=== PATIENT | male | born 1970 | race Caucasian/White ===

== ENCOUNTER 2016-12-19 01:30 | Observation (INO) | payer OTHER ==
[2016-12-19] MEDS ORDERED: ASPIRIN 81 MG CHEW PO STA (02:04)
[2016-12-19] MEDS ORDERED: SODIUM CHLORIDE 0.9% 1,000 ML IV STA (02:04)
[2016-12-19] MEDS ORDERED: NITROGLYCERIN SL TABS 0.4 MG TAB SUBLINGUAL STA ×3 (02:04)
--- NOTE | 2016-12-19 02:08 | ED ---
General Adult HPI - General Chief complaint: Chest Pain Stated complaint: Chest pain Time Seen by Provider: 12/19/16 01:55 Source: patient, RN notes reviewed Mode of arrival: wheelchair Limitations: no limitations - History of Present Illness Initial comments: Patient is a pleasant 56-year-old male presenting to the emergency department complaining of chest discomfort. Onset has been for couple of days. Discomfort is midsternal. Patient also has some mild upper abdominal discomfort. Patient feels somewhat short of breath. Patient felt sweaty earlier. No nausea or vomiting. No change with symptoms with food intake. No history of similar symptoms previously. - Related Data Home Medications Medication Instructions Recorded Confirmed ALPRAZolam [Xanax] 1 mg PO BID PRN 04/21/14 12/19/16 Albuterol Inhaler [Ventolin Hfa 2 puff INHALATION RT-Q6H PRN 04/21/14 12/19/16 Inhaler] Carisoprodol [Soma] 350 mg PO TID PRN 04/21/14 12/19/16 Lisinopril 40 mg PO HS 04/21/14 12/19/16 oxyCODONE HCL 30 mg PO QID 04/21/14 12/19/16 Cetirizine HCl 10 mg PO BID 10/11/15 12/19/16 Carboxymethylcellulose Sodium 1 drop BOTH EYES QID PRN 01/22/16 12/19/16 [Refresh Tears] Hydrochlorothiazide [Hydrodiuril] 25 mg PO DAILY 05/13/16 12/19/16 Pseudoephedrine 12Hr [Sudafed 12 120 mg PO Q12H PRN 05/13/16 12/19/16 Hour] Previous Rx's Medication Instructions Recorded Rivaroxaban [Xarelto] 15 mg PO BID-W/MEALS tab 07/01/16 Albuterol Inhaler [Ventolin Hfa 1 - 2 puff INHALATION Q6HR PRN #1 07/04/16 Inhaler] inhaler Azithromycin [Zithromax Z-pack] 0 mg PO DIRECTED #6 tab 07/04/16 Budesonide-Formot 160-4.5 Mcg 2 puff INHALATION RT-BID #4 bottle 07/04/16 [Symbicort 160-4.5 Mcg Inhaler] predniSONE [Deltasone] 20 mg PO DAILY #15 tablet 07/04/16 Allergies Allergy/AdvReac Type Severity Reaction Status Date / Time cyclobenzaprine HCl Allergy Itching Verified 12/19/16 01:40 [From Flexeril] ibuprofen [From Motrin] AdvReac Nausea Verified 12/19/16 01:40 Review of Systems ROS Statement: Those systems with pertinent positive or pertinent negative responses have been documented in the HPI. ROS Other: All systems not noted in ROS Statement are negative. Constitutional: Denies: fever Eyes: Denies: eye pain ENT: Denies: ear pain Respiratory: Reports: dyspnea. Denies: cough Cardiovascular: Reports: chest pain Endocrine: Denies: fatigue Gastrointestinal: Reports: abdominal pain. 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 EDENTULOUS. History of Any Multi-Drug Resistant Organisms: None Reported Past Surgical History: Orthopedic Surgery Additional Past Surgical History / Comment(s): Right knee replacement, tubes in bilateral ears now removed, removal of right eye-HAS ARTIFICIAL EYE. Past Anesthesia/Blood Transfusion Reactions: No Reported Reaction Past Psychological History: Anxiety, Schizophrenia Smoking Status: Current every day smoker Past Alcohol Use History: None Reported Additional Past Alcohol Use History / Comment(s): STARTED SMOKING 1989 SMOKES 1 PPD Past Drug Use History: None Reported - Past Family History Father History Unknown: Yes Family Medical History: Unable to Obtain Additional Family Medical History / Comment(s): Patient was adopted Mother Family Medical History: Unable to Obtain Additional Family Medical History / Comment(s): Patient was adopted General Exam Limitations: no limitations General appearance: alert, in no apparent distress, obese Head exam: Present: atraumatic Eye exam: Present: other (Right prosthetic eye) ENT exam: Present: normal oropharynx Neck exam: Present: normal inspection Respiratory exam: Present: normal lung sounds bilaterally Cardiovascular Exam: Present: regular rate, normal rhythm GI/Abdominal exam: Present: soft, tenderness (Mild tenderness right upper quadrant). Absent: distended Extremities exam: Present: normal inspection. Absent: calf tenderness Neurological exam: Present: alert. Absent: motor sensory deficit Psychiatric exam: Present: normal affect, normal mood Skin exam: Absent: rash Course Vital Signs 12/19/16 12/19/16 12/19/16 01:34 02:32 02:37 Temperature 99.2 F Pulse Rate 83 83 89 Respiratory 20 16 16 Rate Blood Pressure 180/90 143/70 127/62 O2 Sat by Pulse 97 96 95 Oximetry EKG Findings - EKG Comments: EKG Findings:: Normal sinus rhythm at 82. MD 144. QRS 96. QT 386. QTc 450. Left axis. Normal QRS. Nonspecific T-wave. Medical Decision Making - Medical Decision Making Patient reevaluated and resting comfortably in bed. Patient states discomfort is now more in the right upper abdomen. There is continued mild to moderate tenderness. Case was discussed with Dr. neri, who will admit for Dr. Bradford. Cardiac enzymes will be rechecked. Ultrasound will be ordered. - Lab Data Result diagrams: 12/19/16 02:15 12/19/16 02:15 Lab Results 12/19/16 12/19/16 12/19/16 Range/Units 02:15 02:15 02:15 WBC 11.0 H (3.8-10.6) k/uL RBC 5.22 (4.30-5.90) m/uL Hgb 15.7 (13.0-17.5) gm/dL Hct 47.2 (39.0-53.0) % MCV 90.4 (80.0-100.0) fL MCH 30.0 (25.0-35.0) pg MCHC 33.2 (31.0-37.0) g/dL RDW 13.5 (11.5-15.5) % Plt Count 190 (150-450) k/uL Neutrophils % 68 % Lymphocytes % 23 % Monocytes % 4 % Eosinophils % 3 % Basophils % 1 % Neutrophils # 7.4 (1.3-7.7) k/uL Lymphocytes # 2.5 (1.0-4.8) k/uL Monocytes # 0.5 (0-1.0) k/uL Eosinophils # 0.3 (0-0.7) k/uL Basophils # 0.1 (0-0.2) k/uL PT (9.0-12.0) sec INR (<1.1) APTT (22.0-30.0) sec Sodium 139 (137-145) mmol/L Potassium 4.0 (3.5-5.1) mmol/L Chloride 101 (98-107) mmol/L Carbon Dioxide 29 (22-30) mmol/L Anion Gap 9 mmol/L BUN 11 (9-20) mg/dL Creatinine 0.60 L (0.66-1.25) mg/dL Est GFR (MDRD) Af Amer >60 (>60 ml/min/1.73 sqM) Est GFR (MDRD) Non-Af >60 (>60 ml/min/1.73 sqM) Glucose 194 H (74-99) mg/dL Calcium 8.7 (8.4-10.2) mg/dL Magnesium 1.7 (1.6-2.3) mg/dL Total Bilirubin 0.6 (0.2-1.3) mg/dL AST 27 (17-59) U/L ALT 43 (21-72) U/L Alkaline Phosphatase 97 (38-126) U/L Total Creatine Kinase 50 L (55-170) U/L CK-MB (CK-2) 0.5 (0.0-2.4) ng/mL CK-MB (CK-2) Rel Index 1.0 Troponin I <0.012 (0.000-0.034) ng/mL Total Protein 6.6 (6.3-8.2) g/dL Albumin 3.6 (3.5-5.0) g/dL Amylase <30 L (30-110) U/L Lipase 187 (23-300) U/L 12/19/16 Range/Units 02:15 WBC (3.8-10.6) k/uL RBC (4.30-5.90) m/uL Hgb (13.0-17.5) gm/dL Hct (39.0-53.0) % MCV (80.0-100.0) fL MCH (25.0-35.0) pg MCHC (31.0-37.0) g/dL RDW (11.5-15.5) % Plt Count (150-450) k/uL Neutrophils % % Lymphocytes % % Monocytes % % Eosinophils % % Basophils % % Neutrophils # (1.3-7.7) k/uL Lymphocytes # (1.0-4.8) k/uL Monocytes # (0-1.0) k/uL Eosinophils # (0-0.7) k/uL Basophils # (0-0.2) k/uL PT 11.6 (9.0-12.0) sec INR 1.2 (<1.1) APTT 27.9 (22.0-30.0) sec Sodium (137-145) mmol/L Potassium (3.5-5.1) mmol/L Chloride (98-107) mmol/L Carbon Dioxide (22-30) mmol/L Anion Gap mmol/L BUN (9-20) mg/dL Creatinine (0.66-1.25) mg/dL Est GFR (MDRD) Af Amer (>60 ml/min/1.73 sqM) Est GFR (MDRD) Non-Af (>60 ml/min/1.73 sqM) Glucose (74-99) mg/dL Calcium (8.4-10.2) mg/dL Magnesium (1.6-2.3) mg/dL Total Bilirubin (0.2-1.3) mg/dL AST (17-59) U/L ALT (21-72) U/L Alkaline Phosphatase (38-126) U/L Total Creatine Kinase (55-170) U/L CK-MB (CK-2) (0.0-2.4) ng/mL CK-MB (CK-2) Rel Index Troponin I (0.000-0.034) ng/mL Total Protein (6.3-8.2) g/dL Albumin (3.5-5.0) g/dL Amylase (30-110) U/L Lipase (23-300) U/L - Radiology Data Radiology results: image reviewed (Chest x-ray shows no acute process) Disposition Clinical Impression: Chest pain, Abdominal pain Disposition: ADMITTED IP TO THIS HOSP
[2016-12-19 02:46] LABS: Basophils # (A) 0.1 k/uL (0-0.2); Basophils % (A) 1 %; CH 30.7; CHCM 34.1; Eosinophils # (A) 0.3 k/uL (0-0.7); Eosinophils % (A) 3 %; HCT 47.2 % (39.0-53.0); HDW 2.66; HGB 15.7 gm/dL (13.0-17.5); Luc # (Auto) 0.19; Luc % (Auto) 2; Lymphocytes # (A) 2.5 k/uL (1.0-4.8); Lymphocytes % (A) 23 %; MCHC 33.2 g/dL (31.0-37.0); MCV 90.4 fL (80.0-100.0); Mean Platelet Volume 7.5; Monocytes # (A) 0.5 k/uL (0-1.0); Monocytes % (A) 4 %; Neutrophils # (A) 7.4 k/uL (1.3-7.7); Neutrophils % (A) 68 %; RBC 5.22 m/uL (4.30-5.90); RDW 13.5 % (11.5-15.5); WBC (Perox) 11.12
[2016-12-19 02:55] LABS: INR 1.2 (<1.1); Partial Thromboplastin Time 27.9 sec (22.0-30.0); Prothrombin Time 11.6 sec (9.0-12.0)
[2016-12-19 02:57] LABS: ALT 43 U/L (21-72); AST 27 U/L (17-59); Alkaline Phosphatase 97 U/L (38-126); Amylase <30 U/L (30-110); Anion Gap 9 mmol/L; Blood Urea Nitrogen 11 mg/dL (9-20); Calcium 8.7 mg/dL (8.4-10.2); Carbon Dioxide 29 mmol/L (22-30); Chloride 101 mmol/L (98-107); Glucose 194 mg/dL (74-99); Magnesium 1.7 mg/dL (1.6-2.3); Non-African American GFR(MDRD) >60 (>60 ml/min/1.73 sqM); Sodium 139 mmol/L (137-145); Total Bilirubin 0.6 mg/dL (0.2-1.3); Total Protein 6.6 g/dL (6.3-8.2)
[2016-12-19 03:09] LABS: Creatine Kinase 50 U/L (55-170)
[2016-12-19 03:22] LABS: Creatine Kinase MB 0.5 ng/mL (0.0-2.4); Troponin I <0.012 ng/mL (0.000-0.034)
--- NOTE | 2016-12-19 03:42 | XR ---
EXAM: XR Chest, 1 View. CLINICAL HISTORY: Reason: Chest Pain TECHNIQUE: Frontal view of the chest. COMPARISON: Chest x-ray dated 06/25/2016 FINDINGS: Lungs: Unremarkable. No consolidation. Pleural space: Unremarkable. No pneumothorax. Heart: Unremarkable. No cardiomegaly. Mediastinum: Unremarkable. Bones/joints: Unremarkable. IMPRESSION: Normal chest x-ray.
[2016-12-19] MEDS ORDERED: FAMOTIDINE 20 MG/2 ML VIAL IV STA (04:03)
[2016-12-19] MEDS: MORPHINE SULFATE 4 MG/ML SYRINGE IV STA ×2 (04:07→06:31)
[2016-12-19] MEDS ORDERED: NITROGLYCERIN SL TABS 0.4 MG TAB SUBLINGUAL PRN (04:09)
--- NOTE | 2016-12-19 05:04 | XR ---
EXAM: XR Abdomen Complete, 2 or More Views. CLINICAL HISTORY: Pain TECHNIQUE: Frontal view of the abdomen/pelvis with upright view of the abdomen. COMPARISON: CT A/P dated 09/24/15 FINDINGS: Intraperitoneal space: Nonobstructive bowel gas pattern. No pneumatosis or free air. Gastrointestinal tract: Unremarkable. No dilation. Bones/joints: Unremarkable. IMPRESSION: No acute findings.
[2016-12-19] MEDS: NITROGLYCERIN OINT 1 INCH/GM PACKET TOPICAL SCH ×2 (08:31→12:00)
--- NOTE | 2016-12-19 08:43 | US ---
EXAMINATION TYPE: US gallbladder DATE OF EXAM: 12/19/2016 8:18 AM COMPARISON: See PACS CT abdomen pelvis September 24, 2015. CLINICAL HISTORY: Pain. EXAM MEASUREMENTS: Liver Length: 26.3 cm Gallbladder Wall: 0.3 cm CBD: 0.2 cm Right Kidney: 13.3 cm on long axis. TECHNOLOGIST IMPRESSION: Patient 6'2" 525lbs, exam technically difficult with severe limitations Pancreas: portions visualized wnl, tail obscured by overlying bowel gas Liver: Left lobe appears heterogeneous, unable to penetrate right, severe fatty infiltrate, hepatome ilene Gallbladder: not well visualized due to extreme morbid obesity, no stones or thickened wall could be seen Evidence for sonographic Meyer's sign: yes CBD: wnl Right Kidney: inferior pole obscured by overlying bowel gas Exam is suboptimal secondary to patient's underlying morbid obesity. Visualized pancreas shows no wor risome mass or ductal dilatation, entire pancreas is not evaluated on images saved. Visualized liver is heterogeneously hyperechoic in appearance without intrahepatic ductal dilatation. Finding is presu med on basis of diffuse fatty infiltration. Evaluation for focal masses is limited due to the heterog eneity. No shadowing mobile gallstones in visualized portion of gallbladder. No suspicious gallbladde r wall thickening or pericholecystic fluid is seen. IMPRESSION: Suboptimal study but no gallstones or ultrasound evidence for acute cholecystitis is note d.
[2016-12-19 09:05] LABS: Creatine Kinase 45 U/L (55-170)
[2016-12-19 09:18] LABS: Creatine Kinase MB 0.4 ng/mL (0.0-2.4); Troponin I <0.012 ng/mL (0.000-0.034)
[2016-12-19] MEDS ORDERED: LISINOPRIL 20 MG TAB PO SCH (10:00)
[2016-12-19] MEDS ORDERED: HYDROCHLOROTHIAZIDE 25 MG TAB PO SCH (10:00)
[2016-12-19] MEDS ORDERED: CARISOPRODOL 350 MG TAB PO PRN (10:25)
[2016-12-19] MEDS ORDERED: ALBUTEROL NEBULIZED 2.5 MG/3 ML INHALATION PRN (10:25)
[2016-12-19] MEDS ORDERED: ALPRAZolam 0.5 MG TAB PO PRN (10:25)
[2016-12-19] MEDS ORDERED: LORATADINE 10 MG TAB PO SCH (11:00)
[2016-12-19] MEDS ORDERED: RIVAROXABAN 10 MG TAB PO SCH (11:00)
--- NOTE | 2016-12-19 11:03 | CONS ---
DATE OF CONSULTATION: This patient's emergency medical record reviewed. Patient came to the emergency room with the complaint of epigastric and chest discomfort. The pain is in the left upper part of the chest. It is sharp, stabbing pain, which comes and goes. Patient also has been having some abdominal discomfort. Patient denies any nausea or vomiting. This patient is ( ) obese, has some exertional shortness of breath, history of hypertension. There is no definite previous history of myocardial infarction. Patient's home medications include Ventolin inhaler, lisinopril, cetirizine, HydroDIURIL. Past medical history includes a history of orthopedic surgery, history of COPD, history of DVT, pulmonary embolism and atypical chest pain. Patient also has a history of sleep apnea and patient is using a CPAP machine. Physical examination at present reveals a 46-year-old ( ) obese gentleman who does not appear to be in any acute distress. Blood pressure is 125/74 mmHg. In the emergency room, patient's blood pressure was 190/94 mmHg, oxygen saturation is 94%. Head/ENT examination is negative. Neck is supple. There is no increase in jugular venous pressure. Both the carotid pulses are felt. There is no bruit. Chest is symmetrical. HEART: The PMI is not felt. First and second heart sounds are normal. There is no evidence of any murmur. Lungs are clinically clear to auscultation and percussion. ABDOMEN: Soft. EXTREMITIES: Peripheral pulsations are 1+. EKG shows normal sinus rhythm without any acute ischemic changes. Patient's electrolytes are normal. Two sets of troponins are normal. Amylase and lipase is normal. Ultrasound of the gallbladder was normal. FINAL IMPRESSION: This patient is admitted with atypical abdominal and chest pain. Chest pains are atypical. EKGs and cardiac enzymes are normal. We will obtain echo and Doppler study. If the echo and Doppler study is normal, we will recommend symptomatic medical therapy. Patient is not a candidate for any further cardiac intervention.
[2016-12-19 15:42] LABS: Creatine Kinase 53 U/L (55-170)
[2016-12-19 15:56] LABS: Creatine Kinase MB 0.5 ng/mL (0.0-2.4); Troponin I <0.012 ng/mL (0.000-0.034)
[2016-12-19 16:04] VITALS: BP 136/64; PULSE 80; RESP 18; TEMP 98.5
[2016-12-19] MEDS ORDERED: IPRATROPIUM-ALBUTEROL 3 ML NEB INHALATION SCH (16:15)
[2016-12-19] MEDS ORDERED: NYSTATIN 100,000 UNIT/GM POWD 15 GM TOPICAL SCH (16:30)
[2016-12-19] MEDS ORDERED: CEPHALEXIN 500 MG CAP PO SCH (18:00)
--- NOTE | 2016-12-19 20:05 | HP ---
DATE OF ADMISSION: 12/19/2016 PRESENTING COMPLAINT: Chest pain. HISTORY OF PRESENTING COMPLAINT: This is a 46-year-old patient of Dr. Marian Bradford whose chronic stable medical conditions include obesity, hypertension, GERD, artificial right eye. Patient has ejection fraction of 40% to 45%, history of pulmonary embolism for which patient takes Xarelto. Patient's pulmonary embolism was on 06/28/2016. Patient presents with left-sided chest pain, stabbing, sharp, pain down the left arm for about 10 to 15 seconds. Patient does smoke or does ( ) sometimes. There is no perspiration and his pain was rather short-lived. REVIEW OF SYSTEMS: CONSTITUTIONAL: None. HEENT: Artificial right eye. RESPIRATORY: Occasional wheezing and short of breath. CARDIOVASCULAR: As above. GASTROINTESTINAL: Heartburn. GENITOURINARY: Patient has a small tender swelling in the right groin and had some discharge, he says. LYMPHATIC: No lymph nodes palpable in neck or axillae. PSYCHIATRY: Alert and oriented x3. Mood and affect normal. NEUROLOGICAL: Pupils equal. Cranial nerves grossly intact. Power and sensation grossly intact. INVESTIGATIONS: White count 11, hemoglobin 15.7, platelets 190. Potassium 4.0, BUN 11, creatinine 0.60. Amylase less than 30, lipase 187. On examination, temperature 99.2, pulse 83, respirations 20, blood pressure 143/70, pulse ox 96% on room air. GENERAL APPEARANCE: Morbidly obese, BMI of 67.5; lying in bed, comfortable. EYES: Artificial right eye. HENT: External appearance of oral cavity normal. NECK: JVD not raised. Mass not palpable. RESPIRATORY: Effort increased. LUNGS: Distant breath sounds. Mild wheezing. CARDIOVASCULAR: First and second sounds normal. No edema. ABDOMEN: Distended, soft. Liver and spleen not palpable. Groin is moist. He does have redness and there may be folliculitis on the right side next to the scrotal base. LYMPHATIC: No lymph nodes palpable or axillae. PSYCHIATRY: Alert and oriented x3. Mood and affect normal. NEUROLOGICAL: Pupils nerves equal. Cranial nerves grossly intact. Power and sensation grossly intact. ASSESSMENT: 1. Chronic obstructive pulmonary disease in a current smoker. 2. Chronic nicotine dependence. Patient is a smoker. 3. Morbid obesity, body mass index of 67.5. 4. Essential hypertension. 5. Artificial right eye. 6. Cardiomyopathy; ejection fraction 40% to 45%, cause unknown. 7. Secondary pulmonary hypertension. 8. Chronic pulmonary embolism on 06/28/2016. Patient on Xarelto. 9. Possible anterior chest wall musculoskeletal pain lasting only 15 seconds. PLAN: Patient will be put on nebulized bronchodilators, advised against smoking, given a nicotine patch. Home medications are resumed. Cardiology was consulted. Care was discussed with the patient.
[2016-12-20] MEDS ORDERED: ASPIRIN 325 MG TAB PO SCH (09:00)
--- NOTE | 2016-12-21 13:50 | DS ---
DATE OF ADMISSION: 12/19/2016 DATE OF DISCHARGE: 12/19/2016 FINAL DIAGNOSES: 1. Anterior chest wall pain, likely musculoskeletal in nature. 2. Chronic obstructive pulmonary disease in a current smoker. 3. Chronic nicotine dependence. Patient is a smoker. 4. Morbid obesity. Body mass index 67.5. 5. Essential hypertension. 6. Artificial right eye. 7. Cardiomyopathy; ejection fraction 40% to 45% cause unknown, idiopathic. 8. Secondary pulmonary hypertension due to underlying chronic obstructive pulmonary disease. 9. Chronic pulmonary embolism on 06/28/2016. Patient currently on Xarelto. 10. Right groin candidiasis. 11. Acute right groin folliculitis. HOSPITAL COURSE: This patient presented with right anterior chest wall pain, seen by Dr. Zhao Marie. Two-D echo was unremarkable. Formal results are still pending. Patient was told to keep his groin dry, use nystatin powder. There was an element of folliculitis for which a course of antibiotics ( ) care was discussed in detail with the patient. On examination, LUNGS: Distant breath sounds. Artificial right eye. Redness in the right groin area, more a fungal type and localized folliculitis. DISCHARGE MEDICATIONS: 1. Xanax 100 mg p.o. b.i.d. p.r.n. 2. Ventolin HFA 2 puffs every 6 hours p.r.n. 3. Soma 350 mg p.o. t.i.d. p.r.n. 4. Lisinopril 40 mg p.o. b.i.d. 5. Oxycodone 30 mg p.o. q.i.d. 6. Cetirizine 10 mg p.o. b.i.d. 7. Hydrochlorothiazide 25 mg p.o. b.i.d. 8. Keflex 500 mg p.o. q.i.d, 28 capsules. 9. Atrovent HFA 2 puffs q.i.d. 10. Mycostatin powder topical t.i.d. 11. Xarelto 10 mg p.o. b.i.d. Follow up with Dr. Marian Bradford on 12/20/2016.
== END 2016-12-19 17:20 | disposition home or self-care (01) ==
LOC: EC 01:30 → 3OBS 04:09
PROVIDERS: ADMIT Hospitalist; ATTEND Hospitalist
DX: R07.89 Other chest pain (principal); R10.13 Epigastric pain; J44.9 Chronic obstructive pulmonary disease, unspecified; F17.200 Nicotine dependence, unspecified, uncomplicated; E66.01 Morbid (severe) obesity due to excess calories; Z68.44 Body mass index [BMI] 60.0-69.9, adult; I10 Essential (primary) hypertension; Z97.0 Presence of artificial eye; I42.9 Cardiomyopathy, unspecified; I27.2 Other secondary pulmonary hypertension; I27.82 Chronic pulmonary embolism; B37.9 Candidiasis, unspecified; F41.9 Anxiety disorder, unspecified; L73.9 Follicular disorder, unspecified; H40.9 Unspecified glaucoma; Z79.82 Long term (current) use of aspirin; Z79.891 Long term (current) use of opiate analgesic; Z79.01 Long term (current) use of anticoagulants; Z88.6 Allergy status to analgesic agent; Z88.8 Allergy status to other drugs, medicaments and biological substances; Z79.899 Other long term (current) drug therapy; G47.30 Sleep apnea, unspecified; Z99.89 Dependence on other enabling machines and devices; Z86.718 Personal history of other venous thrombosis and embolism; Z90.01 Acquired absence of eye
CPT/HCPCS: 36415; 93005; 80053; 82150; 82550; 82553; 83690; 83735; 84484; 85025; 85610; 85730; 71010; 74000; 76705; 99285; 96374; 96375; 96376; 96361 ×7; G0378; J2270

== ENCOUNTER 2017-01-22 17:26 | Emergency (ER) | payer OTHER ==
[2017-01-22 18:42] VITALS: RESP 18
[2017-01-22] MEDS ORDERED: IPRATROPIUM-ALBUTEROL 3 ML NEB INHALATION STA (19:30)
[2017-01-22 20:09] LABS: Basophils # (A) 0.1 k/uL (0-0.2); Basophils % (A) 1 %; CH 31.1; Eosinophils # (A) 0.3 k/uL (0-0.7); Eosinophils % (A) 3 %; HCT 47.5 % (39.0-53.0); HDW 2.63; HGB 15.9 gm/dL (13.0-17.5); Luc # (Auto) 0.13; Luc % (Auto) 1; Lymphocytes # (A) 2.3 k/uL (1.0-4.8); Lymphocytes % (A) 23 %; MCH 30.6 pg (25.0-35.0); MCHC 33.3 g/dL (31.0-37.0); MCV 91.6 fL (80.0-100.0); Mean Platelet Volume 7.5; Monocytes # (A) 0.5 k/uL (0-1.0); Monocytes % (A) 5 %; Neutrophils # (A) 6.7 k/uL (1.3-7.7); Neutrophils % (A) 67 %; RBC 5.19 m/uL (4.30-5.90); RDW 13.9 % (11.5-15.5); WBC 10.1 k/uL (3.8-10.6); WBC (Perox) 9.88
[2017-01-22 20:18] LABS: ALT 37 U/L (21-72); AST 27 U/L (17-59); Alkaline Phosphatase 92 U/L (38-126); Anion Gap 8 mmol/L; Blood Urea Nitrogen 8 mg/dL (9-20); Calcium 8.9 mg/dL (8.4-10.2); Carbon Dioxide 28 mmol/L (22-30); Chloride 103 mmol/L (98-107); Glucose 156 mg/dL (74-99); Magnesium 1.8 mg/dL (1.6-2.3); Non-African American GFR(MDRD) >60 (>60 ml/min/1.73 sqM); Potassium 4.1 mmol/L (3.5-5.1); Sodium 139 mmol/L (137-145); Total Bilirubin 0.9 mg/dL (0.2-1.3); Total Protein 7.1 g/dL (6.3-8.2)
[2017-01-22 20:21] LABS: Prothrombin Time 10.4 sec (9.0-12.0)
--- NOTE | 2017-01-22 20:21 | ED ---
General Adult HPI - General Chief complaint: Upper Respiratory Infection Stated complaint: POSS BRONCHITIS, LUNG PAIN, LEFT ARM NUMBNESS Time Seen by Provider: 01/22/17 19:21 Source: patient, RN notes reviewed, old records reviewed Mode of arrival: wheelchair Limitations: no limitations - History of Present Illness Initial comments: Patient is a 46-year-old male with chief complaint of cough and shortness of breath for the past 3 days. Patient states that this usually happens to him twice a year. Patient reports he has a history of a blood pressure and diabetes. Patient is obese. Patient states that he does have some chest pain and it goes down towards the left side of his arm, patient reports that this occurs whenever he is coughing severely. Patient has a past medical history of PE , heart disease, diabetes. Patient denies any fever or chills. He states that his cough is nonproductive. Patient denies any abdominal pain, nausea or vomiting. Patient is a smoker. - Related Data Home Medications Medication Instructions Recorded Confirmed ALPRAZolam [Xanax] 1 mg PO BID PRN 04/21/14 01/22/17 Albuterol Inhaler [Ventolin Hfa 2 puff INHALATION RT-Q6H PRN 04/21/14 01/22/17 Inhaler] Lisinopril 40 mg PO BID 04/21/14 01/22/17 oxyCODONE HCL 30 mg PO QID 04/21/14 01/22/17 Cetirizine HCl 10 mg PO DAILY 10/11/15 01/22/17 Hydrochlorothiazide [Hydrodiuril] 25 mg PO BID 05/13/16 01/22/17 Rivaroxaban [Xarelto] 10 mg PO BID 12/19/16 01/22/17 Ipratropium [place] [Atrovent Hfa] 2 puff INHALATION RT-QID 01/22/17 01/22/17 Previous Rx's Medication Instructions Recorded Levofloxacin [Levaquin] 750 mg PO DAILY #7 tab 01/22/17 Promethazine/Dextromethorphan 5 ml PO TID #120 ml 01/22/17 [Phenergan DM Syrup] predniSONE 50 mg PO DAILY #7 tab 01/22/17 Allergies Allergy/AdvReac Type Severity Reaction Status Date / Time cyclobenzaprine HCl AdvReac Itching/norma Verified 01/22/17 19:24 [From Flexeril] sea ibuprofen [From Motrin] AdvReac Nausea/itch Verified 01/22/17 19:24 ing Review of Systems ROS Statement: Those systems with pertinent positive or pertinent negative responses have been documented in the HPI. ROS Other: All systems not noted in ROS Statement are negative. 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 EDENTULOUS, past cellulitis R leg, DVT R leg, pulmonary embolus R lung, DIANE without device. History of Any Multi-Drug Resistant Organisms: None Reported Past Surgical History: Joint Replacement, Orthopedic Surgery Additional Past Surgical History / Comment(s): Right knee replacement, tubes in bilateral ears now removed, right eye enucliation-HAS ARTIFICIAL EYE, EGD. Past Anesthesia/Blood Transfusion Reactions: No Reported Reaction Past Psychological History: Anxiety, Schizoaffective Disorder, Schizophrenia Additional Psychological History / Comment(s): Pt states he has xanax for anxiety but is not on medication for schizophrenia. Pt resides with significant other. He is independent. Smoking Status: Current every day smoker Past Alcohol Use History: None Reported Additional Past Alcohol Use History / Comment(s): STARTED SMOKING [id number]- SMOKES 1 PPD Past Drug Use History: None Reported - Past Family History Father History Unknown: Yes Family Medical History: Unable to Obtain Additional Family Medical History / Comment(s): Patient was adopted Mother Family Medical History: Unable to Obtain Additional Family Medical History / Comment(s): Patient was adopted General Exam - General Exam Comments Initial Comments: Pleasant 46-year-old male. No distress. Patient is a morbidly obese 46-year- old male. Limitations: no limitations General appearance: alert, in no apparent distress Head exam: Present: atraumatic, normocephalic, normal inspection Eye exam: Present: normal appearance, PERRL, EOMI. Absent: scleral icterus, conjunctival injection, periorbital swelling ENT exam: Present: normal exam, mucous membranes moist Neck exam: Present: normal inspection. Absent: tenderness, meningismus, lymphadenopathy Respiratory exam: Present: normal lung sounds bilaterally, wheezes (Bilateral upper lobe wheezing. Unable to auscultate lower lobe lung lobes due to body habitus.). Absent: respiratory distress, rales, rhonchi, stridor Cardiovascular Exam: Present: regular rate, normal rhythm, normal heart sounds. Absent: systolic murmur, diastolic murmur, rubs, gallop, clicks GI/Abdominal exam: Present: soft, normal bowel sounds. Absent: distended, tenderness, guarding, rebound, rigid Extremities exam: Present: normal inspection, full ROM, normal capillary refill , pedal edema (Significant bilateral pedal edema.), other. Absent: tenderness, joint swelling, calf tenderness Back exam: Present: normal inspection Neurological exam: Present: alert, oriented X3, CN II-XII intact Psychiatric exam: Present: normal affect, normal mood Skin exam: Present: warm, dry, intact, normal color. Absent: rash Course Vital Signs 01/22/17 01/22/17 01/22/17 18:39 19:56 20:03 Temperature 98.8 F Pulse Rate 96 81 81 Respiratory 18 Rate Blood Pressure 136/91 O2 Sat by Pulse 95 Oximetry 01/22/17 23:10 Temperature 98 F Pulse Rate 85 Respiratory 18 Rate Blood Pressure 141/80 O2 Sat by Pulse 96 Oximetry Medical Decision Making - Medical Decision Making Patient is a 46-year-old male chief complaint of cough and shortness breath for 3 days. Patient also complains of pleuritic chest pain or his coughing. Patient was given IV fluids and labs are obtained. Cardiac enzymes are all normal. EKG was reviewed to be normal. Given the fact the patient had these symptoms for the past 3 days and unlikely to have ANY CARDIAC-RELATED CHEST PAIN. Patient did have a slightly elevated d-dimer. Given his history of PEs from the surgery can please see T anterior chest. Patient is currently en route [place] for his PEs. Patient CT chest was reviewed. Patient's PEs have resolved there are just a few small emboli in the periphery. No concern for significant PE. Patient's chest x-ray was reviewed as negative for any significant acute process. Patient discontinued have wheezing and coughing. Patient states that he gets home. Patient be discharged with Levaquin and steroids for COPD exacerbation. Discussed following up with primary care provider in the next 1-2 days. Patient is to treat plan will comply. Return parameters were discussed. - Lab Data Result diagrams: 01/22/17 19:50 01/22/17 19:50 Lab Results 01/22/17 01/22/17 01/22/17 Range/Units 19:50 19:50 19:50 WBC 10.1 (3.8-10.6) k/uL RBC 5.19 (4.30-5.90) m/uL Hgb 15.9 (13.0-17.5) gm/dL Hct 47.5 (39.0-53.0) % MCV 91.6 (80.0-100.0) fL MCH 30.6 (25.0-35.0) pg MCHC 33.3 (31.0-37.0) g/dL RDW 13.9 (11.5-15.5) % Plt Count 167 (150-450) k/uL Neutrophils % 67 % Lymphocytes % 23 % Monocytes % 5 % Eosinophils % 3 % Basophils % 1 % Neutrophils # 6.7 (1.3-7.7) k/uL Lymphocytes # 2.3 (1.0-4.8) k/uL Monocytes # 0.5 (0-1.0) k/uL Eosinophils # 0.3 (0-0.7) k/uL Basophils # 0.1 (0-0.2) k/uL PT (9.0-12.0) sec INR (<1.1) APTT (22.0-30.0) sec D-Dimer (<0.60) mg/L FEU Sodium 139 (137-145) mmol/L Potassium 4.1 (3.5-5.1) mmol/L Chloride 103 (98-107) mmol/L Carbon Dioxide 28 (22-30) mmol/L Anion Gap 8 mmol/L BUN 8 L (9-20) mg/dL Creatinine 0.59 L (0.66-1.25) mg/dL Est GFR (MDRD) Af Amer >60 (>60 ml/min/1.73 sqM) Est GFR (MDRD) Non-Af >60 (>60 ml/min/1.73 sqM) Glucose 156 H (74-99) mg/dL Calcium 8.9 (8.4-10.2) mg/dL Magnesium 1.8 (1.6-2.3) mg/dL Total Bilirubin 0.9 (0.2-1.3) mg/dL AST 27 (17-59) U/L ALT 37 (21-72) U/L Alkaline Phosphatase 92 (38-126) U/L Total Creatine Kinase 89 (55-170) U/L CK-MB (CK-2) 1.3 (0.0-2.4) ng/mL CK-MB (CK-2) Rel Index 1.5 Troponin I <0.012 (0.000-0.034) ng/mL Total Protein 7.1 (6.3-8.2) g/dL Albumin 3.7 (3.5-5.0) g/dL 01/22/17 Range/Units 19:50 WBC (3.8-10.6) k/uL RBC (4.30-5.90) m/uL Hgb (13.0-17.5) gm/dL Hct (39.0-53.0) % MCV (80.0-100.0) fL MCH (25.0-35.0) pg MCHC (31.0-37.0) g/dL RDW (11.5-15.5) % Plt Count (150-450) k/uL Neutrophils % % Lymphocytes % % Monocytes % % Eosinophils % % Basophils % % Neutrophils # (1.3-7.7) k/uL Lymphocytes # (1.0-4.8) k/uL Monocytes # (0-1.0) k/uL Eosinophils # (0-0.7) k/uL Basophils # (0-0.2) k/uL PT 10.4 (9.0-12.0) sec INR 1.0 (<1.1) APTT 25.0 (22.0-30.0) sec D-Dimer 0.70 H (<0.60) mg/L FEU Sodium (137-145) mmol/L Potassium (3.5-5.1) mmol/L Chloride (98-107) mmol/L Carbon Dioxide (22-30) mmol/L Anion Gap mmol/L BUN (9-20) mg/dL Creatinine (0.66-1.25) mg/dL Est GFR (MDRD) Af Amer (>60 ml/min/1.73 sqM) Est GFR (MDRD) Non-Af (>60 ml/min/1.73 sqM) Glucose (74-99) mg/dL Calcium (8.4-10.2) mg/dL Magnesium (1.6-2.3) mg/dL Total Bilirubin (0.2-1.3) mg/dL AST (17-59) U/L ALT (21-72) U/L Alkaline Phosphatase (38-126) U/L Total Creatine Kinase (55-170) U/L CK-MB (CK-2) (0.0-2.4) ng/mL CK-MB (CK-2) Rel Index Troponin I (0.000-0.034) ng/mL Total Protein (6.3-8.2) g/dL Albumin (3.5-5.0) g/dL 01/22/17 20:28 EKG shows normal sinus rhythm. Left axis deviation. Ventricular rate 82 bpm. [place] interval 152 ms. QRS duration 108 ms. QT/QTc is 380/443 ms. No evidence of ST elevation or T-wave inversion. - Radiology Data Radiology results: report reviewed Chest x-ray shows normal chest. No change. Disposition Clinical Impression: Bronchitis Disposition: HOME SELF-CARE Condition: Good Instructions: Acute Bronchitis (ED) Additional Instructions: Patient advised to complete antibiotic and steroid prescription. Follow-up with primary care provider. Return to the emergency department if any alarming signs or symptoms occur. Prescriptions: Levofloxacin [Levaquin] 750 mg PO DAILY #7 tab Promethazine/Dextromethorphan [Phenergan DM Syrup] 5 ml PO TID #120 ml predniSONE 50 mg PO DAILY #7 tab Referrals: Marian Bradford MD [Primary Care Provider] - 1-2 days Time of Disposition: 22:51
[2017-01-22 20:27] LABS: Creatine Kinase 89 U/L (55-170)
--- NOTE | 2017-01-22 20:36 | XR ---
EXAMINATION TYPE: XR chest 2V DATE OF EXAM: 01/22/2017 8:31 PM COMPARISON: 12/19/2016 HISTORY: Cough TECHNIQUE: Frontal and lateral views of the chest are obtained. FINDINGS: Heart and mediastinum are normal. Lungs are clear. Diaphragm is normal. Bony thorax is int act. IMPRESSION: Normal chest. No change.
[2017-01-22 20:40] LABS: Troponin I <0.012 ng/mL (0.000-0.034)
[2017-01-22 20:44] LABS: Creatine Kinase MB 1.3 ng/mL (0.0-2.4)
[2017-01-22] MEDS ORDERED: RX INFO: IV CONTRAST WAS GIVEN 1 EACH MISC MISCELLANE PRN (21:03)
--- NOTE | 2017-01-22 22:24 | CT ---
EXAMINATION TYPE: CT chest angio for PE DATE OF EXAM: 01/22/2017 10:09 PM COMPARISON: 06/28/2016 HISTORY: Chest congestion and history of PE. CT DLP: 979.10 mGycm Automated exposure control for dose reduction was used. CONTRAST: CT Chest for pulmonary embolism performed with with IV Contrast, patient injected with 100 mL of Omni paque 350. There are 3-D post processed images. FINDINGS: The heart is enlarged. There is no pericardial effusion. There is no pleural effusion. Lungs are breanna r of consolidation. There is no sign of a pulmonary mass. There is no mediastinal adenopathy. There is suboptimal contrast density in the pulmonary arteries. T here is suggestion of small filling defects in the left lower lobe pulmonary artery. There is some op timal contrast.. There are no hilar masses. There is no mediastinal adenopathy. Thoracic aorta is int act. IMPRESSION: There is evidence for small emboli in the left lower lobe pulmonary artery similar to the old CT scan of 06/28/2016. No evidence of any new embolism. Cardiomegaly.
[2017-01-22] MEDS ORDERED: methylPREDNISolone SOD SUCCI 125 MG/2 ML VIAL IV STA (22:47)
[2017-01-22] MEDS ORDERED: LORazepam 1 MG TAB PO STA (22:50)
[2017-01-22] MEDS ORDERED: LEVOFLOXACIN 750 MG TAB PO STA (22:50)
[2017-01-22 23:22] VITALS: BP 141/80; PULSE 85; TEMP 98
== END 2017-01-22 23:10 | disposition home or self-care (01) ==
LOC: EC 17:26
DX: J44.1 Chronic obstructive pulmonary disease with (acute) exacerbation (principal); J40 Bronchitis, not specified as acute or chronic; R79.1 Abnormal coagulation profile; I10 Essential (primary) hypertension; G89.29 Other chronic pain; E66.01 Morbid (severe) obesity due to excess calories; F17.200 Nicotine dependence, unspecified, uncomplicated; Z79.01 Long term (current) use of anticoagulants; Z79.891 Long term (current) use of opiate analgesic; Z88.6 Allergy status to analgesic agent; Z88.8 Allergy status to other drugs, medicaments and biological substances; Z86.711 Personal history of pulmonary embolism; Z86.718 Personal history of other venous thrombosis and embolism; Z86.79 Personal history of other diseases of the circulatory system; Z87.39 Personal history of other diseases of the musculoskeletal system and connective tissue; Z96.651 Presence of right artificial knee joint; Z68.44 Body mass index [BMI] 60.0-69.9, adult
CPT/HCPCS: 36415; 94640; 93005; 85379; 80053; 82550; 82553; 83735; 84484; 85025; 85610; 85730; 71020; 71275; 99284; 96374; J2930; Q9967

== ENCOUNTER 2017-06-21 19:48 | Observation (INO) | payer OTHER ==
[2017-06-21] MEDS ORDERED: methylPREDNISolone SOD SUCCI 125 MG/2 ML VIAL IV STA (19:53)
[2017-06-21] MEDS ORDERED: ALBUTEROL NEBULIZED 2.5 MG/3 ML INHALATION STA (19:53)
[2017-06-21] MEDS ORDERED: IPRATROPIUM 0.5 MG/2.5 ML NEBU INHALATION STA (19:53)
[2017-06-21] MEDS ORDERED: SODIUM CHLORIDE 0.9% 1,000 ML IV STA (19:53)
[2017-06-21 20:17] LABS: Basophils # (A) 0.1 k/uL (0-0.2); Basophils % (A) 1 %; CH 31.4; CHCM 34.7; Eosinophils # (A) 0.3 k/uL (0-0.7); Eosinophils % (A) 3 %; HCT 45.8 % (39.0-53.0); HDW 2.67; HGB 15.5 gm/dL (13.0-17.5); Luc % (Auto) 2; Lymphocytes % (A) 30 %; MCH 30.7 pg (25.0-35.0); MCHC 33.8 g/dL (31.0-37.0); MCV 90.8 fL (80.0-100.0); Monocytes # (A) 0.4 k/uL (0-1.0); Monocytes % (A) 4 %; Neutrophils # (A) 6.3 k/uL (1.3-7.7); Neutrophils % (A) 61 %; RBC 5.04 m/uL (4.30-5.90); RDW 14.5 % (11.5-15.5); WBC 10.3 k/uL (3.8-10.6); WBC (Perox) 10.36
[2017-06-21 20:26] LABS: ALT 41 U/L (21-72); AST 34 U/L (17-59); Alkaline Phosphatase 117 U/L (38-126); Anion Gap 8 mmol/L; Blood Urea Nitrogen 8 mg/dL (9-20); Calcium 8.7 mg/dL (8.4-10.2); Carbon Dioxide 26 mmol/L (22-30); Chloride 105 mmol/L (98-107); Glucose 259 mg/dL (74-99); Magnesium 1.6 mg/dL (1.6-2.3); Non-African American GFR(MDRD) >60 (>60 ml/min/1.73 sqM); Potassium 4.1 mmol/L (3.5-5.1); Sodium 139 mmol/L (137-145); Total Bilirubin 0.6 mg/dL (0.2-1.3); Total Protein 6.8 g/dL (6.3-8.2)
--- NOTE | 2017-06-21 20:26 | ED ---
General Adult HPI - General Chief complaint: Shortness of Breath Stated complaint: difficulty breathing; chest pain; left arm weaknes Time Seen by Provider: 06/21/17 19:52 Source: patient, RN notes reviewed, old records reviewed Mode of arrival: wheelchair Limitations: no limitations - History of Present Illness Initial comments: This is a 47-year-old male here for evaluation of a. Patient comes here for evaluation of shortness of breath. Patient is multifactorial breathing issues. Severe elevated blood pressure severely murmur to be seen COPD likely underlying heart failure, history of blood clot in PE. Patient is on throughout the he states he's been taking as directed. Denies fever. No travel history. - Related Data Home Medications Medication Instructions Recorded Confirmed ALPRAZolam [Xanax] 1 mg PO BID PRN 04/21/14 06/21/17 Albuterol Inhaler [Ventolin Hfa 2 puff INHALATION RT-Q6H PRN 04/21/14 06/21/17 Inhaler] Lisinopril 40 mg PO BID 04/21/14 06/21/17 oxyCODONE HCL 30 mg PO QID 04/21/14 06/21/17 Cetirizine HCl 10 mg PO DAILY PRN 10/11/15 06/21/17 Hydrochlorothiazide [Hydrodiuril] 25 mg PO DAILY 05/13/16 06/21/17 Ipratropium [place] [Atrovent Hfa] 2 puff INHALATION RT-QID PRN 01/22/17 Albuterol Nebulized [Ventolin 2.5 mg INHALATION RT-QID PRN 06/21/17 06/21/17 Nebulized] Budesonide-Formot 160-4.5 Mcg 2 puff INHALATION RT-BID PRN 06/21/17 06/21/17 [Symbicort 160-4.5 Mcg Inhaler] Fluticasone Nasal [place] [Flonase 2 spr EA NOSTRIL DAILY PRN 06/21/17 06/21/17 Nasal [place]] Methocarbamol [Robaxin-750] 750 mg PO Q6H PRN 06/21/17 06/21/17 Pseudoephedrine 12Hr [Sudafed 12Hr] 120 mg PO Q12H PRN 06/21/17 06/21/17 Rivaroxaban [Xarelto] 15 mg PO BID 06/21/17 06/21/17 Allergies Allergy/AdvReac Type Severity Reaction Status Date / Time cyclobenzaprine HCl Allergy Itching Verified 06/21/17 20:07 [From Flexeril] ibuprofen [From Motrin] AdvReac Nausea Verified 06/21/17 20:07 Review of Systems ROS Statement: Those systems with pertinent positive or pertinent negative responses have been documented in the HPI. ROS Other: All systems not noted in ROS Statement are negative. 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 EDENTULOUS, past cellulitis R leg, DVT R leg, pulmonary embolus R lung, DIANE without device. History of Any Multi-Drug Resistant Organisms: None Reported Past Surgical History: Joint Replacement, Orthopedic Surgery Additional Past Surgical History / Comment(s): Right knee replacement, tubes in bilateral ears now removed, right eye enucliation-HAS ARTIFICIAL EYE, EGD. Past Anesthesia/Blood Transfusion Reactions: No Reported Reaction Past Psychological History: Anxiety, Schizoaffective Disorder, Schizophrenia Smoking Status: Current every day smoker Past Alcohol Use History: None Reported Past Drug Use History: None Reported - Past Family History Father History Unknown: Yes Family Medical History: Unable to Obtain Additional Family Medical History / Comment(s): Patient was adopted Mother Family Medical History: Unable to Obtain Additional Family Medical History / Comment(s): Patient was adopted General Exam Limitations: no limitations General appearance: alert, in no apparent distress, in distress, obese Head exam: Present: atraumatic, normocephalic, normal inspection Eye exam: Present: normal appearance, PERRL, EOMI. Absent: scleral icterus, conjunctival injection, periorbital swelling ENT exam: Present: normal exam, mucous membranes moist Neck exam: Present: normal inspection. Absent: tenderness, meningismus, lymphadenopathy Respiratory exam: Present: normal lung sounds bilaterally. Absent: respiratory distress, wheezes, rales, rhonchi, stridor Cardiovascular Exam: Present: regular rate, normal rhythm, normal heart sounds. Absent: systolic murmur, diastolic murmur, rubs, gallop, clicks GI/Abdominal exam: Present: soft, normal bowel sounds. Absent: distended, tenderness, guarding, rebound, rigid Extremities exam: Present: normal inspection, full ROM, normal capillary refill. Absent: tenderness, pedal edema, joint swelling, calf tenderness Back exam: Present: normal inspection Neurological exam: Present: alert, oriented X3, CN II-XII intact Psychiatric exam: Present: normal affect, normal mood Skin exam: Present: warm, dry, intact, normal color. Absent: rash Course Vital Signs 06/21/17 06/21/17 06/21/17 19:57 20:09 20:17 Temperature 99.1 F Pulse Rate 87 87 89 Respiratory 20 18 Rate Blood Pressure 215/108 180/85 O2 Sat by Pulse 96 98 Oximetry 06/21/17 06/21/17 20:23 21:09 Temperature Pulse Rate 92 78 Respiratory 18 Rate Blood Pressure 176/80 O2 Sat by Pulse 100 Oximetry - Reevaluation(s) Reevaluation #1: 06/21/17 20:25 Patient is showing significant improvement after breathing treatment, also has blood pressure improvement EKG Findings - EKG Comments: EKG Findings:: EKG shows normal sinus rhythm rate of 87, CA 132, QRS 152, QTc 522 Medical Decision Making - Medical Decision Making 47 mallei for evaluation of chest pain, shortness of breath cough congestion COPD with chest pain observation. Patient will be admitted with continued chest pain at this time, continue pressure. Patient denies recent fevers - Lab Data Result diagrams: 06/21/17 20:00 06/21/17 20:00 Lab Results 06/21/17 06/21/17 06/21/17 Range/Units 20:00 20:00 20:00 WBC 10.3 (3.8-10.6) k/uL RBC 5.04 (4.30-5.90) m/uL Hgb 15.5 (13.0-17.5) gm/dL Hct 45.8 (39.0-53.0) % MCV 90.8 (80.0-100.0) fL MCH 30.7 (25.0-35.0) pg MCHC 33.8 (31.0-37.0) g/dL RDW 14.5 (11.5-15.5) % Plt Count 201 (150-450) k/uL Neutrophils % 61 % Lymphocytes % 30 % Monocytes % 4 % Eosinophils % 3 % Basophils % 1 % Neutrophils # 6.3 (1.3-7.7) k/uL Lymphocytes # 3.0 (1.0-4.8) k/uL Monocytes # 0.4 (0-1.0) k/uL Eosinophils # 0.3 (0-0.7) k/uL Basophils # 0.1 (0-0.2) k/uL PT (9.0-12.0) sec INR (<1.2) APTT (22.0-30.0) sec Sodium 139 (137-145) mmol/L Potassium 4.1 (3.5-5.1) mmol/L Chloride 105 (98-107) mmol/L Carbon Dioxide 26 (22-30) mmol/L Anion Gap 8 mmol/L BUN 8 L (9-20) mg/dL Creatinine 0.60 L (0.66-1.25) mg/dL Est GFR (MDRD) Af Amer >60 (>60 ml/min/1.73 sqM) Est GFR (MDRD) Non-Af >60 (>60 ml/min/1.73 sqM) Glucose 259 H (74-99) mg/dL Calcium 8.7 (8.4-10.2) mg/dL Magnesium 1.6 (1.6-2.3) mg/dL Total Bilirubin 0.6 (0.2-1.3) mg/dL AST 34 (17-59) U/L ALT 41 (21-72) U/L Alkaline Phosphatase 117 (38-126) U/L Total Creatine Kinase 85 (55-170) U/L CK-MB (CK-2) 0.7 (0.0-2.4) ng/mL CK-MB (CK-2) Rel Index 0.8 Troponin I <0.012 (0.000-0.034) ng/mL NT-Pro-B Natriuret Pep pg/mL Total Protein 6.8 (6.3-8.2) g/dL Albumin 3.5 (3.5-5.0) g/dL 06/21/17 06/21/17 Range/Units 20:00 20:00 WBC (3.8-10.6) k/uL RBC (4.30-5.90) m/uL Hgb (13.0-17.5) gm/dL Hct (39.0-53.0) % MCV (80.0-100.0) fL MCH (25.0-35.0) pg MCHC (31.0-37.0) g/dL RDW (11.5-15.5) % Plt Count (150-450) k/uL Neutrophils % % Lymphocytes % % Monocytes % % Eosinophils % % Basophils % % Neutrophils # (1.3-7.7) k/uL Lymphocytes # (1.0-4.8) k/uL Monocytes # (0-1.0) k/uL Eosinophils # (0-0.7) k/uL Basophils # (0-0.2) k/uL PT 10.4 (9.0-12.0) sec INR 1.0 (<1.2) APTT 21.7 L (22.0-30.0) sec Sodium (137-145) mmol/L Potassium (3.5-5.1) mmol/L Chloride (98-107) mmol/L Carbon Dioxide (22-30) mmol/L Anion Gap mmol/L BUN (9-20) mg/dL Creatinine (0.66-1.25) mg/dL Est GFR (MDRD) Af Amer (>60 ml/min/1.73 sqM) Est GFR (MDRD) Non-Af (>60 ml/min/1.73 sqM) Glucose (74-99) mg/dL Calcium (8.4-10.2) mg/dL Magnesium (1.6-2.3) mg/dL Total Bilirubin (0.2-1.3) mg/dL AST (17-59) U/L ALT (21-72) U/L Alkaline Phosphatase (38-126) U/L Total Creatine Kinase (55-170) U/L CK-MB (CK-2) (0.0-2.4) ng/mL CK-MB (CK-2) Rel Index Troponin I (0.000-0.034) ng/mL NT-Pro-B Natriuret Pep 186 pg/mL Total Protein (6.3-8.2) g/dL Albumin (3.5-5.0) g/dL - Radiology Data Radiology results: report reviewed (Chest x-ray is negative for acute disease), image reviewed Disposition Clinical Impression: Acute bronchitis, Chest pain, HTN (hypertension), Morbid obesity Disposition: ADMITTED IP TO THIS [facility] Condition: Fair Referrals: Marian Bradford MD [Primary Care Provider] - 1-2 days
[2017-06-21 20:32] LABS: Prothrombin Time 10.4 sec (9.0-12.0)
[2017-06-21 20:38] LABS: Creatine Kinase 85 U/L (55-170)
[2017-06-21 20:41] LABS: Partial Thromboplastin Time 21.7 sec (22.0-30.0)
[2017-06-21 20:51] LABS: Creatine Kinase MB 0.7 ng/mL (0.0-2.4); Troponin I <0.012 ng/mL (0.000-0.034)
--- NOTE | 2017-06-21 20:51 | XR ---
EXAMINATION TYPE: XR chest 2V DATE OF EXAM: 06/21/2017 COMPARISON: 01/22/2017 HISTORY: Difficulty breathing TECHNIQUE: Frontal and lateral views of the chest are obtained. FINDINGS: Lateral images suboptimal although there appears to be central peribronchial thickening, m ild in degree. This is new from the prior examination. Costophrenic angles are obscured by copious ov erlying soft tissues and technique. Cardiac silhouette is prominent. No pneumothorax or discrete pleu ral effusion is identified. Mild degenerative changes of the thoracic spine are seen. IMPRESSION: Mild peribronchial thickening most pronounced on the lateral image which could relate to reactive airway disease or bronchitis.
[2017-06-21] MEDS ORDERED: MORPHINE SULFATE 4 MG/ML SYRINGE IVP STA (21:25)
[2017-06-21] MEDS ORDERED: NITROGLYCERIN SL TABS 0.4 MG TAB SUBLINGUAL PRN (21:25)
[2017-06-21] MEDS ORDERED: ASPIRIN 81 MG PO STA (21:25)
[2017-06-21] MEDS ORDERED: IPRATROPIUM-ALBUTEROL 3 ML NEB INHALATION STA (21:25)
[2017-06-21 22:05] VITALS: RESP 18
[2017-06-21 22:14] VITALS: BMI 67.3
[2017-06-21] MEDS ORDERED: IPRATROPIUM-ALBUTEROL 3 ML NEB INHALATION PRN (22:26)
[2017-06-21] MEDS ORDERED: SYMBICORT 160-4.5 MCG INHALER INHALATION PRN (22:51)
[2017-06-21] MEDS ORDERED: ALPRAZolam 0.5 MG TAB PO PRN (22:51)
[2017-06-21] MEDS ORDERED: NON-FORMULARY DRUG (Ipratropium Bromide [Atrovent Hfa] 2 PUFF) INHALATION PRN (22:51)
[2017-06-21] MEDS ORDERED: PSEUDOEPHEDRINE 12HR 120 MG TABLET.ER PO PRN (22:51)
[2017-06-21] MEDS ORDERED: LORATADINE 10 MG TAB PO PRN (22:51)
[2017-06-21] MEDS ORDERED: FLUTICASONE 50MCG/SPRAY NASAL 16GM EA NOSTRIL PRN (22:51)
[2017-06-21] MEDS: METHOCARBAMOL 750 MG TAB PO PRN (23:33)
[2017-06-21] MEDS: LISINOPRIL 20 MG TAB PO SCH (23:33)
[2017-06-21] MEDS: RIVAROXABAN 15 MG TAB PO SCH (23:33)
[2017-06-21] MEDS: guaiFENesin SYRUP 100MG/5ML 200 MG/10 ML CUP PO PRN (23:33)
[2017-06-22] MEDS ORDERED: IPRATROPIUM-ALBUTEROL 3 ML NEB INHALATION SCH
[2017-06-22] MEDS: MORPHINE SULFATE 4 MG/ML SYRINGE IVP PRN ×3 (01:44→10:42)
[2017-06-22 02:24] LABS: Creatine Kinase 86 U/L (55-170)
[2017-06-22 02:37] LABS: Creatine Kinase MB 0.7 ng/mL (0.0-2.4); Troponin I <0.012 ng/mL (0.000-0.034)
[2017-06-22] MEDS: guaiFENesin SYRUP 100MG/5ML 200 MG/10 ML CUP PO PRN (04:59)
[2017-06-22] MEDS: METHOCARBAMOL 750 MG TAB PO PRN (04:59)
[2017-06-22] MEDS ORDERED: methylPREDNISolone SOD SUCCI 125 MG/2 ML VIAL IV SCH (06:00)
[2017-06-22 07:20] LABS: Glucose,Whole Blood 331 mg/dL (75-99)
[2017-06-22] MEDS ORDERED: INSULIN LISPRO (humaLOG) 300 UNIT/3 ML VIAL SQ SCH (07:30)
[2017-06-22] MEDS: IPRATROPIUM-ALBUTEROL 3 ML NEB INHALATION SCH ×2 (07:49→11:24)
[2017-06-22 08:11] VITALS: TEMP 97.7
[2017-06-22] MEDS: RIVAROXABAN 15 MG TAB PO SCH (08:12)
[2017-06-22 08:16] LABS: Cholesterol 177 mg/dL (<200); HDL Cholesterol 49 mg/dL (40-60)
[2017-06-22 08:20] LABS: Creatine Kinase 78 U/L (55-170)
[2017-06-22 08:32] LABS: Creatine Kinase MB 0.9 ng/mL (0.0-2.4); Troponin I <0.012 ng/mL (0.000-0.034)
[2017-06-22] MEDS ORDERED: HYDROCHLOROTHIAZIDE 25 MG TAB PO SCH (09:00)
[2017-06-22] MEDS ORDERED: ASPIRIN 325 MG TAB PO SCH (09:00)
--- NOTE | 2017-06-22 09:23 | P.CRDCN ---
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 The patient was in his usual state of health until yesterday when he experienced severe cough and subsequently deployed chest discomfort as a sharp kind of discomfort in the mid of the chest without any radiation to the arm or neck or shoulders. No associated symptoms of sweating or dizziness or lightheadedness. The EKG showed sinus rhythm with bifascicular block consistent of RBBB and left anterior fascicular block. The cardiac enzymes were checked and came in to be unremarkable. The BNP was checked and came in to be also within normal limits. The chest x-ray did not show any acute abnormalities. The patient did not have any d-dimer checked when he came into the hospital. We get involved in the care of the patient because of the chest discomfort and shortness of breath which seems to be improved. 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 EDENTULOUS, past cellulitis R leg, DVT R leg, pulmonary embolus R lung, DIANE without device. History of Any Multi-Drug Resistant Organisms: None Reported Past Surgical History: Joint Replacement, Orthopedic Surgery Additional Past Surgical History / Comment(s): Right knee replacement, tubes in bilateral ears now removed, right eye enucliation-HAS ARTIFICIAL EYE, EGD. Past Anesthesia/Blood Transfusion Reactions: No Reported Reaction Past Psychological History: Anxiety, Schizoaffective Disorder, Schizophrenia Additional Psychological History / Comment(s): Pt states he has xanax for anxiety but is not on medication for schizophrenia. Pt resides with significant other. He is independent. Smoking Status: Current every day smoker Past Alcohol Use History: None Reported Additional Past Alcohol Use History / Comment(s): STARTED SMOKING [id number]- SMOKES 1 PPD Past Drug Use History: None Reported - Past Family History Father History Unknown: Yes Family Medical History: Unable to Obtain Additional Family Medical History / Comment(s): Patient was adopted Mother Family Medical History: Unable to Obtain Additional Family Medical History / Comment(s): Patient was adopted Medications and Allergies Home Medications Medication Instructions Recorded Confirmed Type ALPRAZolam [Xanax] 1 mg PO BID PRN 04/21/14 06/21/17 History Albuterol Inhaler [Ventolin Hfa 2 puff INHALATION RT-Q6H PRN 04/21/14 06/21/17 History Inhaler] Lisinopril 40 mg PO BID 04/21/14 06/21/17 History oxyCODONE HCL 30 mg PO QID 04/21/14 06/21/17 History Cetirizine HCl 10 mg PO DAILY PRN 10/11/15 06/21/17 History Hydrochlorothiazide [Hydrodiuril] 25 mg PO DAILY 05/13/16 06/21/17 History Ipratropium [place] [Atrovent Hfa] 2 puff INHALATION RT-QID PRN 01/22/17 History Albuterol Nebulized [Ventolin 2.5 mg INHALATION RT-QID PRN 06/21/17 06/21/17 History Nebulized] Budesonide-Formot 160-4.5 Mcg 2 puff INHALATION RT-BID PRN 06/21/17 06/21/17 History [Symbicort 160-4.5 Mcg Inhaler] Fluticasone Nasal [place] [Flonase 2 spr EA NOSTRIL DAILY PRN 06/21/17 06/21/17 History Nasal [place]] Methocarbamol [Robaxin-750] 750 mg PO Q6H PRN 06/21/17 06/21/17 History Pseudoephedrine 12Hr [Sudafed 12Hr] 120 mg PO Q12H PRN 06/21/17 06/21/17 History Rivaroxaban [Xarelto] 15 mg PO BID 06/21/17 06/21/17 History Allergies Allergy/AdvReac Type Severity Reaction Status Date / Time cyclobenzaprine HCl Allergy Itching Verified 06/21/17 22:00 [From Flexeril] ibuprofen [From Motrin] AdvReac Nausea Verified 06/21/17 22:00 Physical Exam Vitals: Vital Signs Temp Pulse Pulse Resp BP BP Pulse Ox 06/22/17 08:06 88 06/22/17 08:00 97.7 F 72 18 149/73 94 L 06/22/17 07:52 80 06/22/17 04:00 18 06/22/17 02:57 98.2 F 82 18 191/74 92 L 06/21/17 23:44 87 18 202/95 93 L 06/21/17 23:37 18 06/21/17 22:31 18 06/21/17 22:08 98 F 86 18 196/90 92 L 06/21/17 22:04 98.7 F 84 18 182/79 99 06/21/17 21:43 98.5 F 80 16 186/80 100 06/21/17 21:09 78 18 176/80 100 06/21/17 20:23 92 06/21/17 20:17 89 18 180/85 98 06/21/17 20:09 87 06/21/17 19:57 99.1 F 87 20 215/108 96 Intake and Output 06/21/17 06/22/17 06/22/17 22:59 06:59 14:59 Intake Total 200 Balance 200 Intake: Oral 200 Other: Voiding Method Toilet Toilet # Voids 1 2 Weight 238.16 kg - Constitutional General appearance: no acute distress - Respiratory Respiratory: bilateral: CTA - Cardiovascular Rhythm: regular Heart sounds: normal: S1, S2 Results 06/21/17 20:00 06/21/17 20:00 Cardiac Enzymes 06/21/17 06/21/17 06/22/17 Range/Units 20:00 20:00 01:40 AST 34 (17-59) U/L CK-MB (CK-2) 0.7 0.7 (0.0-2.4) ng/mL Troponin I <0.012 <0.012 (0.000-0.034) ng/mL 06/22/17 Range/Units 07:38 AST (17-59) U/L CK-MB (CK-2) 0.9 (0.0-2.4) ng/mL Troponin I <0.012 (0.000-0.034) ng/mL Coagulation 06/21/17 Range/Units 20:00 PT 10.4 (9.0-12.0) sec APTT 21.7 L (22.0-30.0) sec Lipids 06/22/17 Range/Units 07:38 Triglycerides 86 (<150) mg/dL Cholesterol 177 (<200) mg/dL HDL Cholesterol 49 (40-60) mg/dL CBC 06/21/17 Range/Units 20:00 WBC 10.3 (3.8-10.6) k/uL RBC 5.04 (4.30-5.90) m/uL Hgb 15.5 (13.0-17.5) gm/dL Hct 45.8 (39.0-53.0) % Plt Count 201 (150-450) k/uL Comprehensive Metabolic Panel 06/21/17 Range/Units 20:00 Sodium 139 (137-145) mmol/L Potassium 4.1 (3.5-5.1) mmol/L Chloride 105 (98-107) mmol/L Carbon Dioxide 26 (22-30) mmol/L BUN 8 L (9-20) mg/dL Creatinine 0.60 L (0.66-1.25) mg/dL Glucose 259 H (74-99) mg/dL Calcium 8.7 (8.4-10.2) mg/dL AST 34 (17-59) U/L ALT 41 (21-72) U/L Alkaline Phosphatase 117 (38-126) U/L Total Protein 6.8 (6.3-8.2) g/dL Albumin 3.5 (3.5-5.0) g/dL Current Medications Generic Name Dose Route Start Last Admin Trade Name Freq PRN Reason Stop Dose Admin Albuterol/Ipratropium 3 ml 06/22/17 08:00 06/22/17 07:49 Duoneb 0.5 Mg-3 Mg/3 Ml Soln INHALATION 3 ml RT-QID AMY Administration Albuterol/Ipratropium 3 ml 06/21/17 22:26 Duoneb 0.5 Mg-3 Mg/3 Ml Soln INHALATION RT-Q2H PRN Shortness Of Breath Or Wheezing Alprazolam 1 mg 06/21/17 22:51 06/21/17 23:48 Xanax PO 1 mg BID PRN Administration Anxiety Aspirin 325 mg 06/22/17 09:00 Aspirin PO DAILY AMY Budesonide/Formoterol Fumarate 2 puff 06/21/17 22:51 06/22/17 07:49 Symbicort 160-4.5 Mcg Inhaler INHALATION 2 puff RT-BID PRN Administration Shortness Of Breath Fluticasone Propionate 2 spray 06/21/17 22:51 Flonase Nasal [place] EA NOSTRIL DAILY PRN Congestion Guaifenesin 200 mg 06/21/17 23:01 06/22/17 04:59 Robitussin PO 200 mg Q6H PRN Administration Cough Hydrochlorothiazide 25 mg 06/22/17 09:00 Hydrodiuril PO DAILY [facility] Insulin Human Lispro 0 unit 06/22/17 07:30 06/22/17 08:09 Humalog SQ 8 unit ACHS [facility] Administration Protocol Lisinopril 40 mg 06/21/17 23:00 06/21/17 23:33 Zestril PO 40 mg BID [facility] Administration Loratadine 10 mg 06/21/17 22:51 06/21/17 23:48 Claritin PO 10 mg DAILY PRN Administration Allergy Symptoms Methocarbamol 750 mg 06/21/17 22:51 06/22/17 04:59 Robaxin PO 750 mg Q6H PRN Administration Muscle Spasm/Pain Methylprednisolone Sodium Succinate 60 mg 06/22/17 06:00 06/22/17 04:59 Solu-Medrol IV 60 mg Q6HR AMY Administration Morphine Sulfate 4 mg 06/21/17 21:25 06/22/17 05:01 Morphine Sulfate (Inj) IVP 4 mg Q4HR PRN Administration Pain Nitroglycerin 0.4 mg 06/21/17 21:25 Nitrostat SUBLINGUAL Q5M PRN Chest Pain Oxycodone HCl 30 mg 06/21/17 22:51 06/22/17 08:19 Oxyir PO 30 mg QID PRN Administration Pain Pseudoephedrine HCl 120 mg 06/21/17 22:51 Sudafed 12hr PO Q12HR PRN Congestion Rivaroxaban 15 mg 06/21/17 23:00 06/22/17 08:12 Xarelto PO 15 mg BID [facility] Administration Intake and Output 06/21/17 06/22/17 06/22/17 22:59 06:59 14:59 Intake Total 200 Balance 200 Intake: Oral 200 Other: Voiding Method Toilet Toilet # Voids 1 2 Weight 238.16 kg 06/21/17 20:00 06/21/17 20:00 Assessment and Plan Plan: This is a pleasant 47-year-old gentleman with obesity, DVT/PE, and COPD, was admitted to the hospital with shortness of breath and a chest discomfort. He was ruled out for acute coronary event. He was not ruled out for any DVT/ PE. The d-dimer was not checked. I recommended obtaining a d-dimer. If the d-dimer came in to be unremarkable and the patient continues to be pain-free he can be discharged home and have a stress test done as an outpatient.
[2017-06-22] MEDS: LISINOPRIL 20 MG TAB PO SCH (10:35)
[2017-06-22 10:47] LABS: Hemoglobin A1C 8.1 % (4.2-6.1)
[2017-06-22 11:51] LABS: Glucose,Whole Blood 387 mg/dL (75-99)
[2017-06-22 12:06] VITALS: BP 181/95; PULSE 85
--- NOTE | 2017-06-22 15:04 | P.HPIM ---
History of Present Illness 47-year-old morbidly obese gentleman with known history of COPD came in with compensative shortness of breath and chest pressure like sensation which is sharp in nature nonradiating, not associated with food and appears to be related to cough, although nonpleuritic in nature. Patient apparently was wheezing on admission significant improvement in symptoms with Solu-Medrol patient was comparing of cough with sputum production which is greenish in color. Patient was evaluated by cardiology that cleared for discharge and chest x-ray did not show any pneumonic process patient is much feeling better feeling much better with the systemic steroids patient will be given doxycycline and prednisone will be discharged counseling regarding sleep study was provided Review of Systems REVIEW OF SYSTEMS: CONSTITUTIONAL: No fever, no malaise, no fatigue. HEENT: No recent visual problems or hearing problems. Denied any sore throat. CARDIOVASCULAR: As mentioned in HPI PULMONARY: As mentioned in HPI GASTROINTESTINAL: No diarrhea, no nausea, no vomiting, no abdominal pain. Normoactive bowel sounds. NEUROLOGICAL: No headaches, no weakness, no numbness. HEMATOLOGICAL: Denies any bleeding or petechiae. GENITOURINARY: Denies any burning micturition, frequency, or urgency. MUSCULOSKELETAL/RHEUMATOLOGICAL: Denies any joint pain, swelling, or any muscle pain. ENDOCRINE: Denies any polyuria or polydipsia. The rest of the 14-point review of systems is negative. 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 EDENTULOUS, past cellulitis R leg, DVT R leg, pulmonary embolus R lung, DIANE without device. History of Any Multi-Drug Resistant Organisms: None Reported Past Surgical History: Joint Replacement, Orthopedic Surgery Additional Past Surgical History / Comment(s): Right knee replacement, tubes in bilateral ears now removed, right eye enucliation-HAS ARTIFICIAL EYE, EGD. Past Anesthesia/Blood Transfusion Reactions: No Reported Reaction Past Psychological History: Anxiety, Schizoaffective Disorder, Schizophrenia Additional Psychological History / Comment(s): Pt states he has xanax for anxiety but is not on medication for schizophrenia. Pt resides with significant other. He is independent. Smoking Status: Current every day smoker Past Alcohol Use History: None Reported Additional Past Alcohol Use History / Comment(s): STARTED SMOKING [id number]- SMOKES 1 PPD Past Drug Use History: None Reported - Past Family History Father History Unknown: Yes Family Medical History: Unable to Obtain Additional Family Medical History / Comment(s): Patient was adopted Mother Family Medical History: Unable to Obtain Additional Family Medical History / Comment(s): Patient was adopted Medications and Allergies Home Medications Medication Instructions Recorded Confirmed Type ALPRAZolam [Xanax] 1 mg PO BID PRN 04/21/14 06/21/17 History Albuterol Inhaler [Ventolin Hfa 2 puff INHALATION RT-Q6H PRN 04/21/14 06/21/17 History Inhaler] Lisinopril 40 mg PO BID 04/21/14 06/21/17 History oxyCODONE HCL 30 mg PO QID 04/21/14 06/21/17 History Cetirizine HCl 10 mg PO DAILY PRN 10/11/15 06/21/17 History Hydrochlorothiazide [Hydrodiuril] 25 mg PO DAILY 05/13/16 06/21/17 History Ipratropium [place] [Atrovent Hfa] 2 puff INHALATION RT-QID PRN 01/22/17 History Albuterol Nebulized [Ventolin 2.5 mg INHALATION RT-QID PRN 06/21/17 06/21/17 History Nebulized] Budesonide-Formot 160-4.5 Mcg 2 puff INHALATION RT-BID PRN 06/21/17 06/21/17 History [Symbicort 160-4.5 Mcg Inhaler] Fluticasone Nasal [place] [Flonase 2 spr EA NOSTRIL DAILY PRN 06/21/17 06/21/17 History Nasal [place]] Methocarbamol [Robaxin-750] 750 mg PO Q6H PRN 06/21/17 06/21/17 History Pseudoephedrine 12Hr [Sudafed 12Hr] 120 mg PO Q12H PRN 06/21/17 06/21/17 History Rivaroxaban [Xarelto] 15 mg PO BID 06/21/17 06/21/17 History Doxycycline Monohydrate [Monodox] 100 mg PO Q12HR #10 cap 06/22/17 Rx predniSONE 10 mg PO DAILY #30 tab 06/22/17 Rx Allergies Allergy/AdvReac Type Severity Reaction Status Date / Time cyclobenzaprine HCl Allergy Itching Verified 06/21/17 22:00 [From Flexeril] ibuprofen [From Motrin] AdvReac Nausea Verified 06/21/17 22:00 Physical Exam Vitals: Vital Signs Temp Pulse Pulse Resp BP BP Pulse Ox 06/22/17 12:00 97.7 F 85 18 181/95 91 L 06/22/17 11:36 84 06/22/17 11:26 76 06/22/17 08:06 88 06/22/17 08:00 97.7 F 72 18 149/73 94 L 06/22/17 07:52 80 06/22/17 04:00 18 06/22/17 02:57 98.2 F 82 18 191/74 92 L 06/21/17 23:44 87 18 202/95 93 L 06/21/17 23:37 18 06/21/17 22:31 18 06/21/17 22:08 98 F 86 18 196/90 92 L 06/21/17 22:04 98.7 F 84 18 182/79 99 06/21/17 21:43 98.5 F 80 16 186/80 100 06/21/17 21:09 78 18 176/80 100 06/21/17 20:23 92 06/21/17 20:17 89 18 180/85 98 06/21/17 20:09 87 06/21/17 19:57 99.1 F 87 20 215/108 96 Intake and Output 06/22/17 06/22/17 06/22/17 06:59 14:59 22:59 Intake Total 200 Balance 200 Intake: Oral 200 Other: Voiding Method Toilet Toilet # Voids 2 PHYSICAL EXAMINATION: GENERAL: The patient is alert and oriented x3, not in any acute distress. Morbidly obese HEENT: Pupils are round and equally reacting to light. EOMI. No scleral icterus. No conjunctival pallor. Normocephalic, atraumatic. No pharyngeal erythema. No thyromegaly. CARDIOVASCULAR: S1 and S2 present. No murmurs, rubs, or gallops. PULMONARY: Chest is clear to auscultation, no wheezing or crackles. ABDOMEN: Soft, nontender, nondistended, normoactive bowel sounds. No palpable organomegaly. MUSCULOSKELETAL: No joint swelling or deformity. EXTREMITIES: No cyanosis, clubbing, or pedal edema. NEUROLOGICAL: Gross neurological examination did not reveal any focal deficits. SKIN: No rashes. Results CBC & Chem 7: 06/21/17 20:00 06/21/17 20:00 Labs: Abnormal Lab Results - Last 24 Hours (Table) 06/21/17 06/21/17 06/21/17 Range/Units 20:00 20:00 20:00 APTT 21.7 L (22.0-30.0) sec BUN 8 L (9-20) mg/dL Creatinine 0.60 L (0.66-1.25) mg/dL Glucose 259 H (74-99) mg/dL POC Glucose (mg/dL) (75-99) mg/dL Hemoglobin A1c 8.1 H (4.2-6.1) % LDL Cholesterol, Calc (0-99) mg/dL 06/22/17 06/22/17 06/22/17 Range/Units 06:55 07:38 11:49 APTT (22.0-30.0) sec BUN (9-20) mg/dL Creatinine (0.66-1.25) mg/dL Glucose (74-99) mg/dL POC Glucose (mg/dL) 331 H 387 H (75-99) mg/dL Hemoglobin A1c (4.2-6.1) % LDL Cholesterol, Calc 111 H (0-99) mg/dL Thrombosis Risk Factor Assmnt - Choose All That Apply Each Factor Represents 1 point: Age 41-60 years, Obesity (BMI >25), Swollen legs (current) Each Risk Factor Represents 3 Points: History of DVT/PE Thrombosis Risk Factor Assessment Total Risk Factor Score: 6 Thrombosis Risk Factor Assessment Level: High Risk Assessment and Plan Plan: #1 chest pain: Rule out acute coronary syndromes [place] skeletal secondary to coughing. #2 shortness of breath: Secondary to COPD exacerbation patient the is morbidly obese and does have sleep apnea which may have contributed to her shortness of breath as well patient will be discharged on systemic steroids inhalational treatments his blood sugars are already elevated counseling regarding that was provided and patient will change his regimen until he is done with the steroids #3 morbid obesity with sleep apnea patient was counseled to get sleep study as an outpatient. #4 DVT in the past #5 that was read as type II #6 acute breath bacterial bronchitis #7 degenerative arthritis #8 hypertension For above-mentioned chronic medical problems patient will continue his home medications
--- NOTE | 2017-06-22 15:05 | P.DS ---
Providers Date of admission: 06/21/17 21:25 Attending physician: Tamiko Stack Consults: 06/22/17 06:03 Consult Physician Routine Consulting Provider: Jeronimo Ruiz Consult Reason/Comments: chest pain Do you want consulting provider notified?: Yes, Notify in am Primary care physician: Marian Bradford [facility] Course: Please refer to my HPI for further details Patient Condition at Discharge: Fair Plan - Discharge Summary New Discharge Prescriptions: New predniSONE 10 mg PO DAILY #30 tab Doxycycline Monohydrate [Monodox] 100 mg PO Q12HR #10 cap No Action Albuterol Inhaler [Ventolin Hfa Inhaler] 2 puff INHALATION RT-Q6H PRN PRN Reason: Shortness Of Breath ALPRAZolam [Xanax] 1 mg PO BID PRN PRN Reason: Anxiety oxyCODONE HCL 30 mg PO QID Lisinopril 40 mg PO BID Cetirizine HCl 10 mg PO DAILY PRN PRN Reason: Allergy Symptoms Hydrochlorothiazide [Hydrodiuril] 25 mg PO DAILY Ipratropium [place] [Atrovent Hfa] 2 puff INHALATION RT-QID PRN PRN Reason: Shortness Of Breath Pseudoephedrine 12Hr [Sudafed 12Hr] 120 mg PO Q12H PRN PRN Reason: Congestion Fluticasone Nasal [place] [Flonase Nasal [place]] 2 spr EA NOSTRIL DAILY PRN PRN Reason: Congestion Budesonide-Formot 160-4.5 Mcg [Symbicort 160-4.5 Mcg Inhaler] 2 puff INHALATION RT-BID PRN PRN Reason: Shortness Of Breath Methocarbamol [Robaxin-750] 750 mg PO Q6H PRN PRN Reason: Muscle Spasm/Pain Albuterol Nebulized [Ventolin Nebulized] 2.5 mg INHALATION RT-QID PRN PRN Reason: Shortness Of Breath Rivaroxaban [Xarelto] 15 mg PO BID Discharge Medication List ALPRAZolam [Xanax] 1 mg PO BID PRN 04/21/14 [History] Albuterol Inhaler [Ventolin Hfa Inhaler] 2 puff INHALATION RT-Q6H PRN 04/21/14 [ History] Lisinopril 40 mg PO BID 04/21/14 [History] oxyCODONE HCL 30 mg PO QID 04/21/14 [History] Cetirizine HCl 10 mg PO DAILY PRN 10/11/15 [History] Hydrochlorothiazide [Hydrodiuril] 25 mg PO DAILY 05/13/16 [History] Ipratropium [place] [Atrovent Hfa] 2 puff INHALATION RT-QID PRN 01/22/17 [ History] Albuterol Nebulized [Ventolin Nebulized] 2.5 mg INHALATION RT-QID PRN 06/21/17 [ History] Budesonide-Formot 160-4.5 Mcg [Symbicort 160-4.5 Mcg Inhaler] 2 puff INHALATION RT-BID PRN 06/21/17 [History] Fluticasone Nasal [place] [Flonase Nasal [place]] 2 spr EA NOSTRIL DAILY PRN [History] Methocarbamol [Robaxin-750] 750 mg PO Q6H PRN 06/21/17 [History] Pseudoephedrine 12Hr [Sudafed 12Hr] 120 mg PO Q12H PRN 06/21/17 [History] Rivaroxaban [Xarelto] 15 mg PO BID 06/21/17 [History] Doxycycline Monohydrate [Monodox] 100 mg PO Q12HR #10 cap 06/22/17 [Rx] predniSONE 10 mg PO DAILY #30 tab 06/22/17 [Rx] Follow up Appointment(s)/Referral(s): Marian Bradford MD [Primary Care Provider] - 3 Days (Office closed at this time. Call Friday to make appointment.) Patient Instructions/Handouts: Chest Pain (GEN), Chronic Hypertension (GEN) Discharge Disposition: HOME SELF-CARE
== END 2017-06-22 13:55 | disposition home or self-care (01) ==
LOC: EC 19:48 → 3OBS 21:25 → 3SUR 23:21
PROVIDERS: ADMIT Hospitalist; ATTEND Hospitalist
DX: R07.89 Other chest pain (principal); R05 Cough; J44.1 Chronic obstructive pulmonary disease with (acute) exacerbation; E66.01 Morbid (severe) obesity due to excess calories; Z68.44 Body mass index [BMI] 60.0-69.9, adult; Z86.718 Personal history of other venous thrombosis and embolism; I10 Essential (primary) hypertension; M54.9 Dorsalgia, unspecified; G89.29 Other chronic pain; R73.9 Hyperglycemia, unspecified; K21.9 Gastro-esophageal reflux disease without esophagitis; J20.9 Acute bronchitis, unspecified; G47.33 Obstructive sleep apnea (adult) (pediatric); J44.0 Chronic obstructive pulmonary disease with (acute) lower respiratory infection; F17.200 Nicotine dependence, unspecified, uncomplicated; F41.9 Anxiety disorder, unspecified; Z99.89 Dependence on other enabling machines and devices; Z86.711 Personal history of pulmonary embolism; Z90.01 Acquired absence of eye; Z88.8 Allergy status to other drugs, medicaments and biological substances; Z79.899 Other long term (current) drug therapy; Z79.51 Long term (current) use of inhaled steroids; Z79.01 Long term (current) use of anticoagulants; Z79.891 Long term (current) use of opiate analgesic; R53.1 Weakness; M17.12 Unilateral primary osteoarthritis, left knee
CPT/HCPCS: 99285; 96374; 96361 ×3; 96375 ×2; 96376; 36415; 94640 ×3; 93005; 85379; 83880; 80061; 80053; 83036; 82550 ×2; 82553 ×2; 83735; 84484 ×2; 85025; 85610; 85730; 71020; G0378 ×2; J2270 ×2; J2930 ×2

== ENCOUNTER 2017-08-06 18:07 | Observation (INO) | payer OTHER ==
[2017-08-06] MEDS ORDERED: methylPREDNISolone SOD SUCCI 125 MG/2 ML VIAL IV STA (18:38)
[2017-08-06] MEDS ORDERED: ALBUTEROL NEBULIZED 2.5 MG/3 ML INHALATION STA (18:38)
[2017-08-06] MEDS ORDERED: IPRATROPIUM 0.5 MG/2.5 ML NEBU INHALATION STA (18:38)
--- NOTE | 2017-08-06 18:43 | ED ---
General Adult HPI - General Chief complaint: Chest Pain Stated complaint: CHEST PAIN, MARIAMA, LEFT ARM NUMBNESS Time Seen by Provider: 08/06/17 18:24 Source: patient, RN notes reviewed, old records reviewed Mode of arrival: wheelchair Limitations: no limitations - History of Present Illness Initial comments: 47-year-old male presents with 5 day history of cough and difficulty breathing. Patient is morbidly obese. Has a history of COPD and is currently smoking. Patient also complains of anterior chest pain which is sharp in nature, worse with cough. Patient has been taking his albuterol at home with minimal relief. Denies fever or chills. Denies substernal chest tightness or pressure. Denies nausea vomiting or diarrhea. - Related Data Home Medications Medication Instructions Recorded Confirmed ALPRAZolam [Xanax] 1 mg PO BID PRN 04/21/14 06/21/17 Albuterol Inhaler [Ventolin Hfa 2 puff INHALATION RT-Q6H PRN 04/21/14 06/21/17 Inhaler] Lisinopril 40 mg PO BID 04/21/14 06/21/17 oxyCODONE HCL 30 mg PO QID 04/21/14 06/21/17 Cetirizine HCl 10 mg PO DAILY PRN 10/11/15 06/21/17 Hydrochlorothiazide [Hydrodiuril] 25 mg PO DAILY 05/13/16 06/21/17 Ipratropium [place] [Atrovent Hfa] 2 puff INHALATION RT-QID PRN 01/22/17 Albuterol Nebulized [Ventolin 2.5 mg INHALATION RT-QID PRN 06/21/17 06/21/17 Nebulized] Budesonide-Formot 160-4.5 Mcg 2 puff INHALATION RT-BID PRN 06/21/17 06/21/17 [Symbicort 160-4.5 Mcg Inhaler] Fluticasone Nasal [place] [Flonase 2 spr EA NOSTRIL DAILY PRN 06/21/17 06/21/17 Nasal [place]] Methocarbamol [Robaxin-750] 750 mg PO Q6H PRN 06/21/17 06/21/17 Pseudoephedrine 12Hr [Sudafed 12Hr] 120 mg PO Q12H PRN 06/21/17 06/21/17 Rivaroxaban [Xarelto] 15 mg PO BID 06/21/17 06/21/17 Previous Rx's Medication Instructions Recorded Doxycycline Monohydrate [Monodox] 100 mg PO Q12HR #10 cap 06/22/17 predniSONE 10 mg PO DAILY #30 tab 06/22/17 Allergies Allergy/AdvReac Type Severity Reaction Status Date / Time cyclobenzaprine HCl Allergy Itching Verified 08/06/17 18:57 [From Flexeril] ibuprofen [From Motrin] AdvReac Nausea Verified 08/06/17 18:57 Review of Systems ROS Statement: Those systems with pertinent positive or pertinent negative responses have been documented in the HPI. ROS Other: All systems not noted in ROS Statement are negative. 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 EDENTULOUS, past cellulitis R leg, DVT R leg, pulmonary embolus R lung, DIANE without device. History of Any Multi-Drug Resistant Organisms: None Reported Past Surgical History: Joint Replacement, Orthopedic Surgery Additional Past Surgical History / Comment(s): Right knee replacement, tubes in bilateral ears now removed, right eye enucliation-HAS ARTIFICIAL EYE, EGD. Past Anesthesia/Blood Transfusion Reactions: No Reported Reaction Past Psychological History: Anxiety, Schizoaffective Disorder, Schizophrenia Smoking Status: Current every day smoker Past Alcohol Use History: None Reported Past Drug Use History: None Reported - Past Family History Father History Unknown: Yes Family Medical History: Unable to Obtain Additional Family Medical History / Comment(s): Patient was adopted Mother Family Medical History: Unable to Obtain Additional Family Medical History / Comment(s): Patient was adopted General Exam Limitations: no limitations General appearance: in no apparent distress, lethargic, obese Head exam: Present: atraumatic, normocephalic Eye exam: Present: normal appearance, other (glass right eye) Neck exam: Present: normal inspection. Absent: tenderness, meningismus Respiratory exam: Present: wheezes, decreased breath sounds. Absent: respiratory distress Cardiovascular Exam: Present: regular rate, normal rhythm GI/Abdominal exam: Present: soft, distended. Absent: tenderness, guarding, rebound Extremities exam: Present: pedal edema Neurological exam: Present: alert, oriented X3. Absent: motor sensory deficit Psychiatric exam: Present: normal affect, normal mood Skin exam: Present: warm, dry, intact. Absent: cyanosis, diaphoretic Course Vital Signs 08/06/17 08/06/17 08/06/17 18:09 19:37 20:45 Temperature 97.8 F Pulse Rate 93 96 80 Respiratory 24 20 Rate Blood Pressure 172/85 174/83 O2 Sat by Pulse 93 L 95 Oximetry - Reevaluation(s) Reevaluation #1: 08/06/17 21:04 Patient remains dyspneic after initial treatment, he is placed on BiPAP for work of breathing. EKG Findings - EKG Comments: EKG Findings:: EKG shows normal sinus rhythm, rate of 83, SC interval 154, QRS duration 162, QTC 512, there is a bifascicular block, no ST segment elevation. EKG compared to one from June 22 no interval change Medical Decision Making - Medical Decision Making 47-year-old male history of COPD presents with cough and dyspnea. Patient does have sharp in nature chest pain worse with cough. studies reveal normal white blood cell count 17.0, hemoglobin stable 15.0, venous blood gas reveals mild hypercarbia at 54, lactic acid mildly elevated 0.1. Glucose elevated with no signs of DKA. Troponin negative. Chest x-ray is negative for focal pneumonia or pneumothorax. Diagnosis: COPD exacerbation with respiratory failure on BiPAP, obesity associated hypoventilation - Lab Data Result diagrams: 08/06/17 18:50 08/06/17 18:50 Lab Results 08/06/17 08/06/17 08/06/17 Range/Units 18:50 18:50 18:50 WBC 7.5 (3.8-10.6) k/uL RBC 4.92 (4.30-5.90) m/uL Hgb 15.0 (13.0-17.5) gm/dL Hct 45.9 (39.0-53.0) % MCV 93.4 (80.0-100.0) fL MCH 30.5 (25.0-35.0) pg MCHC 32.6 (31.0-37.0) g/dL RDW 14.6 (11.5-15.5) % Plt Count 172 (150-450) k/uL Neutrophils % 60 % Lymphocytes % 28 % Monocytes % 6 % Eosinophils % 3 % Basophils % 1 % Neutrophils # 4.5 (1.3-7.7) k/uL Lymphocytes # 2.1 (1.0-4.8) k/uL Monocytes # 0.4 (0-1.0) k/uL Eosinophils # 0.2 (0-0.7) k/uL Basophils # 0.1 (0-0.2) k/uL PT (9.0-12.0) sec INR (<1.2) APTT (22.0-30.0) sec VBG pH 7.35 (7.31-7.41) VBG pCO2 54 H (37-51) mmHg VBG HCO3 29 H (24-28) mmol/L Sodium (137-145) mmol/L Potassium (3.5-5.1) mmol/L Chloride (98-107) mmol/L Carbon Dioxide (22-30) mmol/L Anion Gap mmol/L BUN (9-20) mg/dL Creatinine (0.66-1.25) mg/dL Est GFR (MDRD) Af Amer (>60 ml/min/1.73 sqM) Est GFR (MDRD) Non-Af (>60 ml/min/1.73 sqM) Glucose (74-99) mg/dL Plasma Lactic Acid Nae[place] (0.7-2.0) mmol/L Calcium (8.4-10.2) mg/dL Magnesium (1.6-2.3) mg/dL Total Bilirubin (0.2-1.3) mg/dL AST (17-59) U/L ALT (21-72) U/L Alkaline Phosphatase (38-126) U/L Total Creatine Kinase 84 (55-170) U/L CK-MB (CK-2) 1.0 (0.0-2.4) ng/mL CK-MB (CK-2) Rel Index 1.2 Troponin I 0.012 (0.000-0.034) ng/mL NT-Pro-B Natriuret Pep pg/mL Total Protein (6.3-8.2) g/dL Albumin (3.5-5.0) g/dL 08/06/17 08/06/17 08/06/17 Range/Units 18:50 18:50 18:50 WBC (3.8-10.6) k/uL RBC (4.30-5.90) m/uL Hgb (13.0-17.5) gm/dL Hct (39.0-53.0) % MCV (80.0-100.0) fL MCH (25.0-35.0) pg MCHC (31.0-37.0) g/dL RDW (11.5-15.5) % Plt Count (150-450) k/uL Neutrophils % % Lymphocytes % % Monocytes % % Eosinophils % % Basophils % % Neutrophils # (1.3-7.7) k/uL Lymphocytes # (1.0-4.8) k/uL Monocytes # (0-1.0) k/uL Eosinophils # (0-0.7) k/uL Basophils # (0-0.2) k/uL PT 10.7 (9.0-12.0) sec INR 1.1 (<1.2) APTT 24.0 (22.0-30.0) sec VBG pH (7.31-7.41) VBG pCO2 (37-51) mmHg VBG HCO3 (24-28) mmol/L Sodium 139 (137-145) mmol/L Potassium 4.1 (3.5-5.1) mmol/L Chloride 104 (98-107) mmol/L Carbon Dioxide 27 (22-30) mmol/L Anion Gap 8 mmol/L BUN 7 L (9-20) mg/dL Creatinine 0.50 L (0.66-1.25) mg/dL Est GFR (MDRD) Af Amer >60 (>60 ml/min/1.73 sqM) Est GFR (MDRD) Non-Af >60 (>60 ml/min/1.73 sqM) Glucose 328 H (74-99) mg/dL Plasma Lactic Acid Naeem 2.1 H* (0.7-2.0) mmol/L Calcium 8.7 (8.4-10.2) mg/dL Magnesium 1.7 (1.6-2.3) mg/dL Total Bilirubin 0.7 (0.2-1.3) mg/dL AST 41 (17-59) U/L ALT 63 (21-72) U/L Alkaline Phosphatase 114 (38-126) U/L Total Creatine Kinase (55-170) U/L CK-MB (CK-2) (0.0-2.4) ng/mL CK-MB (CK-2) Rel Index Troponin I (0.000-0.034) ng/mL NT-Pro-B Natriuret Pep pg/mL Total Protein 6.4 (6.3-8.2) g/dL Albumin 3.4 L (3.5-5.0) g/dL 08/06/17 Range/Units 18:50 WBC (3.8-10.6) k/uL RBC (4.30-5.90) m/uL Hgb (13.0-17.5) gm/dL Hct (39.0-53.0) % MCV (80.0-100.0) fL MCH (25.0-35.0) pg MCHC (31.0-37.0) g/dL RDW (11.5-15.5) % Plt Count (150-450) k/uL Neutrophils % % Lymphocytes % % Monocytes % % Eosinophils % % Basophils % % Neutrophils # (1.3-7.7) k/uL Lymphocytes # (1.0-4.8) k/uL Monocytes # (0-1.0) k/uL Eosinophils # (0-0.7) k/uL Basophils # (0-0.2) k/uL PT (9.0-12.0) sec INR (<1.2) APTT (22.0-30.0) sec VBG pH (7.31-7.41) VBG pCO2 (37-51) mmHg VBG HCO3 (24-28) mmol/L Sodium (137-145) mmol/L Potassium (3.5-5.1) mmol/L Chloride (98-107) mmol/L Carbon Dioxide (22-30) mmol/L Anion Gap mmol/L BUN (9-20) mg/dL Creatinine (0.66-1.25) mg/dL Est GFR (MDRD) Af Amer (>60 ml/min/1.73 sqM) Est GFR (MDRD) Non-Af (>60 ml/min/1.73 sqM) Glucose (74-99) mg/dL Plasma Lactic Acid Nae[place] (0.7-2.0) mmol/L Calcium (8.4-10.2) mg/dL Magnesium (1.6-2.3) mg/dL Total Bilirubin (0.2-1.3) mg/dL AST (17-59) U/L ALT (21-72) U/L Alkaline Phosphatase (38-126) U/L Total Creatine Kinase (55-170) U/L CK-MB (CK-2) (0.0-2.4) ng/mL CK-MB (CK-2) Rel Index Troponin I (0.000-0.034) ng/mL NT-Pro-B Natriuret Pep 80 pg/mL Total Protein (6.3-8.2) g/dL Albumin (3.5-5.0) g/dL Critical Care Time Critical Care Time: Yes Total Critical Care Time: 35 Disposition Clinical Impression: Acute exacerbation of chronic obstructive airways disease, Hypoventilation associated with obesity syndrome Disposition: ADMITTED IP TO THIS [facility] Condition: Stable Referrals: Marian Bradford MD [Primary Care Provider] - 1-2 days Decision to Admit Reason: Admit from EC Decision Date: 08/06/17 Decision Time: 21:07
[2017-08-06] MEDS ORDERED: ACETAMINOPHEN TAB 500 MG TAB PO STA (19:09)
[2017-08-06 19:12] LABS: Basophils # (A) 0.1 k/uL (0-0.2); Basophils % (A) 1 %; CH 30.6; CHCM 32.9; Eosinophils # (A) 0.2 k/uL (0-0.7); Eosinophils % (A) 3 %; HCT 45.9 % (39.0-53.0); HDW 2.59; Luc # (Auto) 0.16; Luc % (Auto) 2; Lymphocytes # (A) 2.1 k/uL (1.0-4.8); Lymphocytes % (A) 28 %; MCH 30.5 pg (25.0-35.0); MCHC 32.6 g/dL (31.0-37.0); MCV 93.4 fL (80.0-100.0); Mean Platelet Volume 8.3; Monocytes # (A) 0.4 k/uL (0-1.0); Monocytes % (A) 6 %; Neutrophils # (A) 4.5 k/uL (1.3-7.7); Neutrophils % (A) 60 %; RBC 4.92 m/uL (4.30-5.90); RDW 14.6 % (11.5-15.5); VBG PH 7.35 (7.31-7.41); WBC 7.5 k/uL (3.8-10.6)
[2017-08-06 19:25] LABS: ALT 63 U/L (21-72); AST 41 U/L (17-59); Alkaline Phosphatase 114 U/L (38-126); Anion Gap 8 mmol/L; Blood Urea Nitrogen 7 mg/dL (9-20); Calcium 8.7 mg/dL (8.4-10.2); Carbon Dioxide 27 mmol/L (22-30); Chloride 104 mmol/L (98-107); Glucose 328 mg/dL (74-99); Magnesium 1.7 mg/dL (1.6-2.3); Non-African American GFR(MDRD) >60 (>60 ml/min/1.73 sqM); Sodium 139 mmol/L (137-145); Total Bilirubin 0.7 mg/dL (0.2-1.3); Total Protein 6.4 g/dL (6.3-8.2)
[2017-08-06 19:27] LABS: Potassium 4.1 mmol/L (3.5-5.1)
[2017-08-06 19:43] LABS: Troponin I 0.012 ng/mL (0.000-0.034)
[2017-08-06 19:47] LABS: INR 1.1 (<1.2); Prothrombin Time 10.7 sec (9.0-12.0)
--- NOTE | 2017-08-06 20:19 | XR ---
EXAMINATION TYPE: XR chest 2V DATE OF EXAM: 08/06/2017 COMPARISON: Chest x-ray June 21, 2017. CTA chest January 22, 2017. HISTORY: Chest pain and shortness of breath since this morning. TECHNIQUE: Frontal and lateral views of the chest are obtained. FINDINGS: Exam is slightly suboptimal secondary to patient's large body habitus especially lateral vi ew. There is no focal air space opacity, pleural effusion, or pneumothorax seen. The cardiac silhou ette size is within normal limits. Some multilevel spurring in thoracic spine is present. IMPRESSION: Suboptimal study without acute cardiopulmonary process.
[2017-08-06] MEDS ORDERED: IPRATROPIUM-ALBUTEROL 3 ML NEB INHALATION PRN (21:01)
[2017-08-06] MEDS ORDERED: LEVOFLOXACIN 500 MG TAB PO SCH (21:45)
[2017-08-06] MEDS ORDERED: METHOCARBAMOL 750 MG TAB PO PRN (22:44)
[2017-08-06] MEDS ORDERED: PSEUDOEPHEDRINE 12HR 120 MG TABLET.ER PO PRN (22:44)
[2017-08-06] MEDS ORDERED: LORATADINE 10 MG TAB PO PRN (22:44)
[2017-08-06] MEDS ORDERED: ALPRAZolam 0.5 MG TAB PO PRN (22:44)
[2017-08-06] MEDS ORDERED: FLUTICASONE 50MCG/SPRAY NASAL 16GM EA NOSTRIL PRN (22:44)
[2017-08-07] MEDS: LISINOPRIL 20 MG TAB PO SCH ×2 (00:35→09:34)
[2017-08-07] MEDS: RIVAROXABAN 15 MG TAB PO SCH ×2 (00:35→09:34)
[2017-08-07 00:48] VITALS: BMI 64.8
[2017-08-07] MEDS ORDERED: IPRATROPIUM 0.5 MG/2.5 ML NEBU INHALATION SCH (08:00)
[2017-08-07] MEDS: IPRATROPIUM-ALBUTEROL 3 ML NEB INHALATION SCH ×2 (08:02→11:22)
[2017-08-07] MEDS ORDERED: predniSONE 20 MG TAB PO SCH (09:00)
[2017-08-07 10:28] VITALS: BP 164/90; TEMP 97
[2017-08-07 11:40] VITALS: PULSE 80; RESP 18
--- NOTE | 2017-08-07 19:29 | HP ---
HISTORY AND PHYSICAL HISTORY AND PHYSICAL AND DISCHARGE SUMMARY: CHIEF COMPLAINT: Chest pain and shortness of breath. HISTORY OF PRESENT ILLNESS: This 47-year-old gentleman with a past medical history of multiple medical problems, including COPD, history of DVT, history of GERD, hypertension, history of DJD, history of pulmonary embolism being followed by Dr. Marian Bradford in the outpatient setting, is complaining of shortness of breath. The patient also having chest pain. Chest pain is felt in the anterior part of chest. Patient was taking albuterol at home. Because of lack of improvement the patient came to [facility] and was admitted for further evaluation and treatment. After bronchodilators, patient is feeling much better. There is no history of any fever, rigors. No history of headache, loss of consciousness or seizures. PAST MEDICAL: COPD, DVT GERD, hypertension, history of DJD, history of sleep apnea. MEDICATIONS PRIOR TO ADMISSION: Include: 1. Oxycodone 30 mg b.i.d. 2. Zoloft 50 mg. 4. HydroDIURIL 25 mg daily. 5. Cetirizine 10 mg daily. 6. Albuterol/Atrovent updrafts and. 7. Symbicort. ALLERGIES: FLEXERIL AND MOTRIN. FAMILY HISTORY: The patient is adopted. Unable to obtain. SOCIAL HISTORY: History of smoking on a current basis. No history of alcohol intake. REVIEW OF SYSTEMS: ENT: No diminished hearing. No diminished vision. CARDIOVASCULAR: As mentioned earlier. RESPIRATORY: As mentioned earlier. GI: No nausea, vomiting. : No dysuria. NERVOUS: No numbness or weakness. ALLERGY/IMMUNOLOGY: No asthma or hay fever. MUSCULOSKELETAL: As mentioned earlier. HEMATOLOGY/ONCOLOGY: No history of anemia. ENDOCRINE: No history of diabetes, hypothyroidism. CONSTITUTIONAL: As mentioned earlier. DERMATOLOGY: Negative. RHEUMATOLOGY: Negative. PSYCHIATRY: As mentioned earlier. PHYSICAL EXAMINATION: Alert and oriented x3. Pulse 80, blood pressure 160/90, respirations 16, temperature 97 degrees, pulse ox 93% on room air. HEENT: Conjunctivae normal. NECK: No jugular venous distention. CARDIOVASCULAR: S1, S2 muffled. RESPIRATORY: Breath sounds diminished in the bases. A few scattered rhonchi and crackles. Expiratory wheezing also present. ABDOMEN: Soft, nontender. LEGS: No edema. NERVOUS SYSTEM: Nonfocal. LABS: CBC within normal limits. Glucose 328. ASSESSMENT: 1. Chest pain, possible unstable angina, possibly musculoskeletal. 2. Chronic obstructive pulmonary disease acute exacerbation with acute purulent tracheobronchitis. 3. History of deep vein thrombosis. 4. Gastroesophageal reflux disease. 5. Hypertension. 6. History of degenerative joint disease. 7. History of pulmonary embolus. 8. Anxiety, schizoaffective disorder. 9. Chronic obstructive pulmonary disease. 10.History of schizophrenia. RECOMMENDATIONS AND DISCUSSION: In this 47-year-old gentleman who presented with multiple complex medical issues , will monitor the patient closely. Continue the current management. Continue symptomatic treatment. Will initiate bronchodilators. Continue with antibiotics, steroids , and the patient is keen on going home. The patient is feeling much better. Recommend the patient be discharged and continue with followup with Dr. Bradford in the outpatient setting. We will continue the home medications. Will add bronchodilators as well as a tapering dose of prednisone as well as Levaquin for 5 days. See orders for further details. MMODL / IJN: [id number] / LUC
== END 2017-08-07 12:22 | disposition home or self-care (01) ==
LOC: EC 18:07 → 6SEL 21:01 → INTOOBSV 21:01 → 5MS5E 08-07 10:45
PROVIDERS: ADMIT Internal Medicine; ATTEND Internal Medicine
DX: R07.89 Other chest pain (principal); J44.0 Chronic obstructive pulmonary disease with (acute) lower respiratory infection; E66.2 Morbid (severe) obesity with alveolar hypoventilation; I10 Essential (primary) hypertension; F25.9 Schizoaffective disorder, unspecified; J44.1 Chronic obstructive pulmonary disease with (acute) exacerbation; J20.9 Acute bronchitis, unspecified; F17.200 Nicotine dependence, unspecified, uncomplicated; K21.9 Gastro-esophageal reflux disease without esophagitis; M17.12 Unilateral primary osteoarthritis, left knee; F41.9 Anxiety disorder, unspecified; G89.29 Other chronic pain; M54.9 Dorsalgia, unspecified; Z79.51 Long term (current) use of inhaled steroids; Z79.01 Long term (current) use of anticoagulants; Z79.891 Long term (current) use of opiate analgesic; Z79.899 Other long term (current) drug therapy; Z86.711 Personal history of pulmonary embolism; Z86.718 Personal history of other venous thrombosis and embolism; Z96.651 Presence of right artificial knee joint; Z90.01 Acquired absence of eye; Z97.0 Presence of artificial eye; Z88.8 Allergy status to other drugs, medicaments and biological substances; M19.90 Unspecified osteoarthritis, unspecified site; Z68.44 Body mass index [BMI] 60.0-69.9, adult; G47.33 Obstructive sleep apnea (adult) (pediatric); J96.92 Respiratory failure, unspecified with hypercapnia
CPT/HCPCS: 96374; 99291; 36415; 94660 ×2; 94640 ×3; 93005; 83880; 80053; 82550; 82553; 82803; 83605; 83735; 84484; 85025; 85610; 85730; 71020; G0378 ×2; J2930; J7512

== ENCOUNTER 2018-01-20 17:05 | Inpatient (IN) | payer OTHER ==
[2018-01-20] MEDS ORDERED: AZITHROMYCIN 500 MG in SODIUM CHLORIDE 0.9% 250 ML IVPB STA (18:10)
[2018-01-20] MEDS ORDERED: SODIUM CHLORIDE 0.9% 1,000 ML IV STA (18:10)
[2018-01-20] MEDS ORDERED: IPRATROPIUM 0.5 MG/2.5 ML NEBU INHALATION STA (18:10)
[2018-01-20] MEDS ORDERED: cefTRIAXone IN SWFI 1,000 MG/10 ML SYRINGE IVP STA (18:10)
[2018-01-20] MEDS ORDERED: ALBUTEROL NEBULIZED 2.5 MG/3 ML INHALATION STA (18:10)
[2018-01-20] MEDS ORDERED: KETOROLAC 30 MG/ML 1 ML VIAL IVP STA (18:12)
[2018-01-20] MEDS ORDERED: ACETAMINOPHEN IV (For NPO) 1,000 MG in EMPTY BAG 1 BAG IVPB STA (18:12)
[2018-01-20 19:23] LABS: ALT 31 U/L (21-72); AST 28 U/L (17-59); Albumin 3.4 g/dL (3.5-5.0); Alkaline Phosphatase 76 U/L (38-126); Anion Gap 10 mmol/L; Blood Urea Nitrogen 10 mg/dL (9-20); Calcium 8.7 mg/dL (8.4-10.2); Carbon Dioxide 27 mmol/L (22-30); Chloride 101 mmol/L (98-107); Glucose 155 mg/dL (74-99); Magnesium 1.7 mg/dL (1.6-2.3); Potassium 3.7 mmol/L (3.5-5.1); Sodium 138 mmol/L (137-145); Total Bilirubin 0.8 mg/dL (0.2-1.3); Total Protein 6.4 g/dL (6.3-8.2)
[2018-01-20 19:28] LABS: Basophils % (A) 1 %; Eosinophils # (A) 0.2 k/uL (0-0.7); Eosinophils % (A) 2 %; HCT 43.1 % (39.0-53.0); HGB 15.5 gm/dL (13.0-17.5); Lymphocytes # (A) 1.6 k/uL (1.0-4.8); Lymphocytes % (A) 23 %; MCH 30.7 pg (25.0-35.0); MCV 85.3 fL (80.0-100.0); Mean Platelet Volume 7.5; Monocytes # (A) 0.3 k/uL (0-1.0); Monocytes % (A) 5 %; Neutrophils # (A) 4.6 k/uL (1.3-7.7); Neutrophils % (A) 68 %; Platelet Count 162 k/uL (150-450); RBC 5.05 m/uL (4.30-5.90); RDW 13.6 % (11.5-15.5); WBC 6.8 k/uL (3.8-10.6)
--- NOTE | 2018-01-20 19:44 | ED ---
General Adult HPI - General Chief complaint: Shortness of Breath Stated complaint: MARIAMA Time Seen by Provider: 01/20/18 18:09 Source: patient, RN notes reviewed, old records reviewed Mode of arrival: wheelchair Limitations: physical limitation - History of Present Illness Initial comments: This is a 47-year-old male to the ER for evaluation. Patient is ER for evaluation of fever shortness of breath exertional dyspnea. History of morbid obesity recent history of for ear surgery of some kind. Patient has no ear pain no headache. Patient states shortness of breath is increased dramatically for the last 2-3 days. Noted fever. Mild nausea no vomiting. No bowel pain no chest pain no diarrhea. No recent travel history no known sick contacts. - Related Data Home Medications Medication Instructions Recorded Confirmed Albuterol Inhaler [Ventolin Hfa 2 puff INHALATION RT-Q6H PRN 04/21/14 01/20/18 Inhaler] Lisinopril 40 mg PO BID 04/21/14 01/20/18 oxyCODONE HCL 30 mg PO QID 04/21/14 01/20/18 Cetirizine HCl 10 mg PO DAILY PRN 10/11/15 01/20/18 Budesonide-Formot 160-4.5 Mcg 2 puff INHALATION RT-BID PRN 06/21/17 01/20/18 [Symbicort 160-4.5 Mcg Inhaler] Fluticasone Nasal [place] [Flonase 2 spr EA NOSTRIL DAILY PRN 06/21/17 01/20/18 Nasal [place]] Rivaroxaban [Xarelto] 15 mg PO BID 06/21/17 01/20/18 Hydrochlorothiazide [Hydrodiuril] 25 mg PO DAILY 08/07/17 01/20/18 Previous Rx's Medication Instructions Recorded Albuterol Nebulized [Ventolin 2.5 mg INHALATION RT-QID #0 08/07/17 Nebulized] Allergies Allergy/AdvReac Type Severity Reaction Status Date / Time cyclobenzaprine HCl Allergy Itching Verified 01/20/18 18:34 [From Flexeril] ibuprofen [From Motrin] AdvReac Nausea Verified 01/20/18 18:34 Review of Systems ROS Statement: Those systems with pertinent positive or pertinent negative responses have been documented in the HPI. ROS Other: All systems not noted in ROS Statement are negative. 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 EDENTULOUS, past cellulitis R leg, DVT R leg, pulmonary embolus R lung, DIANE without device. History of Any Multi-Drug Resistant Organisms: None Reported Past Surgical History: Joint Replacement, Orthopedic Surgery Additional Past Surgical History / Comment(s): Right knee replacement, tubes in bilateral ears now removed, right eye enucliation-HAS ARTIFICIAL EYE, EGD. rt ear sx Past Anesthesia/Blood Transfusion Reactions: No Reported Reaction Past Psychological History: Anxiety, Schizoaffective Disorder, Schizophrenia Smoking Status: Current every day smoker Past Alcohol Use History: None Reported Past Drug Use History: None Reported - Past Family History Father History Unknown: Yes Family Medical History: Unable to Obtain Additional Family Medical History / Comment(s): Patient was adopted Mother Family Medical History: Unable to Obtain Additional Family Medical History / Comment(s): Patient was adopted General Exam Limitations: physical limitation General appearance: alert, in no apparent distress, obese Head exam: Present: atraumatic, normocephalic, normal inspection Eye exam: Present: normal appearance, PERRL, EOMI. Absent: scleral icterus, conjunctival injection, periorbital swelling ENT exam: Present: normal exam, mucous membranes moist Neck exam: Present: normal inspection. Absent: tenderness, meningismus, lymphadenopathy Respiratory exam: Present: decreased breath sounds, prolonged expiratory. Absent: respiratory distress, wheezes, rales, rhonchi, stridor Cardiovascular Exam: Present: regular rate, normal rhythm, normal heart sounds. Absent: systolic murmur, diastolic murmur, rubs, gallop, clicks GI/Abdominal exam: Present: soft, normal bowel sounds. Absent: distended, tenderness, guarding, rebound, rigid Extremities exam: Present: normal inspection, full ROM, normal capillary refill. Absent: tenderness, pedal edema, joint swelling, calf tenderness Back exam: Present: normal inspection Neurological exam: Present: alert, oriented X3, CN II-XII intact Psychiatric exam: Present: normal affect, normal mood Skin exam: Present: warm, dry, intact, normal color. Absent: rash Course Vital Signs 01/20/18 01/20/18 01/20/18 17:31 18:43 19:19 Temperature 100.8 F H Pulse Rate 99 94 97 Respiratory 20 20 Rate Blood Pressure 194/108 160/76 O2 Sat by Pulse 94 L 97 Oximetry 01/20/18 01/20/18 19:45 19:54 Temperature 99.2 F Pulse Rate 104 H 108 H Respiratory 20 Rate Blood Pressure 142/74 O2 Sat by Pulse 96 Oximetry - Reevaluation(s) Reevaluation #1: 01/20/18 20:36 Mild improvement after breathing treatment, fevers control to patient is sitting up at bedside EKG Findings - EKG Comments: EKG Findings:: EKG shows normal sinus rhythm rate of 96, FL 150, QRS 152, QTc 517 Medical Decision Making - Medical Decision Making 47 male the ER positive pneumonia will admit for IV antibiotics breathing treatments and continue monitoring of cardiopulmonary status - Lab Data Result diagrams: 01/20/18 18:50 01/20/18 18:50 Lab Results 01/20/18 01/20/18 01/20/18 Range/Units 18:50 18:50 18:50 WBC 6.8 (3.8-10.6) k/uL RBC 5.05 (4.30-5.90) m/uL Hgb 15.5 (13.0-17.5) gm/dL Hct 43.1 (39.0-53.0) % MCV 85.3 (80.0-100.0) fL MCH 30.7 (25.0-35.0) pg MCHC 36.0 (31.0-37.0) g/dL RDW 13.6 (11.5-15.5) % Plt Count 162 (150-450) k/uL Neutrophils % 68 % Lymphocytes % 23 % Monocytes % 5 % Eosinophils % 2 % Basophils % 1 % Neutrophils # 4.6 (1.3-7.7) k/uL Lymphocytes # 1.6 (1.0-4.8) k/uL Monocytes # 0.3 (0-1.0) k/uL Eosinophils # 0.2 (0-0.7) k/uL Basophils # 0.0 (0-0.2) k/uL PT (9.0-12.0) sec INR (<1.2) APTT (22.0-30.0) sec Sodium 138 (137-145) mmol/L Potassium 3.7 (3.5-5.1) mmol/L Chloride 101 (98-107) mmol/L Carbon Dioxide 27 (22-30) mmol/L Anion Gap 10 mmol/L BUN 10 (9-20) mg/dL Creatinine 0.62 L (0.66-1.25) mg/dL Est GFR (CKD-EPI)AfAm >90 (>60 ml/min/1.73 sqM) Est GFR (CKD-EPI)NonAf >90 (>60 ml/min/1.73 sqM) Glucose 155 H (74-99) mg/dL Calcium 8.7 (8.4-10.2) mg/dL Magnesium 1.7 (1.6-2.3) mg/dL Total Bilirubin 0.8 (0.2-1.3) mg/dL AST 28 (17-59) U/L ALT 31 (21-72) U/L Alkaline Phosphatase 76 (38-126) U/L Total Creatine Kinase 75 (55-170) U/L CK-MB (CK-2) 0.8 (0.0-2.4) ng/mL CK-MB (CK-2) Rel Index 1.1 Troponin I 0.031 (0.000-0.034) ng/mL NT-Pro-B Natriuret Pep pg/mL Total Protein 6.4 (6.3-8.2) g/dL Albumin 3.4 L (3.5-5.0) g/dL 01/20/18 01/20/18 Range/Units 18:50 18:50 WBC (3.8-10.6) k/uL RBC (4.30-5.90) m/uL Hgb (13.0-17.5) gm/dL Hct (39.0-53.0) % MCV (80.0-100.0) fL MCH (25.0-35.0) pg MCHC (31.0-37.0) g/dL RDW (11.5-15.5) % Plt Count (150-450) k/uL Neutrophils % % Lymphocytes % % Monocytes % % Eosinophils % % Basophils % % Neutrophils # (1.3-7.7) k/uL Lymphocytes # (1.0-4.8) k/uL Monocytes # (0-1.0) k/uL Eosinophils # (0-0.7) k/uL Basophils # (0-0.2) k/uL PT 10.9 (9.0-12.0) sec INR 1.1 (<1.2) APTT 32.3 H (22.0-30.0) sec Sodium (137-145) mmol/L Potassium (3.5-5.1) mmol/L Chloride (98-107) mmol/L Carbon Dioxide (22-30) mmol/L Anion Gap mmol/L BUN (9-20) mg/dL Creatinine (0.66-1.25) mg/dL Est GFR (CKD-EPI)AfAm (>60 ml/min/1.73 sqM) Est GFR (CKD-EPI)NonAf (>60 ml/min/1.73 sqM) Glucose (74-99) mg/dL Calcium (8.4-10.2) mg/dL Magnesium (1.6-2.3) mg/dL Total Bilirubin (0.2-1.3) mg/dL AST (17-59) U/L ALT (21-72) U/L Alkaline Phosphatase (38-126) U/L Total Creatine Kinase (55-170) U/L CK-MB (CK-2) (0.0-2.4) ng/mL CK-MB (CK-2) Rel Index Troponin I (0.000-0.034) ng/mL NT-Pro-B Natriuret Pep 331 pg/mL Total Protein (6.3-8.2) g/dL Albumin (3.5-5.0) g/dL - Radiology Data Radiology results: report reviewed (Chest x-ray is positive for pneumonia), image reviewed Disposition Clinical Impression: Pneumonia, Morbid obesity, Nosocomial pneumonia Disposition: ADMITTED IP TO THIS [facility] Condition: Fair Is patient prescribed a controlled substance at discharge?: No Referrals: Marian Bradford MD [Primary Care Provider] - 1-2 days
[2018-01-20 19:51] LABS: Creatine Kinase MB 0.8 ng/mL (0.0-2.4); Troponin I 0.031 ng/mL (0.000-0.034)
[2018-01-20 19:53] LABS: INR 1.1 (<1.2); Partial Thromboplastin Time 32.3 sec (22.0-30.0); Prothrombin Time 10.9 sec (9.0-12.0)
--- NOTE | 2018-01-20 20:34 | XR ---
EXAMINATION TYPE: XR chest 2V DATE OF EXAM: 01/20/2018 COMPARISON: 08/06/2017 HISTORY: Difficulty in breathing TECHNIQUE: Frontal and lateral views of the chest are obtained. FINDINGS: Patchy left perihilar infiltrate may reflect developing pneumonia. No evidence for pneumothorax. No pleural effusion. The cardiac silhouette size is within normal limits. The osseous structures are grossly intact. IMPRESSION: 1. Patchy left perihilar infiltrate may reflect developing pneumonia.
[2018-01-20] MEDS ORDERED: PNEUMONIA PROTOCOL UTILIZED 1 EACH MISC PO PRN (20:37)
[2018-01-20] MEDS ORDERED: ACETAMINOPHEN TAB 325 MG TAB PO PRN (22:40)
[2018-01-20] MEDS: LEVOFLOXACIN 750MG-D5W PMX 750 MG in DEXTROSE/WATER 1 150ML.BAG IVPB SCH (22:43)
[2018-01-20] MEDS: SODIUM CHLORIDE 0.9% 1,000 ML IV SCH (22:46)
[2018-01-20] MEDS: PIPERACILLIN-TAZOBACTAM 3.375 GM in DEXTROSE/WATER 1 50ML.BAG IVPB SCH (23:04)
[2018-01-21] MEDS: IPRATROPIUM-ALBUTEROL 3 ML NEB INHALATION SCH ×6 (04:40→19:53)
[2018-01-21] MEDS: SODIUM CHLORIDE 0.9% 1,000 ML IV SCH ×2 (09:53→17:58)
[2018-01-21] MEDS: PIPERACILLIN-TAZOBACTAM 3.375 GM in DEXTROSE/WATER 1 50ML.BAG IVPB SCH ×2 (09:54→17:57)
[2018-01-21] MEDS ORDERED: IPRATROPIUM-ALBUTEROL 3 ML NEB INHALATION PRN (11:35)
[2018-01-21] MEDS ORDERED: SYMBICORT 160-4.5 MCG INHALER INHALATION PRN (15:53)
[2018-01-21] MEDS ORDERED: RX INFO: IV CONTRAST WAS GIVEN 1 EACH MISC MISCELLANE PRN (16:04)
--- NOTE | 2018-01-21 16:04 | XR ---
EXAMINATION TYPE: XR chest 2V DATE OF EXAM: 01/21/2018 COMPARISON: 01/20/2018 INDICATION: Pneumonia short of breath TECHNIQUE: Frontal and lateral views of the chest are obtained. FINDINGS: The heart size is normal. The pulmonary vasculature is approaching upper limits of normal. The lungs are clear. IMPRESSION: 1. Increasing prominence of pulmonary vascular markings. 2. An acute pulmonary process not radiographically apparent.
--- NOTE | 2018-01-21 16:06 | P.CNPUL ---
<Smiley Samuel M - Last Filed: 01/21/18 16:06> History of Present Illness Consult date: 01/21/18 Requesting physician: Jonathan Barton Reason for consult: dyspnea, cough, chest pain, pneumonia, obstructive sleep apnea Chief complaint: Dyspnea, chest congestion, orthopnea, fever, chills, chest pain History of present illness: Juan is a 47-year-old white male patient of Dr. Marian Bradford, presented to the emergency department on 01/20/2018 at 1705 with complaints of 3-4 day history of increasing shortness of breath, chest congestion, orthopnea, fever, chills, and left-sided chest pain. Patient is a current smoker, currently smoking 1 pack a day, for over 30 years. As a history of morbid obesity, obstructive sleep apnea with AHI of 100, was prescribed a CPAP therapy however is not compliant with it, related to recent right ear surgery for removal of chronic scar tissue on 12/25/[address] Groves at the [facility]. Patient was told to avoid any pressure including that of CPAP. Patient has chronic hearing loss related to chronic ear infections, previous ear tubes placement, tympanic perforations bilaterally. In addition patient is complaining of frontal headache, which is exacerbated by episodes of coughing. Denies any nasal drainage, denies any ear drainage, denies any ear pain. Mild nausea, but no vomiting, no diarrhea. No recent antibiotic use in the last 30 days. Denies any sick contacts. Does not have any other chronic lung problems, is not on any home oxygen. Currently unemployed. 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 Chest x- ray from 01/20/2018 showed a patchy left perihilar infiltrate possibly developing pneumonia. EKG showed normal sinus rhythm with right bundle branch block at a rate of 96 BPM. Laboratory findings are negative for any gross cytosis, W BC of 6.8, hemoglobin of 15.5, INR is 1.1, electrolytes were within normal limits, BUN was 10, creatinine was 0.62. Liver enzymes, cardiac enzymes and troponins were negative 1, proBNP was within normal limits at 331, influenza screen was negative. Patient did have a low-grade fever on presentation with a temp of 100.8F. Currently on room air, and has not required any supplemental oxygen, hemodynamically stable. He seen sitting up in the chair, in no acute distress. He is awake, alert, responding appropriately, complaining of left-sided chest pain worse with inspiration. Lung sounds reveal diminished lung sounds bilaterally, no significant rhonchi or wheezes noted. Patient was initially started on azithromycin and Rocephin which was later changed to Levaquin and Zosyn, he was given nebulized treatments , and Symbicort. Blood and sputum cultures were ordered, but the patient has a dry cough, and is not able to bring up any sputum. Review of Systems All systems: negative Constitutional: Reports fatigue, Reports weakness, Denies chills, Denies fever Eyes: right loss of vision (Artificial eye on the right, related to history of right eye enucleation), denies blurred vision, denies pain Ears: bilateral: decreased hearing, deny: ear discharge, earache, tinnitus Ears, nose, mouth and throat: Reports headache, Reports sinus pressure, Denies sore throat Cardiovascular: Reports dyspnea on exertion, Denies chest pain, Denies shortness of breath Respiratory: Reports congestion, Reports dyspnea, Reports pain on inspiration, Reports sleep apnea, Denies cough Gastrointestinal: Denies abdominal pain, Denies diarrhea, Denies nausea, Denies vomiting Musculoskeletal: Denies myalgias Integumentary: Denies pruritus, Denies rash Neurological: Denies numbness, Denies weakness Psychiatric: Denies anxiety, Denies depression Endocrine: Denies fatigue, Denies weight change Past Medical History Past Medical History: Chest Pain / Angina, COPD, Deep Vein Thrombosis (DVT), Eye Disorder, GERD/Reflux, Hypertension, Osteoarthritis (OA), Pulmonary Embolus (PE), Sleep Apnea/CPAP/BIPAP Additional Past Medical History / Comment(s): degenerative disc disease, chronic back pain, arthritis in left knee, torn maniscus in left knee,RT ARTIFICIAL EYE"ORIGINALLY HAD TRAUMATIC INJURY TO EYE THEN DEVELOPED UNCONTROLLABLE GLAUCOMA LOSS OF VISON ENDED UP HAVING EYE REMOVED". EDENTULOUS, past cellulitis R leg, DVT R leg, pulmonary embolus R lung, DIANE without device. History of Any Multi-Drug Resistant Organisms: None Reported Past Surgical History: Joint Replacement, Orthopedic Surgery Additional Past Surgical History / Comment(s): Right knee replacement, tubes in bilateral ears now removed, right eye enucliation-HAS ARTIFICIAL EYE, EGD. rt ear sx, RIGHT EAR SURGERY Past Anesthesia/Blood Transfusion Reactions: No Reported Reaction Past Psychological History: Anxiety, Schizoaffective Disorder, Schizophrenia Additional Psychological History / Comment(s): Pt states he has xanax for anxiety but denies history that is previously on medical record for schizophrenia. Pt resides with significant other. He is independent. Smoking Status: Current every day smoker Past Alcohol Use History: None Reported Additional Past Alcohol Use History / Comment(s): smokes 1ppd Past Drug Use History: None Reported - Past Family History Father History Unknown: Yes Family Medical History: Unable to Obtain Additional Family Medical History / Comment(s): Patient was adopted Mother Family Medical History: Unable to Obtain Additional Family Medical History / Comment(s): Patient was adopted Medications and Allergies Home Medications Medication Instructions Recorded Confirmed Type Albuterol Inhaler [Ventolin Hfa 2 puff INHALATION RT-Q6H PRN 04/21/14 01/20/18 History Inhaler] Lisinopril 40 mg PO BID 04/21/14 01/20/18 History oxyCODONE HCL 30 mg PO QID 04/21/14 01/20/18 History Cetirizine HCl 10 mg PO DAILY PRN 10/11/15 01/20/18 History Budesonide-Formot 160-4.5 Mcg 2 puff INHALATION RT-BID PRN 06/21/17 01/20/18 History [Symbicort 160-4.5 Mcg Inhaler] Fluticasone Nasal [place] [Flonase 2 spr EA NOSTRIL DAILY PRN 06/21/17 01/20/18 History Nasal [place]] Rivaroxaban [Xarelto] 15 mg PO BID 06/21/17 01/20/18 History Albuterol Nebulized [Ventolin 2.5 mg INHALATION RT-QID #0 08/07/17 01/20/18 Rx Nebulized] Hydrochlorothiazide [Hydrodiuril] 25 mg PO DAILY 08/07/17 01/20/18 History Allergies Allergy/AdvReac Type Severity Reaction Status Date / Time cyclobenzaprine HCl Allergy Itching Verified 01/20/18 18:34 [From Flexeril] ibuprofen [From Motrin] AdvReac Nausea Verified 01/20/18 18:34 Physical Exam Vitals: Vital Signs Temp Pulse Pulse Resp BP BP Pulse Ox 01/21/18 12:06 98 01/21/18 11:53 96 01/21/18 08:47 99.4 F 95 16 177/91 96 01/21/18 07:47 92 01/21/18 07:36 94 01/21/18 04:50 100 01/21/18 04:40 104 H 01/20/18 22:40 97.8 F 91 24 161/76 95 01/20/18 21:39 98.3 F 90 20 131/78 94 L 01/20/18 20:37 97 01/20/18 19:54 99.2 F 108 H 20 142/74 96 01/20/18 19:45 104 H 01/20/18 19:19 97 20 160/76 97 01/20/18 18:43 94 01/20/18 17:31 100.8 F H 99 20 194/108 94 L Intake and Output 01/21/18 01/21/18 01/21/18 06:59 14:59 22:59 Intake Total 1400 Balance 1400 Intake: Intake, IV Titration 800 Amount Sodium Chloride 0.9% 1, 800 000 ml @ 100 mls/hr IV . Q10H AMY Rx#:[id number] Oral 600 Other: # Voids 2 - Constitutional General appearance: morbidly obese, no acute distress - EENT Right-sided artificial eye Eyes: abnormal pupil, poor dentition ENT: hard of hearing, NA/AT - Neck Neck: no lymphadenopathy Carotids: bilateral: upstroke normal Thyroid: bilateral: normal size - Respiratory Respiratory: bilateral: diminished - Cardiovascular Rhythm: regular Heart sounds: normal: S1, S2 ankle Peripheral Edema: bilateral: Trace dorsalis pedis Peripheral Pulses: bilateral: Normal radial pulse Peripheral Pulses: bilateral: Normal - Gastrointestinal General gastrointestinal: no organomegaly, soft, no tenderness - Integumentary Integumentary: normal turgor - Neurologic Neurologic: CNII-XII intact - Musculoskeletal Musculoskeletal: strength equal bilaterally - Psychiatric Psychiatric: A&O x's 3, appropriate affect, intact judgment & insight Results - Laboratory Findings CBC and BMP: 01/20/18 18:50 01/20/18 18:50 PT/INR, D-dimer PT 10.9 sec (9.0-12.0) 01/20/18 18:50 INR 1.1 (<1.2) 01/20/18 18:50 Abnormal lab findings: Abnormal Labs 01/20/18 01/20/18 18:50 18:50 APTT 32.3 H Creatinine 0.62 L Glucose 155 H Albumin 3.4 L - Diagnostic Findings Chest x-ray: report reviewed, image reviewed Additional studies: Twelve-lead EKG reviewed Assessment and Plan Plan: Assessment: #1. Acute patchy left perihilar infiltrate, likely acute pneumonia, possibly healthcare acquired #2. Recent right ear surgery on 12/25/[address] Groves at the [facility]. Patient has chronic hearing loss, recurrent ear infections, tube placements, tympanic perforations, and scarring #3. History of severe symptomatic obstructive sleep apnea, and patient underwent a sleep study on 12/02/2017 which revealed AHI of 100. Patient is currently noncompliant with the CPAP, related to recent ear surgery and the need to avoid any positive pressure #4. Morbid obesity, with a BMI of 67.8 kg/m #5. COPD #6. Ongoing nicotine addiction, patient carries 46-mlzi-delp smoking history, smoking 1 pack a day #7. History of pulmonary embolism and DVTs in January 2016 related to patient's sedentary lifestyle, the patient is on chronic anticoagulation on Xarelto #8. GERD #9. Hypertension #10. History of degenerative joint disease #11. Anxiety, schizoaffective disorder #12. History of severe pulmonary hypertension, secondary to obstructive sleep apnea syndrome and pulmonary embolisms, with right ventricular systolic pressure of 77 mmHg on the echocardiogram from 06/29/2016 Plan: Continue current antibiotic coverage, will add Solu-Medrol 60 mg every 6 hours, and continue bronchodilators. Obtain sputum culture, continue Xarelto. We will obtain chest CT with contrast. Continue monitoring fever pattern, vital signs, oxygenation. I performed a history & physical examination of the patient and discussed their management with my nurse practitioner, Smiley Samuel. I reviewed the nurse practitioner's note and agree with the documented findings and plan of care. Lung sounds are positive for diminished lung sounds. The findings and the impression was discussed with the patient. I attest to the documentation by the nurse practitioner. 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 As such the patient underwent a right ear tympanomastoidectomy followed by a tympanoplasty and this was done at [facility] in [place]. Based on that, the patient was told not to use his CPAP. He continued to smoke cigarettes. He is known to have obstructive sleep apnea which is severe with an AHI of 100. No headache. No active drainage from the right ear. The patient a low-grade fever at the time of admission with an temperature 100.8. Chest x-ray shows left perihilar fullness and infiltration the left perihilar/suprahilar area. White cell count is not elevated. He is morbidly obese. 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, previous history of DVT and pulmonary embolism with a DVT of the right lower extremity, previous history of cellulitis, Physical Exam Vitals: Vital Signs Temp Pulse Pulse Resp BP BP Pulse Ox 01/21/18 16:19 98 01/21/18 15:57 94 01/21/18 15:09 100.3 F H 104 H 20 183/94 90 L 01/21/18 12:06 98 01/21/18 11:53 96 01/21/18 08:47 99.4 F 95 16 177/91 96 01/21/18 07:47 92 01/21/18 07:36 94 01/21/18 04:50 100 01/21/18 04:40 104 H 01/20/18 22:40 97.8 F 91 24 161/76 95 01/20/18 21:39 98.3 F 90 20 131/78 94 L 01/20/18 20:37 97 01/20/18 19:54 99.2 F 108 H 20 142/74 96 01/20/18 19:45 104 H 01/20/18 19:19 97 20 160/76 97 01/20/18 18:43 94 01/20/18 17:31 100.8 F H 99 20 194/108 94 L Intake and Output 01/21/18 01/21/18 01/21/18 06:59 14:59 22:59 Intake Total 1400 Balance 1400 Intake: Intake, IV Titration 800 Amount Sodium Chloride 0.9% 1, 800 000 ml @ 100 mls/hr IV . Q10H AMY Rx#:[id number] Oral 600 Other: # Voids 2 Results - Laboratory Findings CBC and BMP: 01/20/18 18:50 01/20/18 18:50 PT/INR, D-dimer PT 10.9 sec (9.0-12.0) 01/20/18 18:50 INR 1.1 (<1.2) 01/20/18 18:50 Abnormal lab findings: Abnormal Labs 01/20/18 01/20/18 18:50 18:50 APTT 32.3 H Creatinine 0.62 L Glucose 155 H Albumin 3.4 L Assessment and Plan Plan: This is a joint evaluation that was done along with the nurse practitioner. I reviewed the chest x-ray. I think it's important for this patient to undergo a CAT scan of the chest to rule out any mass within the left hilar and suprahilar area. The patient likely has an underlying pneumonia. Continue current antibiotic coverage. He also has a component of COPD exacerbation for which she 'll be started on IV Solu-Medrol in addition to his bronchodilators. He underwent a recent cholesteatoma surgery of the right ear and he underwent a resection of cholesteatoma followed by tympanomastoidectomy and tympanoplasty. The patient has not used his CPAP since and it's important to go back in a CPAP therapy once clearance has been obtained by the ENT physician. He is on long- term articulation with Xarelto and this will be continued. Smoking cessation counseling will be done. He has chronic pulmonary hypertension based on previous echocardiogram which is obviously multifactorial including his severe obstructive sleep apnea and previous history of pulmonary embolism contributing to his severe pulmonary hypertension. We'll continue to follow.
[2018-01-21] MEDS ORDERED: ENOXAPARIN 40 MG/0.4 ML SYRINGE SQ SCH (16:30)
--- NOTE | 2018-01-21 17:13 | CT ---
EXAMINATION TYPE: CT chest w con DATE OF EXAM: 01/21/2018 COMPARISON: 01/22/2017 HISTORY: 47 year-old male left perihilar fullness, infiltrate, SOB TECHNIQUE: Contiguous axial scanning of the chest after the administration of 100 mL of Isovue 300. Coronal/sagittal reconstructions performed. CT DLP: 1425.4mGycm. Automatic exposure control utilized for a dose reduction. FINDINGS: Heart upper limits of normal in size without pericardial effusion. Aorta normal caliber with conventional arch vessel branching anatomy. Mildly enlarged 1.2 cm prevascular space lymph node larger from 01/22/2017. 1.4 cm right tracheobronch ial angle lymph node also larger as compared to 1 cm on prior. Evaluation of the lungs shows patchy peribronchovascular groundglass nodularity throughout the left l mima without pleural effusion or any confluent consolidation. Similar nodularity is present within the right lower lobe. No pleural effusion. Visualized upper abdomen shows no gross abnormality. There are prominent artifacts due to patient's v yuly large body habitus contacting the sides of the gantry. Endplate spondylosis mid to lower thoracic spine. No osseous destructive process seen. IMPRESSION: 1. Extensive peribronchovascular groundglass nodularity throughout the left lung and to a lesser exte nt within a portion of the right lower lobe. Some differential considerations include infectious or a spiration pneumonitis. Atypical infections and inflammatory processes such as hypersensitivity pneumo nitis and KEYING MACHINE OPERATOR are also possible. Apical correlation will be needed. 2. A couple mildly enlarged mediastinal lymph nodes measuring up to 1.4 cm likely reactive/post infla mmatory.
[2018-01-21] MEDS: methylPREDNISolone SOD SUCCI 125 MG/2 ML VIAL IV SCH (17:57)
[2018-01-21] MEDS: RIVAROXABAN 15 MG TAB PO SCH (17:57)
[2018-01-21] MEDS ORDERED: NICOTINE 21MG/24HR PATCH TRANSDERM SCH (18:00)
--- NOTE | 2018-01-21 19:18 | HP ---
HISTORY AND PHYSICAL DATE OF ADMISSION: January 20, 2018. DATE OF SERVICE: January 21, 2018. PRESENTING COMPLAINT: Short of breath and cough. HISTORY OF PRESENTING COMPLAINT: This is a 46 -year-old patient who follows with Dr. Marian Bradford. Chronic stable medical conditions include obesity, hypertension, GERD, artificial right eye, chronic pulmonary embolism, for which the patient is on Xarelto, episode occurring in 2016 and the EF of 40-45%. The patient presented with 3-4 days of progressively increasing short of breath, wheezing, feeling hot cold, cough, not able to bring up any sputum, fever, chills, tired, run down. The patient has continued to smoke. The patient started on bronchodilators in the ER, not felt any better. Still quite a bit short of breath and respiratory distress at rest, coughing. REVIEW OF SYSTEMS: Constitutional: Fever, chills, weak, tired. HEENT: Artificial right eye. RESPIRATORY: As above. Cardiovascular none. Gastrointestinal heartburn. Genitourinary none. Musculoskeletal none. Dermatologic: None. Hematologic, lymphatics, none. Psychiatry: Anxious. Neurological none. PAST MEDICAL HISTORY: COPD, nicotine dependence, morbid obesity, hypertension, artificial right eye, cardiomyopathy, EF 40 to 45%, secondary pulmonary hypertension, chronic pulmonary embolism on Xarelto, obstructive sleep apnea, cholesteatoma of the right ear, chronic back pain, knee pain. PAST SURGICAL HISTORY: Joint replacement, right knee replacement, tubes in both the ears, right eye enucleation artificial eye. PSYCH HISTORY: Of schizoaffective disorder, anxiety. SOCIAL HISTORY: Patient lives with significant other, . Continues to smoke a pack a day for many years. FAMILY HISTORY: Patient is adopted. HOME MEDICATIONS: 1. Oxycodone 30 mg q.i.d. 2. Xarelto 50 mg b.i.d. 3. Lisinopril 40 mg b.i.d. 4. Hydrochlorothiazide 25 mg p.o. daily. 5. Flonase 2 sprays each nostril daily p.r.n. 6. Cetirizine 10 mg daily p.r.n. 7. Symbicort 160/4.5, 2 puffs b.i.d. p.r.n. 8. Ventolin 2.5 q.i.d. 9. Ventolin HFA 2 puffs q.6h p.r.n. ALLERGIES: TO FLEXERIL, MOTRIN. PHYSICAL EXAMINATION: Vital signs on admission, temperature 100.8, pulse 99, respiration 20, blood pressure 160/76, pulse ox 94% on room air. General appearance: Morbidly obese BMI 67.8. Lying in bed, very anxious appearing. Eyes: Right eye is artificial. The left conjunctivae normal. HEENT external appearance of nose and ears normal. Oral cavity dry. Neck short thick, JVD unable to assess. Mass not palpable. Respiratory effort increased. Accessory muscles are working. Not able to speak in full sentences. Lungs poor air entry. Prolonged expiration. Cardiovascular: HEART: Sounds distal. Minimal edema. Abdomen distended, soft. Liver and spleen not palpable. Lymphatics: No lymph nodes palpable in neck or axillae. PSYCHIATRY: Alert and oriented x3. Mood and affect anxious-appearing. Neurological: Pupils equal. Cranial nerves grossly intact. Power and sensation grossly intact. INVESTIGATIONS: White count 6.8, hemoglobin 15.5. Potassium 3.7, BUN 10, creatinine 0.62. Influenza A and B negative. Chest x-ray, possibly patchy left infiltrate. CT scan of the chest, extensive peribronchial toward the left flank, left lung. ASSESSMENT: 1. Possible pneumonia suspect gram-negative organism, present on admission. 2. Acute chronic obstructive pulmonary disease exacerbation in a current smoker. 3. Morbid obesity BMI 67.8. 4. Gastroesophageal reflux disease. 5. Essential hypertension. 6. Primary osteoarthritis . 7. Chronic pulmonary embolism, patient chronically on Xarelto. 8. Obstructive sleep apnea. Patient does use CPAP machine. 9. Cardiomyopathy EF 32% cause unknown. 10.Chronic low back pain from osteoarthritis. 11.Chronic nicotine dependence in a cigarette smoker. PLAN: Patient is started on nebulized bronchodilators, steroids, home medications are resumed. The patient is also put on Levaquin and Zosyn. Care was discussed with the patient. Pulmonary was consulted. Nicotine patch will be added. Copy to Marian Bradford. MMODL / IJN: [id number] /
[2018-01-21] MEDS ORDERED: SYMBICORT 160-4.5 MCG INHALER INHALATION SCH (20:00)
[2018-01-21 20:08] LABS: Glucose,Whole Blood 216 mg/dL (75-99)
[2018-01-21] MEDS: LEVOFLOXACIN 750MG-D5W PMX 750 MG in DEXTROSE/WATER 1 150ML.BAG IVPB SCH (21:39)
[2018-01-21] MEDS: INSULIN ASPART 100 UNIT/ML 1 ML 10 ML VIAL SQ SCH (21:40)
[2018-01-21] MEDS: LISINOPRIL 20 MG TAB PO SCH (22:06)
[2018-01-22] MEDS: PIPERACILLIN-TAZOBACTAM 3.375 GM in DEXTROSE/WATER 1 50ML.BAG IVPB SCH ×2 (00:14→07:50)
[2018-01-22] MEDS: methylPREDNISolone SOD SUCCI 125 MG/2 ML VIAL IV SCH ×3 (00:17→14:26)
[2018-01-22] MEDS: IPRATROPIUM-ALBUTEROL 3 ML NEB INHALATION SCH ×4 (00:34→11:48)
[2018-01-22] MEDS: SODIUM CHLORIDE 0.9% 1,000 ML IV SCH ×2 (04:35→06:21)
[2018-01-22 07:06] LABS: Glucose,Whole Blood 284 mg/dL (75-99)
[2018-01-22] MEDS: INSULIN ASPART 100 UNIT/ML 1 ML 10 ML VIAL SQ SCH ×2 (07:27→12:43)
[2018-01-22] MEDS: RIVAROXABAN 15 MG TAB PO SCH (07:27)
[2018-01-22 07:41] VITALS: BP 144/68; RESP 19; TEMP 98.2
[2018-01-22] MEDS: LISINOPRIL 20 MG TAB PO SCH (08:56)
[2018-01-22] MEDS ORDERED: HYDROCHLOROTHIAZIDE 25 MG TAB PO SCH (09:00)
--- NOTE | 2018-01-22 11:12 | CDI ---
Last Revision, September 2017 Documentation Clarification Form Date: 01/22/18 11:09 am From: Marilu Cm RN Admit Date: 01/20/2018 8:37:00 PM Patient Name: Juan Candelaria Visit Number: [id number] ATTENTION: The Clinical Documentation Specialists (CDI) and [facility] Coding Staff appreciate your assistance in clarifying documentation. Please respond to the clarification below the line at the bottom and electronically sign. The CDI & [facility] Coding staff will review the response and follow-up if needed. Please note: Queries are made part of the Legal Health Record. If you have any questions, please contact the author of this message via ITS. Dr. Jonathan Barton, History/Risk Factors: morbid obesity, HTN, gerd, chronic pe, smoker, copd, cardiomyopathy, pulmonary htn, sleep apnea admitted with pneumonia, fever and chills Clinical Indicators: WBC: on admission 6.8 Blood cultures: no growth in 24 hours Vitals signs on admission: T 100.8, P 99, R 20, 194/108, 94% RA CXR: patchy infiltrate reflect developing pneumonia Treatment: Antibiotics: IV Azithromycin, IV Ceftriaxone, IV Levofloxacin, IV Piperacillin Monitor labs In your professional opinion, please clarify if these findings signify one of the following conditions, whether the condition is POA, and cause, if known: Sepsis ruled in Sepsis ruled out Other, please specify Unable to determine Present on Admission: Yes No Please continue to document in your progress notes, under the line below and/or in the discharge summary in order to capture severity of illness and risk of mortality. Include clinical findings that support your diagnosis. sepsis ruled out MTDD
[2018-01-22 11:14] LABS: Glucose,Whole Blood 309 mg/dL (75-99)
[2018-01-22 12:00] VITALS: PULSE 88
--- NOTE | 2018-01-22 13:44 | P.PN ---
Subjective Progress Note Date: 01/22/18 Juan is a 47-year-old white male patient of Dr. Marian Bradford, presented to the emergency department on 01/20/2018 at 1705 with complaints of 3-4 day history of increasing shortness of breath, chest congestion, orthopnea, fever, chills, and left-sided chest pain. Patient is a current smoker, currently smoking 1 pack a day, for over 30 years. As a history of morbid obesity, obstructive sleep apnea with AHI of 100, was prescribed a CPAP therapy however is not compliant with it, related to recent right ear surgery for removal of chronic scar tissue on 12/25/[address] Groves at the [facility]. Patient was told to avoid any pressure including that of CPAP. Patient has chronic hearing loss related to chronic ear infections, previous ear tubes placement, tympanic perforations bilaterally. In addition patient is complaining of frontal headache, which is exacerbated by episodes of coughing. Denies any nasal drainage, denies any ear drainage, denies any ear pain. Mild nausea, but no vomiting, no diarrhea. No recent antibiotic use in the last 30 days. Denies any sick contacts. Does not have any other chronic lung problems, is not on any home oxygen. Currently unemployed. 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 Chest x- ray from 01/20/2018 showed a patchy left perihilar infiltrate possibly developing pneumonia. EKG showed normal sinus rhythm with right bundle branch block at a rate of 96 BPM. Laboratory findings are negative for any gross cytosis, W BC of 6.8, hemoglobin of 15.5, INR is 1.1, electrolytes were within normal limits, BUN was 10, creatinine was 0.62. Liver enzymes, cardiac enzymes and troponins were negative 1, proBNP was within normal limits at 331, influenza screen was negative. Patient did have a low-grade fever on presentation with a temp of 100.8F. Currently on room air, and has not required any supplemental oxygen, hemodynamically stable. He seen sitting up in the chair, in no acute distress. He is awake, alert, responding appropriately, complaining of left-sided chest pain worse with inspiration. Lung sounds reveal diminished lung sounds bilaterally, no significant rhonchi or wheezes noted. Patient was initially started on azithromycin and Rocephin which was later changed to Levaquin and Zosyn, he was given nebulized treatments , and Symbicort. Blood and sputum cultures were ordered, but the patient has a dry cough, and is not able to bring up any sputum. On 01/22/2018 the patient is being seen for a follow-up. He is looking much better compared to yesterday. CAT scan of the chest was done yesterday that showed some nodular infiltrates in the left upper lobe and the left lower lobe which is most likely inflammatory/infectious in nature. Malignancy is doubtful at this stage. The patient has done very well on antibiotics and steroids. He is requesting to be discharged home. I think he should be able to get discharged home as long as he is not having any hemodynamic issues or any significant respiratory issues and the patient is able to tolerate oral antibiotics on outpatient basis. I discussed this with the hospitalist and the patient will likely go home on a combination of Levaquin and a prednisone burst taper. He has an ENT appointment tomorrow in regards to his recent tympanomastoidectomy and the patient would subsequently uses CPAP once he is cleared by his ENT doctor. No fever. No chills. No nausea. No vomiting. His influenza screen was negative. No other significant events over the past 24 hours. Smoking cessation counseling was again performed. Objective - Vital Signs Vital signs: Vital Signs Temp 98.2 F 01/22/18 07:00 Pulse 88 01/22/18 11:59 Resp 19 01/22/18 09:08 BP 144/68 01/22/18 07:00 Pulse Ox 91 L 01/22/18 07:00 Intake & Output 01/21/18 01/22/18 01/22/18 18:59 06:59 18:59 Intake Total 360 Balance 360 Intake: Oral 360 Other: Voiding Method Toilet Toilet Toilet Urinal Urinal Urinal # Voids 4 2 1 - Exam - Constitutional General appearance: morbidly obese, no acute distress - EENT Right-sided artificial eye, Mallampati class IV with significant crowding of the posterior oropharynx Eyes: abnormal pupil, poor dentition ENT: hard of hearing, NA/AT - Neck Neck: no lymphadenopathy Carotids: bilateral: upstroke normal Thyroid: bilateral: normal size - Respiratory Respiratory: bilateral: diminished, no wheezes or rhonchi at this point in time. - Cardiovascular Rhythm: regular Heart sounds: normal: S1, S2 ankle Peripheral Edema: bilateral: Trace dorsalis pedis Peripheral Pulses: bilateral: Normal radial pulse Peripheral Pulses: bilateral: Normal - Gastrointestinal General gastrointestinal: no organomegaly, soft, no tenderness - Integumentary Integumentary: normal turgor - Neurologic Neurologic: CNII-XII intact - Musculoskeletal Musculoskeletal: strength equal bilaterally - Psychiatric Psychiatric: A&O x's 3, appropriate affect, intact judgment & insight - Labs CBC & Chem 7: 01/20/18 18:50 01/20/18 18:50 Labs: Abnormal Lab Results - Last 24 Hours (Table) 01/21/18 01/22/18 01/22/18 Range/Units 19:57 07:04 11:13 POC Glucose (mg/dL) 216 H 284 H 309 H (75-99) mg/dL Microbiology - Last 24 Hours (Table) 01/20/18 18:50 Blood Culture - Preliminary Blood No Growth after 24 hours Assessment and Plan Plan: Assessment: #1. Acute patchy left perihilar infiltrate, and the CAT scan of the chest was reviewed and it showed some groundglass and hazy another changes throughout the lung delgado in the left upper and left lower lobe. Clinically however the patient is doing better and his oxygenation has improved and the patient can be discharged home on a course of antibiotics and steroids to be followed up on outpatient basis regarding the left lung pneumonia. #2. 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 Groves at the [facility]. Patient has chronic hearing loss, recurrent ear infections, tube placements, tympanic perforations, and scarring #3. History of severe symptomatic obstructive sleep apnea, and patient underwent a sleep study on 12/02/2017 which revealed AHI of 100. Patient is currently noncompliant with the CPAP, related to recent ear surgery and the need to avoid any positive pressure #4. Morbid obesity, with a BMI of 67.8 kg/m #5. COPD #6. Ongoing nicotine addiction, patient carries [id number] smoking history, smoking 1 pack a day #7. History of pulmonary embolism and DVTs in January 2016 related to patient's sedentary lifestyle, the patient is on chronic anticoagulation on Xarelto #8. GERD #9. Hypertension #10. History of degenerative joint disease #11. Anxiety, schizoaffective disorder #12. History of severe pulmonary hypertension, secondary to obstructive sleep apnea syndrome and pulmonary embolisms, with right ventricular systolic pressure of 77 mmHg on the echocardiogram from 06/29/2016 Plan The Patient can be discharged home on a prednisone burst taper in the course of Levaquin for the next 7 days. Continue anti-coagulation with Xarelto. Follow- up with ENT. Can go back on his CPAP once cleared by ENT as the patient is recovering from his right ear surgery. CAT scan of the chest was reviewed. No evidence of any malignancy at this point time yet the follow-up chest x-ray will be needed to make sure and documented resolution of the left lung pneumonia. The patient can take antibiotics on outpatient basis and this will be done. Smoking cessation counseling was again done. Clear for discharge from a pulmonary standpoint.
[2018-01-22 16:32] LABS: Hemoglobin A1C 7.6 % (4.0-6.0)
[2018-01-22] MEDS ORDERED: LEVOFLOXACIN 750 MG TAB PO SCH (21:00)
--- NOTE | 2018-01-23 21:20 | DS ---
DISCHARGE SUMMARY DATE OF ADMISSION: January 20, 2018. DATE OF DISCHARGE: January 22, 2018. FINAL DIAGNOSES: 1. Pneumonia suspect gram-negative organism present on admission. 2. Acute chronic obstructive pulmonary disease exacerbation in a current smoker. 3. Morbid obesity BMI . 4. Gastroesophageal reflux disease. 5. Essential hypertension. 6. Primary osteoarthritis. 7. Chronic pulmonary embolism patient chronically on Xarelto. 8. Obstructive sleep apnea does not use CPAP machine. 9. Cardiomyopathy ejection fraction 32%, cause unknown. 10.Chronic low back pain from osteoarthritis. 11.Chronic nicotine dependence in a cigarette smoker. 12.Recent surgery for right ear for cholesteatoma. HOSPITAL COURSE: This is a patient presented with pneumonia and some COPD exacerbation. Responded well to antibiotics and bronchodilators. Seen by Dr. Artinian. Villela to discharge. EXAM: Lungs decreased breath sounds. Cardiovascular 1st and 2nd sounds normal. Chest CT negative for PE. DISCHARGE MEDICATIONS: 1. Ventolin HFA 2 puffs q.6h p.r.n. 2. Lisinopril 40 mg b.i.d. 3. Oxycodone 30 mg p.o. q.i.d. 4. Cetirizine 10 mg daily p.r.n. 5. Symbicort 160/4.5, 2 puffs b.i.d. p.r.n. 6. Flonase 2 sprays each nostril daily p.r.n. 7. 50 mg p.o. b.i.d. 8. Hydrochlorothiazide 25 p.o. daily. 9. DuoNeb t.i.d. 10.Levaquin 75 mg for 5 days. 11.Nicotine 21 mg patch. 12.Prednisone taper. FOLLOWUP: Follow up with Dr. Marian Bradford on February 04, 2018. Follow up with Dr. Camargo and patient is to follow up with the ENT doctor. Copy to Marian Bradford. MMODL / IJN: [id number] /
== END 2018-01-22 15:14 | disposition home or self-care (01) | DRG 178 ==
LOC: EC 17:05 → 5MS5E 20:37
PROVIDERS: ADMIT Hospitalist; ATTEND Hospitalist
DX: J15.6 Pneumonia due to other Gram-negative bacteria (principal); Z68.44 Body mass index [BMI] 60.0-69.9, adult; I27.20 Pulmonary hypertension, unspecified; I27.82 Chronic pulmonary embolism; E66.01 Morbid (severe) obesity due to excess calories; F25.9 Schizoaffective disorder, unspecified; J44.0 Chronic obstructive pulmonary disease with (acute) lower respiratory infection; J44.1 Chronic obstructive pulmonary disease with (acute) exacerbation; I11.9 Hypertensive heart disease without heart failure; F17.210 Nicotine dependence, cigarettes, uncomplicated; G89.29 Other chronic pain; F41.9 Anxiety disorder, unspecified; G47.33 Obstructive sleep apnea (adult) (pediatric); H40.9 Unspecified glaucoma; K21.9 Gastro-esophageal reflux disease without esophagitis; H91.90 Unspecified hearing loss, unspecified ear; M17.12 Unilateral primary osteoarthritis, left knee; I45.10 Unspecified right bundle-branch block; M23.207 Derangement of unspecified meniscus due to old tear or injury, left knee; M47.9 Spondylosis, unspecified; M54.5 Low back pain; Z96.651 Presence of right artificial knee joint; Z86.718 Personal history of other venous thrombosis and embolism; Z79.01 Long term (current) use of anticoagulants; Z79.51 Long term (current) use of inhaled steroids; Z79.899 Other long term (current) drug therapy; Z90.01 Acquired absence of eye; Z97.0 Presence of artificial eye; Z91.19 Patient's noncompliance with other medical treatment and regimen
CPT/HCPCS: 36415; 71046; 71260; 80053; 82550; 82553; 83036; 83735; 83880; 84484; 85025; 85610; 85730; 87040; 87070; 87205; 87502; 93005; 94640; 94644; 96365; 96368; 96375; 99285

== ENCOUNTER 2018-01-26 20:06 | Observation (INO) | payer OTHER ==
[2018-01-26] MEDS ORDERED: SODIUM CHLORIDE 0.9% 1,000 ML IV STA ×2 (20:39)
[2018-01-26] MEDS ORDERED: IPRATROPIUM-ALBUTEROL 3 ML NEB INHALATION STA (20:39)
--- NOTE | 2018-01-26 21:06 | ED ---
SOB HPI <Jomar Edwards - Last Filed: 01/26/18 21:56> - General Source: patient, RN notes reviewed, old records reviewed Mode of arrival: ambulatory Limitations: no limitations <Debbi wOens - Last Filed: 01/26/18 22:05> - General Chief Complaint: Shortness of Breath Stated Complaint: MARIAMA Time Seen by Provider: 01/26/18 20:22 - History of Present Illness Initial Comments: This patient's a 47-year-old male with history of morbid obesity presents emergency Department incision point worsening shortness of breath. Patient reports that he was recently admitted and diagnosed with pneumonia. He was discharged steroids and Levaquin. He reports his been taking his medications without eating much relief. He reports that he's had severe dyspnea on exertion. He states that he has no significant chest pain with this [employer] when he is exerting himself he does have some discomfort and distress. Patient reports his cough has been productive. He feels very dry in the mouth and has a sore throat. (Debbi Owens) - Related Data Home Medications Medication Instructions Recorded Confirmed Albuterol Inhaler [Ventolin Hfa 2 puff INHALATION RT-Q6H PRN 04/21/14 01/26/18 Inhaler] Lisinopril 40 mg PO BID 04/21/14 01/26/18 oxyCODONE HCL 30 mg PO QID 04/21/14 01/26/18 Cetirizine HCl 10 mg PO DAILY PRN 10/11/15 01/26/18 Budesonide-Formot 160-4.5 Mcg 2 puff INHALATION RT-BID PRN 06/21/17 01/26/18 [Symbicort 160-4.5 Mcg Inhaler] Fluticasone Nasal [place] [Flonase 2 spr EA NOSTRIL DAILY PRN 06/21/17 01/26/18 Nasal [place]] Rivaroxaban [Xarelto] 15 mg PO BID 06/21/17 01/26/18 Hydrochlorothiazide [Hydrodiuril] 25 mg PO DAILY 08/07/17 01/26/18 Ipratropium-Albuterol Nebulize 3 ml INHALATION RT-TID 01/26/18 01/26/18 [Duoneb 0.5 mg-3 mg/3 ml Soln] predniSONE See Taper PO DAILY 01/26/18 01/26/18 Previous Rx's Medication Instructions Recorded Levofloxacin [Levaquin] 750 mg PO Q24H #5 tab 01/22/18 Allergies Allergy/AdvReac Type Severity Reaction Status Date / Time cyclobenzaprine HCl Allergy Itching Verified 01/26/18 20:26 [From Flexeril] ibuprofen [From Motrin] AdvReac Nausea Verified 01/26/18 20:26 Review of Systems ROS Other: All systems not noted in ROS Statement are negative. <Jomar Edwards - Last Filed: 01/26/18 21:56> ROS Other: All systems not noted in ROS Statement are negative. <Debbi Owens - Last Filed: 01/26/18 22:05> ROS Statement: Those systems with pertinent positive or pertinent negative responses have been documented in the HPI. Past Medical History Past Medical History: Chest Pain / Angina, COPD, Deep Vein Thrombosis (DVT), Eye Disorder, GERD/Reflux, Hypertension, Osteoarthritis (OA), Pulmonary Embolus (PE), Sleep Apnea/CPAP/BIPAP Additional Past Medical History / Comment(s): Patient has a 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 and the patient underwent a tympanomastoidectomy with tympanoplasty, morbid obesity, obstructive sleep apnea with an AHI of 100 she had a CPAP pressure of 14 cm of water, COPD, impaired left a ejection fraction of 32% based on the previous cardiac stress tests, chronic back pain, degenerative arthritis with chronic left knee pain in addition to a torn meniscus in the left knee, 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 rt ear sx, RIGHT EAR SURGERY Past Anesthesia/Blood Transfusion Reactions: No Reported Reaction Past Psychological History: Anxiety, Schizoaffective Disorder, Schizophrenia Smoking Status: Current every day smoker Past Alcohol Use History: None Reported Past Drug Use History: None Reported - Past Family History Father History Unknown: Yes Family Medical History: Unable to Obtain Additional Family Medical History / Comment(s): Patient was adopted Mother Family Medical History: Unable to Obtain Additional Family Medical History / Comment(s): Patient was adopted <GracielaDebbi - Last Filed: 01/26/18 22:05> General Exam <Jomar Edwards - Last Filed: 01/26/18 21:56> Limitations: no limitations <Debbi Owens - Last Filed: 01/26/18 22:05> - General Exam Comments Initial Comments: Morbidly obese 47-year-old male. General: Well appearing, well nourished, in no distress. Oriented x 3, normal mood and affect . Ambulating without difficulty. Skin: Good turgor, no rash, unusual bruising or prominent lesions Hair: Normal texture and distribution. HEENT: Head: Normocephalic, atraumatic, no visible or palpable masses, depressions, or scaring. Eyes: Visual acuity intact, conjunctiva clear, sclera non-icteric, EOM intact, PERRL. Nose: No external lesions, mucosa non-inflamed, septum and turbinates normal Mouth: Dry oropharynx. Pharynx: Mucosa non-inflamed, no tonsillar hypertrophy or exudate Neck: Supple, without lesions, bruits, or adenopathy, thyroid non-enlarged and non-tender Heart: No cardiomegaly or thrills; regular rate and rhythm, no murmur or gallop Lungs: Patient's lungs sounds are 6 extremely diminished. Multiple wheezes scattered throughout lung delgado. Abdomen: Bowel sounds normal, no tenderness, organomegaly, masses, or hernia Back: Spine normal without deformity or tenderness, no CVA tenderness Extremities: No amputations or deformities, cyanosis, edema or varicosities, peripheral pulses intact Musculoskeletal: Normal gait and station. No misalignment, asymmetry, crepitation, defects, tenderness, masses, effusions, decreased range of motion, instability, atrophy or abnormal strength or tone in the head, neck, spine, ribs , pelvis or extremities. Neurologic: CN 2-12 normal. Sensation to pain, touch, and proprioception normal. DTRs normal in upper and lower extremities. No pathologic reflexes. Psychiatric: Oriented X3, intact recent and remote memory, judgment and insight , normal mood and affect. (Debbi Owens) Vital Signs 01/26/18 01/26/18 01/26/18 20:10 20:49 20:56 Temperature 97.9 F Pulse Rate 81 82 84 Respiratory 18 Rate Blood Pressure 168/97 O2 Sat by Pulse 93 L Oximetry 01/26/18 21:06 Temperature Pulse Rate Respiratory 20 Rate Blood Pressure O2 Sat by Pulse Oximetry Medical Decision Making - Lab Data Result diagrams: 01/26/18 21:02 01/26/18 21:02 <Jomar Edwards - Last Filed: 01/26/18 21:56> - Lab Data Result diagrams: 01/26/18 21:02 01/26/18 21:02 - Radiology Data Radiology results: report reviewed <Debbi Owens - Last Filed: 01/26/18 22:05> - Medical Decision Making 47-year-old male history of morbid obesity and COPD presenting with exertional dyspnea and worsening cough. Patient given initial treatment emergency department, fails to improve. He was evaluated by his primary care physician and told to present to the emergency department. He will be placed in observation for continued treatment of reactive airway disease and COPD. ( Jomar Edwards) 47-year-old male with morbid obesity presents with worsening shortness breath and dyspnea on exertion. Patient was given IV fluids and lab work obtained. Blood cultures obtained. He is currently on Levaquin and steroids at home. He arrives very short of breath, oxygen saturation 92%. Placed on 2 L oxygen. He was given a DuoNeb treatment. Patient has significant decrease in lung signs and significant wheezing noted. Patient will be admitted at this time for IV steroids and COPD exacerbations. Patient will continue by mouth antibiotics he was recently prescribed. His chest x-ray did show previous pneumonia was clearing. Patient will be admitted at this time. We will also repeat troponins due to the dyspnea on exertion. (Debbi Owens) - Lab Data Lab Results 01/26/18 01/26/18 01/26/18 Range/Units 21:02 21:02 21:02 WBC 11.2 H (3.8-10.6) k/uL RBC 5.33 (4.30-5.90) m/uL Hgb 16.1 (13.0-17.5) gm/dL Hct 46.0 (39.0-53.0) % MCV 86.4 (80.0-100.0) fL MCH 30.3 (25.0-35.0) pg MCHC 35.0 (31.0-37.0) g/dL RDW 13.6 (11.5-15.5) % Plt Count 200 (150-450) k/uL Neutrophils % 76 % Lymphocytes % 18 % Monocytes % 2 % Eosinophils % 1 % Basophils % 0 % Neutrophils # 8.5 H (1.3-7.7) k/uL Lymphocytes # 2.1 (1.0-4.8) k/uL Monocytes # 0.3 (0-1.0) k/uL Eosinophils # 0.2 (0-0.7) k/uL Basophils # 0.0 (0-0.2) k/uL PT (9.0-12.0) sec INR (<1.2) APTT (22.0-30.0) sec Sodium 139 (137-145) mmol/L Potassium 4.5 (3.5-5.1) mmol/L Chloride 100 (98-107) mmol/L Carbon Dioxide 28 (22-30) mmol/L Anion Gap 11 mmol/L BUN 18 (9-20) mg/dL Creatinine 0.65 L (0.66-1.25) mg/dL Est GFR (CKD-EPI)AfAm >90 (>60 ml/min/1.73 sqM) Est GFR (CKD-EPI)NonAf >90 (>60 ml/min/1.73 sqM) Glucose 227 H (74-99) mg/dL Calcium 8.6 (8.4-10.2) mg/dL Magnesium 1.7 (1.6-2.3) mg/dL Total Bilirubin 0.6 (0.2-1.3) mg/dL AST 34 (17-59) U/L ALT 37 (21-72) U/L Alkaline Phosphatase 93 (38-126) U/L Total Creatine Kinase 41 L (55-170) U/L CK-MB (CK-2) 0.8 (0.0-2.4) ng/mL CK-MB (CK-2) Rel Index 2.0 Troponin I <0.012 (0.000-0.034) ng/mL NT-Pro-B Natriuret Pep pg/mL Total Protein 6.5 (6.3-8.2) g/dL Albumin 3.5 (3.5-5.0) g/dL 01/26/18 01/26/18 Range/Units 21:02 21:02 WBC (3.8-10.6) k/uL RBC (4.30-5.90) m/uL Hgb (13.0-17.5) gm/dL Hct (39.0-53.0) % MCV (80.0-100.0) fL MCH (25.0-35.0) pg MCHC (31.0-37.0) g/dL RDW (11.5-15.5) % Plt Count (150-450) k/uL Neutrophils % % Lymphocytes % % Monocytes % % Eosinophils % % Basophils % % Neutrophils # (1.3-7.7) k/uL Lymphocytes # (1.0-4.8) k/uL Monocytes # (0-1.0) k/uL Eosinophils # (0-0.7) k/uL Basophils # (0-0.2) k/uL PT 11.3 (9.0-12.0) sec INR 1.2 H (<1.2) APTT 32.1 H (22.0-30.0) sec Sodium (137-145) mmol/L Potassium (3.5-5.1) mmol/L Chloride (98-107) mmol/L Carbon Dioxide (22-30) mmol/L Anion Gap mmol/L BUN (9-20) mg/dL Creatinine (0.66-1.25) mg/dL Est GFR (CKD-EPI)AfAm (>60 ml/min/1.73 sqM) Est GFR (CKD-EPI)NonAf (>60 ml/min/1.73 sqM) Glucose (74-99) mg/dL Calcium (8.4-10.2) mg/dL Magnesium (1.6-2.3) mg/dL Total Bilirubin (0.2-1.3) mg/dL AST (17-59) U/L ALT (21-72) U/L Alkaline Phosphatase (38-126) U/L Total Creatine Kinase (55-170) U/L CK-MB (CK-2) (0.0-2.4) ng/mL CK-MB (CK-2) Rel Index Troponin I (0.000-0.034) ng/mL NT-Pro-B Natriuret Pep 691 pg/mL Total Protein (6.3-8.2) g/dL Albumin (3.5-5.0) g/dL EKG performed at 2031 shows normal sinus murmur or murmurs block. Left anterior fascicular block. Abnormal EKG noted. Ventricular rate of 71 bpm. LA interval is 152 ms. QRS duration 148 ms. QT QTc is 446/484 ms. (Debbi Owens) - Radiology Data Medications no active cardiopulmonary disease. Clearing of the left-sided perihilar pneumonia. Last exam. (Debbi Owens) Disposition <Jomar Edwards - Last Filed: 01/26/18 21:56> Is patient prescribed a controlled substance at d/c from ED?: No If prescribed controlled substance>3 days was MAPS reviewed?: No When asked, does pt state using other controlled substances?: No Time of Disposition: 22:05 <Debbi Owens - Last Filed: 01/26/18 22:05> Clinical Impression: COPD (chronic obstructive pulmonary disease), Dyspnea, HTN (hypertension), Morbid obesity Disposition: ADMITTED IP TO THIS HOSP Condition: Stable Referrals: Marian Bradford MD [Primary Care Provider] - 1-2 days
[2018-01-26 21:12] LABS: Basophils % (A) 0 %; Eosinophils # (A) 0.2 k/uL (0-0.7); Eosinophils % (A) 1 %; HGB 16.1 gm/dL (13.0-17.5); Lymphocytes # (A) 2.1 k/uL (1.0-4.8); Lymphocytes % (A) 18 %; MCH 30.3 pg (25.0-35.0); MCV 86.4 fL (80.0-100.0); Monocytes # (A) 0.3 k/uL (0-1.0); Monocytes % (A) 2 %; Neutrophils # (A) 8.5 k/uL (1.3-7.7); Neutrophils % (A) 76 %; Platelet Count 200 k/uL (150-450); RBC 5.33 m/uL (4.30-5.90); RDW 13.6 % (11.5-15.5); WBC 11.2 k/uL (3.8-10.6)
[2018-01-26 21:22] LABS: ALT 37 U/L (21-72); AST 34 U/L (17-59); Albumin 3.5 g/dL (3.5-5.0); Alkaline Phosphatase 93 U/L (38-126); Anion Gap 11 mmol/L; Blood Urea Nitrogen 18 mg/dL (9-20); Calcium 8.6 mg/dL (8.4-10.2); Carbon Dioxide 28 mmol/L (22-30); Chloride 100 mmol/L (98-107); Glucose 227 mg/dL (74-99); Magnesium 1.7 mg/dL (1.6-2.3); Potassium 4.5 mmol/L (3.5-5.1); Sodium 139 mmol/L (137-145); Total Bilirubin 0.6 mg/dL (0.2-1.3); Total Protein 6.5 g/dL (6.3-8.2)
[2018-01-26 21:25] LABS: INR 1.2 (<1.2); Partial Thromboplastin Time 32.1 sec (22.0-30.0); Prothrombin Time 11.3 sec (9.0-12.0)
[2018-01-26 21:30] LABS: Creatine Kinase 41 U/L (55-170)
[2018-01-26 21:43] LABS: Creatine Kinase MB 0.8 ng/mL (0.0-2.4); Troponin I <0.012 ng/mL (0.000-0.034)
--- NOTE | 2018-01-26 21:43 | XR ---
EXAMINATION TYPE: XR chest 2V DATE OF EXAM: 01/26/2018 COMPARISON: 01/21/2018 HISTORY: Short of breath TECHNIQUE: Frontal and lateral views of the chest are obtained. FINDINGS: There is no heart failure nor confluent pneumonic infiltrate. Heart and mediastinum are no rmal. There is no pleural effusion. Bony thorax is intact. There is minor spurring in the thoracic sp ine. IMPRESSION: No active cardiopulmonary disease. There is clearing of the left side perihilar pneumoni a compared to last exam.
[2018-01-26] MEDS ORDERED: methylPREDNISolone SOD SUCCI 125 MG/2 ML VIAL IV STA (21:58)
[2018-01-26] MEDS ORDERED: LORATADINE 10 MG TAB PO PRN (22:00)
[2018-01-26] MEDS ORDERED: ALBUTEROL INHALER 60 PUFF/8 GM INHALER INHALATION PRN (22:00)
[2018-01-26] MEDS ORDERED: FLUTICASONE 50MCG/SPRAY NASAL 16GM EA NOSTRIL PRN (22:00)
[2018-01-26] MEDS: SODIUM CHLORIDE 0.9% 1,000 ML IV SCH (22:12)
[2018-01-26] MEDS ORDERED: LEVOFLOXACIN 750 MG TAB PO SCH (23:00)
[2018-01-26] MEDS: methylPREDNISolone SOD SUCCI 125 MG/2 ML VIAL IV SCH (23:35)
[2018-01-27 05:21] VITALS: BMI 62.2
[2018-01-27] MEDS: methylPREDNISolone SOD SUCCI 125 MG/2 ML VIAL IV SCH ×2 (05:59→12:58)
[2018-01-27 07:13] LABS: Glucose,Whole Blood 281 mg/dL (75-99)
[2018-01-27] MEDS: INSULIN ASPART 100 UNIT/ML 1 ML 10 ML VIAL SQ SCH ×4 (07:49→22:11)
[2018-01-27] MEDS: IPRATROPIUM-ALBUTEROL 3 ML NEB INHALATION PRN ×3 (07:51→15:59)
[2018-01-27] MEDS: SYMBICORT 160-4.5 MCG INHALER INHALATION SCH ×2 (07:52→20:15)
[2018-01-27] MEDS: guaiFENesin 600 MG TABLET.ER PO SCH ×2 (08:48→22:09)
[2018-01-27] MEDS: SODIUM CHLORIDE 0.9% 1,000 ML IV SCH ×2 (08:48→18:00)
[2018-01-27] MEDS: HYDROCHLOROTHIAZIDE 25 MG TAB PO SCH (08:48)
[2018-01-27] MEDS: RIVAROXABAN 15 MG TAB PO SCH ×2 (08:48→17:59)
[2018-01-27] MEDS: LISINOPRIL 20 MG TAB PO SCH ×2 (08:48→22:09)
[2018-01-27 11:27] LABS: Glucose,Whole Blood 252 mg/dL (75-99)
[2018-01-27] MEDS ORDERED: NALOXONE 0.4 MG/ML 1 ML VIAL IV PRN (17:25)
[2018-01-27] MEDS ORDERED: MELATONIN 3 MG TABLET PO PRN (17:25)
[2018-01-27] MEDS ORDERED: LORazepam 0.5 MG TAB PO PRN (17:25)
[2018-01-27] MEDS ORDERED: ONDANSETRON 4 MG/2 ML VIAL IVP PRN (17:25)
[2018-01-27] MEDS ORDERED: ACETAMINOPHEN TAB 325 MG TAB PO PRN (17:25)
[2018-01-27 17:31] LABS: Glucose,Whole Blood 294 mg/dL (75-99)
[2018-01-27] MEDS ORDERED: NICOTINE POLACRILEX 2 MG GUM BUCCAL PRN (17:37)
[2018-01-27] MEDS ORDERED: ALPRAZolam 0.25 MG TAB PO PRN (17:41)
[2018-01-27] MEDS: NICOTINE 21MG/24HR PATCH TRANSDERM SCH (19:19)
[2018-01-27 20:14] LABS: Glucose,Whole Blood 291 mg/dL (75-99)
[2018-01-27] MEDS: IPRATROPIUM-ALBUTEROL 3 ML NEB INHALATION SCH ×2 (20:15→20:16)
--- NOTE | 2018-01-27 20:23 | HP ---
HISTORY AND PHYSICAL DATE OF ADMISSION: 01/26/2018 DATE OF SERVICE: 01/27/2018 PRESENTING COMPLAINT: Short of breath, couldn't HISTORY OF PRESENTING COMPLAINT: This is a 47-year-old patient of Dr. Marian Bradford who was just discharged from the hospital. Patient is a smoker. Patient's chronic stable medical conditions include obesity, hypertension, GERD, artificial right eye, chronic pulmonary embolism, for which patient is on Xarelto, episode occurring in 2016, and patient has cardiomyopathy, EF of 40% to 45%. Patient was just discharged from the hospital and now presents with worsening shortness of breath, wheezing, light green sputum, cough. Patient's appetite had gone down. Patient was not getting better at home and decided to come to the ER. He was started on more frequent bronchodilators, with which he feels a bit better. Patient does continue to smoke. REVIEW OF SYSTEMS: CONSTITUTIONAL: Tired. HEENT: Artificial right eye. RESPIRATORY: As above. CARDIOVASCULAR: None. GASTROINTESTINAL: Heartburn. GENITOURINARY: None. MUSCULOSKELETAL: None. DERMATOLOGICAL: None. HEMATOLOGICAL: None. LYMPHATICS: None. PSYCHIATRY: None. NEUROLOGICAL: None. PAST MEDICAL HISTORY: 1. COPD. 2. Nicotine dependence. 3. Morbid obesity. 4. Hypertension. 5. Artificial right eye. 6. Cardiomyopathy, EF 40% to 45%. 7. Secondary pulmonary hypertension. 8. Chronic pulmonary embolism, on Xarelto. 9. Obstructive sleep apnea. 10.Cholesteatoma of the right ear. 11.Chronic back pain. 12.Knee pain. PAST SURGICAL HISTORY: 1. Joint replacement. 2. Right knee replacement. 3. Tubes in both ears. 4. Right eye enucleation with an artificial eye. PSYCH HISTORY: 1. Schizoaffective disorder. 2. Anxiety. SOCIAL HISTORY: Patient lives with significant other. Patient has been smoking a pack a day for several years. FAMILY HISTORY: Patient is adopted. HOME MEDICATIONS: 1. Prednisone taper. 2. Oxycodone 30 mg q.i.d. 3. Xarelto 15 mg b.i.d. 4. Lisinopril 40 mg b.i.d. 5. Levaquin 750 mg q.24 hours. 6. DuoNeb 3 mL t.i.d. 7. Hydrochlorothiazide 25 mg p.o. daily. 8. Flonase 2 sprays each nostril daily p.r.n. 9. Cetirizine 10 mg p.o. daily p.r.n. 10.Symbicort 160/4.5 two puffs b.i.d. 11.Ventolin HFA 2 puffs q.6 p.r.n.. ALLERGIES: FLEXERIL AND MOTRIN. PHYSICAL EXAMINATION: VITAL SIGNS ON PRESENTATION: Temperature 97.9, pulse 81, respiration 16, blood pressure 168/97, pulse ox 93% on room air. GENERAL APPEARANCE: Morbidly obese; BMI 62.2. Sitting up, tired-appearing. EYES: Right eye is artificial. Left conjunctiva normal. HEENT: External appearance of nose and ears normal. Oral cavity normal. NECK: Short, thick. Unable to assess. Mass not palpable. RESPIRATORY: Effort increased. LUNGS: Decreased breath sounds. Prolonged expiration. Wheezing. CARDIOVASCULAR: First and second sounds normal. Minimal edema. ABDOMEN: Distended, soft. Liver and spleen not palpable. LYMPHATIC: No lymph node palpable in neck or axillae. PSYCHIATRY: Alert and oriented x3. Mood and affect normal. NEUROLOGICAL: Artificial right eye. Cranial nerves grossly intact. Power and sensation grossly intact. INVESTIGATIONS: White count 11.2, potassium 4.5, BUN 18, creatinine 0.65. Chest x-ray: Nil acute. ASSESSMENT: 1. Acute chronic obstructive pulmonary disease exacerbation in a current smoker. 2. Morbid obesity with body mass index greater than 60. 3. Gastroesophageal reflux disease. 4. Essential hypertension. 5. Probably primary osteoarthritis in multiple joints, bilateral. 6. Chronic pulmonary embolism. Patient on Xarelto. 7. Obstructive sleep apnea; does not use CPAP machine. 8. Cardiomyopathy, ejection fraction around 40%, cause unknown. 9. Chronic low back pain from osteoarthritis. 10.Chronic nicotine dependence. Patient is a cigarette smoker. 11.Recent surgery for right ear cholesteatoma. PLAN: Patient started on nebulized bronchodilators, steroids. Home medications are resumed. Patient yet again advised against smoking and will be given a nicotine patch and nicotine gum. Will follow. MMODL / IJN: [id number] /
[2018-01-27] MEDS ORDERED: INSULIN ASPART 100 UNIT/ML 1 ML 10 ML VIAL SQ ONE (21:26)
[2018-01-28] MEDS: methylPREDNISolone SOD SUCCI 40 MG/ML 1 ML VIAL IV SCH ×3 (00:38→16:29)
[2018-01-28] MEDS: IPRATROPIUM-ALBUTEROL 3 ML NEB INHALATION SCH ×7 (01:08→23:48)
[2018-01-28 07:06] LABS: Glucose,Whole Blood 259 mg/dL (75-99)
[2018-01-28] MEDS: SYMBICORT 160-4.5 MCG INHALER INHALATION SCH ×2 (07:50→20:11)
[2018-01-28] MEDS: SODIUM CHLORIDE 0.9% 1,000 ML IV SCH ×2 (09:25→17:11)
[2018-01-28] MEDS: INSULIN ASPART 100 UNIT/ML 1 ML 10 ML VIAL SQ SCH ×4 (09:28→22:01)
[2018-01-28] MEDS: LISINOPRIL 20 MG TAB PO SCH ×2 (09:29→22:11)
[2018-01-28] MEDS: guaiFENesin 600 MG TABLET.ER PO SCH ×2 (09:29→22:11)
[2018-01-28] MEDS: RIVAROXABAN 15 MG TAB PO SCH ×2 (09:29→17:46)
[2018-01-28] MEDS: HYDROCHLOROTHIAZIDE 25 MG TAB PO SCH (09:29)
[2018-01-28] MEDS: NICOTINE 21MG/24HR PATCH TRANSDERM SCH (09:30)
[2018-01-28 11:35] LABS: Glucose,Whole Blood 267 mg/dL (75-99)
--- NOTE | 2018-01-28 13:37 | P.CNPUL ---
History of Present Illness Consult date: 01/28/18 Requesting physician: Jonathan Barton Reason for consult: dyspnea, cough, COPD, abnormal CXR/CT Chief complaint: Dyspnea, chest tightness, chest congestion History of present illness: Juan is a 47-year-old white male patient of Dr. Marian Bradford, who presented to the hospital on 01/26/2018 at 2104 with complaints of dyspnea, chest congestion , wheezing, and chest tightness. He was hospitalized last week on 01/21/2018 for an acute patchy left perihilar pneumonia, was treated with antibiotics in the form of Levaquin, nebulized bronchodilators, IV steroids, had clinical improvement, and was discharged home on 01/23/2018 in stable condition. Chest x -ray completed in the emergency room on 01/26/2018 showed clearing of the left sided perihilar pneumonia compared to previous exams. Patient denied any fever or chills, reports severe exertional dyspnea and chest tightness. Patient had a recent right ear cholesteatoma on 12/25/2017, was seen in follow-up by his ENT surgeon last week on Friday which of the packing out of the right ear. Other medical history includes severe obstructive sleep apnea, and the patient was temporarily not using his CPAP related to his right ear surgery. Morbid obesity, COPD, tobacco dependence and the patient carries [id number] smoking history, history of PEs and DVTs in January 2016 and the patient is on chronic anticoagulation on Xarelto, GERD, hypertension, DJD, anxiety, severe pulmonary hypertension. Patient has been afebrile, vital signs have been stable, he has been intermittently on supplemental oxygen, today his pulse ox on room air is 97 %. He has been treated for an acute COPD exacerbation, with combination of IV steroids, nebulized bronchodilators, Mucinex, and he reports improvement with his symptoms. Review of Systems All systems: negative Constitutional: Denies chills, Denies fever Eyes: denies blurred vision, denies pain Ears: bilateral: decreased hearing Ears, nose, mouth and throat: Denies headache, Denies sore throat Cardiovascular: Reports decreased exercise tolerance, Reports dyspnea on exertion, Reports edema, Reports high blood pressure, Reports leg edema, Denies chest pain, Denies shortness of breath Respiratory: Denies cough Gastrointestinal: Denies abdominal pain, Denies diarrhea, Denies nausea, Denies vomiting Musculoskeletal: Denies myalgias Integumentary: Denies pruritus, Denies rash Neurological: Denies numbness, Denies weakness Psychiatric: Denies anxiety, Denies depression Endocrine: Denies fatigue, Denies weight change Past Medical History Past Medical History: Chest Pain / Angina, COPD, Deep Vein Thrombosis (DVT), Eye Disorder, GERD/Reflux, Hypertension, Osteoarthritis (OA), Pulmonary Embolus (PE), Sleep Apnea/CPAP/BIPAP Additional Past Medical History / Comment(s): Cholesteatoma of the right ear that was surgically resected and the patient underwent a tympanomastoidectomy with tympanoplasty, morbid obesity, obstructive sleep apnea with an AHI of 100 he had a CPAP pressure of 14 cm of water, impaired left a ejection fraction of 32% based on the previous cardiac stress tests, chronic back pain, degenerative arthritis with chronic left knee pain in addition to a torn meniscus in the left knee, 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 rt ear sx Past Anesthesia/Blood Transfusion Reactions: No Reported Reaction Past Psychological History: Anxiety, Schizoaffective Disorder, Schizophrenia Additional Psychological History / Comment(s): Pt states he has xanax for anxiety. Pt resides with significant other. He is independent. Smoking Status: Current every day smoker Past Alcohol Use History: None Reported Additional Past Alcohol Use History / Comment(s): smokes 1ppd Past Drug Use History: None Reported - Past Family History Father History Unknown: Yes Family Medical History: Unable to Obtain Additional Family Medical History / Comment(s): Patient was adopted Mother Family Medical History: Unable to Obtain Additional Family Medical History / Comment(s): Patient was adopted Medications and Allergies Home Medications Medication Instructions Recorded Confirmed Type Albuterol Inhaler [Ventolin Hfa 2 puff INHALATION RT-Q6H PRN 04/21/14 01/26/18 History Inhaler] Lisinopril 40 mg PO BID 04/21/14 01/26/18 History oxyCODONE HCL 30 mg PO QID 04/21/14 01/26/18 History Cetirizine HCl 10 mg PO DAILY PRN 10/11/15 01/26/18 History Budesonide-Formot 160-4.5 Mcg 2 puff INHALATION RT-BID PRN 06/21/17 01/26/18 History [Symbicort 160-4.5 Mcg Inhaler] Fluticasone Nasal [place] [Flonase 2 spr EA NOSTRIL DAILY PRN 06/21/17 01/26/18 History Nasal [place]] Rivaroxaban [Xarelto] 15 mg PO BID 06/21/17 01/26/18 History Hydrochlorothiazide [Hydrodiuril] 25 mg PO DAILY 08/07/17 01/26/18 History Levofloxacin [Levaquin] 750 mg PO Q24H #5 tab 01/22/18 01/26/18 Rx Ipratropium-Albuterol Nebulize 3 ml INHALATION RT-TID 01/26/18 01/26/18 History [Duoneb 0.5 mg-3 mg/3 ml Soln] predniSONE See Taper PO DAILY 01/26/18 01/26/18 History Allergies Allergy/AdvReac Type Severity Reaction Status Date / Time cyclobenzaprine HCl Allergy Itching Verified 01/26/18 20:26 [From Flexeril] ibuprofen [From Motrin] AdvReac Nausea Verified 01/26/18 20:26 Physical Exam Vitals: Vital Signs Temp Pulse Pulse Resp BP Pulse Ox 01/28/18 12:15 80 01/28/18 12:00 80 01/28/18 07:55 76 01/28/18 07:43 80 01/28/18 07:25 97.1 F L 82 20 167/89 97 01/28/18 04:53 78 01/28/18 04:42 78 01/27/18 22:00 98.1 F 82 16 139/92 90 L 01/27/18 20:25 78 01/27/18 20:15 78 18 01/27/18 16:09 75 01/27/18 15:59 74 18 01/27/18 15:32 98.0 F 78 18 180/84 92 L Intake and Output 01/27/18 01/28/18 01/28/18 22:59 06:59 14:59 Intake Total 1390 Balance 1390 Intake: Intake, IV Titration 800 Amount Sodium Chloride 0.9% 1, 800 000 ml @ 100 mls/hr IV . Q10H [facility] Rx#:[id number] Oral 590 Other: Voiding Method Toilet Toilet # Voids 2 2 - Constitutional Morbidly obese, in no acute distress, General appearance: no acute distress - EENT Right-sided artificial eye, Mallampati class IV with significant crowding of the posterior oropharynx Eyes: abnormal pupil, EOMI, poor dentition ENT: NA/AT Ears: bilateral: normal - Neck Neck: no lymphadenopathy, normal ROM Carotids: bilateral: upstroke normal Thyroid: bilateral: normal size - Respiratory Respiratory: bilateral: diminished, wheezing (Minimal wheezing on forced expiratory maneuver), prolonged expiration - Cardiovascular Rhythm: regular Heart sounds: normal: S1, S2 leg Peripheral Edema: bilateral: 1+ ankle Peripheral Edema: bilateral: 1+ foot Peripheral Edema: bilateral: 1+ - Gastrointestinal General gastrointestinal: no organomegaly, soft, no tenderness - Integumentary Integumentary: normal - Neurologic Neurologic: CNII-XII intact - Musculoskeletal Musculoskeletal: strength equal bilaterally - Psychiatric Psychiatric: A&O x's 3, appropriate affect, intact judgment & insight Results - Laboratory Findings CBC and BMP: 01/26/18 21:02 01/26/18 21:02 PT/INR, D-dimer PT 11.3 sec (9.0-12.0) 01/26/18 21:02 INR 1.2 (<1.2) H 01/26/18 21:02 Abnormal lab findings: Abnormal Labs 01/26/18 01/26/18 01/26/18 21:02 21:02 21:02 WBC 11.2 H Neutrophils # 8.5 H INR APTT Creatinine 0.65 L Glucose 227 H POC Glucose (mg/dL) Total Creatine Kinase 41 L 01/26/18 01/27/18 01/27/18 21:02 07:09 11:24 WBC Neutrophils # INR 1.2 H APTT 32.1 H Creatinine Glucose POC Glucose (mg/dL) 281 H 252 H Total Creatine Kinase 01/27/18 01/27/18 01/28/18 17:28 20:13 07:04 WBC Neutrophils # INR APTT Creatinine Glucose POC Glucose (mg/dL) 294 H 291 H 259 H Total Creatine Kinase 01/28/18 11:33 WBC Neutrophils # INR APTT Creatinine Glucose POC Glucose (mg/dL) 267 H Total Creatine Kinase - Diagnostic Findings Chest x-ray: report reviewed, image reviewed Additional studies: Twelve-lead EKG reviewed Assessment and Plan Plan: Assessment: #1. Acute exacerbation of chronic obstructive pulmonary disease #2. Recent hospitalization for acute left perihilar pneumonia, patient was treated with Levaquin, improved and was discharged home on 01/23/2018. #3. Recent resection of a cholesteatoma from right ear on 12/25/[address] Groves at the [facility]. Patient has chronic hearing loss, recurrent ear infections, 2 placements, tympanic perforations and scarring. #4. History of severe symptomatic obstructive sleep apnea, and the patient underwent a sleep study on 12/02/2017 which revealed AHI of 100. Patient was temporarily not able to wear his CPAP related to his recent ear surgery, however is now cleared by the ENT surgeon to start wearing his CPAP again #5. Morbid obesity, with a BMI of 67.8 kg/m #6. COPD #7. Nicotine addiction, currently in remission, patient quit last week, carries [id number] smoking history #8. History of pulmonary embolisms and DVTs in January 2016 thought to be related to patient's sedentary lifestyle, and the patient is on chronic anticoagulation with Xarelto #9. GERD #10. Hypertension #11. History of degenerative joint disease #12. Anxiety #13. History of severe pulmonary hypertension, secondary to obstructive sleep apnea syndrome and pulmonary embolisms, with right ventricular systolic pressure of 77 mmHg on the echocardiogram from 06/29/2016 #14. History of glaucoma in the right eye, with right eye enucleation with an artificial eye Plan: Agree with current plan of treatment, continue IV steroids, nebulized treatments , patient is improving, he has completed a course of Levaquin, and the chest x- ray on admission showed clearing left perihilar pneumonia compared previous exams from last week. Patient is afebrile, denies any chest tightness, denies any chest pain worsening dyspnea. Increase activity as tolerated, patient is now cleared by his ENT surgeon to start wearing his CPAP again, and was advised to start wearing it again. Patient could potentially be discharged home today if it continues to be stable. He will need to be seen by Dr. Camargo in the office in 7-10 days I performed a history & physical examination of the patient and discussed their management with my nurse practitioner, Smiley Samuel. I reviewed the nurse practitioner's note and agree with the documented findings and plan of care. Lung sounds are positive for diffuse wheezes throughout the lung delgado. The findings and the impression was discussed with the patient. I attest to the documentation by the nurse practitioner.
[2018-01-28 17:11] LABS: Glucose,Whole Blood 258 mg/dL (75-99)
--- NOTE | 2018-01-28 19:06 | PN ---
PROGRESS NOTE DATE OF SERVICE: 01/28/18. PRESENTING COMPLAINT: Short of breath. INTERVAL HISTORY: Patient admitted with COPD exacerbation. Breathing is getting better. Less cough. Up to the bathroom. REVIEW OF SYSTEMS: Done for constitutional, cardiovascular, GI, pulmonary, relevant findings as above. CURRENT MEDICATIONS: Reviewed that can include IV Solu-Medrol and DuoNeb. PHYSICAL EXAMINATION: Temperature 98, pulse 81, respiration 22, blood pressure 139/92, pulse ox 91% on room air. General appearance: Sitting up feeling better. Eyes: Right eye is artificial. Left conjunctivae normal. HEENT external appearance of nose and ears normal. Oral cavity normal. Neck short thick, JVD unable to assess. Mass not palpable. Respiratory effort increased. Lungs improved air entry, decreased wheezing. Cardiovascular: 1st and 2nd sounds minimal edema. ABDOMEN: Soft, nontender. Liver and spleen not palpable. Psychiatry: Alert and oriented x3. Mood and affect normal. INVESTIGATIONS: Accu-Cheks are noted, 267, 258. ASSESSMENT: 1. Acute chronic obstructive pulmonary disease exacerbation in a current smoker. 2. Morbid obesity BMI greater than 60. 3. Gastroesophageal reflux disease. 4. Essential hypertension. 5. Primary osteoarthritis multiple joints bilateral. 6. Chronic pulmonary embolism patient on Xarelto. 7. Obstructive sleep apnea does not use CPAP. 8. Cardiomyopathy; ejection fraction around 40%, cause unknown. 9. Chronic low back pain from osteoarthritis. 10.Chronic nicotine dependence, patient is a cigarette smoker. 11.Recent surgery for right ear cholesteatoma. PLAN: Patient overall doing much better. Patient will be discharged tomorrow. Cut back on Solu-Medrol. MMODL / IJN: [id number] /
[2018-01-28] MEDS: predniSONE 20 MG TAB PO SCH (19:23)
[2018-01-28 20:33] LABS: Glucose,Whole Blood 348 mg/dL (75-99)
[2018-01-28] MEDS ORDERED: INSULIN ASPART 100 UNIT/ML 1 ML 10 ML VIAL SQ ONE (21:50)
[2018-01-29] MEDS: IPRATROPIUM-ALBUTEROL 3 ML NEB INHALATION SCH ×4 (03:40→15:00)
[2018-01-29] MEDS: SODIUM CHLORIDE 0.9% 1,000 ML IV SCH ×2 (05:19→11:32)
[2018-01-29 07:33] LABS: Glucose,Whole Blood 193 mg/dL (75-99)
[2018-01-29] MEDS: guaiFENesin 600 MG TABLET.ER PO SCH (07:59)
[2018-01-29] MEDS: HYDROCHLOROTHIAZIDE 25 MG TAB PO SCH (07:59)
[2018-01-29] MEDS: NICOTINE 21MG/24HR PATCH TRANSDERM SCH (07:59)
[2018-01-29] MEDS: INSULIN ASPART 100 UNIT/ML 1 ML 10 ML VIAL SQ SCH ×2 (08:00→12:41)
[2018-01-29] MEDS: RIVAROXABAN 15 MG TAB PO SCH (08:00)
[2018-01-29] MEDS: LISINOPRIL 20 MG TAB PO SCH (08:00)
[2018-01-29] MEDS: predniSONE 20 MG TAB PO SCH (08:00)
[2018-01-29] MEDS: SYMBICORT 160-4.5 MCG INHALER INHALATION SCH (08:06)
[2018-01-29 08:08] VITALS: RESP 22; TEMP 97.4
--- NOTE | 2018-01-29 11:10 | P.PN ---
Subjective Progress Note Date: 01/29/18 Principal diagnosis: Dyspnea, chest tightness, chest congestion Juan is a 47-year-old white male patient of Dr. Marian Bradford, who presented to the hospital on 01/26/2018 at 2014 with complaints of dyspnea, chest congestion , wheezing, and chest tightness. He was hospitalized last week on 01/21/2018 for an acute patchy left perihilar pneumonia, was treated with antibiotics in the form of Levaquin, nebulized bronchodilators, IV steroids, had clinical improvement, and was discharged home on 01/23/2018 in stable condition. Chest x -ray completed in the emergency room on 01/26/2018 showed clearing of the left sided perihilar pneumonia compared to previous exams. Patient denied any fever or chills, reports severe exertional dyspnea and chest tightness. Patient had a recent right ear cholesteatoma on 12/25/2017, was seen in follow-up by his ENT surgeon last week on Friday which of the packing out of the right ear. Other medical history includes severe obstructive sleep apnea, and the patient was temporarily not using his CPAP related to his right ear surgery. Morbid obesity, COPD, tobacco dependence and the patient carries [id number] smoking history, history of PEs and DVTs in January 2016 and the patient is on chronic anticoagulation on Xarelto, GERD, hypertension, DJD, anxiety, severe pulmonary hypertension. Patient has been afebrile, vital signs have been stable, he has been intermittently on supplemental oxygen, today his pulse ox on room air is 97 %. He has been treated for an acute COPD exacerbation, with combination of IV steroids, nebulized bronchodilators, Mucinex, and he reports improvement with his symptoms. On 01/29/2018 patient seen in follow-up. His breathing is improving, denies any chest pain, denies any worsening dyspnea, his vital signs are stable, patient has been afebrile, on sounds are clear, diminished, no rhonchi or wheezes noted. Vital signs are stable, patient is on room air with O2 sat at 91 %. Respirations are even and nonlabored. No acute events overnight, IV steroids have been transitioned to oral prednisone. From pulmonary standpoint patient is clear for discharge home today, follow up with Dr. Camargo in the office Objective - Vital Signs Vital signs: Vital Signs Temp 97.4 F L 01/29/18 07:20 Pulse 84 01/29/18 08:18 Resp 22 01/29/18 07:20 BP 184/106 01/29/18 07:20 Pulse Ox 91 L 01/29/18 07:20 Intake & Output 01/28/18 01/29/18 01/29/18 18:59 06:59 18:59 Intake Total 1800 Balance 1800 Intake: Oral 1800 Other: Voiding Method Toilet # Voids 3 3 - Exam Constitutional Morbidly obese, in no acute distress, General appearance: no acute distress - EENT Right-sided artificial eye, Mallampati class IV with significant crowding of the posterior oropharynx Eyes: abnormal pupil, EOMI, poor dentition ENT: NA/AT Ears: bilateral: normal - Neck Neck: no lymphadenopathy, normal ROM Carotids: bilateral: upstroke normal Thyroid: bilateral: normal size - Respiratory Respiratory: bilateral: diminished, prolonged expiration, no wheezing, no rhonchi or rales auscultated on today's exam - Cardiovascular Rhythm: regular Heart sounds: normal: S1, S2 leg Peripheral Edema: bilateral: 1+ ankle Peripheral Edema: bilateral: 1+ foot Peripheral Edema: bilateral: 1+ - Gastrointestinal General gastrointestinal: no organomegaly, soft, no tenderness - Integumentary Integumentary: normal - Neurologic Neurologic: CNII-XII intact - Musculoskeletal Musculoskeletal: strength equal bilaterally - Psychiatric Psychiatric: A&O x's 3, appropriate affect, intact judgment & insight - Labs CBC & Chem 7: 01/26/18 21:02 01/26/18 21:02 Labs: Abnormal Lab Results - Last 24 Hours (Table) 01/28/18 01/28/18 01/28/18 Range/Units 11:33 17:09 20:32 POC Glucose (mg/dL) 267 H 258 H 348 H (75-99) mg/dL 01/29/18 Range/Units 07:21 POC Glucose (mg/dL) 193 H (75-99) mg/dL Microbiology - Last 24 Hours (Table) 01/26/18 21:02 Blood Culture - Preliminary Blood No Growth after 48 hours Assessment and Plan Plan: Assessment: #1. Acute exacerbation of chronic obstructive pulmonary disease #2. Recent hospitalization for acute left perihilar pneumonia, patient was treated with Levaquin, improved and was discharged home on 01/23/2018. #3. Recent resection of a cholesteatoma from right ear on 12/25/[address] Groves at the [facility]. Patient has chronic hearing loss, recurrent ear infections, 2 placements, tympanic perforations and scarring. #4. History of severe symptomatic obstructive sleep apnea, and the patient underwent a sleep study on 12/02/2017 which revealed AHI of 100. Patient was temporarily not able to wear his CPAP related to his recent ear surgery, however is now cleared by the ENT surgeon to start wearing his CPAP again #5. Morbid obesity, with a BMI of 67.8 kg/m #6. COPD #7. Nicotine addiction, currently in remission, patient quit last week, carries [id number] smoking history #8. History of pulmonary embolisms and DVTs in January 2016 thought to be related to patient's sedentary lifestyle, and the patient is on chronic anticoagulation with Xarelto #9. GERD #10. Hypertension #11. History of degenerative joint disease #12. Anxiety #13. History of severe pulmonary hypertension, secondary to obstructive sleep apnea syndrome and pulmonary embolisms, with right ventricular systolic pressure of 77 mmHg on the echocardiogram from 06/29/2016 #14. 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 Has been transitioned to oral prednisone, improving. From pulmonary standpoint patient is stable for discharge home today, he will need a follow-up appointment with Dr. Camargo in the office. Abstaining from smoking was strongly encouraged. I performed a history & physical examination of the patient and discussed their management with my nurse practitioner, Smiley Samuel. I reviewed the nurse practitioner's note and agree with the documented findings and plan of care. Lung sounds are diminished. The findings and the impression was discussed with the patient. I attest to the documentation by the nurse practitioner. Time with Patient: Less than 30
[2018-01-29 11:31] LABS: Glucose,Whole Blood 220 mg/dL (75-99)
[2018-01-29 11:50] VITALS: PULSE 80
[2018-01-29 12:05] VITALS: BP 172/93
--- NOTE | 2018-01-29 23:40 | DS ---
DISCHARGE SUMMARY DATE OF ADMISSION: 01/26/2018. DATE OF DISCHARGE: 01/29/2018. FINAL DIAGNOSES: 1. Acute chronic obstructive pulmonary disease exacerbation in a current smoker. 2. Morbid obesity, BMI greater than 60. 3. Gastroesophageal reflux disease. 4. Essential hypertension. 5. Primary osteoarthritis in multiple joints, bilateral. 6. Chronic pulmonary embolism on Xarelto. 7. Obstructive sleep apnea, does not use CPAP. 8. Cardiomyopathy, ejection fraction 40%, cause unknown. 9. Chronic low back pain from osteoarthritis. 10.Chronic nicotine dependence. Patient is a cigarette smoker. 11.Recent surgery for right ear cholesteatoma. 12.Artificial right eye. HOSPITAL COURSE: This patient is a smoker, yet again presented with COPD exacerbation, responded well to steroids, nebulized bronchodilators, doing better at the time of discharge. Patient is advised again not to go back to smoking. EXAM: LUNGS: Improved air entry. CARDIOVASCULAR: First and second sounds normal. CONSULTATION: Dr. Mansfield. DISCHARGE MEDICATIONS: 1. Ventolin HFA 2 puffs every 6 hours p.r.n. 2. Lisinopril 40 mg b.i.d. 3. Oxycodone mg p.o. q.i.d. 4. Cetirizine 10 mg p.o. daily p.r.n. 5. Symbicort 160/4.5, 2 puffs b.i.d. p.r.n. 6. Flonase 2 sprays each day p.r.n. 7. Hydrochlorothiazide 25 mg p.o. daily. 8. DuoNeb t.i.d. 9. Nicotine patch 21. 10.Xarelto 20 mg daily. 11.Prednisone taper. FOLLOWUP: With Dr. Marian Bradford in [address] Camargo on 02/05/2018. MMODL / IJN: [id number] /
== END 2018-01-29 16:41 | disposition home or self-care (01) ==
LOC: EC 20:06 → 5MS5E 21:56
PROVIDERS: ADMIT Hospitalist; ATTEND Hospitalist
DX: J44.1 Chronic obstructive pulmonary disease with (acute) exacerbation (principal); E66.01 Morbid (severe) obesity due to excess calories; Z68.44 Body mass index [BMI] 60.0-69.9, adult; I27.82 Chronic pulmonary embolism; I10 Essential (primary) hypertension; I27.29 Other secondary pulmonary hypertension; I42.9 Cardiomyopathy, unspecified; F17.210 Nicotine dependence, cigarettes, uncomplicated; K21.9 Gastro-esophageal reflux disease without esophagitis; G47.33 Obstructive sleep apnea (adult) (pediatric); G89.29 Other chronic pain; M54.5 Low back pain; F25.9 Schizoaffective disorder, unspecified; M15.9 Polyosteoarthritis, unspecified; M47.9 Spondylosis, unspecified; F41.9 Anxiety disorder, unspecified; Z99.89 Dependence on other enabling machines and devices; Z79.01 Long term (current) use of anticoagulants; Z79.891 Long term (current) use of opiate analgesic; Z79.51 Long term (current) use of inhaled steroids; Z79.899 Other long term (current) drug therapy; Z88.6 Allergy status to analgesic agent; Z88.8 Allergy status to other drugs, medicaments and biological substances; Z98.890 Other specified postprocedural states; Z97.0 Presence of artificial eye; Z96.651 Presence of right artificial knee joint; Z87.01 Personal history of pneumonia (recurrent)
CPT/HCPCS: 96361 ×6; 96374 ×2; 99285 ×2; 96376 ×2; 36415; 94640 ×7; 94760; 93005; 83880; 80053; 82550; 82553; 83735; 84484 ×2; 85025; 85610; 85730; 87040; 71046; G0378 ×4; S4990 ×3; J2920; J2930 ×2; J7512 ×2

== ENCOUNTER 2018-07-01 00:12 | Emergency (ER) | payer OTHER ==
[2018-07-01 00:21] VITALS: BP 163/100; PULSE 89; RESP 20; TEMP 98.3
--- NOTE | 2018-07-01 01:16 | ED ---
Extremity Problem HPI - General Source: patient Mode of arrival: wheelchair Limitations: no limitations <Rosalee Carmen - Last Filed: 07/01/18 03:06> <Belkis Goldsmith - Last Filed: 07/01/18 07:07> - General Chief complaint: Extremity Problem,Nontraumatic Stated complaint: leg pain Time Seen by Provider: 07/01/18 01:00 - History of Present Illness Initial comments: 48-year-old male patient presents to the emergency department today for evaluation of bilateral lower extremity pain worse on the right than left. Patient describes the pain as circumferential and a squeezing type pain from his ankle upward. He denies any injury to the extremities. Patient denies any swelling to the legs. Denies any numbness or tingling to the lower extremities. He denies any fever or chills with this. Patient states he does have chronic low back pain for which he takes oxycodone. Patient states he has not had this medication for the last 3 days. Patient states he had a similar type pain when a blood clot in the right leg. Patient is taking Xarelto, states he has not missed any doses. States that the pain seems to improve when he moves his legs. Patient denies any recent rash, shortness breath, chest pain, palpitations, abdominal pain, nausea, vomiting, diarrhea, constipation, back pain, numbness, tingling, dizziness, weakness, hematuria, dysuria, urinary urgency, urinary frequency, headache, visual changes, or any other complaints. (Rosalee Carmen) - Related Data Home Medications Medication Instructions Recorded Confirmed Albuterol Inhaler [Ventolin Hfa 2 puff INHALATION RT-Q6H PRN 04/21/14 01/26/18 Inhaler] Lisinopril 40 mg PO BID 04/21/14 01/26/18 oxyCODONE HCL 30 mg PO QID 04/21/14 01/26/18 Cetirizine HCl 10 mg PO DAILY PRN 10/11/15 01/26/18 Budesonide-Formot 160-4.5 Mcg 2 puff INHALATION RT-BID PRN 06/21/17 01/26/18 [Symbicort 160-4.5 Mcg Inhaler] Fluticasone Nasal [place] [Flonase 2 spr EA NOSTRIL DAILY PRN 06/21/17 01/26/18 Nasal [place]] Hydrochlorothiazide [Hydrodiuril] 25 mg PO DAILY 08/07/17 01/26/18 Ipratropium-Albuterol Nebulize 3 ml INHALATION RT-TID 01/26/18 01/26/18 [Duoneb 0.5 mg-3 mg/3 ml Soln] hydrALAZINE HCL 50 mg PO TID 07/01/18 07/01/18 Previous Rx's Medication Instructions Recorded Nicotine 21Mg/24Hr Patch [Habitrol] 1 patch TRANSDERM DAILY #30 patch 01/29/18 Rivaroxaban [Xarelto] 20 mg PO DAILY #30 tab 01/29/18 predniSONE 10 mg PO DIRECTED 12 Days #30 01/29/18 tab Allergies Allergy/AdvReac Type Severity Reaction Status Date / Time cyclobenzaprine HCl Allergy Itching Verified 01/26/18 20:26 [From Flexeril] ibuprofen [From Motrin] AdvReac Nausea Verified 01/26/18 20:26 Review of Systems ROS Other: All systems not noted in ROS Statement are negative. <Rosalee Carmen M - Last Filed: 07/01/18 03:06> ROS Other: All systems not noted in ROS Statement are negative. <Belkis Goldsmith - Last Filed: 07/01/18 07:07> ROS Statement: Those systems with pertinent positive or pertinent negative responses have been documented in the HPI. Past Medical History Past Medical History: Chest Pain / Angina, COPD, Deep Vein Thrombosis (DVT), Eye Disorder, GERD/Reflux, Hypertension, Osteoarthritis (OA), Pulmonary Embolus (PE), Sleep Apnea/CPAP/BIPAP Additional Past Medical History / Comment(s): Cholesteatoma of the right ear that was surgically resected and the patient underwent a tympanomastoidectomy with tympanoplasty, morbid obesity, obstructive sleep apnea with an AHI of 100 he had a CPAP pressure of 14 cm of water, impaired left a ejection fraction of 32% based on the previous cardiac stress tests, chronic back pain, degenerative arthritis with chronic left knee pain in addition to a torn meniscus in the left knee, 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 rt ear sx Past Anesthesia/Blood Transfusion Reactions: No Reported Reaction Past Psychological History: Anxiety, Schizoaffective Disorder, Schizophrenia Smoking Status: Current every day smoker Past Alcohol Use History: None Reported Past Drug Use History: None Reported - Past Family History Father History Unknown: Yes Family Medical History: Unable to Obtain Additional Family Medical History / Comment(s): Patient was adopted Mother Family Medical History: Unable to Obtain Additional Family Medical History / Comment(s): Patient was adopted <Rosalee Carmen M - Last Filed: 07/01/18 03:06> General Exam Limitations: no limitations General appearance: alert, in no apparent distress, other (This is a well- developed, obese adult male patient in no acute distress. Vital signs upon presentation are temperature 98.2F, pulse 89, respirations 20, blood pressure 163/100, pulse ox 96% on room air.) Eye exam: Present: normal appearance, PERRL, EOMI. Absent: scleral icterus, conjunctival injection, periorbital swelling ENT exam: Present: normal exam, normal oropharynx, mucous membranes moist Respiratory exam: Present: normal lung sounds bilaterally. Absent: respiratory distress, wheezes, rales, rhonchi, stridor Cardiovascular Exam: Present: regular rate, normal rhythm, normal heart sounds. Absent: systolic murmur, diastolic murmur, rubs, gallop, clicks GI/Abdominal exam: Present: soft, normal bowel sounds. Absent: distended, tenderness, guarding, rebound, rigid Extremities exam: Present: normal inspection, full ROM, normal capillary refill , other (Bilateral lower extremities are pink, warm, and dry. Cap refills less than 3 seconds. Pedal and posttibial pulses are 2+ and equal bilaterally. Patient has no calf tenderness, no erythema, no swelling noted. No joint erythema or swelling noted. No evidence of surface trauma.). Absent: tenderness, pedal edema, joint swelling, calf tenderness Neurological exam: Present: alert, oriented X3, CN II-XII intact Psychiatric exam: Present: normal affect, normal mood Skin exam: Present: warm, dry, intact, normal color. Absent: rash <Rosalee Carmen - Last Filed: 07/01/18 03:06> Vital Signs 07/01/18 00:17 Temperature 98.3 F Pulse Rate 89 Respiratory 20 Rate Blood Pressure 163/100 O2 Sat by Pulse 96 Oximetry Medical Decision Making <Rosalee Carmen - Last Filed: 07/01/18 03:06> <Belkis Goldsmith - Last Filed: 07/01/18 07:07> - Medical Decision Making 48-year-old male patient presented to the emergency department today for evaluation of bilateral lower extremity pain worse on the right than the left. Physical examination was relatively unremarkable. Patient is neurovascularly intact. Patient had no calf erythema, tenderness, or swelling. There is no joint swelling or erythema. Temperature is uniform throughout the lower extremities. He is afebrile. Patient has been out of his oxycodone for the last 3 days. When I suggested withdrawal as a possible cause for his symptoms patient became very upset and accused me of being biased towards him because he takes these medications. I did discuss with the patient that I did not believe he was seeking drugs and did offer to treat his symptoms with pain medication. I also discussed that without injury and with normal neurovascular status that imaging was unlikely to be helpful. I discussed that given his use of Xarelto risk of DVT is low. Given normal joint and leg exam and normal vital signs there was low suspicion for infection. Patient refused to listen to my explanations. Since he was upset I did offer to perform lab testing and ultrasound, patient refused. Patient did sign AMA form. (Rosalee Carmen) I was available for consultation in the emergency department. The history and physical exam were done by the midlevel provider. I was consulted for this patient's care. I reviewed the case with the midlevel provider and based on their presentation of the patient, I agree with the assessment, medical decision making and plan of care as documented. (Belkis Goldsmith) Disposition Is patient prescribed a controlled substance at d/c from ED?: No Time of Disposition: 01:16 <Rosalee Carmen - Last Filed: 07/01/18 03:06> <Belkis Goldsmith - Last Filed: 07/01/18 07:07> Clinical Impression: Leg pain Disposition: Left Against Medical Advice Condition: Undetermined Instructions: Leg Pain (ED) Additional Instructions: Follow up with your primary care physician for recheck as soon as posisble. Return or present to the nearest emergency department for any new, worsening, or concerning symptoms. Referrals: Marian Bradford MD [Primary Care Provider] - 1-2 days
== END 2018-07-01 01:24 | disposition left against medical advice (07) ==
LOC: EC 00:12
DX: M79.662 Pain in left lower leg (principal); M79.661 Pain in right lower leg; M54.5 Low back pain; G89.29 Other chronic pain; G47.33 Obstructive sleep apnea (adult) (pediatric); I10 Essential (primary) hypertension; J44.9 Chronic obstructive pulmonary disease, unspecified; M19.90 Unspecified osteoarthritis, unspecified site; F17.200 Nicotine dependence, unspecified, uncomplicated; Z88.6 Allergy status to analgesic agent; Z79.891 Long term (current) use of opiate analgesic; Z79.899 Other long term (current) drug therapy; Z88.8 Allergy status to other drugs, medicaments and biological substances; Z86.718 Personal history of other venous thrombosis and embolism; Z86.711 Personal history of pulmonary embolism; Z86.69 Personal history of other diseases of the nervous system and sense organs; Z96.651 Presence of right artificial knee joint
CPT/HCPCS: 99283

== ENCOUNTER 2018-07-16 20:22 | Emergency (ER) | payer OTHER ==
--- NOTE | 2018-07-16 21:21 | ED ---
General Adult HPI - General Chief complaint: Fall Stated complaint: neck & head pain/fall Time Seen by Provider: 07/16/18 20:50 Source: patient, RN notes reviewed, old records reviewed Mode of arrival: ambulatory Limitations: no limitations - History of Present Illness Initial comments: This is a 40-year-old male to the ER today. This patient does say for evaluation of headache headache back pain. Neck pain. No modifying factors at home for headache. Patient also has mild infection of this in his hairline. No fevers. He did have a fall recently thinks he may have had a traumatic injury. He is on blood thinners. - Related Data Home Medications Medication Instructions Recorded Confirmed Albuterol Inhaler [Ventolin Hfa 2 puff INHALATION RT-Q6H PRN 04/21/14 07/16/18 Inhaler] Lisinopril 40 mg PO BID 04/21/14 07/16/18 oxyCODONE HCL 30 mg PO QID 04/21/14 07/16/18 Cetirizine HCl 10 mg PO DAILY 10/11/15 07/16/18 Budesonide-Formot 160-4.5 Mcg 2 puff INHALATION RT-BID 06/21/17 07/16/18 [Symbicort 160-4.5 Mcg Inhaler] Fluticasone Nasal [place] [Flonase 2 spr EA NOSTRIL DAILY 06/21/17 07/16/18 Nasal [place]] Hydrochlorothiazide [Hydrodiuril] 25 mg PO DAILY 08/07/17 07/16/18 Ipratropium-Albuterol Nebulize 3 ml INHALATION RT-QID PRN 01/26/18 07/16/18 [Duoneb 0.5 mg-3 mg/3 ml Soln] ALPRAZolam [Xanax] 0.5 mg PO BID PRN 07/16/18 07/16/18 Isosorbide Mononitrate ER [Imdur] 30 mg PO DAILY 07/16/18 07/16/18 Methocarbamol [Robaxin-750] 750 mg PO Q6H PRN 07/16/18 07/16/18 Pseudoephedrine 12Hr [Sudafed 12Hr] 120 mg PO Q12H PRN 07/16/18 07/16/18 Terazosin [Hytrin] 5 mg PO HS 07/16/18 07/16/18 Unknown Blood Thinner 1 tab PO BID 07/16/18 07/16/18 hydrALAZINE HCL [Apresoline] 100 mg PO TID 07/16/18 07/16/18 Allergies Allergy/AdvReac Type Severity Reaction Status Date / Time cyclobenzaprine HCl Allergy Itching Verified 07/16/18 21:10 [From Flexeril] ibuprofen [From Motrin] AdvReac Nausea Verified 07/16/18 21:10 Review of Systems ROS Statement: Those systems with pertinent positive or pertinent negative responses have been documented in the HPI. ROS Other: All systems not noted in ROS Statement are negative. Past Medical History Past Medical History: Chest Pain / Angina, COPD, Deep Vein Thrombosis (DVT), Eye Disorder, GERD/Reflux, Hypertension, Osteoarthritis (OA), Pulmonary Embolus (PE), Sleep Apnea/CPAP/BIPAP Additional Past Medical History / Comment(s): Cholesteatoma of the right ear that was surgically resected and the patient underwent a tympanomastoidectomy with tympanoplasty, morbid obesity, obstructive sleep apnea with an AHI of 100 he had a CPAP pressure of 14 cm of water, impaired left a ejection fraction of 32% based on the previous cardiac stress tests, chronic back pain, degenerative arthritis with chronic left knee pain in addition to a torn meniscus in the left knee, 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 rt ear sx Past Anesthesia/Blood Transfusion Reactions: No Reported Reaction Past Psychological History: Anxiety, Schizoaffective Disorder, Schizophrenia Smoking Status: Current every day smoker Past Alcohol Use History: None Reported Past Drug Use History: None Reported - Past Family History Father History Unknown: Yes Family Medical History: Unable to Obtain Additional Family Medical History / Comment(s): Patient was adopted Mother Family Medical History: Unable to Obtain Additional Family Medical History / Comment(s): Patient was adopted General Exam - General Exam Comments Initial Comments: Does have folliculitis to his posterior occiput Limitations: no limitations General appearance: alert, in no apparent distress Head exam: Present: atraumatic, normocephalic, normal inspection Eye exam: Present: normal appearance, PERRL, EOMI. Absent: scleral icterus, conjunctival injection, periorbital swelling ENT exam: Present: normal exam, mucous membranes moist Neck exam: Present: normal inspection. Absent: tenderness, meningismus, lymphadenopathy Respiratory exam: Present: normal lung sounds bilaterally. Absent: respiratory distress, wheezes, rales, rhonchi, stridor Cardiovascular Exam: Present: regular rate, normal rhythm, normal heart sounds. Absent: systolic murmur, diastolic murmur, rubs, gallop, clicks GI/Abdominal exam: Present: soft, normal bowel sounds. Absent: distended, tenderness, guarding, rebound, rigid Extremities exam: Present: normal inspection, full ROM, normal capillary refill. Absent: tenderness, pedal edema, joint swelling, calf tenderness Back exam: Present: normal inspection Neurological exam: Present: alert, oriented X3, CN II-XII intact Psychiatric exam: Present: normal affect, normal mood Skin exam: Present: warm, dry, intact, normal color. Absent: rash Course Vital Signs 07/16/18 20:37 Temperature 98.7 F Pulse Rate 87 Respiratory 18 Rate Blood Pressure 162/91 O2 Sat by Pulse 96 Oximetry - Reevaluation(s) Reevaluation #1: 07/16/18 22:53 Headache is improved Medical Decision Making - Medical Decision Making 48 male advised regarding treatment of folliculitis, will place on antibiotics and to continue hot packs. Warm compresses. Patient can be discharged home - Radiology Data Radiology results: report reviewed (CT brain C-spine negative for traumatic injury), image reviewed Disposition Clinical Impression: Headache, Infection of scalp Disposition: HOME SELF-CARE Condition: Good Instructions: Folliculitis (ED) Is patient prescribed a controlled substance at d/c from ED?: No Referrals: Marian Bradford MD [Primary Care Provider] - 1-2 days
[2018-07-16] MEDS ORDERED: diphenhydrAMINE 25 MG CAP PO STA (21:25)
[2018-07-16] MEDS ORDERED: ACETAMINOPHEN TAB 500 MG TAB PO STA (21:25)
[2018-07-16] MEDS: SULFAMETHOX-TMP 800-160MG 1 EACH TAB PO STA ×2 (21:41→21:42)
[2018-07-16] MEDS ORDERED: SULFAMETHOX-TMP 800-160MG 1 EACH TAB PO STA (21:42)
--- NOTE | 2018-07-16 22:45 | CT ---
EXAMINATION TYPE: CT brain mack wo con DATE OF EXAM: 07/16/2018 COMPARISON: CT brain 09/27/2010 HISTORY: MICHAEL and neck pain x1 day CT DLP: 2416.6 mGycm Automated exposure control for dose reduction was used. TECHNIQUE: CT scan of the head and cervical spine are performed without contrast. FINDINGS: Ventricles and sulci are normal for age. There is no mass effect nor midline shift. There is no sign of intracranial hemorrhage. There is right orbital prosthesis. There is no cranial defect . Exam is limited by patient size. As best as one can tell the cervical vertebra have normal alignment. There is some narrowing of disc spaces at C5-6 C6-7 with spurring. Posterior elements are intact. I see no compression fracture. Spinal canal is difficult to evaluate because of the limitations of the exam. IMPRESSION: Negative CT scan of the brain. No change. Limited exam of cervical spine. No fracture seen. Mild spondylosis in the lower cervical spine.
[2018-07-17 00:03] VITALS: BP 154/65; PULSE 77; RESP 20; TEMP 97
== END 2018-07-16 23:05 | disposition home or self-care (01) ==
LOC: EC 20:22
DX: R51 Headache (principal); L08.9 Local infection of the skin and subcutaneous tissue, unspecified; M54.2 Cervicalgia; M54.9 Dorsalgia, unspecified; J44.9 Chronic obstructive pulmonary disease, unspecified; I10 Essential (primary) hypertension; G47.33 Obstructive sleep apnea (adult) (pediatric); F41.9 Anxiety disorder, unspecified; F17.200 Nicotine dependence, unspecified, uncomplicated; Z79.51 Long term (current) use of inhaled steroids; Z79.899 Other long term (current) drug therapy; Z88.6 Allergy status to analgesic agent; Z88.8 Allergy status to other drugs, medicaments and biological substances; Z86.718 Personal history of other venous thrombosis and embolism; Z86.711 Personal history of pulmonary embolism; Z96.651 Presence of right artificial knee joint; W19.XXXA Unspecified fall, initial encounter
CPT/HCPCS: 70450; 72125; 99284

== ENCOUNTER 2018-10-17 22:03 | Emergency (ER) | payer OTHER ==
[2018-10-17 22:38] VITALS: PULSE 85; RESP 19; TEMP 98.1
[2018-10-17] MEDS ORDERED: HYDROmorphone 2 MG/ML 1 ML SYRINGE IM STA (23:16)
[2018-10-17] MEDS ORDERED: HYDROmorphone 1 MG/ML 1 ML SYRINGE IVP STA (23:20)
[2018-10-17] MEDS ORDERED: HYDROmorphone 1 MG/ML 1 ML SYRINGE IM STA (23:20)
[2018-10-17] MEDS ORDERED: HYDROmorphone 1 MG/ML 1 ML SYRINGE IVP ONE (23:30)
--- NOTE | 2018-10-18 00:53 | CT ---
EXAMINATION TYPE: CT brain mack wo con DATE OF EXAM: 10/18/2018 COMPARISON: 07/16/2018 HISTORY: neck pain headache CT DLP: 1119 mGycm Automated exposure control for dose reduction was used. TECHNIQUE: CT scan of the head and cervical spine are performed without contrast. FINDINGS: Ventricles of normal size. There is no mass effect nor midline shift. There is no sign of intracranial hemorrhage. Calvarium is intact. There is right globe prosthesis. There is some straightening of the cervical vertebra. There is mild spurring of the endplates from C3 to T1. The posterior elements are intact. Facet joints are intact. Skull base is intact. IMPRESSION: Mild spondylotic changes in the cervical spine. No change. Negative CT scan of the brain. No change compared to old exam.
--- NOTE | 2018-10-18 01:01 | CT ---
EXAMINATION TYPE: CT mastoid wo con DATE OF EXAM: 10/18/2018 COMPARISON: None HISTORY: neck pain CT DLP: 824.9 mGycm. Automated Exposure Control for Dose Reduction was Utilized. TECHNIQUE: CT scan of internal auditory canal is performed without contrast, thin cut axial images ar e obtained, coronal reformatted images are also reviewed. FINDINGS: There is previous surgery on the right mastoid sinus with resection and 1.5 cm air cavity. The external auditory canals appear normal. There is normal bilateral aeration of the epitympanic rec ess. There appears to be resection or deformity of ossicles in the right middle ear. I see no focal b one destruction. There is no evidence of a cerebellopontine angle mass. Internal auditory canals are symmetric. I see no sign of a posterior fossa mass. There is very little pneumatization of the mastoi d sinuses. IMPRESSION: Previous surgery on the right mastoid sinus. There is conversion of a area of soft tissue and fluid d ensity to air-filled cavity in the right mastoid sinus. No focal bone destruction. Changes of chronic bilateral mastoiditis. Deformity or absence of the ossicles on the right side. No evidence of osteom yelitis.
[2018-10-18] MEDS ORDERED: ORPHENADRINE 30 MG/ML 2 ML VIAL IM STA (01:24)
[2018-10-18] MEDS ORDERED: HYDROmorphone 1 MG/ML 1 ML SYRINGE IM STA (01:24)
--- NOTE | 2018-10-18 01:25 | ED ---
Neck Injury/Pain HPI - General Chief Complaint: Neck Pain/Injury Stated Complaint: Neck pain Time Seen by Provider: 10/17/18 22:57 Mode of arrival: wheelchair Limitations: no limitations - History of Present Illness Initial Comments: 38-year-old male patient presents to the emergency department today for evaluation of neck pain and left-sided headache. Patient states that pain started earlier today. States that it has been quite severe despite use of his home oxycodone. Patient denies any injury to the neck. States he does have mastoiditis and is concerned this may be causing his issue. Patient states he can feel a swelling to the area that is painful. He denies any pain radiation down his arms. Denies any numbness or tingling to his upper extremities. He denies any fever or chills. Denies any dizziness or weakness. Denies any blurred vision, double vision, light sensitivity, sound sensitivity, nausea, vomiting with this. Patient denies any recent rash, shortness breath, chest pain , abdominal pain, diarrhea, constipation, back pain, hematuria, dysuria, urinary urgency, urinary frequency, headache, visual changes, or any other complaints. - Related Data Home Medications Medication Instructions Recorded Confirmed Albuterol Inhaler [Ventolin Hfa 2 puff INHALATION RT-Q6H PRN 04/21/14 07/16/18 Inhaler] Lisinopril 40 mg PO BID 04/21/14 07/16/18 oxyCODONE HCL 30 mg PO QID 04/21/14 07/16/18 Cetirizine HCl 10 mg PO DAILY 10/11/15 07/16/18 Budesonide-Formot 160-4.5 Mcg 2 puff INHALATION RT-BID 06/21/17 07/16/18 [Symbicort 160-4.5 Mcg Inhaler] Fluticasone Nasal [place] [Flonase 2 spr EA NOSTRIL DAILY 06/21/17 07/16/18 Nasal [place]] Hydrochlorothiazide [Hydrodiuril] 25 mg PO DAILY 08/07/17 07/16/18 Ipratropium-Albuterol Nebulize 3 ml INHALATION RT-QID PRN 01/26/18 07/16/18 [Duoneb 0.5 mg-3 mg/3 ml Soln] ALPRAZolam [Xanax] 0.5 mg PO BID PRN 07/16/18 07/16/18 Isosorbide Mononitrate ER [Imdur] 30 mg PO DAILY 07/16/18 07/16/18 Methocarbamol [Robaxin-750] 750 mg PO Q6H PRN 07/16/18 07/16/18 Pseudoephedrine 12Hr [Sudafed 12Hr] 120 mg PO Q12H PRN 07/16/18 07/16/18 Terazosin [Hytrin] 5 mg PO HS 07/16/18 07/16/18 Unknown Blood Thinner 1 tab PO BID 07/16/18 07/16/18 hydrALAZINE HCL [Apresoline] 100 mg PO TID 07/16/18 07/16/18 Previous Rx's Medication Instructions Recorded Sulfamethox-Tmp 800-160Mg [Bactrim 2 tab PO BID #40 tab 07/16/18 DS 800-160 mg] Carisoprodol [Soma] 350 mg PO BID #12 tablet 10/18/18 Allergies Allergy/AdvReac Type Severity Reaction Status Date / Time cyclobenzaprine HCl Allergy Itching Verified 10/17/18 22:37 [From Flexeril] ibuprofen [From Motrin] AdvReac Nausea Verified 10/17/18 22:37 Review of Systems ROS Statement: Those systems with pertinent positive or pertinent negative responses have been documented in the HPI. ROS Other: All systems not noted in ROS Statement are negative. 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 and the patient underwent a tympanomastoidectomy with tympanoplasty, morbid obesity, obstructive sleep apnea with an AHI of 100 he had a CPAP pressure of 14 cm of water, impaired left a ejection fraction of 32% based on the previous cardiac stress tests, chronic back pain, degenerative arthritis with chronic left knee pain in addition to a torn meniscus in the left knee, 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 rt ear sx Past Anesthesia/Blood Transfusion Reactions: No Reported Reaction Past Psychological History: Anxiety, Schizoaffective Disorder, Schizophrenia Smoking Status: Current every day smoker Past Alcohol Use History: None Reported Past Drug Use History: None Reported - Past Family History Father History Unknown: Yes Family Medical History: Unable to Obtain Additional Family Medical History / Comment(s): Patient was adopted Mother Family Medical History: Unable to Obtain Additional Family Medical History / Comment(s): Patient was adopted General Exam Limitations: no limitations General appearance: alert, in no apparent distress, other (Physical well- developed, well-nourished adult male patient in no acute distress. Vital signs upon presentation are temperature 98.1F, pulse 85, respirations 19, blood pressure 205/98, pulse ox 94% on room air.) Eye exam: Present: normal appearance, PERRL, EOMI. Absent: scleral icterus, conjunctival injection, periorbital swelling ENT exam: Present: normal exam, mucous membranes moist, TM's normal bilaterally , other (Tenderness over the left mastoid) Neck exam: Present: normal inspection, tenderness (Midline posterior neck tenderness), full ROM. Absent: meningismus, lymphadenopathy Respiratory exam: Present: normal lung sounds bilaterally. Absent: respiratory distress, wheezes, rales, rhonchi, stridor Cardiovascular Exam: Present: regular rate, normal rhythm, normal heart sounds. Absent: systolic murmur, diastolic murmur, rubs, gallop, clicks Neurological exam: Present: alert, oriented X3, CN II-XII intact Psychiatric exam: Present: normal affect, normal mood Skin exam: Present: warm, dry, intact, normal color. Absent: rash Course Vital Signs 10/17/18 10/18/18 22:34 01:55 Temperature 98.1 F Pulse Rate 85 Respiratory 19 Rate Blood Pressure 205/98 155/91 O2 Sat by Pulse 94 L Oximetry Medical Decision Making - Medical Decision Making 38-year-old male patient presented to the emergency department today for evaluation of neck pain and left-sided headache. Physical examination did reveal tenderness over the left mastoid with some soft tissue swelling. Tympanic membranes appear to be normal. Patient is neurologically intact with no focal deficits. CT head and C-spine was performed and showed some spondylotic changes with no intracranial abnormalities. CT mastoid showed chronic changes but nothing acute. Patient was feeling somewhat improved upon reevaluation. We discharged home with muscle relaxer for neck spasm. He is instructed to follow-up with his primary care physician for recheck in 1-2 days Return parameters were discussed in detail. He verbalizes understanding and agrees with this plan - Radiology Data Radiology results: report reviewed, image reviewed CT brain and C-spine without contrast was obtained. Report was reviewed in its entirety. Impression by Dr. Bush shows mild spondylotic changes in the cervical spine with no change. Negative computed tomography scan the brain. No change compared to old exam. Computed tomography scan of the internal auditory canal is performed without contrast. Report was reviewed in its entirety. Impression by Dr. Osborne shows previous surgery on the right mastoid sinus. No focal bone destruction. Changes of chronic bilateral mastoiditis. Deformity or absence of the ossicles on the right side. No evidence of osteomyelitis. Disposition Clinical Impression: Muscle spasms of neck Disposition: HOME SELF-CARE Condition: Good Instructions: Muscle Spasm (ED) Additional Instructions: Apply warm compresses to the neck. Take medication as directed. Follow-up with your primary care physician for recheck in 1-2 days. Return immediately for any new, worsening, or concerning symptoms. Prescriptions: Carisoprodol [Soma] 350 mg PO BID #12 tablet Is patient prescribed a controlled substance at d/c from ED?: No Referrals: Marian Bradford MD [Primary Care Provider] - 1-2 days Time of Disposition: 01:25
[2018-10-18 01:57] VITALS: BP 155/91
== END 2018-10-18 01:55 | disposition home or self-care (01) ==
LOC: EC 22:03
DX: M47.892 Other spondylosis, cervical region (principal); R51 Headache; J44.9 Chronic obstructive pulmonary disease, unspecified; I10 Essential (primary) hypertension; M19.90 Unspecified osteoarthritis, unspecified site; F17.200 Nicotine dependence, unspecified, uncomplicated; G47.33 Obstructive sleep apnea (adult) (pediatric); Z99.89 Dependence on other enabling machines and devices; E66.01 Morbid (severe) obesity due to excess calories; Z86.718 Personal history of other venous thrombosis and embolism; Z86.711 Personal history of pulmonary embolism; Z96.651 Presence of right artificial knee joint; Z68.44 Body mass index [BMI] 60.0-69.9, adult; Z79.51 Long term (current) use of inhaled steroids; Z79.891 Long term (current) use of opiate analgesic; Z79.01 Long term (current) use of anticoagulants; Z79.899 Other long term (current) drug therapy; Z88.8 Allergy status to other drugs, medicaments and biological substances; Z88.6 Allergy status to analgesic agent
CPT/HCPCS: 70486; 72125; 70450; 99284; 96372 ×3; J2360; J1170 ×2

== ENCOUNTER → 2019-01-27 | Outpatient (CLI) | payer OTHER | END | disposition home or self-care (01) | LOC: CPPFTMAIN 13:44 | PROVIDERS: ATTEND Internal Medicine | DX: J44.9 Chronic obstructive pulmonary disease, unspecified (principal) | CPT/HCPCS: 94060; 94729 ==

== ENCOUNTER 2019-02-01 18:22 | Observation (INO) | payer OTHER ==
[2019-02-01] MEDS ORDERED: ASPIRIN 81 MG PO STA (18:56)
--- NOTE | 2019-02-01 19:01 | ED ---
General Adult HPI - General Chief complaint: Chest Pain Stated complaint: chest pain/weakness Time Seen by Provider: 02/01/19 18:35 Source: patient Mode of arrival: wheelchair Limitations: no limitations - History of Present Illness Initial comments: Dictation was produced using [employer] dictation software. please excuse any grammatical, word or spelling errors. Chief Complaint: 48-year-old obese male multiple comorbid disease presents chief complaint chest pain and mechanical fall. History of Present Illness: Patient is 80-year-old male he presents today with chest pain. Reports that today approximately 1-2 hours prior to arrival he had an episode of sharp left-sided chest pain. He states that the pain caused him to fall. Reports that he fell and tried to catch himself. He states he fell forward to the ground. Denies hitting his head. Denies any loss of consciousness. States that after the fall he noted that he had some left-sided groin pain. Denies any nausea or vomiting. Patient states that he continues to have pain. He states that the pain is not sharp anymore however pressure-like sensation to his left anterior chest. As any radiation to the shoulders or jaw. No diaphoresis. The ROS documented in this emergency department record has been reviewed and confirmed by me. Those systems with pertinent positive or negative responses have been documented in the HPI. All other systems are other negative and/or noncontributory. PHYSICAL EXAM: General Impression: Alert and oriented x3, not in acute distress, morbidly obese HEENT: Normocephalic atraumatic, extra-ocular movements intact, pupils equal and reactive to light bilaterally, mucous membranes moist. Cardiovascular: Heart regular rate and rhythm, S1&S2 audible, no murmurs, rubs or gallops Chest: Lungs clear to auscultation bilaterally, no rhonchi, no wheeze, no rales Abdomen: Bowel sounds present, abdomen soft, non-tender, non-distended, no organomegaly Musculoskeletal: Pulses present and equal in all extremities, no peripheral edema Motor: no focal deficits noted Neurological: CN II-XII grossly intact, no focal motor or sensory deficits noted Skin: Intact with no visualized rashes Psych: Normal affect and mood ED course: 48-year-old male presents with chest pain and fall vital signs upon arrival are within acceptable limits.Laboratory evaluation obtained. CBC unremarkable. Coag panel unremarkable. Metabolic panel unremarkable. Patient has a slight bump in troponin was 0.017. Patient continues to report chest pressure however he is well-appearing and is requesting food and drink. He is also watching TV comfortably. Patient given aspirin. Patient be admitted for serial troponins to evaluate for acute coronary syndrome. We will also put cardiology consultation. EKG interpretation: Ventricular rate 92, sinus rhythm, SC interval 146, QS 142, QTc 502. No SC prolongation, no QTC prolongation, no ST or T-wave changes noted. EKG compared to 01/26/2018 showing no changes. Overall, this EKG is unrema rkable - Related Data Home Medications Medication Instructions Recorded Confirmed Albuterol Inhaler [Ventolin Hfa 2 puff INHALATION RT-Q6H PRN 04/21/14 02/01/19 Inhaler] Lisinopril 40 mg PO BID 04/21/14 02/01/19 oxyCODONE HCL [oxyCODONE HCL (IR)] 30 mg PO QID 04/21/14 02/01/19 Cetirizine HCl 10 mg PO DAILY 10/11/15 02/01/19 Budesonide-Formot 160-4.5 Mcg 2 puff INHALATION RT-BID 06/21/17 02/01/19 [Symbicort 160-4.5 Mcg Inhaler] Fluticasone Nasal [place] [Flonase 2 spr EA NOSTRIL DAILY 06/21/17 02/01/19 Nasal [place]] Ipratropium-Albuterol Nebulize 3 ml INHALATION RT-QID PRN 01/26/18 02/01/19 [Duoneb 0.5 mg-3 mg/3 ml Soln] ALPRAZolam [Xanax] 0.5 mg PO BID PRN 07/16/18 02/01/19 Isosorbide Mononitrate ER [Imdur] 30 mg PO DAILY 07/16/18 02/01/19 Pseudoephedrine 12Hr [Sudafed 12Hr] 120 mg PO Q12H PRN 07/16/18 02/01/19 hydrALAZINE HCL [Apresoline] 100 mg PO TID 07/16/18 02/01/19 Atorvastatin [Lipitor] 10 mg PO DAILY 02/01/19 02/01/19 Cholecalciferol (Vitamin D3) 2,000 unit PO DAILY 02/01/19 02/01/19 [Vitamin D3] Rivaroxaban [Xarelto] 15 mg PO BID 02/01/19 02/01/19 glipiZIDE XL [Glucotrol Xl] 5 mg PO DAILY 02/01/19 02/01/19 Allergies Allergy/AdvReac Type Severity Reaction Status Date / Time cyclobenzaprine HCl Allergy Itching Verified 02/01/19 19:08 [From Flexeril] ibuprofen [From Motrin] AdvReac Nausea Verified 02/01/19 19:08 Review of Systems ROS Statement: Those systems with pertinent positive or pertinent negative responses have been documented in the HPI. ROS Other: All systems not noted in ROS Statement are negative. 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 and the patient underwent a tympanomastoidectomy with tympanoplasty, morbid obesity, obstructive sleep apnea with an AHI of 100 he had a CPAP pressure of 14 cm of water, impaired left a ejection fraction of 32% based on the previous cardiac stress tests, chronic back pain, degenerative arthritis with chronic left knee pain in addition to a torn meniscus in the left knee, 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 rt ear sx Past Anesthesia/Blood Transfusion Reactions: No Reported Reaction Past Psychological History: Anxiety, Schizoaffective Disorder, Schizophrenia Smoking Status: Current every day smoker Past Alcohol Use History: None Reported Past Drug Use History: None Reported - Past Family History Father History Unknown: Yes Family Medical History: Unable to Obtain Additional Family Medical History / Comment(s): Patient was adopted Mother Family Medical History: Unable to Obtain Additional Family Medical History / Comment(s): Patient was adopted General Exam Limitations: no limitations Course Vital Signs 02/01/19 02/01/19 02/01/19 18:30 19:30 20:00 Temperature 99.2 F Pulse Rate 90 89 84 Respiratory 18 14 14 Rate Blood Pressure 156/95 139/100 153/94 O2 Sat by Pulse 98 97 96 Oximetry Medical Decision Making - Lab Data Result diagrams: 02/01/19 18:50 02/01/19 18:50 Lab Results 02/01/19 02/01/19 02/01/19 Range/Units 18:50 18:50 18:50 WBC 11.4 H (3.8-10.6) k/uL RBC 5.56 (4.30-5.90) m/uL Hgb 16.1 (13.0-17.5) gm/dL Hct 49.1 (39.0-53.0) % MCV 88.3 (80.0-100.0) fL MCH 29.0 (25.0-35.0) pg MCHC 32.9 (31.0-37.0) g/dL RDW 14.9 (11.5-15.5) % Plt Count 236 (150-450) k/uL Neutrophils % 60 % Lymphocytes % 30 % Monocytes % 4 % Eosinophils % 3 % Basophils % 1 % Neutrophils # 6.8 (1.3-7.7) k/uL Lymphocytes # 3.5 (1.0-4.8) k/uL Monocytes # 0.5 (0-1.0) k/uL Eosinophils # 0.3 (0-0.7) k/uL Basophils # 0.1 (0-0.2) k/uL PT 10.4 (9.0-12.0) sec INR 1.0 (<1.2) APTT 28.3 (22.0-30.0) sec Sodium 140 (137-145) mmol/L Potassium 4.1 (3.5-5.1) mmol/L Chloride 105 (98-107) mmol/L Carbon Dioxide 28 (22-30) mmol/L Anion Gap 7 mmol/L BUN 14 (9-20) mg/dL Creatinine 0.68 (0.66-1.25) mg/dL Est GFR (CKD-EPI)AfAm >90 (>60 ml/min/1.73 sqM) Est GFR (CKD-EPI)NonAf >90 (>60 ml/min/1.73 sqM) Glucose 149 H (74-99) mg/dL Calcium 8.8 (8.4-10.2) mg/dL Magnesium 1.7 (1.6-2.3) mg/dL Total Bilirubin 0.8 (0.2-1.3) mg/dL AST 17 (17-59) U/L ALT 27 (21-72) U/L Alkaline Phosphatase 95 (38-126) U/L Troponin I (0.000-0.034) ng/mL Total Protein 6.4 (6.3-8.2) g/dL Albumin 3.5 (3.5-5.0) g/dL 02/01/19 Range/Units 18:50 WBC (3.8-10.6) k/uL RBC (4.30-5.90) m/uL Hgb (13.0-17.5) gm/dL Hct (39.0-53.0) % MCV (80.0-100.0) fL MCH (25.0-35.0) pg MCHC (31.0-37.0) g/dL RDW (11.5-15.5) % Plt Count (150-450) k/uL Neutrophils % % Lymphocytes % % Monocytes % % Eosinophils % % Basophils % % Neutrophils # (1.3-7.7) k/uL Lymphocytes # (1.0-4.8) k/uL Monocytes # (0-1.0) k/uL Eosinophils # (0-0.7) k/uL Basophils # (0-0.2) k/uL PT (9.0-12.0) sec INR (<1.2) APTT (22.0-30.0) sec Sodium (137-145) mmol/L Potassium (3.5-5.1) mmol/L Chloride (98-107) mmol/L Carbon Dioxide (22-30) mmol/L Anion Gap mmol/L BUN (9-20) mg/dL Creatinine (0.66-1.25) mg/dL Est GFR (CKD-EPI)AfAm (>60 ml/min/1.73 sqM) Est GFR (CKD-EPI)NonAf (>60 ml/min/1.73 sqM) Glucose (74-99) mg/dL Calcium (8.4-10.2) mg/dL Magnesium (1.6-2.3) mg/dL Total Bilirubin (0.2-1.3) mg/dL AST (17-59) U/L ALT (21-72) U/L Alkaline Phosphatase (38-126) U/L Troponin I 0.017 (0.000-0.034) ng/mL Total Protein (6.3-8.2) g/dL Albumin (3.5-5.0) g/dL Disposition Clinical Impression: Chest pain Disposition: ADMITTED IP TO THIS HOSP Condition: Fair Referrals: Marian Bradford MD [Primary Care Provider] - 1-2 days Decision Time: 20:32
[2019-02-01 19:08] LABS: Basophils # (A) 0.1 k/uL (0-0.2); Basophils % (A) 1 %; Eosinophils # (A) 0.3 k/uL (0-0.7); Eosinophils % (A) 3 %; HCT 49.1 % (39.0-53.0); HGB 16.1 gm/dL (13.0-17.5); Lymphocytes # (A) 3.5 k/uL (1.0-4.8); Lymphocytes % (A) 30 %; MCHC 32.9 g/dL (31.0-37.0); MCV 88.3 fL (80.0-100.0); Mean Platelet Volume 7.7; Monocytes # (A) 0.5 k/uL (0-1.0); Monocytes % (A) 4 %; Neutrophils # (A) 6.8 k/uL (1.3-7.7); Neutrophils % (A) 60 %; Platelet Count 236 k/uL (150-450); RBC 5.56 m/uL (4.30-5.90); RDW 14.9 % (11.5-15.5); WBC 11.4 k/uL (3.8-10.6)
[2019-02-01 19:17] LABS: ALT 27 U/L (21-72); AST 17 U/L (17-59); Albumin 3.5 g/dL (3.5-5.0); Alkaline Phosphatase 95 U/L (38-126); Anion Gap 7 mmol/L; Blood Urea Nitrogen 14 mg/dL (9-20); Calcium 8.8 mg/dL (8.4-10.2); Carbon Dioxide 28 mmol/L (22-30); Chloride 105 mmol/L (98-107); Glucose 149 mg/dL (74-99); Magnesium 1.7 mg/dL (1.6-2.3); Potassium 4.1 mmol/L (3.5-5.1); Sodium 140 mmol/L (137-145); Total Bilirubin 0.8 mg/dL (0.2-1.3); Total Protein 6.4 g/dL (6.3-8.2)
--- NOTE | 2019-02-01 19:24 | XR ---
EXAMINATION TYPE: XR chest 2V DATE OF EXAM: 02/01/2019 COMPARISON: Chest x-ray January 26, 2018 CT chest January 21, 2018. HISTORY: Chest pain and weakness. TECHNIQUE: Frontal and lateral views of the chest are obtained. FINDINGS: Lateral view markedly suboptimal due to patient's large body habitus. There is no no suspic ious focal air space opacity, pleural effusion, or pneumothorax seen. Interval improvement in nodula r opacities throughout the left lung felt present from comparison CT. The cardiac silhouette size rem ains mildly enlarged. The osseous structures are intact. IMPRESSION: Mild cardiomegaly without acute pulmonary process clearly seen currently.
[2019-02-01 19:25] LABS: Partial Thromboplastin Time 28.3 sec (22.0-30.0); Prothrombin Time 10.4 sec (9.0-12.0)
--- NOTE | 2019-02-01 19:25 | XR ---
EXAMINATION TYPE: XR pelvis AP view DATE OF EXAM: 02/01/2019 CLINICAL HISTORY: Generalized pain and weakness. TECHNIQUE: 2 images to include the entire pelvis are acquired. COMPARISON: None. FINDINGS: There is no acute fracture/dislocation evident in the pelvis. The sacroiliac joints appea r symmetric and unremarkable. Mild to moderate symmetric axial joint space loss and spurring in both hips is present. Left-sided pelvic phlebolith noted. IMPRESSION: As above.
[2019-02-01] MEDS ORDERED: NALOXONE 0.4 MG/ML 1 ML VIAL IV PRN (20:32)
[2019-02-01] MEDS ORDERED: ONDANSETRON 4 MG/2 ML VIAL IVP PRN (20:32)
[2019-02-01] MEDS ORDERED: ALBUTEROL NEBULIZED 2.5 MG/3 ML INHALATION PRN (20:35)
[2019-02-01] MEDS ORDERED: SODIUM CHLORIDE 0.9% 1,000 ML IV SCH (20:45)
[2019-02-01 22:09] LABS: Glucose,Whole Blood 129 mg/dL (75-99)
[2019-02-02] MEDS: LISINOPRIL 20 MG TAB PO SCH ×2 (01:17→14:01)
[2019-02-02] MEDS: RIVAROXABAN 15 MG TAB PO SCH ×2 (01:18→12:50)
[2019-02-02] MEDS: hydrALAZINE HCL 50 MG TAB PO SCH ×3 (01:18→15:13)
[2019-02-02 06:43] LABS: Glucose,Whole Blood 132 mg/dL (75-99)
[2019-02-02] MEDS: IPRATROPIUM-ALBUTEROL 3 ML NEB INHALATION PRN ×2 (07:52→13:10)
[2019-02-02] MEDS ORDERED: DOBUTamine DRIP for NUC MED 500 MG in DEXTROSE/WATER 1 250ML.BAG IV ONE (08:32)
[2019-02-02] MEDS ORDERED: ATORVASTATIN 10 MG TAB PO SCH (09:00)
[2019-02-02] MEDS ORDERED: PANTOPRAZOLE 40 MG/10 ML VIAL IV SCH (09:00)
[2019-02-02] MEDS ORDERED: ISOSORBIDE MONONITRATE ER 30 MG TAB.ER.24H PO SCH (09:00)
--- NOTE | 2019-02-02 09:43 | P.CRDCN ---
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 He denies history of coronary artery disease. He states he underwent a stress test in the past somewhere in [place] around 1-year ago, however there is no record of that in this hospital or in our office. He has seen Dr. Marie in the office in the past for pre-surgical evaluation. We have been asked to see him in consultation for chest pain. He states yesterday morning after waking up for the day he felt a sharp pain in the left precordial region like a cramp nkechi horse. The pain was very brief lasting only a few seconds. This occurred only one time. There was some residual radiation of numbness and tingling down his left arm. This lasted for a few minutes. There was no radiation to the back, neck or jaw. There was no associated shortness of breath, dizziness, nausea, vomiting or diaphoresis. He has had no further episodes of chest pain since arriving at the hospital. He also states he did fall yesterday injuring his left groin. The fall was due to leg weakness. There was no syncope, dizziness or LOC. EKG reveals sinus mechanism with right bundle branch block and left anterior fascicular block. This is chronic when compared to old ECGs. Chest x-ray reveals mild cardiomegaly with no acute cardiopulmonary process. Laboratory data reviewed, WBC 11.4, hemoglobin 16.1, platelets 236, sodium 140, potassium 4.1, creatinine 0.68, magnesium 1.7, cardiac enzymes negative 3. Current cardiac medications include Imdur 30 mg daily, lisinopril 40 mg twice a day, Xarelto 15 mg twice a day, hydralazine 100 mg 3 times a day and atorvastatin 10 mg daily. Most recent echocardiogram obtained 2016 revealed impaired LV systolic function with ejection fraction 40-45%, moderate concentric left ventricular hypertrophy, moderate to severe pulmonary hypertension with an RVSP of 77 mmHg. At the time of my exam: CONSTITUTIONAL: Denies fever. Denies chills. EYES: Denies blurred vision. Denies vision changes. Denies eye pain. EARS, NOSE, MOUTH & THROAT: Denies headache. Denies sore throat. Denies ear pain . CARDIOVASCULAR: Denies chest pain. Denies shortness of breath. Denies orthopnea. Denies PND. Denies palpitations. RESPIRATORY: Denies cough. GASTROINTESTINAL: Denies abdominal pain. Denies diarrhea. Denies constipation. Denies nausea. Denies vomiting. MUSCULOSKELETAL: Denies myalgias. INTEGUMENTARY: Denies pruitis. Denies rash. NEUROLOGIC: Denies numbness. Denies tingling. Denies weakness. PSYCHIATRIC: Denies anxiety. Denies depression. ENDOCRINE: Denies fatigue. Denies weight change. Denies polydipsia. Denies polyurina. GENITOURINARY: Denies burning, hematuria or urgency with micturation. HEMATOLOGIC: Denies history of anemia. Denies bleeding. Blood pressure 161/79 heart rate 73 afebrile maintaining oxygen saturation on room air GENERAL: This is a 48-year-old male in no apparent distress at the time of my examination. Morbidly obese. HEENT: Head is atraumatic, normocephalic. No right eye left eye pupil equal and round, sclera anicteric. Conjunctivae are clear. Mucous membranes of the mouth are moist. Neck is supple. There is no jugular venous distention. No carotid bruit is heard. LUNGS: Clear to auscultation no wheezes, rales or rhonchi. No chest wall tenderness is noted on palpation or with deep breathing. Diminished bilaterally. HEART: Regular rate and rhythm without murmurs, rubs or gallops. S1 and S2 heard. Distant. ABDOMEN: Soft, nontender. Bowel sounds are heard. No organomegaly noted. EXTREMITIES: No evidence of peripheral edema and no calf tenderness noted. VASCULAR: Radial and dorsalis pedis pulses palpated, no evidence of clubbing. NEUROLOGIC: Patient is awake, alert and oriented x3. ASSESSMENT Chest pain, atypical for angina. An acute coronary event has been ruled out. Hypertension Dyslipidemia Diabetes mellitus COPD Obstructive sleep apnea Chronic nicotine dependence Pulmonary hypertension on echo from 2016 Cardiomyopathy on echo from 2016, unknown if ischemic or non-ischemic as he has never had a catheterization that he can recall Morbid obesity, BMI 62 PLAN An acute coronary event has been ruled out. Decrease lisinopril to 40 mg daily and add amlodipine 5 mg daily and lopressor 25 mg BID. Check lipid profile. Obtain 2D echocardiogram and doppler study to assess cardiac structure and function. Perform dobutamine stress echocardiogram to assess for stress induced ischemia. Further recommendations to follow. Thank you kindly for this consultation. Nurse Practitioner note has been reviewed, I agree with a documented findings and plan of care. Patient was seen and examined. 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 and the patient underwent a tympanomastoidectomy with tympanoplasty, morbid obesity, obstructive sleep apnea with an AHI of 100 he had a CPAP pressure of 14 cm of water, impaired left a ejection fraction of 32% based on the previous cardiac stress tests, chronic back pain, degenerative arthritis with chronic left knee pain in addition to a torn meniscus in the left knee, 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 rt ear sx Past Anesthesia/Blood Transfusion Reactions: No Reported Reaction Past Psychological History: Anxiety, Schizoaffective Disorder, Schizophrenia Additional Psychological History / Comment(s): Pt states he has xanax for anxiety. Pt resides with significant other. He is independent. Smoking Status: Current every day smoker Past Alcohol Use History: None Reported Additional Past Alcohol Use History / Comment(s): smokes 1ppd Past Drug Use History: None Reported - Past Family History Father History Unknown: Yes Family Medical History: Unable to Obtain Additional Family Medical History / Comment(s): Patient was adopted Mother Family Medical History: Unable to Obtain Additional Family Medical History / Comment(s): Patient was adopted Medications and Allergies Home Medications Medication Instructions Recorded Confirmed Type Albuterol Inhaler [Ventolin Hfa 2 puff INHALATION RT-Q6H PRN 04/21/02/01/19 History Inhaler] Lisinopril 40 mg PO BID 04/21/14 02/01/19 History oxyCODONE HCL [oxyCODONE HCL (IR)] 30 mg PO QID 04/21/14 02/01/19 History Cetirizine HCl 10 mg PO DAILY 10/11/15 02/01/19 History Budesonide-Formot 160-4.5 Mcg 2 puff INHALATION RT-BID 06/21/17 02/01/19 History [Symbicort 160-4.5 Mcg Inhaler] Fluticasone Nasal [place] [Flonase 2 spr EA NOSTRIL DAILY 06/21/17 02/01/19 History Nasal [place]] Ipratropium-Albuterol Nebulize 3 ml INHALATION RT-QID PRN 01/26/18 02/01/19 History [Duoneb 0.5 mg-3 mg/3 ml Soln] ALPRAZolam [Xanax] 0.5 mg PO BID PRN 07/16/18 02/01/19 History Isosorbide Mononitrate ER [Imdur] 30 mg PO DAILY 07/16/18 02/01/19 History Pseudoephedrine 12Hr [Sudafed 12Hr] 120 mg PO Q12H PRN 07/16/18 02/01/19 History hydrALAZINE HCL [Apresoline] 100 mg PO TID 07/16/18 02/01/19 History Atorvastatin [Lipitor] 10 mg PO DAILY 02/01/19 02/01/19 History Cholecalciferol (Vitamin D3) 2,000 unit PO DAILY 02/01/19 02/01/19 History [Vitamin D3] Rivaroxaban [Xarelto] 15 mg PO BID 02/01/19 02/01/19 History glipiZIDE XL [Glucotrol Xl] 5 mg PO DAILY 02/01/19 02/01/19 History Allergies Allergy/AdvReac Type Severity Reaction Status Date / Time cyclobenzaprine HCl Allergy Itching Verified 02/01/19 19:08 [From Flexeril] ibuprofen [From Motrin] AdvReac Nausea Verified 02/01/19 19:08 Physical Exam Vitals: Vital Signs Temp Pulse Pulse Resp BP BP Pulse Ox 02/02/19 08:06 90 02/02/19 08:00 98.4 F 73 16 161/79 95 04/30/19 07:55 86 02/02/19 04:00 97.6 F 77 18 155/84 96 02/01/19 21:57 98.4 F 85 16 162/95 94 L 02/01/19 21:30 88 16 159/124 98 02/01/19 21:00 86 16 154/102 98 02/01/19 20:48 12 02/01/19 20:30 89 14 149/105 96 02/01/19 20:00 84 14 153/94 96 02/01/19 19:30 89 14 139/100 97 02/01/19 18:30 99.2 F 90 18 156/95 98 Intake and Output 02/01/19 02/02/19 02/02/19 22:59 06:59 14:59 Other: Voiding Method Toilet Weight 219.992 kg Results 02/01/19 18:50 02/01/19 18:50 Cardiac Enzymes 02/01/19 02/01/19 02/02/19 Range/Units 18:50 18:50 01:06 AST 17 (17-59) U/L Troponin I 0.017 0.017 (0.000-0.034) ng/mL 02/02/19 Range/Units 06:36 AST (17-59) U/L Troponin I <0.012 (0.000-0.034) ng/mL Coagulation 02/01/19 Range/Units 18:50 PT 10.4 (9.0-12.0) sec APTT 28.3 (22.0-30.0) sec CBC 02/01/19 Range/Units 18:50 WBC 11.4 H (3.8-10.6) k/uL RBC 5.56 (4.30-5.90) m/uL Hgb 16.1 (13.0-17.5) gm/dL Hct 49.1 (39.0-53.0) % Plt Count 236 (150-450) k/uL Comprehensive Metabolic Panel 02/01/19 Range/Units 18:50 Sodium 140 (137-145) mmol/L Potassium 4.1 (3.5-5.1) mmol/L Chloride 105 (98-107) mmol/L Carbon Dioxide 28 (22-30) mmol/L BUN 14 (9-20) mg/dL Creatinine 0.68 (0.66-1.25) mg/dL Glucose 149 H (74-99) mg/dL Calcium 8.8 (8.4-10.2) mg/dL AST 17 (17-59) U/L ALT 27 (21-72) U/L Alkaline Phosphatase 95 (38-126) U/L Total Protein 6.4 (6.3-8.2) g/dL Albumin 3.5 (3.5-5.0) g/dL Current Medications Generic Name Dose Route Start Last Admin Trade Name Freq PRN Reason Stop Dose Admin Albuterol Sulfate 2.5 mg 02/01/19 20:35 Ventolin Nebulized INHALATION RT-Q6H PRN Shortness Of Breath Albuterol/Ipratropium 3 ml 02/01/19 20:35 02/02/19 07:52 Duoneb 0.5 Mg-3 Mg/3 Ml Soln INHALATION 3 ml RT-QID PRN Administration Shortness Of Breath Atorvastatin Calcium 10 mg 02/02/19 09:00 Lipitor PO DAILY AMY Glipizide 2.5 mg 02/02/19 09:00 Glucotrol PO BID AMY Hydralazine HCl 100 mg 02/01/19 22:00 02/02/19 01:18 Apresoline PO 100 mg TID AMY Administration Sodium Chloride 1,000 mls @ 20 mls/hr 02/01/19 20:45 02/02/19 08:57 Saline 0.9% IV Not Given .Q24H AMY Dobutamine HCl/Dextrose 500 mg 250 mls @ 65.998 mls/hr 02/02/19 08:32 / IV Solution IV 02/02/19 12:19 .Q3H48M ONE Protocol 10 MCG/KG/MIN Isosorbide Mononitrate 30 mg 02/02/19 09:00 Imdur PO DAILY AMY Lisinopril 40 mg 02/01/19 21:00 02/02/19 01:17 Zestril PO 40 mg BID AMY Administration Naloxone HCl 0.2 mg 02/01/19 20:32 Narcan IV Q2M PRN Opioid Reversal Ondansetron HCl 4 mg 02/01/19 20:32 Zofran IVP Q8HR PRN Nausea And Vomiting Oxycodone HCl 30 mg 02/01/19 23:00 02/02/19 01:17 Oxyir PO 30 mg QID [facility] Administration Pantoprazole Sodium 40 mg 02/02/19 09:00 Protonix IV DAILY [facility] Rivaroxaban 15 mg 02/01/19 21:00 02/02/19 01:18 Xarelto PO 15 mg BID AMY Administration Intake and Output 02/01/19 02/02/19 02/02/19 22:59 06:59 14:59 Other: Voiding Method Toilet Weight 219.992 kg 02/01/19 18:50 02/01/19 18:50
[2019-02-02] MEDS ORDERED: amLODIPine 5 MG TAB PO SCH (09:45)
[2019-02-02 10:01] LABS: Cholesterol 116 mg/dL (<200); HDL Cholesterol 34 mg/dL (40-60); LDL Cholesterol,Calculated 47 mg/dL (0-99); Triglycerides 177 mg/dL (<150)
[2019-02-02 12:37] LABS: Glucose,Whole Blood 107 mg/dL (75-99)
[2019-02-02] MEDS ORDERED: LISINOPRIL 20 MG TAB PO SCH (14:03)
[2019-02-02] MEDS ORDERED: METOPROLOL TARTRATE 25 MG TAB PO SCH ×2 (14:03→21:00)
--- NOTE | 2019-02-02 14:04 | HP ---
HISTORY AND PHYSICAL DATE OF ADMISSION: 02/01/2019. DATE OF SERVICE: 02/02/2019 PRESENT COMPLAINT: Chest pain. HISTORY OF PRESENTING COMPLAINT: This is a 48-year-old patient of Dr. Marian Bradford whose chronic stable medical conditions include obesity, hypertension, GERD, artificial right eye, chronic pulmonary embolism for which patient had been on Xarelto. Also got cardiomyopathy, EF 40%-45%. Patient presented yesterday with left anterior chest wall, feeling like a charley horse. It was there for about 15 to 20 seconds in the precordial area, then resolved on its own. He did feel some tingling in the left arm. There was no dizziness. No lightheadedness. No perspiration. Minimal shortness of breath. The patient did feel legs a bit weak and rubbery and decided to come in. The patient has continued to smoke. REVIEW OF SYSTEMS: CONSTITUTIONAL: Tired. HEENT: Artificial right eye. RESPIRATORY: As above. CARDIOVASCULAR: As above. GASTROINTESTINAL: Heartburn. GENITOURINARY: None. MUSCULOSKELETAL: Some pain in the lower extremity joints. DERMATOLOGICAL: None. HEMATOLOGICAL: None. LYMPHATICS: None. PSYCHIATRY none. NEUROLOGICAL: None. PAST MEDICAL HISTORY: COPD, morbid obesity, hypertension, artificial right eye, cardiomyopathy, EF 40%-45%, secondary pulmonary hypertension, chronic pulmonary embolism on Xarelto, obstructive sleep apnea, cholesteatoma of the right ear, chronic back pain. PAST SURGICAL HISTORY: Joint replacement, right knee replacement, tubes in both ears, right eye enucleation with an artificial eye. PSYCH HISTORY: Schizoaffective disorder, anxiety. SOCIAL HISTORY: Patient lives with significant other. Patient has been smoking a pack a day for several years. FAMILY HISTORY: Patient is adopted. HOME MEDICATIONS: 1. Oxycodone 30 mg p.o. q.i.d. 2. Hydralazine 100 mg p.o. t.i.d. 3. Glucotrol XL 5 mg p.o. daily. 4. Norvasc 5 mg p.o. daily. 5. Xarelto 50 mg p.o. b.i.d. 6. Sudafed 120 mg q.12 p.r.n. 7. Lopressor 25 mg b.i.d. 8. Zestril 40 mg p.o. daily. 9. Imdur ER 30 mg p.o. daily. 10.DuoNeb 3 mL q.i.d. p.r.n. 11.Flonase 2 sprays each nostril daily. 12.Vitamin D3 two thousand units p.o. daily. 13.Cetirizine 10 mg p.o. daily. 14.Symbicort 160/4.5 two puffs b.i.d. 15.Lipitor 10 mg p.o. daily. 16.Ventolin HFA 2 puffs q.6 p.r.n. 17.Xanax 0.5 b.i.d. p.r.n. ALLERGIES: To FLEXERIL and MOTRIN. PHYSICAL EXAMINATION: Temperature 98.4, pulse 73, respiration 16, blood pressure 160/79, pulse ox 95% on room air. GENERAL APPEARANCE: Well built, BMI is 62.3, sitting up, awake. EYES: Right eye is artificial, left eye is normal. HEENT: External appearance of nose and ear normal, oral cavity normal. NECK: Short, thick. .Unable to assess JVD. Mass not palpable. RESPIRATORY: Increased lungs, distant breath sounds. Prolonged expiration. CARDIOVASCULAR: Heart sounds a bit muffled. No edema. ABDOMEN: Distended, soft. Liver and spleen not palpable. LYMPHATIC: No lymph node palpable. PSYCHIATRY: Alert and oriented x3. Mood and affect normal. NEUROLOGICAL: Artificial right eye. Cranial nerves grossly intact. Power and sensation grossly intact. INVESTIGATIONS: White count 11.4, hemoglobin 16.1, potassium 4.1, BUN 14, creatinine 0.68. Troponin 0.017. EKG tracing personally reviewed by me shows right bundle branch block, bifascicular block. Chest x-ray film personally reviewed by me shows some cardiomegaly and chest x-ray report also reviewed without any obvious infiltrates. ASSESSMENT: 1. Left precordial chest pain probably musculoskeletal, the patient has cardiac risk factors. Need to rule out the same. 2. Chronic obstructive pulmonary disease. 3. Chronic nicotine dependence in a current smoker. 4. Morbid obesity, body mass index more than 60. 5. Gastroesophageal reflux disease. 6. Essential hypertension. 7. Chronic pulmonary embolism. Patient had been on Xarelto. 8. Obstructive sleep apnea, does not use CPAP machine. 9. History of cardiomyopathy previously ejection fraction was about 40%. 10.Chronic nicotine dependence, patient is a cigarette smoker. 11.Artificial right eye. PLAN: Home medications are resumed. Cardiology was consulted who ordered a stress test. Care was discussed with the patient, advised against smoking. QAMAR / LISAN: [id number] /
[2019-02-02 15:48] VITALS: BP 133/77; PULSE 83; RESP 17; TEMP 98.2
--- NOTE | 2019-02-02 17:19 | ECHOF ---
Referral Reason:cp MEASUREMENTS -------- HEIGHT: 182.9 cm WEIGHT: 220.0 kg BP: IVSd: 1.4 cm (0.6 - 1.1) LVIDd: 6.0 cm (3.9 - 5.3) LVPWd: 1.6 cm (0.6 - 1.1) IVSs: 1.6 cm LVIDs: 4.5 cm LVPWs: 2.2 cm Ao Diam: 4.4 cm (2.0 - 3.7) LA Diam: 3.7 cm (2.7 - 3.8) AV Cusp: 2.3 cm (1.5 - 2.6) EPSS: 1.1 cm MV E Delano: 0.59 m/s MV DecT: 208 ms MV A [place]: 0.42 m/s MV E/A Ratio: 1.40 MV EF SLOPE: 148.31 mm/s (70 - 150) MV EXCURSION: 27.59 mm (> 18.000) FINDINGS -------- Sinus rhythm. This was a technically difficult study with suboptimal views. Morbid Obesity The left ventricle is mildly dilated. There is moderate concentric left ventricular hypertrophy. Overall left ventricular systolic function is mildly impaired with, an EF between 45 - 50 %. The RV was not well visualized. The left atrium was not well visualized. The right atrium was not well visualized. Lumason used The aortic valve was not well visualized. The mitral valve was not well visualized. The tricuspid valve was not well visualized. The pulmonic valve was not well visualized. CONCLUSIONS -------- 1. Sinus rhythm. 2. This was a technically difficult study with suboptimal views. 3. Morbid Obesity 4. The left ventricle is mildly dilated. 5. There is moderate concentric left ventricular hypertrophy. 6. Overall left ventricular systolic function is mildly impaired with, an EF between 45 - 50 %. 7. The RV was not well visualized. 8. The left atrium was not well visualized. 9. The right atrium was not well visualized. 10. Lumason used 11. The aortic valve was not well visualized. 12. The mitral valve was not well visualized. 13. The tricuspid valve was not well visualized. 14. The pulmonic valve was not well visualized. [employer] MAINTENANCE WORKER: Queta Sawyer [facility]
--- NOTE | 2019-02-03 07:47 | ECHOS ---
STRESS ECHOCARDIOGRAM INDICATIONS: Chest pain. BASELINE HEART RATE: 76 BASELINE BLOOD PRESSURE: 161/95 MAXIMUM HEART RATE: 143 MAXIMUM BLOOD PRESSURE: 200/81 85% MPHR: 146 100% MPHR: 172 MAXIMUM STAGE REACHED: 3 TOTAL EXERCISE TIME: 11:58 CLINICAL INFORMATION: Baseline heart rate 76 beats per minute. Baseline blood pressure 161/95 mmHg. The patient received dobutamine infusion per protocol per 40 mcg. Occasional PVCs were noted during the stress test. His baseline 12 lead ECG shows a right bundle branch block and left anterior fascicular block with nonspecific ST and ST-T abnormalities. There was no ECG evidence for ischemia. No definite ST-segment changes are noted during dobutamine infusion. The baseline 2D echo images are suboptimal despite the use of Definity contrast. However, there was augmentation of overall LV contractility without development of any wall motion abnormalities. Adequate myocardial thickening was noted. There was no stress-induced ischemia based on echo findings during recovery. IMPRESSION: 1. Technically difficult study with suboptimal acoustic windows. 2. No stress-induced ischemia noted based on ECG as well as stress echo images. Definity contrast was used. MMODL / IJN: [id number] /
[2019-02-03] MEDS ORDERED: LISINOPRIL 20 MG TAB PO SCH (09:00)
[2019-02-03] MEDS ORDERED: PANTOPRAZOLE 40 MG TABLET PO SCH (09:00)
--- NOTE | 2019-02-03 09:17 | DS ---
DISCHARGE SUMMARY DATE OF ADMISSION: 02/01/2019 DATE OF DISCHARGE: 02/02/2019 FINAL DIAGNOSES: 1. Left precordial pain, probably musculoskeletal. 2. Chronic obstructive pulmonary disease in a current smoker. 3. Chronic nicotine dependence, patient is a cigarette smoker. 4. Morbid obesity, body mass index more than 60. 5. Gastroesophageal reflux disease. 6. Essential hypertension. 7. Chronic pulmonary embolism for which patient is on Xarelto. 8. Obstructive sleep apnea, does not use CPAP machine. 9. History of cardiomyopathy with previous ejection fraction of 40%. 10.Artificial right eye. 11.Hypertensive heart disease. HOSPITAL COURSE: This patient presented with chest pain, troponins were negative. A 2D echo showed an EF of 45%-50% and LVH. I was informed that the stress test is negative and the patient can go home by the nurse. Cardiology did review for the same. CONSULTATION: Dr. George Resendiz from Cardiology. On exam, lungs distant breath sounds, morbid obesity, artificial right eye. INVESTIGATIONS: LDL 7047. DISCHARGE MEDICATIONS: 1. Ventolin HFA 2 puffs q.6 p.r.n. 2. Oxycodone 30 mg q.i.d. 3. Symbicort 160/4.5 two puffs b.i.d. 4. Flonase 2 sprays for each nostril daily. 5. DuoNeb q.i.d. p.r.n. 6. Xanax 0.5 b.i.d. p.r.n. 7. Imdur ER 30 mg p.o. daily. 8. Hydralazine 100 mg p.o. t.i.d. 9. Lipitor 10 mg p.o. daily. 10.Vitamin D3 two thousand units p.o. daily. 11.Xarelto 50 mg b.i.d. 12.Glucotrol XL 5 mg p.o. daily. 13.Zestril 40 mg p.o. daily. 14.Lopressor 25 mg p.o. b.i.d. 15.Norvasc 5 mg p.o. daily. Follow with Marian Bradford in 3 days. Follow up with Dr. VC Marie on February 12, 2019. Patient advised against smoking. MMODL / IJN: [id number] /
== END 2019-02-02 17:00 | disposition home or self-care (01) ==
LOC: EC 18:22 → 1SOBS 20:32
PROVIDERS: ADMIT Hospitalist; ATTEND Hospitalist
DX: R07.2 Precordial pain (principal); E11.9 Type 2 diabetes mellitus without complications; E66.01 Morbid (severe) obesity due to excess calories; Z68.44 Body mass index [BMI] 60.0-69.9, adult; E78.5 Hyperlipidemia, unspecified; F17.210 Nicotine dependence, cigarettes, uncomplicated; I27.82 Chronic pulmonary embolism; Z97.0 Presence of artificial eye; F25.9 Schizoaffective disorder, unspecified; G47.33 Obstructive sleep apnea (adult) (pediatric); H54.7 Unspecified visual loss; I11.9 Hypertensive heart disease without heart failure; I27.29 Other secondary pulmonary hypertension; M54.9 Dorsalgia, unspecified; F41.9 Anxiety disorder, unspecified; G89.29 Other chronic pain; I42.9 Cardiomyopathy, unspecified; I45.2 Bifascicular block; J44.9 Chronic obstructive pulmonary disease, unspecified; K21.9 Gastro-esophageal reflux disease without esophagitis; Z79.01 Long term (current) use of anticoagulants; Z79.51 Long term (current) use of inhaled steroids; Z79.84 Long term (current) use of oral hypoglycemic drugs; Z79.899 Other long term (current) drug therapy; Z96.651 Presence of right artificial knee joint; W18.30XA Fall on same level, unspecified, initial encounter; Z88.6 Allergy status to analgesic agent; Z88.8 Allergy status to other drugs, medicaments and biological substances; Z71.6 Tobacco abuse counseling
CPT/HCPCS: 99285; 36415; 94640 ×2; 93005; 80061; 80053; 83735; 84484 ×2; 85025; 85610; 85730; 72170; 71046; G0378 ×2; C8929; C8930; J1250; Q9950; 93306; 93351

== ENCOUNTER 2019-02-04 18:50 | Emergency (ER) | payer OTHER ==
[2019-02-04] MEDS ORDERED: SODIUM CHLORIDE 0.9% 1,000 ML IV STA ×2 (20:44)
[2019-02-04] MEDS ORDERED: methylPREDNISolone SOD SUCCI 125 MG/2 ML VIAL IV STA (20:54)
[2019-02-04] MEDS ORDERED: ACETAMINOPHEN TAB 500 MG TAB PO STA (20:54)
[2019-02-04] MEDS ORDERED: IPRATROPIUM-ALBUTEROL 3 ML NEB INHALATION STA (20:54)
--- NOTE | 2019-02-04 20:58 | ED ---
Headache HPI - General Source: RN notes reviewed, old records reviewed Mode of arrival: ambulatory Limitations: no limitations <Debbi Owens - Last Filed: 02/05/19 02:45> <Belkis Goldsmith - Last Filed: 02/05/19 03:05> - General Chief Complaint: Headache Stated Complaint: Headache Time Seen by Provider: 02/04/19 20:33 - History of Present Illness Initial Comments: Patient is a 48-year-old male presents per his parents today for evaluation complaining of a headache. He was recently admitted and discharged for chest pain workup. He is seen by cardiology. Started on new blood pressure medication. Patient's if he feels like his headaches related to his new blood pressure medicines. Patient states he has no other symptoms. (Debbi Owens) - Related Data Home Medications Medication Instructions Recorded Confirmed Albuterol Inhaler [Ventolin Hfa 2 puff INHALATION RT-Q6H PRN 04/21/14 02/04/19 Inhaler] oxyCODONE HCL [oxyCODONE HCL (IR)] 30 mg PO QID 04/21/14 02/04/19 Budesonide-Formot 160-4.5 Mcg 2 puff INHALATION RT-BID 06/21/17 02/04/19 [Symbicort 160-4.5 Mcg Inhaler] Fluticasone Nasal [place] [Flonase 2 spr EA NOSTRIL DAILY 06/21/17 02/04/19 Nasal [place]] Ipratropium-Albuterol Nebulize 3 ml INHALATION RT-QID PRN 01/26/18 02/04/19 [Duoneb 0.5 mg-3 mg/3 ml Soln] ALPRAZolam [Xanax] 0.5 mg PO BID PRN 07/16/18 02/04/19 Isosorbide Mononitrate ER [Imdur] 30 mg PO DAILY 07/16/18 02/04/19 hydrALAZINE HCL [Apresoline] 100 mg PO TID 07/16/18 02/04/19 Atorvastatin [Lipitor] 10 mg PO DAILY 02/01/19 02/04/19 Cholecalciferol (Vitamin D3) 2,000 unit PO DAILY 02/01/19 02/04/19 [Vitamin D3] Rivaroxaban [Xarelto] 15 mg PO BID 02/01/19 02/04/19 glipiZIDE XL [Glucotrol XL] 5 mg PO DAILY 02/01/19 02/04/19 Previous Rx's Medication Instructions Recorded Lisinopril [Zestril] 40 mg PO DAILY tab 02/02/19 Metoprolol Tartrate [Lopressor] 25 mg PO BID #180 tab 02/02/19 amLODIPine [Norvasc] 5 mg PO DAILY #90 tab 02/02/19 guaiFENesin [Mucinex] 600 mg PO DAILY #20 tablet.er 02/04/19 methylPREDNISolone Dose Pack 4 mg PO DIRECTED #21 package 02/04/19 [Medrol Dose Pack] Allergies Allergy/AdvReac Type Severity Reaction Status Date / Time cyclobenzaprine HCl Allergy Itching Verified 02/04/19 20:28 [From Flexeril] ibuprofen [From Motrin] AdvReac Nausea Verified 02/04/19 20:28 Review of Systems ROS Other: All systems not noted in ROS Statement are negative. <Debbi Owens - Last Filed: 02/05/19 02:45> ROS Other: All systems not noted in ROS Statement are negative. <Belkis Goldsmith - Last Filed: 02/05/19 03:05> ROS Statement: Those systems with pertinent positive or pertinent negative responses have been documented in the HPI. 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 and the patient underwent a tympanomastoidectomy with tympanoplasty, morbid obesity, obstructive sleep apnea with an AHI of 100 he had a CPAP pressure of 14 cm of water, impaired left a ejection fraction of 32% based on the previous cardiac stress tests, chronic back pain, degenerative arthritis with chronic left knee pain in addition to a torn meniscus in the left knee, 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 rt ear sx Past Anesthesia/Blood Transfusion Reactions: No Reported Reaction Past Psychological History: Anxiety, Schizoaffective Disorder, Schizophrenia Smoking Status: Current every day smoker Past Alcohol Use History: None Reported Past Drug Use History: None Reported - Past Family History Father History Unknown: Yes Family Medical History: Unable to Obtain Additional Family Medical History / Comment(s): Patient was adopted Mother Family Medical History: Unable to Obtain Additional Family Medical History / Comment(s): Patient was adopted <Debbi Owens - Last Filed: 02/05/19 02:45> General Exam Limitations: no limitations General appearance: alert, in no apparent distress Head exam: Present: atraumatic, normocephalic, normal inspection Eye exam: Present: normal appearance, PERRL, EOMI. Absent: scleral icterus, conjunctival injection, periorbital swelling ENT exam: Present: normal exam, mucous membranes moist Neck exam: Present: normal inspection. Absent: tenderness, meningismus, ly mphadenopathy Respiratory exam: Present: normal lung sounds bilaterally. Absent: respiratory distress, wheezes, rales, rhonchi, stridor Cardiovascular Exam: Present: regular rate, normal rhythm, normal heart sounds. Absent: systolic murmur, diastolic murmur, rubs, gallop, clicks GI/Abdominal exam: Present: soft, normal bowel sounds. Absent: distended, tenderness, guarding, rebound, rigid Extremities exam: Present: normal inspection, full ROM, normal capillary refill. Absent: tenderness, pedal edema, joint swelling, calf tenderness Back exam: Present: normal inspection Neurological exam: Present: alert, oriented X3, CN II-XII intact Psychiatric exam: Present: normal affect, normal mood Skin exam: Present: warm, dry, intact, normal color. Absent: rash <Debbi Owens - Last Filed: 02/05/19 02:45> - General Exam Comments Initial Comments: This is a 48-year-old male. Alert and oriented. No distress. (Debbi Owens) Course Vital Signs 02/04/19 02/04/19 02/04/19 19:37 21:12 21:23 Temperature 99 F Pulse Rate 88 76 80 Respiratory 22 Rate Blood Pressure 161/87 O2 Sat by Pulse 95 Oximetry 02/05/19 00:15 Temperature 98.6 F Pulse Rate 81 Respiratory 18 Rate Blood Pressure 162/77 O2 Sat by Pulse 98 Oximetry Medical Decision Making - Lab Data Result diagrams: 02/04/19 21:05 02/04/19 21:05 - Radiology Data Radiology results: report reviewed <Debbi Owens - Last Filed: 02/05/19 02:45> - Lab Data Result diagrams: 02/04/19 21:05 02/04/19 21:05 <Belkis Goldsmith - Last Filed: 02/05/19 03:05> - Medical Decision Making Patient is a 48-year-old morbidly obese male with complaints of a headache. Patient has had headache for the past day. No recent Motrin or Tylenol. He was recently discharged for a full cardiac workup yesterday for chest pain. Patient has no fevers chills. He complains of congestion in his chest. Some mild wheezing noted. Given DuoNeb treatment. Chest x-ray was reviewed and are blood. Cardiac enzymes and BNP are normal. Patient informed this was also discussed likely mild bronchitis. Discussed she can follow-up with PCP. Questions answered. (Debbi Owens) I was available for consultation in the emergency department. The history and physical exam were done by the midlevel provider. I was consulted for this patient's care. I reviewed the case with the midlevel provider and based on their presentation of the patient, I agree with the assessment, medical decision making and plan of care as documented. Chart was dictated using [employer] dictation software. Attempts were made to correct any dictation errors however some typographical errors may persist. (Belkis Goldsmith) - Lab Data Lab Results 02/04/19 02/04/19 02/04/19 Range/Units 21:05 21:05 21:05 WBC 11.0 H (3.8-10.6) k/uL RBC 5.28 (4.30-5.90) m/uL Hgb 15.5 (13.0-17.5) gm/dL Hct 46.4 (39.0-53.0) % MCV 87.9 (80.0-100.0) fL MCH 29.3 (25.0-35.0) pg MCHC 33.3 (31.0-37.0) g/dL RDW 14.3 (11.5-15.5) % Plt Count 206 (150-450) k/uL Neutrophils % 68 % Lymphocytes % 23 % Monocytes % 5 % Eosinophils % 3 % Basophils % 0 % Neutrophils # 7.4 (1.3-7.7) k/uL Lymphocytes # 2.6 (1.0-4.8) k/uL Monocytes # 0.5 (0-1.0) k/uL Eosinophils # 0.3 (0-0.7) k/uL Basophils # 0.1 (0-0.2) k/uL PT (9.0-12.0) sec INR (<1.2) APTT (22.0-30.0) sec D-Dimer (<0.60) mg/L FEU Sodium 139 (137-145) mmol/L Potassium 4.2 (3.5-5.1) mmol/L Chloride 105 (98-107) mmol/L Carbon Dioxide 28 (22-30) mmol/L Anion Gap 6 mmol/L BUN 14 (9-20) mg/dL Creatinine 0.54 L (0.66-1.25) mg/dL Est GFR (CKD-EPI)AfAm >90 (>60 ml/min/1.73 sqM) Est GFR (CKD-EPI)NonAf >90 (>60 ml/min/1.73 sqM) Glucose 106 H (74-99) mg/dL Calcium 8.8 (8.4-10.2) mg/dL Magnesium 1.8 (1.6-2.3) mg/dL Total Bilirubin 1.3 (0.2-1.3) mg/dL AST 24 (17-59) U/L ALT 18 L (21-72) U/L Alkaline Phosphatase 72 (38-126) U/L Troponin I (0.000-0.034) ng/mL NT-Pro-B Natriuret Pep 272 pg/mL Total Protein 6.8 (6.3-8.2) g/dL Albumin 3.6 (3.5-5.0) g/dL Amylase <30 L (30-110) U/L Lipase 137 (23-300) U/L 02/04/19 02/04/19 Range/Units 21:05 21:05 WBC (3.8-10.6) k/uL RBC (4.30-5.90) m/uL Hgb (13.0-17.5) gm/dL Hct (39.0-53.0) % MCV (80.0-100.0) fL MCH (25.0-35.0) pg MCHC (31.0-37.0) g/dL RDW (11.5-15.5) % Plt Count (150-450) k/uL Neutrophils % % Lymphocytes % % Monocytes % % Eosinophils % % Basophils % % Neutrophils # (1.3-7.7) k/uL Lymphocytes # (1.0-4.8) k/uL Monocytes # (0-1.0) k/uL Eosinophils # (0-0.7) k/uL Basophils # (0-0.2) k/uL PT 10.9 (9.0-12.0) sec INR 1.0 (<1.2) APTT 23.0 (22.0-30.0) sec D-Dimer 0.22 (<0.60) mg/L FEU Sodium (137-145) mmol/L Potassium (3.5-5.1) mmol/L Chloride (98-107) mmol/L Carbon Dioxide (22-30) mmol/L Anion Gap mmol/L BUN (9-20) mg/dL Creatinine (0.66-1.25) mg/dL Est GFR (CKD-EPI)AfAm (>60 ml/min/1.73 sqM) Est GFR (CKD-EPI)NonAf (>60 ml/min/1.73 sqM) Glucose (74-99) mg/dL Calcium (8.4-10.2) mg/dL Magnesium (1.6-2.3) mg/dL Total Bilirubin (0.2-1.3) mg/dL AST (17-59) U/L ALT (21-72) U/L Alkaline Phosphatase (38-126) U/L Troponin I 0.019 (0.000-0.034) ng/mL NT-Pro-B Natriuret Pep pg/mL Total Protein (6.3-8.2) g/dL Albumin (3.5-5.0) g/dL Amylase (30-110) U/L Lipase (23-300) U/L 02/04/19 22:34 EKG shows a sinus rhythm) 5. Left anterior fascicular block. Bifascicular block. Abnormal EKG. Ventricular rate 81 bpm. Pulse 158 ms picture estrogen 154 ms. QT QTc is 456/529 ms. (Debbi Owens) - Radiology Data Chest x-ray shows myocardial megaly. No active cardiology monitor disease. No change. (Debbi Owens) Disposition Is patient prescribed a controlled substance at d/c from ED?: No Time of Disposition: 23:31 <Debbi Owens - Last Filed: 02/05/19 02:45> <Belkis Goldsmith - Last Filed: 02/05/19 03:05> Clinical Impression: Headache, Bronchitis Disposition: HOME SELF-CARE Condition: Good Instructions (If sedation given, give patient instructions): Acute Bronchitis (ED), Acute Headache (ED) Additional Instructions: Follow-up with your primary care doctor tomorrow. Return to emergency department if any alarming signs or symptoms occur. Prescriptions: methylPREDNISolone Dose Pack [Medrol Dose Pack] 4 mg PO DIRECTED #21 package guaiFENesin [Mucinex] 600 mg PO DAILY #20 tablet.er Referrals: Marian Bradford MD [Primary Care Provider] - 1-2 days
[2019-02-04 21:26] LABS: ALT 18 U/L (21-72); AST 24 U/L (17-59); Albumin 3.6 g/dL (3.5-5.0); Alkaline Phosphatase 72 U/L (38-126); Amylase <30 U/L (30-110); Anion Gap 6 mmol/L; Blood Urea Nitrogen 14 mg/dL (9-20); Calcium 8.8 mg/dL (8.4-10.2); Carbon Dioxide 28 mmol/L (22-30); Chloride 105 mmol/L (98-107); Glucose 106 mg/dL (74-99); Lipase 137 U/L (23-300); Magnesium 1.8 mg/dL (1.6-2.3); Potassium 4.2 mmol/L (3.5-5.1); Sodium 139 mmol/L (137-145); Total Bilirubin 1.3 mg/dL (0.2-1.3); Total Protein 6.8 g/dL (6.3-8.2)
[2019-02-04 21:31] LABS: Basophils # (A) 0.1 k/uL (0-0.2); Basophils % (A) 0 %; Eosinophils # (A) 0.3 k/uL (0-0.7); Eosinophils % (A) 3 %; HCT 46.4 % (39.0-53.0); HGB 15.5 gm/dL (13.0-17.5); Lymphocytes # (A) 2.6 k/uL (1.0-4.8); Lymphocytes % (A) 23 %; MCH 29.3 pg (25.0-35.0); MCHC 33.3 g/dL (31.0-37.0); MCV 87.9 fL (80.0-100.0); Mean Platelet Volume 7.8; Monocytes # (A) 0.5 k/uL (0-1.0); Monocytes % (A) 5 %; Neutrophils # (A) 7.4 k/uL (1.3-7.7); Neutrophils % (A) 68 %; Platelet Count 206 k/uL (150-450); RBC 5.28 m/uL (4.30-5.90); RDW 14.3 % (11.5-15.5)
[2019-02-04 21:40] LABS: D-Dimer 0.22 mg/L FEU (<0.60); Prothrombin Time 10.9 sec (9.0-12.0)
--- NOTE | 2019-02-04 22:05 | XR ---
EXAMINATION TYPE: XR chest 2V DATE OF EXAM: 02/04/2019 COMPARISON: 02/01/2019 HISTORY: Chest pain TECHNIQUE: Frontal and lateral views of the chest are obtained. FINDINGS: Heart is enlarged. There is no heart failure. Lungs are clear of infiltrate. There is no p leural effusion. Bony thorax is intact. IMPRESSION: Mild cardiomegaly. No active cardiopulmonary disease. No change.
[2019-02-05 00:16] VITALS: BP 162/77; PULSE 81; RESP 18; TEMP 98.6
== END 2019-02-05 00:15 | disposition home or self-care (01) ==
LOC: EC 18:50
DX: R51 Headache (principal); J44.9 Chronic obstructive pulmonary disease, unspecified; E11.9 Type 2 diabetes mellitus without complications; K21.9 Gastro-esophageal reflux disease without esophagitis; I10 Essential (primary) hypertension; M19.90 Unspecified osteoarthritis, unspecified site; M54.9 Dorsalgia, unspecified; M25.562 Pain in left knee; G89.29 Other chronic pain; G47.33 Obstructive sleep apnea (adult) (pediatric); E66.01 Morbid (severe) obesity due to excess calories; Z68.44 Body mass index [BMI] 60.0-69.9, adult; F25.9 Schizoaffective disorder, unspecified; F41.9 Anxiety disorder, unspecified; F17.200 Nicotine dependence, unspecified, uncomplicated; Z86.718 Personal history of other venous thrombosis and embolism; Z86.711 Personal history of pulmonary embolism; Z79.51 Long term (current) use of inhaled steroids; Z79.891 Long term (current) use of opiate analgesic; Z79.01 Long term (current) use of anticoagulants; Z79.84 Long term (current) use of oral hypoglycemic drugs; Z79.899 Other long term (current) drug therapy; Z88.6 Allergy status to analgesic agent; Z88.8 Allergy status to other drugs, medicaments and biological substances; Z96.651 Presence of right artificial knee joint
CPT/HCPCS: 36415; 94640; 93005; 85379; 83880; 80053; 82150; 83690; 83735; 84484; 85025; 85610; 85730; 71046; 99285; 96374; 96361 ×2; J2930

== ENCOUNTER 2019-05-30 13:14 | Emergency (ER) | payer OTHER ==
[2019-05-30] MEDS ORDERED: LIDOCAINE 1% INJ 10MG/ML (20 ML MDV) SQ ONE (13:55)
[2019-05-30] MEDS ORDERED: SODIUM CHLORIDE 0.9% 1,000 ML IV ONE (13:56)
[2019-05-30] MEDS ORDERED: SODIUM CHLORIDE 0.9% 1,000 ML IV SCH (14:00)
--- NOTE | 2019-05-30 14:18 | ED ---
General Adult HPI - General Chief complaint: Skin/Abscess/Foreign Body Stated complaint: bump on groin Time Seen by Provider: 05/30/19 13:47 Source: patient, RN notes reviewed, old records reviewed Mode of arrival: ambulatory Limitations: no limitations - History of Present Illness Initial comments: Patient is a 48-year-old male who presents emergency department today for evaluation with chief complaint of an abscess to his left lower abdomen and groi n area. Patient reports he Zosyn for the past 2-3 days. He is a diabetic. Patient states that he's never had a history of persistent skin infections. Denies any fevers or chills. Patient reports his history like an area where his belt or pants would rub - Related Data Home Medications Medication Instructions Recorded Confirmed Albuterol Inhaler [Ventolin Hfa 2 puff INHALATION RT-Q6H PRN 04/21/14 02/04/19 Inhaler] oxyCODONE HCL [oxyCODONE HCL (IR)] 30 mg PO QID 04/21/14 02/04/19 Budesonide-Formot 160-4.5 Mcg 2 puff INHALATION RT-BID 06/21/17 02/04/19 [Symbicort 160-4.5 Mcg Inhaler] Fluticasone Nasal [place] [Flonase 2 spr EA NOSTRIL DAILY 06/21/17 02/04/19 Nasal [place]] Ipratropium-Albuterol Nebulize 3 ml INHALATION RT-QID PRN 01/26/18 02/04/19 [Duoneb 0.5 mg-3 mg/3 ml Soln] ALPRAZolam [Xanax] 0.5 mg PO BID PRN 07/16/18 02/04/19 Isosorbide Mononitrate ER [Imdur] 30 mg PO DAILY 07/16/18 02/04/19 hydrALAZINE HCL [Apresoline] 100 mg PO TID 07/16/18 02/04/19 Atorvastatin [Lipitor] 10 mg PO DAILY 02/01/19 02/04/19 Cholecalciferol (Vitamin D3) 2,000 unit PO DAILY 02/01/19 02/04/19 [Vitamin D3] Rivaroxaban [Xarelto] 15 mg PO BID 02/01/19 02/04/19 glipiZIDE XL [Glucotrol XL] 5 mg PO DAILY 02/01/19 02/04/19 Previous Rx's Medication Instructions Recorded Lisinopril [Zestril] 40 mg PO DAILY tab 02/02/19 Metoprolol Tartrate [Lopressor] 25 mg PO BID #180 tab 02/02/19 amLODIPine [Norvasc] 5 mg PO DAILY #90 tab 02/02/19 guaiFENesin [Mucinex] 600 mg PO DAILY #20 tablet.er 02/04/19 methylPREDNISolone Dose Pack 4 mg PO DIRECTED #21 package 02/04/19 [Medrol Dose Pack] Cephalexin [Keflex] 500 mg PO Q6HR #40 cap 05/30/19 Sulfamethox-Tmp 800-160Mg [Bactrim 1 tab PO Q12HR #20 tab 05/30/19 DS 800-160 mg] Allergies Allergy/AdvReac Type Severity Reaction Status Date / Time cyclobenzaprine HCl Allergy Itching Verified 02/04/19 20:28 [From Flexeril] ibuprofen [From Motrin] AdvReac Nausea Verified 02/04/19 20:28 Review of Systems ROS Statement: Those systems with pertinent positive or pertinent negative responses have been documented in the HPI. ROS Other: All systems not noted in ROS Statement are negative. 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 and the patient underwent a tympanomastoidectomy with tympanoplasty, morbid obesity, obstructive sleep apnea with an AHI of 100 he had a CPAP pressure of 14 cm of water, impaired left a ejection fraction of 32% based on the previous cardiac stress tests, chronic back pain, degenerative arthritis with chronic left knee pain in addition to a torn meniscus in the left knee, 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 rt ear sx Past Anesthesia/Blood Transfusion Reactions: No Reported Reaction Past Psychological History: Anxiety, Schizoaffective Disorder, Schizophrenia Smoking Status: Current every day smoker Past Alcohol Use History: None Reported Past Drug Use History: None Reported - Past Family History Father History Unknown: Yes Family Medical History: Unable to Obtain Additional Family Medical History / Comment(s): Patient was adopted Mother Family Medical History: Unable to Obtain Additional Family Medical History / Comment(s): Patient was adopted General Exam - General Exam Comments Initial Comments: 48-year-old male. No distress. The obese. Limitations: no limitations General appearance: alert, in no apparent distress Head exam: Present: atraumatic, normocephalic, normal inspection Eye exam: Present: normal appearance, PERRL, EOMI. Absent: scleral icterus, conjunctival injection, periorbital swelling ENT exam: Present: normal exam, mucous membranes moist Neck exam: Present: normal inspection. Absent: tenderness, meningismus, lymphadenopathy Respiratory exam: Present: normal lung sounds bilaterally. Absent: respiratory distress, wheezes, rales, rhonchi, stridor Cardiovascular Exam: Present: regular rate, normal rhythm, normal heart sounds. Absent: systolic murmur, diastolic murmur, rubs, gallop, clicks GI/Abdominal exam: Present: soft, normal bowel sounds, other (cellulitis measuring 12cm by 12 cm over left lower abdomen. Patient has central abscess. ). Absent: distended, tenderness, guarding, rebound, rigid Back exam: Present: normal inspection Neurological exam: Present: alert, oriented X3, CN II-XII intact Psychiatric exam: Present: normal affect, normal mood Course Vital Signs 05/30/19 05/30/19 13:17 16:16 Temperature 98.2 F 98.7 F Pulse Rate 86 87 Respiratory 18 16 Rate Blood Pressure 158/97 149/76 O2 Sat by Pulse 97 99 Oximetry Procedures - Incision & Drainage Indication: abdomen Site: abdomen Size (cm): 3 Anesthetic Used: lidocaine 1% Amount (mLs): 4 I&D Cleaning Method: Iodine Sterile Field Used?: Yes Scalpel Used: #11 I&D Drainage Obtained: Pus, Blood Packing: Iodoform Culture Obtained?: Yes Patient Tolerated Procedure: well Medical Decision Making - Medical Decision Making 48 year old male, diabetic presents with abdomen abscess and cellulitis. Likely from where pants hit at patient waistine. Patient was given IV fluids and kefzol. Patient labs are unremarkable. I and d performed and tolerated procedure well. Patient labs are normal. Patient advised to follow up with PCP. Patient will be DC with keflex adn bactrim. Discused folow up and return parameters. - Lab Data Result diagrams: 05/30/19 14:12 05/30/19 14:12 Lab Results 05/30/19 05/30/19 Range/Units 14:12 14:12 WBC 10.2 (3.8-10.6) k/uL RBC 5.32 (4.30-5.90) m/uL Hgb 15.8 (13.0-17.5) gm/dL Hct 48.0 (39.0-53.0) % MCV 90.3 (80.0-100.0) fL MCH 29.8 (25.0-35.0) pg MCHC 33.0 (31.0-37.0) g/dL RDW 13.8 (11.5-15.5) % Plt Count 196 (150-450) k/uL Neutrophils % 62 % Lymphocytes % 27 % Monocytes % 5 % Eosinophils % 4 % Basophils % 1 % Neutrophils # 6.3 (1.3-7.7) k/uL Lymphocytes # 2.8 (1.0-4.8) k/uL Monocytes # 0.6 (0-1.0) k/uL Eosinophils # 0.4 (0-0.7) k/uL Basophils # 0.1 (0-0.2) k/uL Sodium 139 (137-145) mmol/L Potassium 4.0 (3.5-5.1) mmol/L Chloride 104 (98-107) mmol/L Carbon Dioxide 27 (22-30) mmol/L Anion Gap 8 mmol/L BUN 10 (9-20) mg/dL Creatinine 0.56 L (0.66-1.25) mg/dL Est GFR (CKD-EPI)AfAm >90 (>60 ml/min/1.73 sqM) Est GFR (CKD-EPI)NonAf >90 (>60 ml/min/1.73 sqM) Glucose 160 H (74-99) mg/dL Calcium 8.7 (8.4-10.2) mg/dL Disposition Clinical Impression: Abdominal wall abscess, Abdominal wall cellulitis Disposition: HOME SELF-CARE Condition: Good Instructions (If sedation given, give patient instructions): Abscess Incision and Drainage (ED) Additional Instructions: Change the dressing every day. If the gauze dressing falls out, this is okay. Patient should have follow-up with primary care physician. Patient should take the antibiotics as prescribed. Return to the emergency department if the area of redness or swelling worsens within the next 2 days. Prescriptions: Sulfamethox-Tmp 800-160Mg [Bactrim DS 800-160 mg] 1 tab PO Q12HR #20 tab Cephalexin [Keflex] 500 mg PO Q6HR #40 cap Is patient prescribed a controlled substance at d/c from ED?: No Referrals: Marian Bradford MD [Primary Care Provider] - 1-2 days Time of Disposition: 15:41
[2019-05-30 14:32] LABS: Basophils # (A) 0.1 k/uL (0-0.2); Basophils % (A) 1 %; Eosinophils # (A) 0.4 k/uL (0-0.7); Eosinophils % (A) 4 %; HGB 15.8 gm/dL (13.0-17.5); Lymphocytes # (A) 2.8 k/uL (1.0-4.8); Lymphocytes % (A) 27 %; MCH 29.8 pg (25.0-35.0); MCV 90.3 fL (80.0-100.0); Mean Platelet Volume 7.1; Monocytes # (A) 0.6 k/uL (0-1.0); Monocytes % (A) 5 %; Neutrophils # (A) 6.3 k/uL (1.3-7.7); Neutrophils % (A) 62 %; Platelet Count 196 k/uL (150-450); RBC 5.32 m/uL (4.30-5.90); RDW 13.8 % (11.5-15.5); WBC 10.2 k/uL (3.8-10.6)
[2019-05-30 14:43] LABS: African American GFR (CKD) >90 (>60 ml/min/1.73 sqM); Anion Gap 8 mmol/L; Blood Urea Nitrogen 10 mg/dL (9-20); Calcium 8.7 mg/dL (8.4-10.2); Carbon Dioxide 27 mmol/L (22-30); Chloride 104 mmol/L (98-107); Glucose 160 mg/dL (74-99); Sodium 139 mmol/L (137-145)
[2019-05-30 16:17] VITALS: BP 149/76; PULSE 87; RESP 16; TEMP 98.7
== END 2019-05-30 16:12 | disposition home or self-care (01) ==
LOC: EC 13:14
DX: L02.211 Cutaneous abscess of abdominal wall (principal); L03.311 Cellulitis of abdominal wall; J44.9 Chronic obstructive pulmonary disease, unspecified; E11.9 Type 2 diabetes mellitus without complications; I10 Essential (primary) hypertension; M19.90 Unspecified osteoarthritis, unspecified site; F17.200 Nicotine dependence, unspecified, uncomplicated; G47.33 Obstructive sleep apnea (adult) (pediatric); Z99.89 Dependence on other enabling machines and devices; E66.01 Morbid (severe) obesity due to excess calories; Z68.44 Body mass index [BMI] 60.0-69.9, adult; Z86.711 Personal history of pulmonary embolism; Z86.718 Personal history of other venous thrombosis and embolism; Z96.651 Presence of right artificial knee joint; Z79.891 Long term (current) use of opiate analgesic; Z79.51 Long term (current) use of inhaled steroids; Z79.01 Long term (current) use of anticoagulants; Z79.84 Long term (current) use of oral hypoglycemic drugs; Z79.899 Other long term (current) drug therapy; Z88.8 Allergy status to other drugs, medicaments and biological substances; Z88.6 Allergy status to analgesic agent
CPT/HCPCS: 99284; 10160; 96365; 96361; 36415; 80048; 85025; 87070; 87205; J0690; J2001

== ENCOUNTER 2019-09-21 10:53 | Observation (INO) | payer OTHER ==
--- NOTE | 2019-09-21 11:14 | ED ---
Abdominal Pain HPI - General Chief Complaint: Abdominal Pain Stated Complaint: abd pain, headache Time Seen by Provider: 09/21/19 11:01 Source: patient Mode of arrival: ambulatory Limitations: no limitations - History of Present Illness Initial Comments: Patient is a 49-year-old male, morbidly obese, diabetic, history of ID presenting to the emergency department with a chief complaint of abdominal pain. He reports the pain is not well for about a week and is located in the umbilical region radiating to the right lower quadrant. States the pain is constant but it is worse after he eats. Patient denies any nausea vomiting or diarrhea. He denies any night sweats fevers or chills. Denies urinary symptoms. Denies penile pain, discharge, testicular tenderness or swelling. Denies taking medication to alleviate the symptoms. Denies shortness of breath chest pain or back pain. Patient is a smoker. No history of abdominal aortic aneurysm. - Related Data Home Medications Medication Instructions Recorded Confirmed Albuterol Inhaler [Ventolin Hfa 2 puff INHALATION RT-Q6H PRN 04/21/14 02/04/19 Inhaler] oxyCODONE HCL [oxyCODONE HCL (IR)] 30 mg PO QID 04/21/14 02/04/19 Budesonide-Formot 160-4.5 Mcg 2 puff INHALATION RT-BID 06/21/17 02/04/19 [Symbicort 160-4.5 Mcg Inhaler] Fluticasone Nasal [place] [Flonase 2 spr EA NOSTRIL DAILY 06/21/17 02/04/19 Nasal [place]] Ipratropium-Albuterol Nebulize 3 ml INHALATION RT-QID PRN 01/26/18 02/04/19 [Duoneb 0.5 mg-3 mg/3 ml Soln] ALPRAZolam [Xanax] 0.5 mg PO BID PRN 07/16/18 02/04/19 Isosorbide Mononitrate ER [Imdur] 30 mg PO DAILY 07/16/18 02/04/19 hydrALAZINE HCL [Apresoline] 100 mg PO TID 07/16/18 02/04/19 Atorvastatin [Lipitor] 10 mg PO DAILY 02/01/19 02/04/19 Cholecalciferol (Vitamin D3) 2,000 unit PO DAILY 02/01/19 02/04/19 [Vitamin D3] Rivaroxaban [Xarelto] 15 mg PO BID 02/01/19 02/04/19 glipiZIDE XL [Glucotrol XL] 5 mg PO DAILY 02/01/19 02/04/19 Previous Rx's Medication Instructions Recorded Lisinopril [Zestril] 40 mg PO DAILY tab 02/02/19 Metoprolol Tartrate [Lopressor] 25 mg PO BID #180 tab 02/02/19 amLODIPine [Norvasc] 5 mg PO DAILY #90 tab 02/02/19 guaiFENesin [Mucinex] 600 mg PO DAILY #20 tablet.er 02/04/19 methylPREDNISolone Dose Pack 4 mg PO DIRECTED #21 package 02/04/19 [Medrol Dose Pack] Cephalexin [Keflex] 500 mg PO Q6HR #40 cap 05/30/19 Sulfamethox-Tmp 800-160Mg [Bactrim 1 tab PO Q12HR #20 tab 05/30/19 DS 800-160 mg] Allergies Allergy/AdvReac Type Severity Reaction Status Date / Time cyclobenzaprine HCl Allergy Itching Verified 09/21/19 10:55 [From Flexeril] ibuprofen [From Motrin] AdvReac Nausea Verified 09/21/19 10:55 Review of Systems ROS Statement: Those systems with pertinent positive or pertinent negative responses have been documented in the HPI. ROS Other: All systems not noted in ROS Statement are negative. 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 and the patient underwent a tympanomastoidectomy with tympanoplasty, morbid obesity, obstructive sleep apnea with an AHI of 100 he had a CPAP pressure of 14 cm of water, impaired left a ejection fraction of 32% based on the previous cardiac stress tests, chronic back pain, degenerative arthritis with chronic left knee pain in addition to a torn meniscus in the left knee, 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 rt ear sx Past Anesthesia/Blood Transfusion Reactions: No Reported Reaction Past Psychological History: Anxiety, Schizoaffective Disorder, Schizophrenia Smoking Status: Current every day smoker Past Alcohol Use History: None Reported Past Drug Use History: None Reported - Past Family History Father History Unknown: Yes Family Medical History: Unable to Obtain Additional Family Medical History / Comment(s): Patient was adopted Mother Family Medical History: Unable to Obtain Additional Family Medical History / Comment(s): Patient was adopted General Exam Limitations: no limitations General appearance: alert, in no apparent distress, obese (Morbidly obese) Head exam: Present: atraumatic, normocephalic, normal inspection Eye exam: Present: normal appearance, PERRL, EOMI Pupils: Present: normal accommodation ENT exam: Present: normal exam, normal oropharynx, mucous membranes moist, TM's normal bilaterally, normal external ear exam Neck exam: Present: normal inspection, full ROM. Absent: tenderness, thyromegaly Respiratory exam: Present: normal lung sounds bilaterally Cardiovascular Exam: Present: regular rate, normal rhythm, normal heart sounds GI/Abdominal exam: Present: soft, tenderness (Right upper quadrant, bilateral, right lower quadrant negative Meyer. Positive McBurney point tenderness.), other (Patient morbidly obese, difficult to obtain a thorough abdominal exam.). Absent: guarding, rebound, rigid, organomegaly, mass, bruit, pulsatile mass, hernia Extremities exam: Present: normal inspection, full ROM Back exam: Present: normal inspection, full ROM Neurological exam: Present: alert, oriented X3 Psychiatric exam: Present: normal affect, normal mood Skin exam: Present: warm, dry, intact, normal color Course Vital Signs 09/21/19 09/21/19 09/21/19 10:56 10:59 11:52 Temperature 97.7 F 97.7 F Pulse Rate 79 79 Respiratory 20 20 Rate Blood Pressure 178/118 153/96 O2 Sat by Pulse 97 97 Oximetry 09/21/19 09/21/19 11:59 12:00 Temperature Pulse Rate 79 Respiratory 20 Rate Blood Pressure 153/96 O2 Sat by Pulse 97 Oximetry Medical Decision Making - Medical Decision Making Patient is a 49-year-old male presenting to emergency Department with a chief c omplaint of abdominal pain. He reports pain is in the umbilical region radiating to right lower quadrant. Gallbladder and appendix are present. CBC unremarkable. CMP shows elevated lipase of 1500. Patient claims he does not drink any alcohol. Patient is a smoker. Transaminases normal. No exact cause determined FOR the pancreatitis at this moment. Patient nothing by mouth. Patient given analgesia. IV fluids and antiemetics on board. Patient will be admitted for further medical management. Case discussed with Dr. Damico. Medical physician is Dr. MONTES. GI consulted. - Lab Data Result diagrams: 09/21/19 11:25 09/21/19 11:25 Lab Results 09/21/19 09/21/19 09/21/19 Range/Units 11:25 11:25 11:35 WBC 9.6 (3.8-10.6) k/uL RBC 5.48 (4.30-5.90) m/uL Hgb 16.7 (13.0-17.5) gm/dL Hct 49.4 (39.0-53.0) % MCV 90.3 (80.0-100.0) fL MCH 30.6 (25.0-35.0) pg MCHC 33.9 (31.0-37.0) g/dL RDW 13.4 (11.5-15.5) % Plt Count 201 (150-450) k/uL Neutrophils % 63 % Lymphocytes % 28 % Monocytes % 4 % Eosinophils % 3 % Basophils % 1 % Neutrophils # 6.1 (1.3-7.7) k/uL Lymphocytes # 2.7 (1.0-4.8) k/uL Monocytes # 0.4 (0-1.0) k/uL Eosinophils # 0.3 (0-0.7) k/uL Basophils # 0.1 (0-0.2) k/uL Sodium 140 (137-145) mmol/L Potassium 4.0 (3.5-5.1) mmol/L Chloride 100 (98-107) mmol/L Carbon Dioxide 31 H (22-30) mmol/L Anion Gap 9 mmol/L BUN 7 L (9-20) mg/dL Creatinine 0.65 L (0.66-1.25) mg/dL Est GFR (CKD-EPI)AfAm >90 (>60 ml/min/1.73 sqM) Est GFR (CKD-EPI)NonAf >90 (>60 ml/min/1.73 sqM) Glucose 146 H (74-99) mg/dL Calcium 9.3 (8.4-10.2) mg/dL Total Bilirubin 1.3 (0.2-1.3) mg/dL AST 19 (17-59) U/L ALT 17 (4-49) U/L Alkaline Phosphatase 100 (38-126) U/L Total Protein 8.1 (6.3-8.2) g/dL Albumin 4.4 (3.5-5.0) g/dL Amylase 125 H (30-110) U/L Lipase 1570 H (23-300) U/L Urine Color Yellow Urine Appearance Clear (Clear) Urine pH 5.5 (5.0-8.0) Ur Specific [place] 1.022 (1.001-1.035) Urine Protein 1+ H (Negative) Urine Glucose (UA) 3+ H (Negative) Urine Ketones Negative (Negative) Urine Blood Negative (Negative) Urine Nitrite Negative (Negative) Urine Bilirubin Negative (Negative) Urine Urobilinogen <2.0 (<2.0) mg/dL Ur Leukocyte Esterase Negative (Negative) Urine RBC 1 (0-5) /hpf Urine WBC 1 (0-5) /hpf Ur Squamous Epith Cells 1 (0-4) /hpf Urine Mucus Occasional H (None) /hpf Disposition Clinical Impression: Pancreatitis, acute Disposition: ADMITTED IP TO THIS HOSP Condition: Stable Additional Instructions: Patient will be admitted Is patient prescribed a controlled substance at d/c from ED?: No Referrals: Marian Bradford MD [Primary Care Provider] - 1-2 days Time of Disposition: 12:41
[2019-09-21] MEDS ORDERED: PANTOPRAZOLE 40 MG/10 ML VIAL IVP STA (11:28)
[2019-09-21 11:55] LABS: Basophils # (A) 0.1 k/uL (0-0.2); Basophils % (A) 1 %; Eosinophils # (A) 0.3 k/uL (0-0.7); Eosinophils % (A) 3 %; HCT 49.4 % (39.0-53.0); HGB 16.7 gm/dL (13.0-17.5); Lymphocytes # (A) 2.7 k/uL (1.0-4.8); Lymphocytes % (A) 28 %; MCH 30.6 pg (25.0-35.0); MCHC 33.9 g/dL (31.0-37.0); MCV 90.3 fL (80.0-100.0); Mean Platelet Volume 7.6; Monocytes # (A) 0.4 k/uL (0-1.0); Monocytes % (A) 4 %; Neutrophils # (A) 6.1 k/uL (1.3-7.7); Neutrophils % (A) 63 %; Platelet Count 201 k/uL (150-450); RBC 5.48 m/uL (4.30-5.90); RDW 13.4 % (11.5-15.5); WBC 9.6 k/uL (3.8-10.6)
[2019-09-21 11:58] LABS: Appearance,Urine Clear (Clear); Bilirubin,Urine Negative (Negative); Blood,Urine Negative (Negative); Color,Urine Yellow; Glucose,Urine (UA) 3+ (Negative); Ketones,Urine Negative (Negative); Leukocyte Esterase,Urine Negative (Negative); Mucus,Urine Occasional /hpf; Nitrite,Urine Negative (Negative); PH, Urine 5.5 (5.0-8.0); Protein,Urine 1+ (Negative); RBC,Urine 1 /hpf (0-5); Specific Gravity,Urine 1.022 (1.001-1.035); Squamous Epithelial Cell,Urine 1 /hpf (0-4); Urobilinogen,Urine <2.0 mg/dL (<2.0); WBC,Urine 1 /hpf (0-5)
[2019-09-21 12:07] LABS: ALT 17 U/L (4-49); AST 19 U/L (17-59); African American GFR (CKD) >90 (>60 ml/min/1.73 sqM); Albumin 4.4 g/dL (3.5-5.0); Alkaline Phosphatase 100 U/L (38-126); Amylase 125 U/L (30-110); Anion Gap 9 mmol/L; Blood Urea Nitrogen 7 mg/dL (9-20); Calcium 9.3 mg/dL (8.4-10.2); Carbon Dioxide 31 mmol/L (22-30); Chloride 100 mmol/L (98-107); Glucose 146 mg/dL (74-99); Non-African American GFR(CKD) >90 (>60 ml/min/1.73 sqM); Sodium 140 mmol/L (137-145); Total Bilirubin 1.3 mg/dL (0.2-1.3); Total Protein 8.1 g/dL (6.3-8.2)
[2019-09-21] MEDS ORDERED: MORPHINE SULFATE 4 MG/ML SYRINGE IVP STA (12:25)
[2019-09-21] MEDS ORDERED: HYDROmorphone 1 MG/ML 1 ML SYRINGE IVP STA (12:27)
[2019-09-21] MEDS ORDERED: ONDANSETRON 4 MG/2 ML VIAL IVP PRN (12:33)
[2019-09-21] MEDS ORDERED: NALOXONE 0.4 MG/ML 1 ML VIAL IV PRN (12:33)
[2019-09-21] MEDS ORDERED: ACETAMINOPHEN TAB 325 MG TAB PO PRN (12:33)
[2019-09-21] MEDS ORDERED: ALPRAZolam 0.25 MG TAB PO PRN (12:33)
[2019-09-21] MEDS: SODIUM CHLORIDE 0.9% 1,000 ML IV SCH ×2 (12:55→23:10)
[2019-09-21] MEDS: HYDROmorphone 1 MG/ML 1 ML SYRINGE IVP PRN ×3 (14:45→23:04)
[2019-09-21] MEDS ORDERED: ALBUTEROL NEBULIZED 2.5 MG/3 ML INHALATION PRN (15:25)
[2019-09-21] MEDS ORDERED: MUPIROCIN 2% OINT 22 GM TUBE TOPICAL PRN (15:25)
[2019-09-21] MEDS ORDERED: traZODone HCL 50 MG TAB PO PRN (15:25)
[2019-09-21] MEDS: amLODIPine 5 MG TAB PO SCH (16:34)
[2019-09-21] MEDS: hydrALAZINE HCL 50 MG TAB PO SCH ×2 (16:34→22:27)
[2019-09-21] MEDS: NICOTINE 21MG/24HR PATCH TRANSDERM SCH (16:35)
[2019-09-21] MEDS: ISOSORBIDE MONONITRATE ER 30 MG TAB.ER.24H PO SCH (16:35)
--- NOTE | 2019-09-21 16:42 | US ---
EXAMINATION TYPE: US abdomen complete DATE OF EXAM: 09/21/2019 COMPARISON: CT abdomen and pelvis September 24, 2015 CLINICAL HISTORY: pancreatitis. ABD pain, pancreatitis EXAM MEASUREMENTS: Liver Length: 24.8 cm Gallbladder Wall: 0.4 cm Right Kidney: 12.7 x 5.4 x 4.8 cm Left Kidney: 12.9 x 6.1 x 5.9 cm Very limited exam, pt 500 lbs Pancreas: 5mm pancreatic duct, tail obscured by overlying bowel gas Liver: Enlarged, limited visualization due to pt's large size Gallbladder: Distended with thickened wall Evidence for sonographic Meyer's sign: Yes CBD: wnl Spleen: Unable to visualize due to pt's size Right Kidney: No evidence of hydro, limited visualization due to pt's size Left Kidney: No evidence of hydro, limited visualization due to overlying bowel gas and pt's large s ize Upper IVC: wnl Abd Aorta: Proximal and mid wnl, distal portion obscured by overlying bowel gas Suboptimal study due to large body habitus and morbid obesity. Pancreatic duct is mildly dilated up u p to 5 mm without obvious mass. No aneurysmal change of visualized proximal or mid abdominal aorta. V isualized liver is heterogeneously hyperechoic consistent with diffuse fatty infiltration. Evaluation for focal masses suboptimal. Limited images of gallbladder show no large shadowing gallstones. Limit ed images both kidneys show no gross hydronephrosis. Spleen is not clearly seen. IMPRESSION: Suboptimal study. Mild pancreatic ductal dilatation is now present and warrants further w orkup with multiphase contrast-enhanced pancreatic protocol CT or MRI.
[2019-09-21] MEDS: ERYTHROMYCIN 5 MG/GM OPHTH OINT 3.5 GM TUBE RIGHT EYE SCH ×2 (17:06→23:07)
[2019-09-21] MEDS: INSULIN ASPART (NovoLOG) 100 UNIT/ML VIAL SQ SCH ×2 (17:13→22:26)
[2019-09-21 17:19] LABS: Glucose,Whole Blood 130 mg/dL (75-99)
--- NOTE | 2019-09-21 20:01 | CONS ---
CONSULTATION DATE OF DICTATION: 09/21/2019 REASON FOR CONSULTATION: Acute pancreatitis. HISTORY OF PRESENT ILLNESS: The patient is a 49-year-old pleasant white male with history of morbid obesity who came to the emergency room with complaints of abdominal pain for the last one week's duration. Pain is mostly in the epigastric area radiating to the right lower quadrant area associated with some nausea but no emesis. The pain continued to progressively get worse. He denies any change in bowel habits. No coffee-ground emesis. The pain is worse with eating. He never had these symptoms in the past. He came to the emergency room and was noted to have elevated amylase and lipase consistent with acute pancreatitis. The patient denies any history of alcohol use. No history of gallbladder pathology. No family history of pancreatitis. No recent NSAID use. No prior history of peptic ulcer disease. PAST MEDICAL HISTORY: 1. Morbid obesity. 2. Anxiety. 3. Depression. 4. Hypertension. 5. Hyperlipidemia. MEDICATIONS: Medications at home include: 1. Ventolin. 2. Oxycodone. 3. Symbicort. 4. Flonase. 5. DuoNeb. 6. Xanax. 7. Imdur. 8. Apresoline. 9. Lipitor. 10.Vitamin D3. 11.Xarelto. 12.Glucotrol. PAST SURGICAL HISTORY: 1. Multiple DVTs in the past, maintained on Xarelto. 2. Right knee replacement. 3. Artificial eye in the right eye. SOCIAL HISTORY: Chronic smoker but no alcohol use. FAMILY HISTORY: The patient was adopted at 4 months. REVIEW OF SYSTEMS: CARDIOPULMONARY: No chest pain or shortness of breath. GENITOURINARY: No dysuria or hematuria. MUSCULOSKELETAL: Unremarkable. SKIN: Unremarkable. ENDOCRINE: Unremarkable. PSYCHIATRIC: Unremarkable. NEUROLOGY: Unremarkable. ENT/VISION: Unremarkable. CONSTITUTIONAL: No recent weight loss. No fever, chills, night sweats. PHYSICAL EXAMINATION: Blood pressure 133/73, pulse rate 71, temperature 97.8. HEENT examination unremarkable. Conjunctivae pink. Sclerae anicteric. Oral cavity no lesions. NECK: No JVD or lymph node enlargement. CHEST: Clear to auscultation. HEART: Regular rate and rhythm. ABDOMEN: Morbidly obese. There was mild tenderness in the epigastric and periumbilical area. Rest of the abdomen is benign. EXTREMITIES: No pedal edema. SKIN: No rashes. NEUROLOGIC: Alert and oriented x3. No focal deficits. LABS: WBC 9.6, hemoglobin 16.7, platelets normal. Basic metabolic panel is within normal limits. BUN 7, creatinine 0.65. Amylase 125, lipase 1570. ALT, AST, T-bilirubin and alkaline phosphatase are normal. IMPRESSION: This is a patient who presented to the hospital with epigastric pain for the last one week's duration, noted to have elevated amylase and lipase consistent with acute pancreatitis. No history of alcohol use. Never had these symptoms in the past. He has normal serum transaminases, which makes it unlikely we are dealing with biliary pancreatitis. At this time other etiologies need to be considered. RECOMMENDATIONS: 1. Start him on a clear liquid diet. 2. Continue with Protonix 40 mg daily. 3. Pain medications as needed. 4. Obtain ultrasound of the gallbladder and the rest of the abdomen. 5. Repeat labs in the morning. We will follow with you closely during his hospital stay. Thank you for this consultation. MMODL / IJN: [id number] /
[2019-09-21 20:43] LABS: Glucose,Whole Blood 172 mg/dL (75-99)
[2019-09-21] MEDS ORDERED: FLUTICASONE INHALATION SCH (21:00)
[2019-09-21] MEDS ORDERED: SALMETEROL INHALATION SCH (21:00)
[2019-09-21] MEDS: IPRATROPIUM 0.5 MG/2.5 ML NEBU INHALATION SCH (22:06)
[2019-09-21] MEDS: SYMBICORT 160-4.5 MCG INHALER INHALATION SCH (22:06)
[2019-09-21] MEDS: LISINOPRIL 20 MG TAB PO SCH (22:27)
[2019-09-21] MEDS: METOPROLOL TARTRATE 50 MG TAB PO SCH (22:27)
[2019-09-21] MEDS: RIVAROXABAN 15 MG TAB PO SCH (22:27)
--- NOTE | 2019-09-21 23:19 | P.HPIM ---
History of Present Illness H&P Date: 09/21/19 Chief Complaint: Abdominal pain History of present complaint: This is a 49-year-old patient follows with Dr.l guerrier. Chronic stable medical conditions include obesity, hypertension, GERD, artificial right eye, chronic pulmonary embolism for which she's on 02. Also got chronic cardiomyopathy EF 40-45%. Persistent over increasing abdominal pain in the center of the abdomen on the report. Does note was nausea vomiting no fever no chills. Decided to present to the ER. No change in his bowel pattern. Had a bowel movement this morning. Appetite is okay. Patient found to have some pancreatitis. Admitted for the same. Review of systems: GEN.: Tired EYES: Artificial right eye HEENT: None NECK: None RESPIRATORY: None CARDIOVASCULAR: None GASTROINTESTINAL: Some heartburn GENITOURINARY: None MUSCULOSKELETAL: [Joint pains LYMPHATICS: None HEMATOLOGICAL: None PSYCHIATRY: None NEUROLOGICAL: None Past medical history to include: COPD, morbid obesity, hypertension, artificial right eye, cardiomyopathy EF 40- 45%, secondary probably hypertension, chronic pulmonary embolism 102, obstructive sleep apnea, cholesteatoma right ear, chronic back pain Psych history: Schizoaffective disorder, anxiety Social history: Lives with his significant other, smoking for many years. Family history: Patient is adopted Physical examination: VITAL SIGNS: 97.8, 71, 18, 136/73, 93% room air GENERAL: BMI 63.6, laying in bed awake. EYES: Artificial right eye, left eye is normall. HEENT: External appearance of nose and ears normal, oral cavity grossly normal. NECK: JVD unable to assess masses not palpable. HEART: Heart sounds are distant; minimal edema. LUNGS: Respiratory rate normal; distant breath sounds. ABDOMEN: Soft, mild midabdominal tenderness, no guarding rigidity, liver spleen not palpable, no masses palpable. PSYCH: Alert and oriented x3; mood and affect normal. NEUROLOGICAL: Cranial nerves grossly intact; no facial asymmetry, power and sensation grossly intact. -Artificial right eye LYMPHATICS: No lymph nodes palpable in the axilla and neck INVESTIGATIONS, reviewed in the clinical context: White count 9.6 hemoglobin 16.7 platelets 201 potassium 4 creatinine 0.65 Amylase 125 lipase 1570 Abdominal ultrasound-liver is enlarged, gallbladder distended with thickened rangel Assessment: -Acute pancreatitis, with one-day history of pain -Questionable gallstone pathology given not very good pictures -COPD in a current smoker -Chronic nicotine dependence patient cigarette smoker -Morbid obesity BMI 63.6 -GERD -Essential hypertension -Chronic pulmonary embolism for which patient is also -OBSTRUCTIVE SLEEP APNEA DOES NOT USE CPAP MACHINE CHRONIC CARDIOMYOPATHY EF 40% -HYPERTENSIVE HEART DISEASE -ARTIFICIAL RIGHT EYE PLAN: Consultation during made to GI and general surgery. Patient is clear liquids. Home medications resumed. Care was discussed with the patient. Questions were answered. Repeat pancreatic enzymes morning. 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 and the patient underwent a tympanomastoidectomy with tympanoplasty, morbid obesity, obstructive sleep apnea with CPAP, chronic back pain, chronic left knee pain/torn meniscus and bone on bone, 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-pt states he currently has a R eyelid infect ion, R lower leg DVT and pulmonary embolism pt thinks was on L side, previous history of cellulitis, UTI, History of Any Multi-Drug Resistant Organisms: None Reported Past Surgical History: Joint Replacement Additional Past Surgical History / Comment(s): R ear sugically resected/tympanomastoidectomy with tympanoplasty, bilateral myringotomy/tubes, R eye enucleation, R total knee arthroplasty, EGD Past Anesthesia/Blood Transfusion Reactions: No Reported Reaction Smoking Status: Current every day smoker - Past Family History Father History Unknown: Yes Family Medical History: Unable to Obtain Additional Family Medical History / Comment(s): Patient was adopted Mother Family Medical History: Unable to Obtain Additional Family Medical History / Comment(s): Patient was adopted Medications and Allergies Home Medications Medication Instructions Recorded Confirmed Type oxyCODONE HCL [oxyCODONE HCL (IR)] 30 mg PO QID 04/21/14 09/21/19 History Budesonide-Formot 160-4.5 Mcg 2 puff INHALATION RT-BID 06/21/17 09/21/19 History [Symbicort 160-4.5 Mcg Inhaler] ALPRAZolam [Xanax] 0.5 mg PO BID PRN 07/16/18 09/21/19 History Isosorbide Mononitrate ER [Imdur] 30 mg PO DAILY 07/16/18 09/21/19 History hydrALAZINE HCL [Apresoline] 100 mg PO TID 07/16/18 09/21/19 History Rivaroxaban [Xarelto] 15 mg PO BID 02/01/19 09/21/19 History glipiZIDE XL [Glucotrol XL] 5 mg PO DAILY 02/01/19 09/21/19 History amLODIPine [Norvasc] 5 mg PO DAILY #90 tab 02/02/19 09/21/19 Rx Albuterol Nebulized [Ventolin 2.5 mg INHALATION RT-Q6H PRN 09/21/19 09/21/19 History Nebulized] Amitriptyline HCl [Elavil] 25 mg PO DAILY 09/21/19 09/21/19 History Ergocalciferol [Vitamin D2] 50,000 unit PO Q7D 09/21/19 09/21/19 History Erythromycin Ophth Oint [Romycin 1 applic RIGHT EYE TID 09/21/19 09/21/19 History Ophth Oint] Fluticasone/Salmeterol 1 puff INHALATION BID 09/21/19 09/21/19 History [Fluticasone-Salmeterol 113-14] Ipratropium Nebulized [Atrovent 0.5 mg INHALATION RT-Q6H 09/21/19 09/21/19 History Nebulized 0.2 MG/ML] Lisinopril 40 mg PO BID 09/21/19 09/21/19 History Metoprolol Tartrate [Lopressor] 50 mg PO BID 09/21/19 09/21/19 History Mupirocin 2% Oint [Bactroban 2% 1 applic TOPICAL TID PRN 09/21/19 09/21/19 History Oint] Pseudoephedrine 12Hr [Sudafed 12Hr] 120 mg PO Q12H PRN 09/21/19 09/21/19 History traZODone HCL 50 - 100 mg PO HS PRN 09/21/19 09/21/19 History Allergies Allergy/AdvReac Type Severity Reaction Status Date / Time cyclobenzaprine HCl Allergy Itching Verified 09/21/19 14:04 [From Flexeril] ibuprofen [From Motrin] AdvReac Nausea Verified 09/21/19 14:04 Physical Exam Vitals: Vital Signs Temp Pulse Pulse Resp BP BP Pulse Ox 09/21/19 14:21 97.8 F 71 18 136/73 93 L 09/21/19 14:03 20 09/21/19 14:00 145/81 09/21/19 13:45 145/81 09/21/19 13:30 144/83 09/21/19 13:15 144/83 09/21/19 13:00 20 146/84 09/21/19 12:45 146/84 09/21/19 12:30 152/92 09/21/19 12:00 20 153/96 09/21/19 11:59 79 20 97 09/21/19 11:52 153/96 09/21/19 10:59 20 97 09/21/19 10:56 97.7 F 79 20 178/118 97 Intake and Output 09/21/19 09/21/19 09/22/19 14:59 22:59 06:59 Other: # Voids 1 Weight 224.528 kg Results CBC & Chem 7: 09/21/19 11:25 09/21/19 11:25 Labs: Abnormal Lab Results - Last 24 Hours (Table) 09/21/19 09/21/19 09/21/19 Range/Units 11:25 11:35 17:08 Carbon Dioxide 31 H (22-30) mmol/L BUN 7 L (9-20) mg/dL Creatinine 0.65 L (0.66-1.25) mg/dL Glucose 146 H (74-99) mg/dL POC Glucose (mg/dL) 130 H (75-99) mg/dL Amylase 125 H (30-110) U/L Lipase 1570 H (23-300) U/L Urine Protein 1+ H (Negative) Urine Glucose (UA) 3+ H (Negative) Urine Mucus Occasional H (None) /hpf 09/21/19 Range/Units 20:31 Carbon Dioxide (22-30) mmol/L BUN (9-20) mg/dL Creatinine (0.66-1.25) mg/dL Glucose (74-99) mg/dL POC Glucose (mg/dL) 172 H (75-99) mg/dL Amylase (30-110) U/L Lipase (23-300) U/L Urine Protein (Negative) Urine Glucose (UA) (Negative) Urine Mucus (None) /hpf Thrombosis Risk Factor Assmnt - Choose All That Apply Any of the Below Risk Factors Present?: Yes Each Factor Represents 1 point: Abnormal pulmonary function (COPD), Age 41-60 years, Obesity (BMI >25) Other Risk Factors: Yes Each Risk Factor Represents 3 Points: History of DVT/PE Other congenital or acquired thrombophilia - If yes, enter type in comment: No Thrombosis Risk Factor Assessment Total Risk Factor Score: 6 Thrombosis Risk Factor Assessment Level: High Risk
[2019-09-22] MEDS: IPRATROPIUM 0.5 MG/2.5 ML NEBU INHALATION SCH ×4 (00:41→19:19)
[2019-09-22] MEDS: HYDROmorphone 1 MG/ML 1 ML SYRINGE IVP PRN ×5 (01:29→20:55)
[2019-09-22] MEDS: ALPRAZolam 0.5 MG TAB PO PRN ×2 (01:29→20:54)
[2019-09-22] MEDS: SODIUM CHLORIDE 0.9% 1,000 ML IV SCH ×4 (04:20→18:48)
[2019-09-22] MEDS: SYMBICORT 160-4.5 MCG INHALER INHALATION SCH ×2 (07:08→19:18)
[2019-09-22 07:19] LABS: Glucose,Whole Blood 143 mg/dL (75-99)
[2019-09-22] MEDS: INSULIN ASPART (NovoLOG) 100 UNIT/ML VIAL SQ SCH ×4 (08:35→20:59)
[2019-09-22] MEDS: ISOSORBIDE MONONITRATE ER 30 MG TAB.ER.24H PO SCH (08:36)
[2019-09-22] MEDS: PANTOPRAZOLE 40 MG/10 ML VIAL IVP SCH (08:36)
[2019-09-22] MEDS: LISINOPRIL 20 MG TAB PO SCH ×2 (08:36→20:54)
[2019-09-22] MEDS: hydrALAZINE HCL 50 MG TAB PO SCH ×3 (08:36→20:54)
[2019-09-22] MEDS: METOPROLOL TARTRATE 50 MG TAB PO SCH ×2 (08:36→20:54)
[2019-09-22] MEDS: RIVAROXABAN 15 MG TAB PO SCH ×2 (08:37→20:54)
[2019-09-22] MEDS: NICOTINE 21MG/24HR PATCH TRANSDERM SCH (08:37)
[2019-09-22] MEDS: ERYTHROMYCIN 5 MG/GM OPHTH OINT 3.5 GM TUBE RIGHT EYE SCH ×3 (08:37→21:20)
[2019-09-22] MEDS: amLODIPine 5 MG TAB PO SCH (08:37)
[2019-09-22] MEDS ORDERED: IOPAMIDOL CONTRAST (ORAL USE) VIAL PO PRN ×2 (08:51→13:39)
[2019-09-22] MEDS ORDERED: AMITRIPTYLINE HCL 25 MG TAB PO SCH (09:00)
[2019-09-22 09:45] VITALS: BMI 63.5
[2019-09-22 10:13] LABS: Amylase 53 U/L (30-110)
[2019-09-22 11:51] LABS: Glucose,Whole Blood 145 mg/dL (75-99)
[2019-09-22 15:41] LABS: ALT 16 U/L (4-49); AST 23 U/L (17-59); African American GFR (CKD) >90 (>60 ml/min/1.73 sqM); Albumin 3.5 g/dL (3.5-5.0); Alkaline Phosphatase 70 U/L (38-126); Anion Gap 6 mmol/L; Blood Urea Nitrogen 8 mg/dL (9-20); Calcium 8.6 mg/dL (8.4-10.2); Carbon Dioxide 26 mmol/L (22-30); Chloride 105 mmol/L (98-107); Glucose 172 mg/dL (74-99); Non-African American GFR(CKD) >90 (>60 ml/min/1.73 sqM); Potassium 4.2 mmol/L (3.5-5.1); Sodium 137 mmol/L (137-145); Total Bilirubin 1.5 mg/dL (0.2-1.3); Total Protein 6.5 g/dL (6.3-8.2)
--- NOTE | 2019-09-22 17:00 | CT ---
EXAMINATION TYPE: CT abdomen pelvis w con DATE OF EXAM: 09/22/2019 COMPARISON: 09/24/2015 HISTORY: Pancreatitis, R/O pancreatic mass CT DLP: 3245.9 mGycm Automated exposure control for dose reduction was used. CONTRAST: Performed with IV Contrast, patient injected with 100 mL of Isovue 370. There is some patchy atelectasis at the lung bases. There is no pericardial effusion. There is no ple ural effusion. Liver shows no focal defect. Gallbladder is large and measures 5 7 m in diameter. Spleen appears norm al. Stomach appears intact. There is no evidence of pancreatic mass. Pancreatic duct does not appear dilated. There is no adrenal mass. Kidneys show satisfactory contrast opacification. There is no hydronephrosi s. Ureters are not dilated. There is no retroperitoneal adenopathy. Bladder distends smoothly. There is no inguinal hernia. There are sigmoid diverticula. There is no sign of diverticulitis. There is no fr ee fluid in the pelvis. There is no mesenteric edema. There is no ascites or free air. There is no si gn of a bowel obstruction. The appendix appears normal. There is contrast in the appendix. Lumbar vertebra have normal alignment. There is degenerative spur formation throughout the lumbar spi ne. Posterior elements are intact. There is no compression fracture. The bony pelvis is intact. Exam limited due to patient's size. There is probably some spinal stenosis at L3-4. IMPRESSION: No evidence of pancreatic mass. Mild atelectasis at the lung bases. Sigmoid diverticulosis without diverticulitis. Multilevel lumbar spondylosis with probable spinal michael nosis. Dilated gallbladder is suspicious for cholecystitis.
[2019-09-22 17:10] LABS: Glucose,Whole Blood 140 mg/dL (75-99)
[2019-09-22] MEDS: AMITRIPTYLINE HCL 25 MG TAB PO SCH (20:54)
[2019-09-22 20:57] LABS: Glucose,Whole Blood 130 mg/dL (75-99)
--- NOTE | 2019-09-22 23:49 | P.PN ---
Progress Note - Text Progress Note Date: 09/22/19 Chief Complaint: Abdominal pain History of present complaint: This is a 49-year-old patient follows with Dr.l guerrier. Chronic stable medical conditions include obesity, hypertension, GERD, artificial right eye, chronic pulmonary embolism for which she's on 02. Also got chronic cardiomyopathy EF 40-45%. Persistent over increasing abdominal pain in the center of the abdomen on the report. Does note was nausea vomiting no fever no chills. Decided to present to the ER. No change in his bowel pattern. Had a bowel movement this morning. Appetite is okay. Patient found to have some pancreatitis. Admitted for the same. today-when I saw the patient he was very keen to eat. Asking for food. Pushing on his belly telling me there is no pain. did give was soft bland diet for lunch, but after he tolerates it. His pain did come back. Patient is put back on a clear liquid diet. Review of systems: Was done for constitutional, cardiovascular, GI, pulmonary. relevant finding as above Active Medications Acetaminophen (Tylenol Tab) 650 mg PO Q6HR PRN PRN Reason: Mild Pain or Fever > 100.5 Albuterol Sulfate (Ventolin Nebulized) 2.5 mg INHALATION RT-Q6H PRN PRN Reason: Shortness Of Breath Alprazolam (Xanax) 0.25 mg PO Q6HR PRN PRN Reason: MODERATE Anxiety Alprazolam (Xanax) 0.5 mg PO BID PRN PRN Reason: SEVERE Anxiety Last Admin: 09/22/19 20:54 Dose: 0.5 mg Documented by: Amitriptyline HCl (Elavil) 25 mg PO DAILY [facility] Last Admin: 09/22/19 20:54 Dose: 25 mg Documented by: Amlodipine Besylate (Norvasc) 5 mg PO DAILY [facility] Last Admin: 09/22/19 08:37 Dose: 5 mg Documented by: Budesonide/Formoterol Fumarate (Symbicort 160-4.5 Mcg Inhaler) 2 puff INHALATION RT-BID [facility] Last Admin: 09/22/19 19:18 Dose: 2 puff Documented by: Ergocalciferol (Vitamin D2) 50,000 unit PO Q7D [facility] Erythromycin (Romycin Ophth Oint) 1 applic RIGHT EYE TID [facility] Last Admin: 09/22/19 21:20 Dose: 1 applic Documented by: Hydralazine HCl (Apresoline) 100 mg PO TID [facility] Last Admin: 09/22/19 20:54 Dose: 100 mg Documented by: Hydromorphone HCl (Dilaudid) 0.5 mg IVP Q3HR PRN PRN Reason: Moderate Pain Hydromorphone HCl (Dilaudid) 1 mg IVP Q3HR PRN PRN Reason: Severe Pain Last Admin: 09/22/19 20:55 Dose: 1 mg Documented by: Sodium Chloride (Saline 0.9%) 1,000 mls @ 200 mls/hr IV .Q5H [facility] Last Admin: 09/22/19 18:48 Dose: Not Given Documented by: Insulin Aspart (Novolog) 0 unit SQ ACHS [facility]; Protocol Last Admin: 09/22/19 20:59 Dose: Not Given Documented by: Iopamidol (Isovue-300 (For Oral Use)) 30 ml PO Q60M PRN PRN Reason: CT Scan Stop: 09/23/19 08:52 Last Admin: 09/22/19 09:45 Dose: 30 ml Documented by: Iopamidol (Isovue-300 (For Oral Use)) 30 ml PO Q60M PRN PRN Reason: CT Scan Stop: 09/23/19 13:40 Ipratropium [place] (Atrovent Nebulized) 0.5 mg INHALATION RT-Q6H [facility] Last Admin: 09/22/19 19:19 Dose: Not Given Documented by: Isosorbide Mononitrate (Imdur) 30 mg PO DAILY [facility] Last Admin: 09/22/19 08:36 Dose: 30 mg Documented by: Lisinopril (Zestril) 40 mg PO BID [facility] Last Admin: 09/22/19 20:54 Dose: 40 mg Documented by: Metoprolol Tartrate (Lopressor) 50 mg PO BID [facility] Last Admin: 09/22/19 20:54 Dose: 50 mg Documented by: Mupirocin (Bactroban Oint) 1 applic TOPICAL TID PRN PRN Reason: Rash Naloxone HCl (Narcan) 0.2 mg IV Q2M PRN PRN Reason: Opioid Reversal Nicotine (Habitrol 21mg/24hr Patch) 1 patch TRANSDERM DAILY [facility] Last Admin: 09/22/19 08:37 Dose: 1 patch Documented by: Ondansetron HCl (Zofran) 4 mg IVP Q8HR PRN PRN Reason: Nausea And Vomiting Pantoprazole Sodium (Protonix) 40 mg IVP DAILY [facility] Last Admin: 09/22/19 08:36 Dose: 40 mg Documented by: Rivaroxaban (Xarelto) 15 mg PO BID [facility] Last Admin: 09/22/19 20:54 Dose: 15 mg Documented by: Trazodone HCl (Desyrel) 50 - 100 mg PO HS PRN PRN Reason: Insomnia Physical examination: VITAL SIGNS: 97, 66, 18, 135/79, 97% GENERAL: laying in bed, comfortable. EYES: Artificial right eye, left eye is normall. HEENT: External appearance of nose and ears normal, oral cavity grossly normal. NECK: JVD unable to assess masses not palpable. HEART: Heart sounds are distant; minimal edema. LUNGS: Respiratory rate normal; distant breath sounds. ABDOMEN: Soft, mild midabdominal tenderness, no guarding rigidity, liver spleen not palpable, no masses palpable. PSYCH: Alert and oriented x3; mood and affect normal. INVESTIGATIONS, reviewed in the clinical context: Potassium 4.2 creatinine 0.58 amylase normal at 53 lipase 727 Previous testing White count 9.6 hemoglobin 16.7 platelets 201 potassium 4 creatinine 0.65 Amylase 125 lipase 1570 Abdominal ultrasound-liver is enlarged, gallbladder distended with thickened rangel Assessment: -Acute pancreatitis, with one-day history of pain, improved -Questionable gallstone pathology given not very good pictures -COPD in a current smoker -Chronic nicotine dependence patient cigarette smoker -Morbid obesity BMI 63.6 -GERD -Essential hypertension -Chronic pulmonary embolism for which patient is also -OBSTRUCTIVE SLEEP APNEA DOES NOT USE CPAP MACHINE CHRONIC CARDIOMYOPATHY EF 40% -HYPERTENSIVE HEART DISEASE -ARTIFICIAL RIGHT EYE PLAN: patient is very keen for eating and had no abdominal pain. Was given a soft light diet for lunch. Pain did come back. Patient's been put back on a clear liquid diet. Computed tomography scan that was canceled this morning has been reordered. Care was discussed with the patient.
[2019-09-23] MEDS: SODIUM CHLORIDE 0.9% 1,000 ML IV SCH ×4 (00:06→14:16)
[2019-09-23] MEDS: IPRATROPIUM 0.5 MG/2.5 ML NEBU INHALATION SCH ×3 (01:56→11:23)
[2019-09-23] MEDS: HYDROmorphone 1 MG/ML 1 ML SYRINGE IVP PRN (03:14)
[2019-09-23] MEDS: METOPROLOL TARTRATE 50 MG TAB PO SCH (07:06)
[2019-09-23] MEDS: LISINOPRIL 20 MG TAB PO SCH (07:06)
[2019-09-23] MEDS: ISOSORBIDE MONONITRATE ER 30 MG TAB.ER.24H PO SCH (07:06)
[2019-09-23] MEDS: NICOTINE 21MG/24HR PATCH TRANSDERM SCH ×2 (07:06→07:08)
[2019-09-23] MEDS: hydrALAZINE HCL 50 MG TAB PO SCH ×2 (07:07→15:08)
[2019-09-23] MEDS: PANTOPRAZOLE 40 MG/10 ML VIAL IVP SCH (07:07)
[2019-09-23] MEDS: ERYTHROMYCIN 5 MG/GM OPHTH OINT 3.5 GM TUBE RIGHT EYE SCH ×2 (07:07→15:08)
[2019-09-23] MEDS: amLODIPine 5 MG TAB PO SCH (07:07)
[2019-09-23 07:17] LABS: Glucose,Whole Blood 141 mg/dL (75-99)
[2019-09-23] MEDS: HYDROmorphone 0.5 MG/0.5 ML SYRINGE IVP PRN ×2 (07:18→14:24)
[2019-09-23] MEDS: AMITRIPTYLINE HCL 25 MG TAB PO SCH (07:23)
[2019-09-23] MEDS: SYMBICORT 160-4.5 MCG INHALER INHALATION SCH (07:32)
[2019-09-23] MEDS: INSULIN ASPART (NovoLOG) 100 UNIT/ML VIAL SQ SCH ×2 (07:40→11:59)
[2019-09-23] MEDS: RIVAROXABAN 15 MG TAB PO SCH (08:32)
[2019-09-23 11:58] LABS: Glucose,Whole Blood 116 mg/dL (75-99)
[2019-09-23 13:00] VITALS: BP 166/98; PULSE 79; RESP 16; TEMP 98.1
--- NOTE | 2019-09-23 15:01 | P.PN ---
Subjective Progress Note Date: 09/23/19 CHIEF COMPLAINT: pancreatitis HISTORY OF PRESENT ILLNESS: Patient examined at the bedside this morning. Patient denies abdominal pain. He is tolerating liquid diet. Denies nausea or vomiting. repeat lipase 505. PHYSICAL EXAM: VITAL SIGNS: Currently stable. GENERAL: Well-developed in no acute distress. HEENT: No sclera icterus. Extraocular movements grossly intact. Moist buccal mucosa. Head is atraumatic, normocephalic. Hears conversational speech. No nasal drainage. NECK: Supple without lymphadenopathy. CHEST: Non-labored respirations and equal bilateral excursions. CARDIOVASCULAR: Regular rate with regular rhythm. Palpable 2+ radial pulses. ABDOMEN: Obese. Soft. Nondistended. Nontender. MUSCULOSKELETAL: No clubbing, cyanosis or edema. NEUROLOGIC: No focal or lateralizing signs. Cranial nerves II through XII concepcion ssly intact. PSYCH: Appropriate affect. Alert and oriented to person, place and time. SKIN: Well perfused. Good skin turgor. ASSESSMENT: 1. Pancreatitis 2. Dilated gallbladder, suspicious for cholecystitis per computed tomography scan PLAN: Advance diet to low fat. If patient tolerates, he may be discharged home today and follow up with Dr. Simon outpatient. no need for antibiotic per Dr. Simon. Consult dietitian for low fat diet education Nurse practitioner note has been reviewed by physician. Signing provider agrees with the documented findings, assessment, and plan of care. Objective - Vital Signs Vital signs: Vital Signs Temp 98.1 F 09/23/19 12:59 Pulse 79 09/23/19 12:59 Resp 16 09/23/19 12:59 BP 166/98 09/23/19 12:59 Pulse Ox 98 09/23/19 12:59 Intake & Output 09/22/19 09/23/19 09/23/19 18:59 06:59 18:59 Intake Total 540 290 Output Total 300 Balance 540 -300 290 Weight 224.528 kg Intake: Oral 540 290 Output: Urine 300 Other: Voiding Method Toilet Toilet Toilet # Voids 2 1 2 - Labs CBC & Chem 7: 09/21/19 11:25 09/22/19 09:38 Labs: Abnormal Lab Results - Last 24 Hours (Table) 09/22/19 09/22/19 09/22/19 Range/Units 09:38 17:08 20:56 BUN 8 L (9-20) mg/dL Creatinine 0.58 L (0.66-1.25) mg/dL Glucose 172 H (74-99) mg/dL POC Glucose (mg/dL) 140 H 130 H (75-99) mg/dL Total Bilirubin 1.5 H (0.2-1.3) mg/dL Lipase (23-300) U/L 09/23/19 09/23/19 09/23/19 Range/Units 07:16 11:57 12:29 BUN (9-20) mg/dL Creatinine (0.66-1.25) mg/dL Glucose (74-99) mg/dL POC Glucose (mg/dL) 141 H 116 H (75-99) mg/dL Total Bilirubin (0.2-1.3) mg/dL Lipase 505 H (23-300) U/L
--- NOTE | 2019-09-26 23:47 | P.DS ---
Providers Date of admission: 09/21/19 12:32 Expected date of discharge: 09/23/19 Attending physician: Jonathan Barton Consults: 09/22/19 13:36 Consult Physician Routine Consulting Provider: Lachelle Simon Consult Reason/Comments: Pancreatitis Do you want consulting provider notified?: Yes Primary care physician: Marian Bradford [facility] Hospital Course: Chief Complaint: Abdominal pain History of present complaint: This is a 49-year-old patient follows with Dr.l bradford. Chronic stable medical conditions include obesity, hypertension, GERD, artificial right eye, chronic pulmonary embolism for which he is on Xarelto. chronic cardiomyopathy EF 40-45%. presented with increasing abdominal pain -center of the abdomen . Does note was nausea vomiting ,no fever no chills. Decided to present to the ER. No change in his bowel pattern. Had a bowel movement this morning. Appetite is okay. Hospital course: Patient found to have some pancreatitis. managed empirically. IV fluids. Getting better the day of discharge. Pain resolved..computed tomography scan of the abdomen. Question cholecystitis. seen by Dr. Simon from general surgery.-old clear discharge. Patient's symptoms completely resolved. consultation: Dr. Haq from general surgery Physical examination: VITAL SIGNS: 98.1, 69, 16, 166/98, GENERAL: laying in bed, comfortable. EYES: Artificial right eye, left eye is normall. HEENT: External appearance of nose and ears normal, oral cavity grossly normal. NECK: JVD unable to assess masses not palpable. HEART: Heart sounds are distant; minimal edema. LUNGS: Respiratory rate normal; distant breath sounds. ABDOMEN: Soft, no tenderness, no guarding rigidity, liver spleen not palpable, no masses palpable. PSYCH: Alert and oriented x3; mood and affect normal. INVESTIGATIONS, reviewed in the clinical context: Potassium 4.2 creatinine 0.58 amylase normal at 53 lipase 727 Previous testing White count 9.6 hemoglobin 16.7 platelets 201 potassium 4 creatinine 0.65 Amylase 125 lipase 1570 Abdominal ultrasound-liver is enlarged, gallbladder distended with thickened rangel CT abdomen-sigmoid diverticulosis, dilated gallbladder Assessment: -Acute pancreatitis, with one-day history of pain, improved -Questionable gallstone pathology - abdomen not tender anymore -COPD in a current smoker -Chronic nicotine dependence patient cigarette smoker -Morbid obesity BMI 63.6 -GERD -Essential hypertension -Chronic pulmonary embolism for which patient is also -OBSTRUCTIVE SLEEP APNEA DOES NOT USE CPAP MACHINE CHRONIC CARDIOMYOPATHY EF 40% -HYPERTENSIVE HEART DISEASE -ARTIFICIAL RIGHT EYE disposition: Home Patient Condition at Discharge: Stable Plan - Discharge Summary Discharge Rx Participant: No New Discharge Prescriptions: New Nicotine 21Mg/24Hr Patch [Habitrol] 1 patch TRANSDERM DAILY #14 patch Continue oxyCODONE HCL [oxyCODONE HCL (IR)] 30 mg PO QID Budesonide-Formot 160-4.5 Mcg [Symbicort 160-4.5 Mcg Inhaler] 2 puff INHALATION RT-BID Isosorbide Mononitrate ER [Imdur] 30 mg PO DAILY ALPRAZolam [Xanax] 0.5 mg PO BID PRN PRN Reason: Anxiety hydrALAZINE HCL [Apresoline] 100 mg PO TID glipiZIDE XL [Glucotrol XL] 5 mg PO DAILY Rivaroxaban [Xarelto] 15 mg PO BID amLODIPine [Norvasc] 5 mg PO DAILY #90 tab traZODone HCL 50 - 100 mg PO HS PRN PRN Reason: Insomnia Ergocalciferol [Vitamin D2 (DRISDOL)] 50,000 unit PO Q7D Pseudoephedrine 12Hr [Sudafed 12 Hour] 120 mg PO Q12H PRN PRN Reason: Congestion Mupirocin 2% Oint [Bactroban 2% Oint] 1 applic TOPICAL TID PRN PRN Reason: Rash Metoprolol Tartrate [Lopressor] 50 mg PO BID Lisinopril 40 mg PO BID Ipratropium Nebulized [Atrovent Nebulized 0.2 MG/ML] 0.5 mg INHALATION RT-Q6H Fluticasone/Salmeterol [Fluticasone-Salmeterol 113-14] 1 puff INHALATION BID Erythromycin Ophth Oint [Romycin Ophth Oint] 1 applic RIGHT EYE TID Amitriptyline HCl [Elavil] 25 mg PO DAILY Albuterol Nebulized [Ventolin Nebulized] 2.5 mg INHALATION RT-Q6H PRN PRN Reason: Shortness Of Breath Discharge Medication List oxyCODONE HCL [oxyCODONE HCL (IR)] 30 mg PO QID 04/21/14 [History] Budesonide-Formot 160-4.5 Mcg [Symbicort 160-4.5 Mcg Inhaler] 2 puff INHALATION RT-BID 06/21/17 [History] ALPRAZolam [Xanax] 0.5 mg PO BID PRN 07/16/18 [History] Isosorbide Mononitrate ER [Imdur] 30 mg PO DAILY 07/16/18 [History] hydrALAZINE HCL [Apresoline] 100 mg PO TID 07/16/18 [History] Rivaroxaban [Xarelto] 15 mg PO BID 02/01/19 [History] glipiZIDE XL [Glucotrol XL] 5 mg PO DAILY 02/01/19 [History] amLODIPine [Norvasc] 5 mg PO DAILY #90 tab 02/02/19 [Rx] Albuterol Nebulized [Ventolin Nebulized] 2.5 mg INHALATION RT-Q6H PRN 09/21/19 [History] Amitriptyline HCl [Elavil] 25 mg PO DAILY 09/21/19 [History] Ergocalciferol [Vitamin D2 (DRISDOL)] 50,000 unit PO Q7D 09/21/19 [History] Erythromycin Ophth Oint [Romycin Ophth Oint] 1 applic RIGHT EYE TID 09/21/19 [History] Fluticasone/Salmeterol [Fluticasone-Salmeterol 113-14] 1 puff INHALATION BID 09/21/19 [History] Ipratropium Nebulized [Atrovent Nebulized 0.2 MG/ML] 0.5 mg INHALATION RT-Q6H 09/21/19 [History] Lisinopril 40 mg PO BID 09/21/19 [History] Metoprolol Tartrate [Lopressor] 50 mg PO BID 09/21/19 [History] Mupirocin 2% Oint [Bactroban 2% Oint] 1 applic TOPICAL TID PRN 09/21/19 [History] Pseudoephedrine 12Hr [Sudafed 12 Hour] 120 mg PO Q12H PRN 09/21/19 [History] traZODone HCL 50 - 100 mg PO HS PRN 09/21/19 [History] Nicotine 21Mg/24Hr Patch [Habitrol] 1 patch TRANSDERM DAILY #14 patch 09/22/19 [Rx] Follow up Appointment(s)/Referral(s): Lachelle Simon MD [STAFF PHYSICIAN] - 10/19/19 2:00 pm Marian Bradford MD [Primary Care Provider] - 1-2 days (Please call and schedule appointment) Patient Instructions/Handouts: Pancreatitis (DC) Activity/Diet/Wound Care/Special Instructions: LOW FAT DIET Discharge Disposition: HOME SELF-CARE
[2019-09-27] MEDS ORDERED: ERGOCALCIFEROL 50,000 UNIT CAP PO SCH (09:00)
--- NOTE | 2019-10-20 08:27 | P.GSCN ---
History of Present Illness Consult date: 09/22/19 History of present illness: CHIEF COMPLAINT: Abdominal pain HISTORY OF PRESENT ILLNESS: The patient is a 49 year old male who comes in with acute onset right upper quadrant abdominal pain following eating fatty foods. This pain was moderate severe intensity prompting admission. He is on chronic blood thinners. Since admission, abdominal pain has improved. He has pre- existing history of DVTs as well. He presented with elevated lipase with ultrasound consistent with gallstone pancreatitis. General surgery is consulted for further assessment. PAST MEDICAL HISTORY: See list. PAST SURGICAL HISTORY: See list. MEDICATIONS: See list. ALLERGIES: See list. SOCIAL HISTORY: See list. FAMILY HISTORY: See list. REVIEW OF ORGAN SYSTEMS: CONSTITUTIONAL: No fevers or chills. He is over 200+ pounds overweight EYES: Has trouble with vision. No glasses. 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 No nosebleeds. No difficulty swallowing. RESPIRATORY: Past history of pulmonary embolisms. Has obstructive sleep apnea severe with CPAP CARDIOVASCULAR: History of hypertension. No recent chest pain or heart attacks. History of congestive heart failure. GASTROINTESTINAL: Has fatty food intolerance. Has gallstones. Has gastroesophageal reflux disease. GENITOURINARY: Denies any blood in urine or increased urinary frequency. NEUROLOGICAL: Denies any numbness or tingling along the distal extremities. No seizure disorders or headaches. MUSCULOSKELETAL: Has back pain, stiffness or joint arthritis. SKIN: No current skin cancer. PSYCHIATRIC: Has depression. History of schizophrenia including anxiety. ENDOCRINE: Denies current thyroid disorders. Has blood sugar glucose intolerance. HEME/LYMPHATIC: Denies any lumps and bumps around the neck. Past deep venous thrombosis. On chronic anticoagulant ALLERGY/IMMUNOLOGY: No immunoglobulin therapy. No immune deficiencies. BREAST: Denies current breast lumps, pain or nipple discharge. PHYSICAL EXAM: VITALS: Reviewed CONSTITUTIONAL: Well developed and in no acute distress. EYES: Conjuctivae without sclera icterus. Right eye mutilation. HEAD, EARS, NOSE, THROAT: Moist buccal mucosa. Head is atraumatic, normocephalic. Hears conversational speech. No nasal drainage. NECK: Supple. No thyroidomegaly. RESPIRATORY: Non-labored respirations and equal bilateral excursions. No gross wheezes. CARDIOVASCULAR: Regular rate and rhythm. Palpable 2+ radial pulses. ABDOMEN: Soft. No peritonitis. Mild tenderness right upper quadrant. MUSCULOSKELETAL: Nail and fingers with good capillary refill. SKIN: Warm and well perfused with good skin turgor. NEUROLOGIC: Cranial nerves I through XII grossly intact. Sensation upper and extremities intact. No focal or lateralizing signs. PSYCH: Alert and oriented to person, place and time. CLINCAL LABS: Reviewed. WBC normal at 9600. LFTs normal limits. Lipase 1570 down to 727 IMAGING: Independently reviewed CT of the abdomen and pelvis demonstrated moderately dilated gallbladder. Liver enlarged. No free air. No signs of bowel obstruction. No peripancreatic inflammation US gallbladder independently reviewed with thickened gallbladder wall over 3 mm. Mild sludging identified. No large gallstones identified. REPORT: Ultrasound report of the gallbladder confirms limited study due to patient's body habitus. Gallbladder wall thickened confirmed. CT of the abd omen report also reviewed confirming dilated gallbladder ASSESSMENT: 1. Gallstone pancreatitis PLAN: 1. He is currently on blood thinners including Xarelto which will require at least 2-3 days prior to surgical intervention 2. As reports feeling better, low-fat diet advised. 3. 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 and the patient underwent a tympanomastoidectomy with tympanoplasty, morbid obesity, obstructive sleep apnea with CPAP, chronic back pain, chronic left knee pain/torn meniscus and bone on bone, 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-pt states he currently has a R eyelid infection, R lower leg DVT and pulmonary embolism pt thinks was on L side, previous history of cellulitis, UTI, History of Any Multi-Drug Resistant Organisms: None Reported Past Surgical History: Joint Replacement Additional Past Surgical History / Comment(s): R ear sugically rese cted/tympanomastoidectomy with tympanoplasty, bilateral myringotomy/tubes, R eye enucleation, R total knee arthroplasty, EGD Past Anesthesia/Blood Transfusion Reactions: No Reported Reaction Smoking Status: Current every day smoker - Past Family History Father History Unknown: Yes Family Medical History: Unable to Obtain Additional Family Medical History / Comment(s): Patient was adopted Mother Family Medical History: Unable to Obtain Additional Family Medical History / Comment(s): Patient was adopted Medications and Allergies Home Medications Medication Instructions Recorded Confirmed Type oxyCODONE HCL [oxyCODONE HCL (IR)] 30 mg PO QID 04/21/14 10/30/19 History ALPRAZolam [Xanax] 0.5 mg PO BID PRN 07/16/18 10/30/19 History Isosorbide Mononitrate ER [Imdur] 30 mg PO DAILY 07/16/18 10/30/19 History hydrALAZINE HCL [Apresoline] 100 mg PO TID 07/16/18 10/30/19 History Rivaroxaban [Xarelto] 15 mg PO BID 02/01/19 10/30/19 History glipiZIDE XL [Glucotrol XL] 10 mg PO DAILY 02/01/19 10/30/19 History amLODIPine [Norvasc] 5 mg PO DAILY #90 tab 02/02/19 10/30/19 Rx Albuterol Nebulized [Ventolin 2.5 mg INHALATION RT-Q6H PRN 09/21/19 10/30/19 History Nebulized] Ergocalciferol [Vitamin D2 50,000 unit PO SA 09/21/19 10/30/19 History (DRISDOL)] Fluticasone/Salmeterol 1 puff INHALATION RT-BID 09/21/19 10/30/19 History [Fluticasone-Salmeterol 113-14] Ipratropium Nebulized [Atrovent 0.5 mg INHALATION RT-Q6H PRN 09/21/19 10/30/19 History Nebulized 0.2 MG/ML] Lisinopril 40 mg PO BID 09/21/19 10/30/19 History Metoprolol Tartrate [Lopressor] 50 mg PO BID 09/21/19 10/30/19 History Mupirocin 2% Oint [Bactroban 2% 1 applic TOPICAL TID PRN 09/21/19 10/30/19 History Oint] Pseudoephedrine 12Hr [Sudafed 12 120 mg PO Q12H PRN 09/21/19 10/30/19 History Hour] Pantoprazole [Protonix] 40 mg PO DAILY #30 tablet. 09/28/19 10/30/19 Rx Atorvastatin [Lipitor] 10 mg PO HS 10/30/19 10/30/19 History Omeprazole 40 mg PO DAILY 10/30/19 10/30/19 History Sucralfate [Carafate] 1 gm PO AC-TID 10/30/19 10/30/19 History glipiZIDE XL [Glucotrol XL] 5 mg PO HS 10/30/19 10/30/19 History Allergies Allergy/AdvReac Type Severity Reaction Status Date / Time cyclobenzaprine HCl Allergy Itching Verified 10/30/19 18:06 [From Flexeril] ibuprofen [From Motrin] AdvReac Nausea Verified 10/30/19 18:06 Surgical - Exam Vital Signs Temp Pulse Resp BP Pulse Ox 97.7 F 79 20 178/118 97 09/21/19 10:56 09/21/19 10:56 09/21/19 10:56 09/21/19 10:56 09/21/19 10:56 Results - Labs 09/21/19 11:25 09/22/19 09:38 Abnormal Lab Results - Last 24 Hours (Table) 09/21/19 09/22/19 09/22/19 Range/Units 20:31 07:08 09:30 BUN (9-20) mg/dL Creatinine (0.66-1.25) mg/dL Glucose (74-99) mg/dL POC Glucose (mg/dL) 172 H 143 H (75-99) mg/dL Total Bilirubin (0.2-1.3) mg/dL Lipase 727 H (23-300) U/L 09/22/19 09/22/19 09/22/19 Range/Units 09:38 11:40 17:08 BUN 8 L (9-20) mg/dL Creatinine 0.58 L (0.66-1.25) mg/dL Glucose 172 H (74-99) mg/dL POC Glucose (mg/dL) 145 H 140 H (75-99) mg/dL Total Bilirubin 1.5 H (0.2-1.3) mg/dL Lipase (23-300) U/L Diabetes panel 09/22/19 Range/Units 09:38 Sodium 137 (137-145) mmol/L Potassium 4.2 (3.5-5.1) mmol/L Chloride 105 (98-107) mmol/L Carbon Dioxide 26 (22-30) mmol/L BUN 8 L (9-20) mg/dL Creatinine 0.58 L (0.66-1.25) mg/dL Glucose 172 H (74-99) mg/dL Calcium 8.6 (8.4-10.2) mg/dL AST 23 (17-59) U/L ALT 16 (4-49) U/L Alkaline Phosphatase 70 (38-126) U/L Total Protein 6.5 (6.3-8.2) g/dL Albumin 3.5 (3.5-5.0) g/dL Calcium panel 09/22/19 Range/Units 09:38 Calcium 8.6 (8.4-10.2) mg/dL Albumin 3.5 (3.5-5.0) g/dL Pituitary panel 09/22/19 Range/Units 09:38 Sodium 137 (137-145) mmol/L Potassium 4.2 (3.5-5.1) mmol/L Chloride 105 (98-107) mmol/L Carbon Dioxide 26 (22-30) mmol/L BUN 8 L (9-20) mg/dL Creatinine 0.58 L (0.66-1.25) mg/dL Glucose 172 H (74-99) mg/dL Calcium 8.6 (8.4-10.2) mg/dL Adrenal panel 09/22/19 Range/Units 09:38 Sodium 137 (137-145) mmol/L Potassium 4.2 (3.5-5.1) mmol/L Chloride 105 (98-107) mmol/L Carbon Dioxide 26 (22-30) mmol/L BUN 8 L (9-20) mg/dL Creatinine 0.58 L (0.66-1.25) mg/dL Glucose 172 H (74-99) mg/dL Calcium 8.6 (8.4-10.2) mg/dL Total Bilirubin 1.5 H (0.2-1.3) mg/dL AST 23 (17-59) U/L ALT 16 (4-49) U/L Alkaline Phosphatase 70 (38-126) U/L Total Protein 6.5 (6.3-8.2) g/dL Albumin 3.5 (3.5-5.0) g/dL Assessment and Plan (1) Anticoagulant long-term use Status: Acute Code(s): Z79.01 - LITERACY CONSULTANT (CURRENT) USE OF ANTICOAGULANTS SNOMED Code(s): 247118090 (2) Gallstone pancreatitis Status: Acute Code(s): K85.10 - BILIARY ACUTE PANCREATITIS WITHOUT NECROSIS OR INFECTION SNOMED Code(s): 83356301 (3) Cholelithiasis Status: Acute Code(s): K80.20 - CALCULUS OF GALLBLADDER W/O CHOLECYSTITIS W/O OBSTRUCTION SNOMED Code(s): 918765621 (4) Acute pancreatitis Status: Acute Code(s): K85.9 - ACUTE PANCREATITIS, UNSPECIFIED * DO NOT USE * SNOMED Code(s): 971642912 (5) Biliary colic Status: Acute Code(s): K80.50 - CALCULUS OF BILE DUCT W/O CHOLANGITIS OR CHOLECYST W/O OBST SNOMED Code(s): 24666501 (6) Morbid obesity Status: Acute Code(s): E66.01 - MORBID (SEVERE) OBESITY DUE TO EXCESS CALORIES SNOMED Code(s): 401222809 (7) Sleep apnea Status: Acute Code(s): G47.30 - SLEEP APNEA, UNSPECIFIED SNOMED Code(s): 00540632
== END 2019-09-23 16:11 | disposition home or self-care (01) ==
LOC: EC 10:53 → INTOOBSV 12:32 → 6NMEDSUR 12:32 → UNDOADMIN 12:32 → 6NMEDSUR 13:41 → UNDODISIN 09-23 16:11
PROVIDERS: ADMIT Hospitalist; ATTEND Hospitalist
DX: K85.90 Acute pancreatitis without necrosis or infection, unspecified (principal); I27.82 Chronic pulmonary embolism; E11.9 Type 2 diabetes mellitus without complications; E66.01 Morbid (severe) obesity due to excess calories; E78.5 Hyperlipidemia, unspecified; Z68.44 Body mass index [BMI] 60.0-69.9, adult; F17.210 Nicotine dependence, cigarettes, uncomplicated; F25.9 Schizoaffective disorder, unspecified; G47.33 Obstructive sleep apnea (adult) (pediatric); Z90.01 Acquired absence of eye; H54.7 Unspecified visual loss; H91.90 Unspecified hearing loss, unspecified ear; I11.9 Hypertensive heart disease without heart failure; I42.9 Cardiomyopathy, unspecified; I25.2 Old myocardial infarction; J44.9 Chronic obstructive pulmonary disease, unspecified; K21.9 Gastro-esophageal reflux disease without esophagitis; Z95.1 Presence of aortocoronary bypass graft; Z86.718 Personal history of other venous thrombosis and embolism; Z96.651 Presence of right artificial knee joint; F41.9 Anxiety disorder, unspecified; Z87.440 Personal history of urinary (tract) infections; G89.29 Other chronic pain; Z88.6 Allergy status to analgesic agent; Z79.84 Long term (current) use of oral hypoglycemic drugs; Z79.01 Long term (current) use of anticoagulants; Z79.51 Long term (current) use of inhaled steroids; Z79.899 Other long term (current) drug therapy; Z88.8 Allergy status to other drugs, medicaments and biological substances
CPT/HCPCS: 96376 ×3; 96361 ×2; 96374; 96375; 99285; 36415; 94640 ×4; 80053 ×2; 82150 ×2; 83690 ×3; 85025; 81001; 76700; 74177; G0378 ×3; S4990 ×3; J1170 ×4; C9113 ×3; Q9967

== ENCOUNTER 2019-09-28 08:15 | Emergency (ER) | payer OTHER ==
[2019-09-28 08:22] VITALS: RESP 16; TEMP 98.2
[2019-09-28] MEDS ORDERED: ONDANSETRON 4 MG/2 ML VIAL IVP STA (08:40)
[2019-09-28] MEDS ORDERED: PANTOPRAZOLE 40 MG/10 ML VIAL IVP STA (08:40)
[2019-09-28] MEDS ORDERED: SODIUM CHLORIDE 0.9% 1,000 ML IV STA (08:40)
--- NOTE | 2019-09-28 08:43 | ED ---
Abdominal Pain HPI - General Chief Complaint: Abdominal Pain Stated Complaint: abdominal pain Time Seen by Provider: 09/28/19 08:26 Source: patient, RN notes reviewed, old records reviewed Mode of arrival: wheelchair Limitations: no limitations - History of Present Illness Initial Comments: Patient is an 49-year-old male, who presents emergency department today with upper abdominal pain, radiating towards his right lower quadrant. He reports the same pain is what brought him in last Hospital. Patient states that he was told that he does have a poor functioning gallbladder and may have to have this removed soon. His surgeon was Dr. Haq. Patient reports his been trying to watch his diet and decreasing his fatty food intake. - Related Data Home Medications Medication Instructions Recorded Confirmed oxyCODONE HCL [oxyCODONE HCL (IR)] 30 mg PO QID 04/21/14 09/21/19 Budesonide-Formot 160-4.5 Mcg 2 puff INHALATION RT-BID 06/21/17 09/21/19 [Symbicort 160-4.5 Mcg Inhaler] ALPRAZolam [Xanax] 0.5 mg PO BID PRN 07/16/18 09/21/19 Isosorbide Mononitrate ER [Imdur] 30 mg PO DAILY 07/16/18 09/21/19 hydrALAZINE HCL [Apresoline] 100 mg PO TID 07/16/18 09/21/19 Rivaroxaban [Xarelto] 15 mg PO BID 02/01/19 09/21/19 glipiZIDE XL [Glucotrol XL] 5 mg PO DAILY 02/01/19 09/21/19 Albuterol Nebulized [Ventolin 2.5 mg INHALATION RT-Q6H PRN 09/21/19 09/21/19 Nebulized] Amitriptyline HCl [Elavil] 25 mg PO DAILY 09/21/19 09/21/19 Ergocalciferol [Vitamin D2 50,000 unit PO Q7D 09/21/19 09/21/19 (DRISDOL)] Erythromycin Ophth Oint [Romycin 1 applic RIGHT EYE TID 09/21/19 09/21/19 Ophth Oint] Fluticasone/Salmeterol 1 puff INHALATION BID 09/21/19 09/21/19 [Fluticasone-Salmeterol 113-14] Ipratropium Nebulized [Atrovent 0.5 mg INHALATION RT-Q6H 09/21/19 09/21/19 Nebulized 0.2 MG/ML] Lisinopril 40 mg PO BID 09/21/19 09/21/19 Metoprolol Tartrate [Lopressor] 50 mg PO BID 09/21/19 09/21/19 Mupirocin 2% Oint [Bactroban 2% 1 applic TOPICAL TID PRN 09/21/19 09/21/19 Oint] Pseudoephedrine 12Hr [Sudafed 12 120 mg PO Q12H PRN 09/21/19 09/21/19 Hour] traZODone HCL 50 - 100 mg PO HS PRN 09/21/19 09/21/19 Previous Rx's Medication Instructions Recorded amLODIPine [Norvasc] 5 mg PO DAILY #90 tab 02/02/19 Nicotine 21Mg/24Hr Patch [Habitrol] 1 patch TRANSDERM DAILY #14 patch 09/22/19 Allergies Allergy/AdvReac Type Severity Reaction Status Date / Time cyclobenzaprine HCl Allergy Itching Verified 09/28/19 08:22 [From Flexeril] ibuprofen [From Motrin] AdvReac Nausea Verified 09/28/19 08:22 Review of Systems ROS Statement: Those systems with pertinent positive or pertinent negative responses have been documented in the HPI. ROS Other: All systems not noted in ROS Statement are negative. 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 and the patient underwent a tympanomastoidectomy with tympanoplasty, morbid obesity, obstructive sleep apnea with CPAP, chronic back pain, chronic left knee pain/torn meniscus and bone on bone, 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-pt states he currently has a R eyelid infection, R lower leg DVT and pulmonary embolism pt thinks was on L side, previous history of cellulitis, UTI, History of Any Multi-Drug Resistant Organisms: None Reported Past Surgical History: Joint Replacement Additional Past Surgical History / Comment(s): R ear sugically resected/tympanomastoidectomy with tympanoplasty, bilateral myringotomy/tubes, R eye enucleation, R total knee arthroplasty, EGD Past Anesthesia/Blood Transfusion Reactions: No Reported Reaction Past Psychological History: Anxiety, Depression, Schizophrenia Smoking Status: Current every day smoker - Past Family History Father History Unknown: Yes Family Medical History: Unable to Obtain Additional Family Medical History / Comment(s): Patient was adopted Mother Family Medical History: Unable to Obtain Additional Family Medical History / Comment(s): Patient was adopted General Exam - General Exam Comments Initial Comments: 49-year-old male. Wheelchair-bound. Morbidly obese. Limitations: no limitations General appearance: alert, in no apparent distress Head exam: Present: atraumatic, normocephalic, normal inspection Eye exam: Present: normal appearance, PERRL, EOMI. Absent: scleral icterus, conjunctival injection, periorbital swelling ENT exam: Present: normal exam, mucous membranes moist Neck exam: Present: normal inspection. Absent: tenderness, meningismus, lymphadenopathy Respiratory exam: Present: normal lung sounds bilaterally. Absent: respiratory distress, wheezes, rales, rhonchi, stridor Cardiovascular Exam: Present: regular rate, normal rhythm, normal heart sounds. Absent: systolic murmur, diastolic murmur, rubs, gallop, clicks GI/Abdominal exam: Present: soft, tenderness (RUQ tenderness), normal bowel sounds, other (unalbe to fully access, patient would not lay in bed ). Absent: distended, guarding, rebound, rigid Extremities exam: Present: normal inspection, full ROM, normal capillary refill. Absent: tenderness, pedal edema, joint swelling, calf tenderness Back exam: Present: normal inspection Neurological exam: Present: alert, oriented X3, CN II-XII intact Psychiatric exam: Present: normal affect, normal mood Course Vital Signs 09/28/19 08:18 Temperature 98.2 F Pulse Rate 79 Respiratory 16 Rate Blood Pressure 164/96 O2 Sat by Pulse 98 Oximetry Medical Decision Making - Medical Decision Making Pulse a 49-year-old male, who presents today for evaluation for concerns for right-sided abdominal pain. He thinks that similar pain that brought him into the ER and admitted last week. At that time he had pancreatitis. Patient denies any nausea or vomiting. Denies any changes in bowel habits. Patient's labwork was reviewed and unremarkable. Normal white blood cell count. Normal amylase and lipase and liver function tests. Discussed at this time Patient d oes feel better after receiving IV Protonix. I discussed the Patient and follow-up with his primary care doctor and surgeon. Patient is agreeable to discharge. - Lab Data Result diagrams: 09/28/19 08:41 09/28/19 08:41 Lab Results 09/28/19 09/28/19 09/28/19 Range/Units 08:41 08:41 09:55 WBC 8.3 (3.8-10.6) k/uL RBC 5.24 (4.30-5.90) m/uL Hgb 16.1 (13.0-17.5) gm/dL Hct 46.1 (39.0-53.0) % MCV 87.9 (80.0-100.0) fL MCH 30.7 (25.0-35.0) pg MCHC 35.0 (31.0-37.0) g/dL RDW 13.3 (11.5-15.5) % Plt Count 210 (150-450) k/uL Neutrophils % 64 % Lymphocytes % 26 % Monocytes % 5 % Eosinophils % 3 % Basophils % 0 % Neutrophils # 5.3 (1.3-7.7) k/uL Lymphocytes # 2.2 (1.0-4.8) k/uL Monocytes # 0.4 (0-1.0) k/uL Eosinophils # 0.3 (0-0.7) k/uL Basophils # 0.0 (0-0.2) k/uL Sodium 140 (137-145) mmol/L Potassium 4.5 (3.5-5.1) mmol/L Chloride 104 (98-107) mmol/L Carbon Dioxide 28 (22-30) mmol/L Anion Gap 8 mmol/L BUN 16 (9-20) mg/dL Creatinine 0.68 (0.66-1.25) mg/dL Est GFR (CKD-EPI)AfAm >90 (>60 ml/min/1.73 sqM) Est GFR (CKD-EPI)NonAf >90 (>60 ml/min/1.73 sqM) Glucose 157 H (74-99) mg/dL Calcium 8.9 (8.4-10.2) mg/dL Total Bilirubin 1.1 (0.2-1.3) mg/dL AST 31 (17-59) U/L ALT 27 (4-49) U/L Alkaline Phosphatase 66 (38-126) U/L Total Protein 7.3 (6.3-8.2) g/dL Albumin 3.8 (3.5-5.0) g/dL Amylase 38 (30-110) U/L Lipase 275 (23-300) U/L Urine Color Yellow Urine Appearance Clear (Clear) Urine pH 5.5 (5.0-8.0) Ur Specific [place] 1.024 (1.001-1.035) Urine Protein Trace H (Negative) Urine Glucose (UA) 3+ H (Negative) Urine Ketones Negative (Negative) Urine Blood Negative (Negative) Urine Nitrite Negative (Negative) Urine Bilirubin Negative (Negative) Urine Urobilinogen <2.0 (<2.0) mg/dL Ur Leukocyte Esterase Negative (Negative) - Radiology Data Radiology results: report reviewed KUB shows nonobstructive bowel gas pattern. Disposition Clinical Impression: Abdominal pain Disposition: HOME SELF-CARE Condition: Good Instructions (If sedation given, give patient instructions): Abdominal Pain (ED) Additional Instructions: Continue to monitor diet, decreasing fatty greasy foods. Follow-up with your primary care doctor and surgeon out patiently. Monitor for any fevers or if there is any significant vomiting return to the ER for reevaluation. Is patient prescribed a controlled substance at d/c from ED?: No Referrals: Marian Bradford MD [Primary Care Provider] - 1-2 days Time of Disposition: 10:35
--- NOTE | 2019-09-28 09:12 | XR ---
EXAMINATION TYPE: XR KUB DATE OF EXAM: 09/28/2019 9:08 AM CLINICAL HISTORY: History of pancreatitis with generalized abdominal pain. TECHNIQUE: Two Upright KUB images of the abdomen are obtained. COMPARISON: CT 6 days earlier FINDINGS: Exam suboptimal secondary to patient's large body habitus. Scattered gas is seen in non-dis tended stomach and small bowel loops. Gas and fecal material is seen in non-distended colon. Levoconv ex scoliosis centered mid lumbar spine with multilevel spurring redemonstrated. Moderate narrowing an d spurring of both hip joints. Lung bases clear. No pneumoperitoneum. IMPRESSION: Suboptimal study with overall nonobstructive bowel gas pattern.
[2019-09-28 09:20] LABS: ALT 27 U/L (4-49); AST 31 U/L (17-59); African American GFR (CKD) >90 (>60 ml/min/1.73 sqM); Albumin 3.8 g/dL (3.5-5.0); Alkaline Phosphatase 66 U/L (38-126); Amylase 38 U/L (30-110); Anion Gap 8 mmol/L; Blood Urea Nitrogen 16 mg/dL (9-20); Calcium 8.9 mg/dL (8.4-10.2); Carbon Dioxide 28 mmol/L (22-30); Chloride 104 mmol/L (98-107); Glucose 157 mg/dL (74-99); Non-African American GFR(CKD) >90 (>60 ml/min/1.73 sqM); Potassium 4.5 mmol/L (3.5-5.1); Sodium 140 mmol/L (137-145); Total Bilirubin 1.1 mg/dL (0.2-1.3); Total Protein 7.3 g/dL (6.3-8.2)
[2019-09-28 09:27] LABS: Basophils % (A) 0 %; Eosinophils # (A) 0.3 k/uL (0-0.7); Eosinophils % (A) 3 %; HCT 46.1 % (39.0-53.0); HGB 16.1 gm/dL (13.0-17.5); Lymphocytes # (A) 2.2 k/uL (1.0-4.8); Lymphocytes % (A) 26 %; MCH 30.7 pg (25.0-35.0); MCV 87.9 fL (80.0-100.0); Mean Platelet Volume 7.8; Monocytes # (A) 0.4 k/uL (0-1.0); Monocytes % (A) 5 %; Neutrophils # (A) 5.3 k/uL (1.3-7.7); Neutrophils % (A) 64 %; Platelet Count 210 k/uL (150-450); RBC 5.24 m/uL (4.30-5.90); RDW 13.3 % (11.5-15.5); WBC 8.3 k/uL (3.8-10.6)
[2019-09-28 10:31] LABS: Appearance,Urine Clear (Clear); Bilirubin,Urine Negative (Negative); Blood,Urine Negative (Negative); Color,Urine Yellow; Glucose,Urine (UA) 3+ (Negative); Ketones,Urine Negative (Negative); Leukocyte Esterase,Urine Negative (Negative); Nitrite,Urine Negative (Negative); PH, Urine 5.5 (5.0-8.0); Protein,Urine Trace (Negative); Specific Gravity,Urine 1.024 (1.001-1.035); Urobilinogen,Urine <2.0 mg/dL (<2.0)
[2019-09-28 10:58] VITALS: BP 126/84; PULSE 60
== END 2019-09-28 10:59 | disposition home or self-care (01) ==
LOC: EC 08:15
DX: R10.10 Upper abdominal pain, unspecified (principal); E11.9 Type 2 diabetes mellitus without complications; I10 Essential (primary) hypertension; J44.9 Chronic obstructive pulmonary disease, unspecified; G47.30 Sleep apnea, unspecified; F41.9 Anxiety disorder, unspecified; F32.9 Major depressive disorder, single episode, unspecified; M19.90 Unspecified osteoarthritis, unspecified site; F20.9 Schizophrenia, unspecified; F17.200 Nicotine dependence, unspecified, uncomplicated; E66.01 Morbid (severe) obesity due to excess calories; Z68.44 Body mass index [BMI] 60.0-69.9, adult; Z79.51 Long term (current) use of inhaled steroids; Z79.01 Long term (current) use of anticoagulants; Z79.84 Long term (current) use of oral hypoglycemic drugs; Z79.899 Other long term (current) drug therapy; Z88.6 Allergy status to analgesic agent; Z88.8 Allergy status to other drugs, medicaments and biological substances; Z96.651 Presence of right artificial knee joint; Z86.718 Personal history of other venous thrombosis and embolism; Z86.711 Personal history of pulmonary embolism; Z99.89 Dependence on other enabling machines and devices
CPT/HCPCS: 36415; 80053; 82150; 83690; 85025; 81003; 74018; 99284; 96374; 96375; 96361; J2405; C9113

== ENCOUNTER 2019-09-30 17:27 | Emergency (ER) | payer OTHER ==
[2019-09-30 18:23] VITALS: BP 163/104; PULSE 67; RESP 18; TEMP 98.6
--- NOTE | 2019-09-30 18:55 | ED ---
ENT HPI - General Chief complaint: ENT Stated complaint: Throat swelling Time Seen by Provider: 09/30/19 18:33 Source: patient Mode of arrival: ambulatory - History of Present Illness Initial comments: Patient is a 49-year-old male presenting to the emergency room with a chief complaint of a sore throat swelling. Hurts he woke up this morning and his noticed some right-sided neck swelling. Patient reports there is some tenderness in the region on palpation. Denies any difficulty swallowing or drooling. Denies any changes in breathing. Patient is concerned that it might increase in severity because he uses CPAP machine. Denies any nausea vomiting diarrhea denies night sweats or chills. - Related Data Home Medications Medication Instructions Recorded Confirmed oxyCODONE HCL [oxyCODONE HCL (IR)] 30 mg PO QID 04/21/14 09/21/19 Budesonide-Formot 160-4.5 Mcg 2 puff INHALATION RT-BID 06/21/17 09/21/19 [Symbicort 160-4.5 Mcg Inhaler] ALPRAZolam [Xanax] 0.5 mg PO BID PRN 07/16/18 09/21/19 Isosorbide Mononitrate ER [Imdur] 30 mg PO DAILY 07/16/18 09/21/19 hydrALAZINE HCL [Apresoline] 100 mg PO TID 07/16/18 09/21/19 Rivaroxaban [Xarelto] 15 mg PO BID 02/01/19 09/21/19 glipiZIDE XL [Glucotrol XL] 5 mg PO DAILY 02/01/19 09/21/19 Albuterol Nebulized [Ventolin 2.5 mg INHALATION RT-Q6H PRN 09/21/19 09/21/19 Nebulized] Amitriptyline HCl [Elavil] 25 mg PO DAILY 09/21/19 09/21/19 Ergocalciferol [Vitamin D2 50,000 unit PO Q7D 09/21/19 09/21/19 (DRISDOL)] Erythromycin Ophth Oint [Romycin 1 applic RIGHT EYE TID 09/21/19 09/21/19 Ophth Oint] Fluticasone/Salmeterol 1 puff INHALATION BID 09/21/19 09/21/19 [Fluticasone-Salmeterol 113-14] Ipratropium Nebulized [Atrovent 0.5 mg INHALATION RT-Q6H 09/21/19 09/21/19 Nebulized 0.2 MG/ML] Lisinopril 40 mg PO BID 09/21/19 09/21/19 Metoprolol Tartrate [Lopressor] 50 mg PO BID 09/21/19 09/21/19 Mupirocin 2% Oint [Bactroban 2% 1 applic TOPICAL TID PRN 09/21/19 09/21/19 Oint] Pseudoephedrine 12Hr [Sudafed 12 120 mg PO Q12H PRN 09/21/19 09/21/19 Hour] traZODone HCL 50 - 100 mg PO HS PRN 09/21/19 09/21/19 Previous Rx's Medication Instructions Recorded amLODIPine [Norvasc] 5 mg PO DAILY #90 tab 02/02/19 Nicotine 21Mg/24Hr Patch [Habitrol] 1 patch TRANSDERM DAILY #14 patch 09/22/19 Pantoprazole [Protonix] 40 mg PO DAILY #30 tablet. 09/28/19 Allergies Allergy/AdvReac Type Severity Reaction Status Date / Time cyclobenzaprine HCl Allergy Itching Verified 09/30/19 18:23 [From Flexeril] ibuprofen [From Motrin] AdvReac Nausea Verified 09/30/19 18:23 Review of Systems ROS Statement: Those systems with pertinent positive or pertinent negative responses have been documented in the HPI. ROS Other: All systems not noted in ROS Statement are negative. 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 and the patient underwent a tympanomastoidectomy with tympanoplasty, morbid obesity, obstructive sleep apnea with CPAP, chronic back pain, chronic left knee pain/torn meniscus and bone on bone, 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-pt states he currently has a R eyelid infection, R lower leg DVT and pulmonary embolism pt thinks was on L side, previous history of cellulitis, UTI, History of Any Multi-Drug Resistant Organisms: None Reported Past Surgical History: Joint Replacement Additional Past Surgical History / Comment(s): R ear sugically resected/tympanomastoidectomy with tympanoplasty, bilateral myringotomy/tubes, R eye enucleation, R total knee arthroplasty, EGD Past Anesthesia/Blood Transfusion Reactions: No Reported Reaction Past Psychological History: Anxiety, Depression, Schizophrenia Smoking Status: Former smoker Past Alcohol Use History: None Reported Past Drug Use History: None Reported - Past Family History Father History Unknown: Yes Family Medical History: Unable to Obtain Additional Family Medical History / Comment(s): Patient was adopted Mother Family Medical History: Unable to Obtain Additional Family Medical History / Comment(s): Patient was adopted General Exam Limitations: no limitations General appearance: alert, in no apparent distress, obese Head exam: Present: atraumatic, normocephalic, normal inspection Eye exam: Present: normal appearance, PERRL, EOMI Pupils: Present: normal accommodation ENT exam: Present: normal exam, normal oropharynx (Uvula midline. No exudates. No peritonsillar abscess. Or tonsillar swelling or erythema.), mucous membranes moist, TM's normal bilaterally, normal external ear exam Course Vital Signs 09/30/19 18:19 Temperature 98.6 F Pulse Rate 67 Respiratory 18 Rate Blood Pressure 163/104 O2 Sat by Pulse 94 L Oximetry Medical Decision Making - Medical Decision Making Patient is a 49-year-old male presenting to the emergency department with a chief complaint of right-sided neck swelling. Patient states that his told him to come to the ED to get evaluated. Patient reports he did not feel like there was swelling in the region. Denies any drooling, with an aphasia or dysphasia. On exam patient is morbidly obese so it is difficult to discern whether there is some swelling or not. Patient does have a right-sided lymphadenopathy. I don't suspect any acute pathologies at the moment. No peritonsillar abscesses. No drooling. Patient advised to follow-up primary care. No night sweats or chills. Strict return parameters were thoroughly d iscussed the patient was an ascending and agreeable. Case discussed with physician. Disposition Clinical Impression: Sublingual lymphadenopathy Disposition: HOME SELF-CARE Condition: Stable Instructions (If sedation given, give patient instructions): Lymphadenopathy (ED) Additional Instructions: Please follow with primary care. Please return to emergency department if symptoms worsen. Is patient prescribed a controlled substance at d/c from ED?: No Referrals: Marian Bradford MD [Primary Care Provider] - 1-2 days Time of Disposition: 18:55
== END 2019-09-30 19:02 | disposition home or self-care (01) ==
LOC: EC 17:27
DX: R59.0 Localized enlarged lymph nodes (principal); E66.01 Morbid (severe) obesity due to excess calories; J02.9 Acute pharyngitis, unspecified; J44.9 Chronic obstructive pulmonary disease, unspecified; I10 Essential (primary) hypertension; E11.42 Type 2 diabetes mellitus with diabetic polyneuropathy; G47.33 Obstructive sleep apnea (adult) (pediatric); G89.29 Other chronic pain; M19.90 Unspecified osteoarthritis, unspecified site; F32.9 Major depressive disorder, single episode, unspecified; F41.9 Anxiety disorder, unspecified; Z87.891 Personal history of nicotine dependence; Z88.6 Allergy status to analgesic agent; Z88.8 Allergy status to other drugs, medicaments and biological substances; Z79.51 Long term (current) use of inhaled steroids; Z79.891 Long term (current) use of opiate analgesic; Z79.01 Long term (current) use of anticoagulants; Z79.84 Long term (current) use of oral hypoglycemic drugs; Z79.899 Other long term (current) drug therapy; Z96.651 Presence of right artificial knee joint; Z86.711 Personal history of pulmonary embolism; Z86.718 Personal history of other venous thrombosis and embolism; Z68.44 Body mass index [BMI] 60.0-69.9, adult; Z99.89 Dependence on other enabling machines and devices
CPT/HCPCS: 99283

== ENCOUNTER 2019-10-17 12:09 | Emergency (ER) | payer OTHER ==
[2019-10-17 12:19] VITALS: TEMP 98.6
[2019-10-17] MEDS ORDERED: SODIUM CHLORIDE 0.9% 1,000 ML IV STA ×2 (12:49)
[2019-10-17] MEDS ORDERED: PANTOPRAZOLE 40 MG/10 ML VIAL IVP STA (12:49)
[2019-10-17 13:22] VITALS: RESP 16
[2019-10-17] MEDS ORDERED: MORPHINE SULFATE 4 MG/ML SYRINGE IVP STA (13:22)
--- NOTE | 2019-10-17 13:22 | ED ---
Abdominal Pain HPI - General Chief Complaint: Abdominal Pain Stated Complaint: Stomach pain Time Seen by Provider: 10/17/19 12:38 Source: patient, RN notes reviewed, old records reviewed Mode of arrival: wheelchair Limitations: no limitations - History of Present Illness Initial Comments: This is a 49-year-old male, he presents today for evaluation for concern for upper abdominal pain. He is scheduled to see a surgeon on Friday for discussing gallbladder removal. Patient reports he is watching site since that time. He also has been taking Protonix. He does report that he has had some diarrhea for the past 2 days. Patient denies any fevers or chills. - Related Data Home Medications Medication Instructions Recorded Confirmed oxyCODONE HCL [oxyCODONE HCL (IR)] 30 mg PO QID 04/21/14 09/21/19 Budesonide-Formot 160-4.5 Mcg 2 puff INHALATION RT-BID 06/21/17 09/21/19 [Symbicort 160-4.5 Mcg Inhaler] ALPRAZolam [Xanax] 0.5 mg PO BID PRN 07/16/18 09/21/19 Isosorbide Mononitrate ER [Imdur] 30 mg PO DAILY 07/16/18 09/21/19 hydrALAZINE HCL [Apresoline] 100 mg PO TID 07/16/18 09/21/19 Rivaroxaban [Xarelto] 15 mg PO BID 02/01/19 09/21/19 glipiZIDE XL [Glucotrol XL] 5 mg PO DAILY 02/01/19 09/21/19 Albuterol Nebulized [Ventolin 2.5 mg INHALATION RT-Q6H PRN 09/21/19 09/21/19 Nebulized] Amitriptyline HCl [Elavil] 25 mg PO DAILY 09/21/19 09/21/19 Ergocalciferol [Vitamin D2 50,000 unit PO Q7D 09/21/19 09/21/19 (DRISDOL)] Erythromycin Ophth Oint [Romycin 1 applic RIGHT EYE TID 09/21/19 09/21/19 Ophth Oint] Fluticasone/Salmeterol 1 puff INHALATION BID 09/21/19 09/21/19 [Fluticasone-Salmeterol 113-14] Ipratropium Nebulized [Atrovent 0.5 mg INHALATION RT-Q6H 09/21/19 09/21/19 Nebulized 0.2 MG/ML] Lisinopril 40 mg PO BID 09/21/19 09/21/19 Metoprolol Tartrate [Lopressor] 50 mg PO BID 09/21/19 09/21/19 Mupirocin 2% Oint [Bactroban 2% 1 applic TOPICAL TID PRN 09/21/19 09/21/19 Oint] Pseudoephedrine 12Hr [Sudafed 12 120 mg PO Q12H PRN 09/21/19 09/21/19 Hour] traZODone HCL 50 - 100 mg PO HS PRN 09/21/19 09/21/19 Previous Rx's Medication Instructions Recorded amLODIPine [Norvasc] 5 mg PO DAILY #90 tab 02/02/19 Nicotine 21Mg/24Hr Patch [Habitrol] 1 patch TRANSDERM DAILY #14 patch 09/22/19 Pantoprazole [Protonix] 40 mg PO DAILY #30 tablet. 09/28/19 Sucralfate [Carafate] 1 gm PO ACHS #12 tablet 10/17/19 Allergies Allergy/AdvReac Type Severity Reaction Status Date / Time cyclobenzaprine HCl Allergy Itching Verified 10/17/19 12:19 [From Flexeril] ibuprofen [From Motrin] AdvReac Nausea Verified 10/17/19 12:19 Review of Systems ROS Statement: Those systems with pertinent positive or pertinent negative responses have been documented in the HPI. ROS Other: All systems not noted in ROS Statement are negative. 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 and the patient underwent a tympanomastoidectomy with tympanoplasty, morbid obesity, obstructive sleep apnea with CPAP, chronic back pain, chronic left knee pain/torn meniscus and bone on bone, 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-pt states he currently has a R eyelid infection, R lower leg DVT and pulmonary embolism pt thinks was on L side, previous history of cellulitis, UTI, History of Any Multi-Drug Resistant Organisms: None Reported Past Surgical History: Joint Replacement Additional Past Surgical History / Comment(s): R ear sugically resected/tympanomastoidectomy with tympanoplasty, bilateral myringotomy/tubes, R eye enucleation, R total knee arthroplasty, EGD Past Anesthesia/Blood Transfusion Reactions: No Reported Reaction Past Psychological History: Anxiety, Depression, Schizophrenia Smoking Status: Former smoker Past Alcohol Use History: None Reported Past Drug Use History: None Reported - Past Family History Father History Unknown: Yes Family Medical History: Unable to Obtain Additional Family Medical History / Comment(s): Patient was adopted Mother Family Medical History: Unable to Obtain Additional Family Medical History / Comment(s): Patient was adopted General Exam - General Exam Comments Initial Comments: 49-year-old male. Alert and oriented 3. No distress. Morbidly obese. Limitations: no limitations General appearance: alert, in no apparent distress Head exam: Present: atraumatic, normocephalic, normal inspection Eye exam: Present: normal appearance, PERRL, EOMI, other (Missing right eye). Absent: scleral icterus, conjunctival injection, periorbital swelling ENT exam: Present: normal exam Neck exam: Present: normal inspection. Absent: tenderness, meningismus, lymphadenopathy Respiratory exam: Present: normal lung sounds bilaterally. Absent: respiratory distress, wheezes, rales, rhonchi, stridor Cardiovascular Exam: Present: regular rate, normal rhythm, normal heart sounds. Absent: systolic murmur, diastolic murmur, rubs, gallop, clicks GI/Abdominal exam: Present: soft, tenderness (epigastric), normal bowel sounds. Absent: distended, guarding, rebound, rigid Extremities exam: Present: normal inspection, full ROM, normal capillary refill. Absent: tenderness, pedal edema, joint swelling, calf tenderness Back exam: Present: normal inspection Course Vital Signs 10/17/19 10/17/19 12:15 13:21 Temperature 98.6 F Pulse Rate 67 66 Respiratory 18 16 Rate Blood Pressure 149/83 158/65 O2 Sat by Pulse 98 96 Oximetry Medical Decision Making - Medical Decision Making Patient is a 49-year-old male presents today for recurrent abdominal pain. Patient is mildly obese. Patient reports he is supposed to see a surgeon on Friday. He is discussing whether he needs to have his gallbladder removed. At this time patient's labwork was reviewed and unremarkable. His complaint of some epigastric right upper quadrant tenderness. This time patient's will be discharged at this time advised needs to monitor his diet. He was found drinking Coca-Cola in exam room. Discussed that is not appropriate for possibility of ulcers or gastritis as well as biliary colic. Discussed Patient continue antacid medication he can also prescribed Carafate. - Lab Data Result diagrams: 10/17/19 13:09 10/17/19 13:09 Lab Results 10/17/19 10/17/19 10/17/19 Range/Units 13:09 13:09 13:09 WBC 8.6 (3.8-10.6) k/uL RBC 5.11 (4.30-5.90) m/uL Hgb 15.3 (13.0-17.5) gm/dL Hct 45.2 (39.0-53.0) % MCV 88.5 (80.0-100.0) fL MCH 30.0 (25.0-35.0) pg MCHC 33.9 (31.0-37.0) g/dL RDW 13.2 (11.5-15.5) % Plt Count 204 (150-450) k/uL Neutrophils % 58 % Lymphocytes % 28 % Monocytes % 6 % Eosinophils % 4 % Basophils % 2 % Neutrophils # 5.0 (1.3-7.7) k/uL Lymphocytes # 2.4 (1.0-4.8) k/uL Monocytes # 0.5 (0-1.0) k/uL Eosinophils # 0.3 (0-0.7) k/uL Basophils # 0.2 (0-0.2) k/uL PT 11.9 (9.0-12.0) sec INR 1.1 (<1.2) APTT 36.1 H (22.0-30.0) sec Sodium 138 (137-145) mmol/L Potassium 3.9 (3.5-5.1) mmol/L Chloride 106 (98-107) mmol/L Carbon Dioxide 27 (22-30) mmol/L Anion Gap 5 mmol/L BUN 11 (9-20) mg/dL Creatinine 0.60 L (0.66-1.25) mg/dL Est GFR (CKD-EPI)AfAm >90 (>60 ml/min/1.73 sqM) Est GFR (CKD-EPI)NonAf >90 (>60 ml/min/1.73 sqM) Glucose 154 H (74-99) mg/dL Calcium 8.4 (8.4-10.2) mg/dL Total Bilirubin 0.8 (0.2-1.3) mg/dL AST 21 (17-59) U/L ALT 23 (4-49) U/L Alkaline Phosphatase 83 (38-126) U/L Total Protein 6.6 (6.3-8.2) g/dL Albumin 3.4 L (3.5-5.0) g/dL Amylase <30 L (30-110) U/L Lipase 100 (23-300) U/L Urine Color Urine Appearance (Clear) Urine pH (5.0-8.0) Ur Specific [place] (1.001-1.035) Urine Protein (Negative) Urine Glucose (UA) (Negative) Urine Ketones (Negative) Urine Blood (Negative) Urine Nitrite (Negative) Urine Bilirubin (Negative) Urine Urobilinogen (<2.0) mg/dL Ur Leukocyte Esterase (Negative) 10/17/19 Range/Units 14:10 WBC (3.8-10.6) k/uL RBC (4.30-5.90) m/uL Hgb (13.0-17.5) gm/dL Hct (39.0-53.0) % MCV (80.0-100.0) fL MCH (25.0-35.0) pg MCHC (31.0-37.0) g/dL RDW (11.5-15.5) % Plt Count (150-450) k/uL Neutrophils % % Lymphocytes % % Monocytes % % Eosinophils % % Basophils % % Neutrophils # (1.3-7.7) k/uL Lymphocytes # (1.0-4.8) k/uL Monocytes # (0-1.0) k/uL Eosinophils # (0-0.7) k/uL Basophils # (0-0.2) k/uL PT (9.0-12.0) sec INR (<1.2) APTT (22.0-30.0) sec Sodium (137-145) mmol/L Potassium (3.5-5.1) mmol/L Chloride (98-107) mmol/L Carbon Dioxide (22-30) mmol/L Anion Gap mmol/L BUN (9-20) mg/dL Creatinine (0.66-1.25) mg/dL Est GFR (CKD-EPI)AfAm (>60 ml/min/1.73 sqM) Est GFR (CKD-EPI)NonAf (>60 ml/min/1.73 sqM) Glucose (74-99) mg/dL Calcium (8.4-10.2) mg/dL Total Bilirubin (0.2-1.3) mg/dL AST (17-59) U/L ALT (4-49) U/L Alkaline Phosphatase (38-126) U/L Total Protein (6.3-8.2) g/dL Albumin (3.5-5.0) g/dL Amylase (30-110) U/L Lipase (23-300) U/L Urine Color Yellow Urine Appearance Clear (Clear) Urine pH 5.5 (5.0-8.0) Ur Specific [place] 1.020 (1.001-1.035) Urine Protein Trace H (Negative) Urine Glucose (UA) 3+ H (Negative) Urine Ketones Negative (Negative) Urine Blood Negative (Negative) Urine Nitrite Negative (Negative) Urine Bilirubin Negative (Negative) Urine Urobilinogen <2.0 (<2.0) mg/dL Ur Leukocyte Esterase Negative (Negative) 10/17/19 14:14 EKG performed at 1355 shows normal sinus rhythm right bundle branch block. Left anterior fascicular block. Abnormal EKG. Ventricular rate of 62 beats were minute. Pulse 172 ms. Respirations 64 ms. QT QTc is 42/489 ms. - Radiology Data Radiology results: report reviewed Hypoechoic liver with fatty infiltration. No gallstones or dilated ducts. Pancreas duct is smaller than last exam. Disposition Clinical Impression: Abdominal pain, Biliary colic Disposition: HOME SELF-CARE Condition: Good Instructions (If sedation given, give patient instructions): Abdominal Pain (ED) Additional Instructions: Monitor your diet, avoid any sugary or caffeine. Patient should take the medication as prescribed. Patient number of vegetables, and water. Patient can follow-up with the surgeon on Friday. Prescriptions: Sucralfate [Carafate] 1 gm PO ACHS #12 tablet Is patient prescribed a controlled substance at d/c from ED?: No Referrals: Marian Bradford MD [Primary Care Provider] - 1-2 days Time of Disposition: 16:01
[2019-10-17 13:29] LABS: ALT 23 U/L (4-49); AST 21 U/L (17-59); African American GFR (CKD) >90 (>60 ml/min/1.73 sqM); Albumin 3.4 g/dL (3.5-5.0); Alkaline Phosphatase 83 U/L (38-126); Amylase <30 U/L (30-110); Anion Gap 5 mmol/L; Blood Urea Nitrogen 11 mg/dL (9-20); Calcium 8.4 mg/dL (8.4-10.2); Carbon Dioxide 27 mmol/L (22-30); Chloride 106 mmol/L (98-107); Glucose 154 mg/dL (74-99); Non-African American GFR(CKD) >90 (>60 ml/min/1.73 sqM); Potassium 3.9 mmol/L (3.5-5.1); Sodium 138 mmol/L (137-145); Total Bilirubin 0.8 mg/dL (0.2-1.3); Total Protein 6.6 g/dL (6.3-8.2)
[2019-10-17 13:32] LABS: Basophils # (A) 0.2 k/uL (0-0.2); Basophils % (A) 2 %; Eosinophils # (A) 0.3 k/uL (0-0.7); Eosinophils % (A) 4 %; HCT 45.2 % (39.0-53.0); HGB 15.3 gm/dL (13.0-17.5); Lymphocytes # (A) 2.4 k/uL (1.0-4.8); Lymphocytes % (A) 28 %; MCHC 33.9 g/dL (31.0-37.0); MCV 88.5 fL (80.0-100.0); Mean Platelet Volume 7.5; Monocytes # (A) 0.5 k/uL (0-1.0); Monocytes % (A) 6 %; Neutrophils % (A) 58 %; Platelet Count 204 k/uL (150-450); RBC 5.11 m/uL (4.30-5.90); RDW 13.2 % (11.5-15.5); WBC 8.6 k/uL (3.8-10.6)
[2019-10-17 13:43] LABS: INR 1.1 (<1.2); Partial Thromboplastin Time 36.1 sec (22.0-30.0); Prothrombin Time 11.9 sec (9.0-12.0)
[2019-10-17 14:24] LABS: Appearance,Urine Clear (Clear); Bilirubin,Urine Negative (Negative); Blood,Urine Negative (Negative); Color,Urine Yellow; Glucose,Urine (UA) 3+ (Negative); Ketones,Urine Negative (Negative); Leukocyte Esterase,Urine Negative (Negative); Nitrite,Urine Negative (Negative); PH, Urine 5.5 (5.0-8.0); Protein,Urine Trace (Negative); Urobilinogen,Urine <2.0 mg/dL (<2.0)
[2019-10-17] MEDS ORDERED: KETOROLAC 30 MG/ML 1 ML VIAL IVP STA (15:12)
--- NOTE | 2019-10-17 15:49 | US ---
EXAMINATION TYPE: US gallbladder DATE OF EXAM: 10/17/2019 COMPARISON: US,CT CLINICAL HISTORY: right upper quadrant pain. EC patient stated pain is at umbilicus and lower near pe lvis; last ate breakfast sandwich at 10:00 am. Technically limited US/poor visualization of organs due to large body habitus. EXAM MEASUREMENTS: Liver Length: 24.3 cm Gallbladder Wall: 0.26 cm CBD: 0.6 cm Right Kidney: 9.1 x 5.2 x 4.2 cm Pancreas: hyperechoic with pancreatic duct = 2.9mm on today's US Liver: enlarged; attenuated posteriorly Gallbladder: no stones or masses seen Evidence for sonographic Meyer's sign: yes CBD: size is at upper limites of normal Right Kidney: No hydronephrosis or masses seen IMPRESSION: Hyperechoic liver consistent with fatty infiltration. No gallstones or dilated ducts. Pancreas duct i s smaller than last exam.
[2019-10-17 16:20] VITALS: BP 125/67; PULSE 61
== END 2019-10-17 16:25 | disposition home or self-care (01) ==
LOC: EC 12:09
DX: K80.50 Calculus of bile duct without cholangitis or cholecystitis without obstruction (principal); R19.7 Diarrhea, unspecified; E66.9 Obesity, unspecified; Z90.01 Acquired absence of eye; J44.9 Chronic obstructive pulmonary disease, unspecified; E11.42 Type 2 diabetes mellitus with diabetic polyneuropathy; I10 Essential (primary) hypertension; K21.9 Gastro-esophageal reflux disease without esophagitis; M19.90 Unspecified osteoarthritis, unspecified site; G47.33 Obstructive sleep apnea (adult) (pediatric); H01.9 Unspecified inflammation of eyelid; F32.9 Major depressive disorder, single episode, unspecified; F41.9 Anxiety disorder, unspecified; Z87.891 Personal history of nicotine dependence; Z88.6 Allergy status to analgesic agent; Z88.8 Allergy status to other drugs, medicaments and biological substances; Z79.01 Long term (current) use of anticoagulants; Z79.51 Long term (current) use of inhaled steroids; Z79.84 Long term (current) use of oral hypoglycemic drugs; Z79.891 Long term (current) use of opiate analgesic; Z79.899 Other long term (current) drug therapy; Z86.718 Personal history of other venous thrombosis and embolism; Z86.711 Personal history of pulmonary embolism; Z86.018 Personal history of other benign neoplasm; Z96.22 Myringotomy tube(s) status; Z96.651 Presence of right artificial knee joint; Z68.44 Body mass index [BMI] 60.0-69.9, adult; Z99.89 Dependence on other enabling machines and devices
CPT/HCPCS: 36415; 93005; 80053; 82150; 83690; 85025; 85610; 85730; 81003; 76705; 99285; 96374; 96375 ×2; 96361 ×3; J2270; J1885; C9113

== ENCOUNTER 2019-10-30 12:17 | Observation (INO) | payer OTHER ==
[2019-10-30] MEDS ORDERED: SODIUM CHLORIDE 0.9% 1,000 ML IV STA (12:43)
[2019-10-30] MEDS ORDERED: HYDROmorphone 1 MG/ML 1 ML SYRINGE IVP STA ×2 (12:52→14:35)
[2019-10-30] MEDS ORDERED: FAMOTIDINE 20 MG/2 ML VIAL IV STA (12:52)
[2019-10-30] MEDS ORDERED: ONDANSETRON 4 MG/2 ML VIAL IVP STA (12:52)
--- NOTE | 2019-10-30 12:55 | ED ---
General Adult HPI - General Chief complaint: Abdominal Pain Stated complaint: Abd pain Time Seen by Provider: 10/30/19 12:42 Source: patient, family, RN notes reviewed Mode of arrival: wheelchair Limitations: no limitations - History of Present Illness Initial comments: Patient is a pleasant 49-year-old male presenting to the emergency Department with complaints of abdominal discomfort. Onset of symptoms was last night and have progressively worsened since that time. Discomfort is somewhat severe. Patient has had nausea and dry heaves. No constipation or diarrhea. No fevers. Patient has had similar symptoms over the past month and has been diagnosed with gallbladder problems. Patient has had ultrasound and is scheduled for surgical removal in [address] Haq. - Related Data Home Medications Medication Instructions Recorded Confirmed oxyCODONE HCL [oxyCODONE HCL (IR)] 30 mg PO QID 04/21/14 09/21/19 Budesonide-Formot 160-4.5 Mcg 2 puff INHALATION RT-BID 06/21/17 09/21/19 [Symbicort 160-4.5 Mcg Inhaler] ALPRAZolam [Xanax] 0.5 mg PO BID PRN 07/16/18 09/21/19 Isosorbide Mononitrate ER [Imdur] 30 mg PO DAILY 07/16/18 09/21/19 hydrALAZINE HCL [Apresoline] 100 mg PO TID 07/16/18 09/21/19 Rivaroxaban [Xarelto] 15 mg PO BID 02/01/19 09/21/19 glipiZIDE XL [Glucotrol XL] 5 mg PO DAILY 02/01/19 09/21/19 Albuterol Nebulized [Ventolin 2.5 mg INHALATION RT-Q6H PRN 09/21/19 09/21/19 Nebulized] Amitriptyline HCl [Elavil] 25 mg PO DAILY 09/21/19 09/21/19 Ergocalciferol [Vitamin D2 50,000 unit PO Q7D 09/21/19 09/21/19 (DRISDOL)] Erythromycin Ophth Oint [Romycin 1 applic RIGHT EYE TID 09/21/19 09/21/19 Ophth Oint] Fluticasone/Salmeterol 1 puff INHALATION BID 09/21/19 09/21/19 [Fluticasone-Salmeterol 113-14] Ipratropium Nebulized [Atrovent 0.5 mg INHALATION RT-Q6H 09/21/19 09/21/19 Nebulized 0.2 MG/ML] Lisinopril 40 mg PO BID 09/21/19 09/21/19 Metoprolol Tartrate [Lopressor] 50 mg PO BID 09/21/19 09/21/19 Mupirocin 2% Oint [Bactroban 2% 1 applic TOPICAL TID PRN 09/21/19 09/21/19 Oint] Pseudoephedrine 12Hr [Sudafed 12 120 mg PO Q12H PRN 09/21/19 09/21/19 Hour] traZODone HCL 50 - 100 mg PO HS PRN 09/21/19 09/21/19 Previous Rx's Medication Instructions Recorded amLODIPine [Norvasc] 5 mg PO DAILY #90 tab 02/02/19 Nicotine 21Mg/24Hr Patch [Habitrol] 1 patch TRANSDERM DAILY #14 patch 09/22/19 Pantoprazole [Protonix] 40 mg PO DAILY #30 tablet. 09/28/19 Sucralfate [Carafate] 1 gm PO ACHS #12 tablet 10/17/19 Allergies Allergy/AdvReac Type Severity Reaction Status Date / Time cyclobenzaprine HCl Allergy Itching Verified 10/17/19 12:19 [From Flexeril] ibuprofen [From Motrin] AdvReac Nausea Verified 10/17/19 12:19 Review of Systems ROS Statement: Those systems with pertinent positive or pertinent negative responses have been documented in the HPI. ROS Other: All systems not noted in ROS Statement are negative. Constitutional: Denies: fever Eyes: Denies: eye pain ENT: Denies: ear pain Respiratory: Denies: cough Cardiovascular: Denies: chest pain Endocrine: Denies: fatigue Gastrointestinal: Reports: as per HPI, abdominal pain, nausea, vomiting. Denies: diarrhea, constipation Genitourinary: Denies: dysuria Musculoskeletal: Reports: back pain (Chronic back pain, unchanged) Skin: Denies: rash 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 and the patient underwent a tympanomastoidectomy with tympanoplasty, morbid obesity, obstructive sleep apnea with CPAP, chronic back pain, chronic left knee pain/torn meniscus and bone on bone, 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-pt states he currently has a R eyelid infection, R lower leg DVT and pulmonary embolism pt thinks was on L side, previous history of cellulitis, UTI, History of Any Multi-Drug Resistant Organisms: None Reported Past Surgical History: Joint Replacement Additional Past Surgical History / Comment(s): R ear sugically resected/tympanomastoidectomy with tympanoplasty, bilateral myringotomy/tubes, R eye enucleation, R total knee arthroplasty, EGD Past Anesthesia/Blood Transfusion Reactions: No Reported Reaction Past Psychological History: Anxiety, Depression, Schizophrenia Smoking Status: Former smoker Past Alcohol Use History: None Reported Past Drug Use History: None Reported - Past Family History Father History Unknown: Yes Family Medical History: Unable to Obtain Additional Family Medical History / Comment(s): Patient was adopted Mother Family Medical History: Unable to Obtain Additional Family Medical History / Comment(s): Patient was adopted General Exam Limitations: no limitations General appearance: alert, in no apparent distress, obese Head exam: Present: normocephalic Eye exam: Present: other (Right eye is absent) ENT exam: Present: normal oropharynx Neck exam: Present: normal inspection Respiratory exam: Present: normal lung sounds bilaterally Cardiovascular Exam: Present: regular rate, normal rhythm Expanded Peripheral pulses: 2+: Dorsalis Pedis (R), Dorsalis Pedis (L) GI/Abdominal exam: Present: soft, tenderness (Moderate tenderness right upper quadrant and epigastric region). Absent: distended, guarding, rebound, rigid Extremities exam: Present: normal inspection. Absent: pedal edema, calf tenderness Back exam: Present: normal inspection. Absent: tenderness, CVA tenderness (R) Neurological exam: Present: alert Psychiatric exam: Present: normal affect, normal mood Skin exam: Present: normal color Course Vital Signs 10/30/19 12:31 Temperature 98.2 F Pulse Rate 92 Respiratory 18 Rate Blood Pressure 175/70 O2 Sat by Pulse 95 Oximetry Medical Decision Making - Medical Decision Making Patient reevaluated and somewhat improved however still is having discomfort. Patient would prefer to stay in the hospital. Case was discussed with Dr. Haq who is familiar with this patient and will admit. - Lab Data Result diagrams: 10/30/19 13:42 10/30/19 13:42 Lab Results 10/30/19 10/30/19 Range/Units 13:42 13:42 WBC 10.1 (3.8-10.6) k/uL RBC 5.44 (4.30-5.90) m/uL Hgb 16.0 (13.0-17.5) gm/dL Hct 48.4 (39.0-53.0) % MCV 88.9 (80.0-100.0) fL MCH 29.4 (25.0-35.0) pg MCHC 33.1 (31.0-37.0) g/dL RDW 13.2 (11.5-15.5) % Plt Count 209 (150-450) k/uL Neutrophils % 78 % Lymphocytes % 13 % Monocytes % 4 % Eosinophils % 3 % Basophils % 1 % Neutrophils # 7.9 H (1.3-7.7) k/uL Lymphocytes # 1.3 (1.0-4.8) k/uL Monocytes # 0.4 (0-1.0) k/uL Eosinophils # 0.3 (0-0.7) k/uL Basophils # 0.1 (0-0.2) k/uL Sodium 140 (137-145) mmol/L Potassium 3.9 (3.5-5.1) mmol/L Chloride 103 (98-107) mmol/L Carbon Dioxide 30 (22-30) mmol/L Anion Gap 7 mmol/L BUN 13 (9-20) mg/dL Creatinine 0.65 L (0.66-1.25) mg/dL Est GFR (CKD-EPI)AfAm >90 (>60 ml/min/1.73 sqM) Est GFR (CKD-EPI)NonAf >90 (>60 ml/min/1.73 sqM) Glucose 156 H (74-99) mg/dL Calcium 8.7 (8.4-10.2) mg/dL Total Bilirubin 1.3 (0.2-1.3) mg/dL AST 25 (17-59) U/L ALT 24 (4-49) U/L Alkaline Phosphatase 93 (38-126) U/L Total Protein 7.2 (6.3-8.2) g/dL Albumin 3.8 (3.5-5.0) g/dL Amylase <30 L (30-110) U/L Lipase 61 (23-300) U/L - Radiology Data Radiology results: image reviewed (x-ray shows occasional air-fluid levels.) Disposition Clinical Impression: Cholelithiasis Disposition: ADMITTED IP TO THIS HOSP Is patient prescribed a controlled substance at d/c from ED?: No Referrals: Marian Bradford MD [Primary Care Provider] - 1-2 days Decision Time: 15:58
[2019-10-30 14:05] LABS: Basophils # (A) 0.1 k/uL (0-0.2); Basophils % (A) 1 %; Eosinophils # (A) 0.3 k/uL (0-0.7); Eosinophils % (A) 3 %; HCT 48.4 % (39.0-53.0); Lymphocytes # (A) 1.3 k/uL (1.0-4.8); Lymphocytes % (A) 13 %; MCH 29.4 pg (25.0-35.0); MCHC 33.1 g/dL (31.0-37.0); MCV 88.9 fL (80.0-100.0); Mean Platelet Volume 7.8; Monocytes # (A) 0.4 k/uL (0-1.0); Monocytes % (A) 4 %; Neutrophils # (A) 7.9 k/uL (1.3-7.7); Neutrophils % (A) 78 %; Platelet Count 209 k/uL (150-450); RBC 5.44 m/uL (4.30-5.90); RDW 13.2 % (11.5-15.5); WBC 10.1 k/uL (3.8-10.6)
--- NOTE | 2019-10-30 14:11 | XR ---
EXAMINATION TYPE: XR KUB DATE OF EXAM: 10/30/2019 COMPARISON: 09/28/2019 HISTORY: Abdominal pain There is no sign of intestinal obstruction or pneumoperitoneum. Fecal pattern is normal. There is no evidence of a mass. There are some scattered large bowel fluid levels. Lung bases are clear. IMPRESSION: There are a few large bowel fluid levels the could relate to diarrhea. No free air.
[2019-10-30 14:14] LABS: ALT 24 U/L (4-49); AST 25 U/L (17-59); African American GFR (CKD) >90 (>60 ml/min/1.73 sqM); Albumin 3.8 g/dL (3.5-5.0); Alkaline Phosphatase 93 U/L (38-126); Amylase <30 U/L (30-110); Anion Gap 7 mmol/L; Blood Urea Nitrogen 13 mg/dL (9-20); Calcium 8.7 mg/dL (8.4-10.2); Carbon Dioxide 30 mmol/L (22-30); Chloride 103 mmol/L (98-107); Glucose 156 mg/dL (74-99); Non-African American GFR(CKD) >90 (>60 ml/min/1.73 sqM); Potassium 3.9 mmol/L (3.5-5.1); Sodium 140 mmol/L (137-145); Total Bilirubin 1.3 mg/dL (0.2-1.3); Total Protein 7.2 g/dL (6.3-8.2)
[2019-10-30] MEDS ORDERED: KETOROLAC 30 MG/ML 1 ML VIAL IVP STA (14:35)
[2019-10-30] MEDS ORDERED: METOCLOPRAMIDE 5 MG/ML 2 ML VIAL IVP STA (14:35)
[2019-10-30] MEDS ORDERED: ONDANSETRON 4 MG/2 ML VIAL IVP PRN (16:00)
[2019-10-30] MEDS ORDERED: NALOXONE 0.4 MG/ML 1 ML VIAL IV PRN (16:00)
[2019-10-30] MEDS: SODIUM CHLORIDE 0.9% 1,000 ML IV SCH ×2 (16:30→23:36)
[2019-10-30 16:52] LABS: Glucose,Whole Blood 155 mg/dL (75-99)
[2019-10-30] MEDS: HYDROmorphone 1 MG/ML 1 ML SYRINGE IVP PRN (18:12)
[2019-10-30] MEDS ORDERED: PSEUDOEPHEDRINE 12HR 120 MG TABLET.ER PO PRN (18:24)
[2019-10-30] MEDS ORDERED: MUPIROCIN 2% OINT 22 GM TUBE TOPICAL PRN (18:24)
[2019-10-30] MEDS ORDERED: IPRATROPIUM 0.5 MG/2.5 ML NEBU INHALATION PRN (18:24)
[2019-10-30] MEDS ORDERED: ALBUTEROL NEBULIZED 2.5 MG/3 ML INHALATION PRN (18:24)
[2019-10-30 19:45] LABS: Glucose,Whole Blood 162 mg/dL (75-99)
[2019-10-30] MEDS: glipiZIDE 5 MG TAB PO SCH (19:50)
[2019-10-30] MEDS: hydrALAZINE HCL 50 MG TAB PO SCH (19:50)
[2019-10-30] MEDS: METOPROLOL TARTRATE 50 MG TAB PO SCH (19:50)
[2019-10-30] MEDS: LISINOPRIL 20 MG TAB PO SCH (19:50)
[2019-10-30] MEDS: SYMBICORT 160-4.5 MCG INHALER INHALATION SCH (19:51)
[2019-10-30] MEDS: INSULIN ASPART (NovoLOG) 100 UNIT/ML VIAL SQ SCH (19:54)
[2019-10-30] MEDS ORDERED: ATORVASTATIN 10 MG TAB PO SCH (21:00)
[2019-10-31] MEDS: HYDROmorphone 1 MG/ML 1 ML SYRINGE IVP PRN ×4 (00:10→12:49)
[2019-10-31] MEDS: ALPRAZolam 0.5 MG TAB PO PRN ×2 (00:10→14:42)
[2019-10-31 06:54] LABS: Glucose,Whole Blood 119 mg/dL (75-99)
[2019-10-31] MEDS ORDERED: PANTOPRAZOLE 40 MG TABLET PO SCH (07:30)
[2019-10-31] MEDS: glipiZIDE 5 MG TAB PO SCH ×2 (07:36→17:15)
[2019-10-31] MEDS: SUCRALFATE 1 GM TAB PO SCH ×3 (07:36→17:15)
[2019-10-31] MEDS: INSULIN ASPART (NovoLOG) 100 UNIT/ML VIAL SQ SCH ×3 (07:36→17:12)
[2019-10-31] MEDS: METOPROLOL TARTRATE 50 MG TAB PO SCH (07:37)
[2019-10-31] MEDS: LISINOPRIL 20 MG TAB PO SCH (07:37)
[2019-10-31] MEDS: hydrALAZINE HCL 50 MG TAB PO SCH ×2 (07:37→17:15)
[2019-10-31] MEDS ORDERED: IPRATROPIUM-ALBUTEROL 3 ML NEB INHALATION PRN ×2 (07:53→08:41)
[2019-10-31] MEDS: SYMBICORT 160-4.5 MCG INHALER INHALATION SCH (08:19)
[2019-10-31] MEDS: SODIUM CHLORIDE 0.9% 1,000 ML IV SCH ×4 (08:50→16:05)
[2019-10-31] MEDS ORDERED: PANTOPRAZOLE 40 MG/10 ML VIAL IV SCH (09:00)
[2019-10-31] MEDS ORDERED: ISOSORBIDE MONONITRATE ER 30 MG TAB.ER.24H PO SCH (09:00)
[2019-10-31] MEDS ORDERED: amLODIPine 5 MG TAB PO SCH (09:00)
[2019-10-31 11:50] LABS: Glucose,Whole Blood 113 mg/dL (75-99)
[2019-10-31] MEDS ORDERED: IPRATROPIUM-ALBUTEROL 3 ML NEB INHALATION SCH (13:00)
--- NOTE | 2019-10-31 14:03 | P.GSHP ---
History of Present Illness H&P Date: 10/31/19 CHIEF COMPLAINT: Abdominal pain HISTORY OF PRESENT ILLNESS: The patient is a 49 year old male who comes in with acute onset right upper quadrant abdominal pain yesterday evening following eating salad with a necrotic. He is known history of past gallstone pancreatitis. He reports right upper quadrant abdominal pain which is now improved since admission. He has been evaluated for gallstones as well as prior surgical intervention. He is continuing his blood thinner. No reports of nausea. He does report appetite. His right upper quadrant and down pain has moderately improved to be intolerable. He is being admitted secondary to uncontrolled abdominal pain, biliary colic. He has pre-existing history of chronic pain syndrome and on narcotics. PAST MEDICAL HISTORY: See list. PAST SURGICAL HISTORY: See list. MEDICATIONS: See list. ALLERGIES: See list. SOCIAL HISTORY: See list. FAMILY HISTORY: See list. REVIEW OF ORGAN SYSTEMS: CONSTITUTIONAL: No fevers or chills. He is over 200+ pounds overweight EYES: Has trouble with vision. No glasses. 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 No nosebleeds. No difficulty swallowing. RESPIRATORY: Past history of pulmonary embolisms. Has obstructive sleep apnea severe with CPAP CARDIOVASCULAR: History of hypertension. No recent chest pain or heart attacks. History of congestive heart failure. GASTROINTESTINAL: Has fatty food intolerance. Has gallstones. Has gastroesophageal reflux disease. GENITOURINARY: Denies any blood in urine or increased urinary frequency. NEUROLOGICAL: Denies any numbness or tingling along the distal extremities. No seizure disorders or headaches. MUSCULOSKELETAL: Has back pain, stiffness or joint arthritis. SKIN: No current skin cancer. PSYCHIATRIC: Has depression. History of schizophrenia including anxiety. ENDOCRINE: Denies current thyroid disorders. Has blood sugar glucose intolerance. HEME/LYMPHATIC: Denies any lumps and bumps around the neck. Past deep venous thrombosis. On chronic anticoagulant ALLERGY/IMMUNOLOGY: No immunoglobulin therapy. No immune deficiencies. BREAST: Denies current breast lumps, pain or nipple discharge. PHYSICAL EXAM: VITALS: Reviewed CONSTITUTIONAL: Well developed and in no acute distress. EYES: Conjuctivae without sclera icterus. Right eye mutilation. HEAD, EARS, NOSE, THROAT: Moist buccal mucosa. Head is atraumatic, normocephalic. Hears conversational speech. No nasal drainage. NECK: Supple. No thyroidomegaly. RESPIRATORY: Non-labored respirations and equal bilateral excursions. No gross wheezes. CARDIOVASCULAR: Regular rate and rhythm. Palpable 2+ radial pulses. ABDOMEN: Soft. No peritonitis. Mild tenderness right upper quadrant. MUSCULOSKELETAL: Nail and fingers with good capillary refill. SKIN: Warm and well perfused with good skin turgor. NEUROLOGIC: Cranial nerves I through XII grossly intact. Sensation upper and extremities intact. No focal or lateralizing signs. PSYCH: Alert and oriented to person, place and time. CLINCAL LABS: Reviewed. WBC normal at 10,000 IMAGING: Independently reviewed abdominal x-ray with a few air-fluid levels. No large bowel obstruction ASSESSMENT: 1. Biliary colic due to gallstones 2. Chronic anticoagulant use PLAN: 1. His last dose of his blood thinner was yesterday. Xarelto will need at minimum 48-72 hours prior to surgery which is high risk. 2. Surgery scheduled for Friday and should stop blood thinner on Friday 3. Patient may be discharged home once tolerating clear liquid diet. Low-fat diet reiterated prior to surgery. This H&P also serves as a discharge summary 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 and the patient underwent a tympanomastoidectomy with tympanoplasty, morbid obesity, obstructive sleep apnea with CPAP, chronic back pain, chronic left knee pain/torn meniscus and bone on bone, 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-pt states he currently has a R eyelid infec tion, R lower leg DVT and pulmonary embolism pt thinks was on L side, previous history of cellulitis, UTI, History of Any Multi-Drug Resistant Organisms: None Reported Past Surgical History: Joint Replacement Additional Past Surgical History / Comment(s): R ear sugically resected/tympanomastoidectomy with tympanoplasty, bilateral myringotomy/tubes, R eye enucleation, R total knee arthroplasty, EGD Past Anesthesia/Blood Transfusion Reactions: No Reported Reaction Past Psychological History: Anxiety, Depression, Schizophrenia Additional Psychological History / Comment(s): Pt resides with his significant other. He uses no assistive device. He has a nebulizer. He drives. Pt states he was diagnosed with schizophrenia as a teen but that no one states this anymore but does have depression and anxiety. Smoking Status: Former smoker Past Alcohol Use History: None Reported Additional Past Alcohol Use History / Comment(s): Pt started smoking in 1987 and is a ppd smoker. Past Drug Use History: None Reported - Past Family History Father History Unknown: Yes Family Medical History: Unable to Obtain Additional Family Medical History / Comment(s): Patient was adopted Mother Family Medical History: Unable to Obtain Additional Family Medical History / Comment(s): Patient was adopted Medications and Allergies Home Medications Medication Instructions Recorded Confirmed Type oxyCODONE HCL [oxyCODONE HCL (IR)] 30 mg PO QID 04/21/14 10/30/19 History ALPRAZolam [Xanax] 0.5 mg PO BID PRN 07/16/18 10/30/19 History Isosorbide Mononitrate ER [Imdur] 30 mg PO DAILY 07/16/18 10/30/19 History hydrALAZINE HCL [Apresoline] 100 mg PO TID 07/16/18 10/30/19 History Rivaroxaban [Xarelto] 15 mg PO BID 02/01/19 10/30/19 History glipiZIDE XL [Glucotrol XL] 10 mg PO DAILY 02/01/19 10/30/19 History amLODIPine [Norvasc] 5 mg PO DAILY #90 tab 02/02/19 10/30/19 Rx Albuterol Nebulized [Ventolin 2.5 mg INHALATION RT-Q6H PRN 09/21/19 10/30/19 History Nebulized] Ergocalciferol [Vitamin D2 50,000 unit PO SA 09/21/19 10/30/19 History (DRISDOL)] Fluticasone/Salmeterol 1 puff INHALATION RT-BID 09/21/19 10/30/19 History [Fluticasone-Salmeterol 113-14] Ipratropium Nebulized [Atrovent 0.5 mg INHALATION RT-Q6H PRN 09/21/19 10/30/19 History Nebulized 0.2 MG/ML] Lisinopril 40 mg PO BID 09/21/19 10/30/19 History Metoprolol Tartrate [Lopressor] 50 mg PO BID 09/21/19 10/30/19 History Mupirocin 2% Oint [Bactroban 2% 1 applic TOPICAL TID PRN 09/21/19 10/30/19 History Oint] Pseudoephedrine 12Hr [Sudafed 12 120 mg PO Q12H PRN 09/21/19 10/30/19 History Hour] Pantoprazole [Protonix] 40 mg PO DAILY #30 tablet. 09/28/19 10/30/19 Rx Atorvastatin [Lipitor] 10 mg PO HS 10/30/19 10/30/19 History Omeprazole 40 mg PO DAILY 10/30/19 10/30/19 History Sucralfate [Carafate] 1 gm PO AC-TID 10/30/19 10/30/19 History glipiZIDE XL [Glucotrol XL] 5 mg PO HS 10/30/19 10/30/19 History Allergies Allergy/AdvReac Type Severity Reaction Status Date / Time cyclobenzaprine HCl Allergy Itching Verified 10/30/19 18:06 [From Flexeril] ibuprofen [From Motrin] AdvReac Nausea Verified 10/30/19 18:06 Surgical - Exam Vital Signs Temp Pulse Resp BP Pulse Ox 98.2 F 92 18 175/70 95 10/30/19 12:31 10/30/19 12:31 10/30/19 12:31 10/30/19 12:31 10/30/19 12:31 Results - Labs 10/30/19 13:42 10/30/19 13:42 Abnormal Lab Results - Last 24 Hours (Table) 10/30/19 10/30/19 10/30/19 Range/Units 13:42 13:42 16:51 Neutrophils # 7.9 H (1.3-7.7) k/uL Creatinine 0.65 L (0.66-1.25) mg/dL Glucose 156 H (74-99) mg/dL POC Glucose (mg/dL) 155 H (75-99) mg/dL Amylase <30 L (30-110) U/L 10/30/19 10/31/19 10/31/19 Range/Units 19:45 06:52 11:48 Neutrophils # (1.3-7.7) k/uL Creatinine (0.66-1.25) mg/dL Glucose (74-99) mg/dL POC Glucose (mg/dL) 162 H 119 H 113 H (75-99) mg/dL Amylase (30-110) U/L Diabetes panel 10/30/19 Range/Units 13:42 Sodium 140 (137-145) mmol/L Potassium 3.9 (3.5-5.1) mmol/L Chloride 103 (98-107) mmol/L Carbon Dioxide 30 (22-30) mmol/L BUN 13 (9-20) mg/dL Creatinine 0.65 L (0.66-1.25) mg/dL Glucose 156 H (74-99) mg/dL Calcium 8.7 (8.4-10.2) mg/dL AST 25 (17-59) U/L ALT 24 (4-49) U/L Alkaline Phosphatase 93 (38-126) U/L Total Protein 7.2 (6.3-8.2) g/dL Albumin 3.8 (3.5-5.0) g/dL Calcium panel 10/30/19 Range/Units 13:42 Calcium 8.7 (8.4-10.2) mg/dL Albumin 3.8 (3.5-5.0) g/dL Pituitary panel 10/30/19 Range/Units 13:42 Sodium 140 (137-145) mmol/L Potassium 3.9 (3.5-5.1) mmol/L Chloride 103 (98-107) mmol/L Carbon Dioxide 30 (22-30) mmol/L BUN 13 (9-20) mg/dL Creatinine 0.65 L (0.66-1.25) mg/dL Glucose 156 H (74-99) mg/dL Calcium 8.7 (8.4-10.2) mg/dL Adrenal panel 10/30/19 Range/Units 13:42 Sodium 140 (137-145) mmol/L Potassium 3.9 (3.5-5.1) mmol/L Chloride 103 (98-107) mmol/L Carbon Dioxide 30 (22-30) mmol/L BUN 13 (9-20) mg/dL Creatinine 0.65 L (0.66-1.25) mg/dL Glucose 156 H (74-99) mg/dL Calcium 8.7 (8.4-10.2) mg/dL Total Bilirubin 1.3 (0.2-1.3) mg/dL AST 25 (17-59) U/L ALT 24 (4-49) U/L Alkaline Phosphatase 93 (38-126) U/L Total Protein 7.2 (6.3-8.2) g/dL Albumin 3.8 (3.5-5.0) g/dL
[2019-10-31 15:28] VITALS: BP 135/74; PULSE 70; RESP 17; TEMP 98.1
--- NOTE | 2019-10-31 16:42 | P.CONS ---
History of Present Illness - Reason for Consult Consult date: 10/31/19 Medical management - Chief Complaint Abdominal pain - History of Present Illness 49-year-old male presenting to the emergency Department with complaints of abdominal discomfort. Onset of symptoms was last night and have progressively worsened since that time. Discomfort is somewhat severe. Patient has had nausea and dry heaves. No constipation or diarrhea. No fevers. Patient has had similar symptoms over the past month and has been diagnosed with gallbladder problems. Patient has had ultrasound and is scheduled for surgical removal in [address] Haq. Patient is admitted to the hospital for further surgical evaluation Hospitalist service is consulted for medical management Review of Systems REVIEW OF SYSTEMS: CONSTITUTIONAL: No fever, no malaise, no fatigue. HEENT: No recent visual problems or hearing problems. Denied any sore throat. CARDIOVASCULAR: No chest pain, orthopnea, PND, no palpitations, no syncope. PULMONARY: No shortness of breath, no cough, no hemoptysis. GASTROINTESTINAL: No diarrhea, no nausea, no vomiting, no abdominal pain. NEUROLOGICAL: No headaches, no weakness, no numbness. HEMATOLOGICAL: Denies any bleeding or petechiae. GENITOURINARY: Denies any burning micturition, frequency, or urgency. MUSCULOSKELETAL/RHEUMATOLOGICAL: Denies any joint pain, swelling, or any muscle pain. ENDOCRINE: Denies any polyuria or polydipsia. The rest of the 14-point review of systems is negative. 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 and the patient underwent a tympanomastoidectomy with tympanoplasty, morbid obesity, obstructive sleep apnea with CPAP, chronic back pain, chronic left knee pain/torn meniscus and bone on bone, 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-pt states he currently has a R eyelid infection, R lower leg DVT and pulmonary embolism pt thinks was on L side, previous history of cellulitis, UTI, History of Any Multi-Drug Resistant Organisms: None Reported Past Surgical History: Joint Replacement Additional Past Surgical History / Comment(s): R ear sugically resected/tympanomastoidectomy with tympanoplasty, bilateral myringotomy/tubes, R eye enucleation, R total knee arthroplasty, EGD Past Anesthesia/Blood Transfusion Reactions: No Reported Reaction Past Psychological History: Anxiety, Depression, Schizophrenia Additional Psychological History / Comment(s): Pt resides with his significant other. He uses no assistive device. He has a nebulizer. He drives. Pt states he was diagnosed with schizophrenia as a teen but that no one states this anymore but does have depression and anxiety. Smoking Status: Former smoker Past Alcohol Use History: None Reported Additional Past Alcohol Use History / Comment(s): Pt started smoking in 1987 and is a ppd smoker. Past Drug Use History: None Reported - Past Family History Father History Unknown: Yes Family Medical History: Unable to Obtain Additional Family Medical History / Comment(s): Patient was adopted Mother Family Medical History: Unable to Obtain Additional Family Medical History / Comment(s): Patient was adopted Medications and Allergies Home Medications Medication Instructions Recorded Confirmed Type oxyCODONE HCL [oxyCODONE HCL (IR)] 30 mg PO QID 04/21/14 10/30/19 History ALPRAZolam [Xanax] 0.5 mg PO BID PRN 07/16/18 10/30/19 History Isosorbide Mononitrate ER [Imdur] 30 mg PO DAILY 07/16/18 10/30/19 History hydrALAZINE HCL [Apresoline] 100 mg PO TID 07/16/18 10/30/19 History Rivaroxaban [Xarelto] 15 mg PO BID 02/01/19 10/30/19 History glipiZIDE XL [Glucotrol XL] 10 mg PO DAILY 02/01/19 10/30/19 History amLODIPine [Norvasc] 5 mg PO DAILY #90 tab 02/02/19 10/30/19 Rx Albuterol Nebulized [Ventolin 2.5 mg INHALATION RT-Q6H PRN 09/21/19 10/30/19 History Nebulized] Ergocalciferol [Vitamin D2 50,000 unit PO SA 09/21/19 10/30/19 History (DRISDOL)] Fluticasone/Salmeterol 1 puff INHALATION RT-BID 09/21/19 10/30/19 History [Fluticasone-Salmeterol 113-14] Ipratropium Nebulized [Atrovent 0.5 mg INHALATION RT-Q6H PRN 09/21/19 10/30/19 History Nebulized 0.2 MG/ML] Lisinopril 40 mg PO BID 09/21/19 10/30/19 History Metoprolol Tartrate [Lopressor] 50 mg PO BID 09/21/19 10/30/19 History Mupirocin 2% Oint [Bactroban 2% 1 applic TOPICAL TID PRN 09/21/19 10/30/19 History Oint] Pseudoephedrine 12Hr [Sudafed 12 120 mg PO Q12H PRN 09/21/19 10/30/19 History Hour] Pantoprazole [Protonix] 40 mg PO DAILY #30 tablet. 09/28/19 10/30/19 Rx Atorvastatin [Lipitor] 10 mg PO HS 10/30/19 10/30/19 History Omeprazole 40 mg PO DAILY 10/30/19 10/30/19 History Sucralfate [Carafate] 1 gm PO AC-TID 10/30/19 10/30/19 History glipiZIDE XL [Glucotrol XL] 5 mg PO HS 10/30/19 10/30/19 History Allergies Allergy/AdvReac Type Severity Reaction Status Date / Time cyclobenzaprine HCl Allergy Itching Verified 10/30/19 18:06 [From Flexeril] ibuprofen [From Motrin] AdvReac Nausea Verified 10/30/19 18:06 Physical Exam Vitals: Vital Signs Temp Pulse Pulse Resp BP BP Pulse Ox 10/31/19 08:33 72 10/31/19 08:19 72 10/31/19 06:45 98.7 F 72 18 120/73 96 10/31/19 01:43 98.9 F 83 16 119/70 91 L 10/30/19 19:36 98.4 F 102 H 18 168/89 96 10/30/19 16:45 97.6 F 96 18 134/89 94 L 10/30/19 16:28 98.4 F 91 18 126/76 98 10/30/19 12:31 98.2 F 92 18 175/70 95 Intake and Output 10/30/19 10/31/19 10/31/19 22:59 06:59 14:59 Intake Total 437.5 1000 Balance 437.5 1000 Intake: Intake, IV Titration 437.5 1000 Amount Sodium Chloride 0.9% 1, 437.5 1000 000 ml @ 125 mls/hr IV . Q8H [facility] Rx#:[id number] Other: Voiding Method Toilet Toilet Urinal Urinal # Voids 2 3 # Bowel Movements 2 Weight 224.528 kg PHYSICAL EXAMINATION: GENERAL: The patient is alert and oriented x3, not in any acute distress. Well developed, well nourished. HEENT: Pupils are round and equally reacting to light. EOMI. No scleral icterus. No conjunctival pallor. Normocephalic, atraumatic. No pharyngeal erythema. No thyromegaly. CARDIOVASCULAR: S1 and S2 present. No murmurs, rubs, or gallops. PULMONARY: Chest is clear to auscultation, no wheezing or crackles. ABDOMEN: Soft, nontender, nondistended, normoactive bowel sounds. No palpable organomegaly. MUSCULOSKELETAL: No joint swelling or deformity. EXTREMITIES: No cyanosis, clubbing, or pedal edema. NEUROLOGICAL: Gross neurological examination did not reveal any focal deficits. SKIN: No rashes. Results CBC & Chem 7: 10/30/19 13:42 10/30/19 13:42 Labs: Abnormal Lab Results - Last 24 Hours (Table) 10/30/19 10/30/19 10/30/19 Range/Units 13:42 13:42 16:51 Neutrophils # 7.9 H (1.3-7.7) k/uL Creatinine 0.65 L (0.66-1.25) mg/dL Glucose 156 H (74-99) mg/dL POC Glucose (mg/dL) 155 H (75-99) mg/dL Amylase <30 L (30-110) U/L 10/30/19 10/31/19 Range/Units 19:45 06:52 Neutrophils # (1.3-7.7) k/uL Creatinine (0.66-1.25) mg/dL Glucose (74-99) mg/dL POC Glucose (mg/dL) 162 H 119 H (75-99) mg/dL Amylase (30-110) U/L Assessment and Plan Assessment: 1. Abdominal pain/biliary colic due to gallstones; patient has been evaluated by surgery and is recommended to be started on clear liquid diet and advance as tolerated with possible discharge if remains stable; patient is scheduled for surgery as an outpatient in next Friday 2. Chronic anticoagulation therapy for DVT; remains on anticoagulation with Xarelto; surgery recommending to hold Xarelto 48-72 hours prior to surgery 3. Hypertension; stable on home dose of amlodipine 5 mg daily, lisinopril 40 mg twice a day 4. Hyperlipidemia; Lipitor 10 mg by mouth daily at bedtime 5. Diabetes mellitus; patient is on oral hypoglycemic agents as an outpatient; we will hold and monitor Accu-Cheks before meals and at bedtime with insulin sliding scale 6. COPD; not in exacerbation; continue with home inhaler therapy along with nebulizer treatments as needed DVT prophylaxis; systemic anticoagulation with Xarelto CODE STATUS; full code
[2019-10-31 16:51] LABS: Glucose,Whole Blood 119 mg/dL (75-99)
--- NOTE | 2019-10-31 18:12 | P.DS ---
Providers Date of admission: 10/30/19 16:00 Expected date of discharge: 10/31/19 Attending physician: Lachelle Simon Primary care physician: Marian Bradford - Discharge Diagnosis(es) (1) BMI 60.0-69.9, adult Status: Acute (2) Anticoagulant long-term use Status: Acute (3) Anticoagulated Status: Acute (4) Biliary colic Status: Acute (5) Cholelithiasis Status: Acute (6) GERD (gastroesophageal reflux disease) Status: Acute (7) Morbid obesity Status: Acute (8) Sleep apnea Status: Acute Hospital Course: CHIEF COMPLAINT: Abdominal pain HISTORY OF PRESENT ILLNESS: The patient is a 49 year old male who comes in with acute onset right upper quadrant abdominal pain yesterday evening following eating salad with a necrotic. He is known history of past gallstone pancreatitis. He reports right upper quadrant abdominal pain which is now improved since admission. He has been evaluated for gallstones as well as prior surgical intervention. He is continuing his blood thinner. No reports of nausea. He does report appetite. His right upper quadrant and down pain has moderately improved to be intolerable. He is being admitted secondary to uncontrolled abdominal pain, biliary colic. He has pre-existing history of chronic pain syndrome and on narcotics. PAST MEDICAL HISTORY: See list. PAST SURGICAL HISTORY: See list. MEDICATIONS: See list. ALLERGIES: See list. SOCIAL HISTORY: See list. FAMILY HISTORY: See list. REVIEW OF ORGAN SYSTEMS: CONSTITUTIONAL: No fevers or chills. He is over 200+ pounds overweight EYES: Has trouble with vision. No glasses. 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 No nosebleeds. No difficulty swallowing. RESPIRATORY: Past history of pulmonary embolisms. Has obstructive sleep apnea severe with CPAP CARDIOVASCULAR: History of hypertension. No recent chest pain or heart attacks. History of congestive heart failure. GASTROINTESTINAL: Has fatty food intolerance. Has gallstones. Has gastroesophageal reflux disease. GENITOURINARY: Denies any blood in urine or increased urinary frequency. NEUROLOGICAL: Denies any numbness or tingling along the distal extremities. No seizure disorders or headaches. MUSCULOSKELETAL: Has back pain, stiffness or joint arthritis. SKIN: No current skin cancer. PSYCHIATRIC: Has depression. History of schizophrenia including anxiety. ENDOCRINE: Denies current thyroid disorders. Has blood sugar glucose intolerance. HEME/LYMPHATIC: Denies any lumps and bumps around the neck. Past deep venous thrombosis. On chronic anticoagulant ALLERGY/IMMUNOLOGY: No immunoglobulin therapy. No immune deficiencies. BREAST: Denies current breast lumps, pain or nipple discharge. PHYSICAL EXAM: VITALS: Reviewed CONSTITUTIONAL: Well developed and in no acute distress. EYES: Conjuctivae without sclera icterus. Right eye mutilation. HEAD, EARS, NOSE, THROAT: Moist buccal mucosa. Head is atraumatic, normocephalic. Hears conversational speech. No nasal drainage. NECK: Supple. No thyroidomegaly. RESPIRATORY: Non-labored respirations and equal bilateral excursions. No gross wheezes. CARDIOVASCULAR: Regular rate and rhythm. Palpable 2+ radial pulses. ABDOMEN: Soft. No peritonitis. Mild tenderness right upper quadrant. MUSCULOSKELETAL: Nail and fingers with good capillary refill. SKIN: Warm and well perfused with good skin turgor. NEUROLOGIC: Cranial nerves I through XII grossly intact. Sensation upper and extremities intact. No focal or lateralizing signs. PSYCH: Alert and oriented to person, place and time. CLINCAL LABS: Reviewed. WBC normal at 10,000 IMAGING: Independently reviewed abdominal x-ray with a few air-fluid levels. No large bowel obstruction ASSESSMENT: 1. Biliary colic due to gallstones 2. Chronic anticoagulant use PLAN: 1. His last dose of his blood thinner was yesterday. Xarelto will need at minimum 48-72 hours prior to surgery which is high risk. 2. Surgery scheduled for Friday and should stop blood thinner on Friday 3. Patient may be discharged home once tolerating clear liquid diet. Low-fat diet reiterated prior to surgery. This H&P also serves as a discharge summary Patient Condition at Discharge: Stable Plan - Discharge Summary Discharge Rx Participant: Yes New Discharge Prescriptions: Continue oxyCODONE HCL [oxyCODONE HCL (IR)] 30 mg PO QID Isosorbide Mononitrate ER [Imdur] 30 mg PO DAILY ALPRAZolam [Xanax] 0.5 mg PO BID PRN PRN Reason: Anxiety hydrALAZINE HCL [Apresoline] 100 mg PO TID glipiZIDE XL [Glucotrol XL] 10 mg PO DAILY Rivaroxaban [Xarelto] 15 mg PO BID amLODIPine [Norvasc] 5 mg PO DAILY #90 tab Ergocalciferol [Vitamin D2 (DRISDOL)] 50,000 unit PO SA Pseudoephedrine 12Hr [Sudafed 12 Hour] 120 mg PO Q12H PRN PRN Reason: Congestion Mupirocin 2% Oint [Bactroban 2% Oint] 1 applic TOPICAL TID PRN PRN Reason: Rash Metoprolol Tartrate [Lopressor] 50 mg PO BID Lisinopril 40 mg PO BID Ipratropium Nebulized [Atrovent Nebulized 0.2 MG/ML] 0.5 mg INHALATION RT-Q6H PRN PRN Reason: Shortness Of Breath Fluticasone/Salmeterol [Fluticasone-Salmeterol 113-14] 1 puff INHALATION RT- BID Albuterol Nebulized [Ventolin Nebulized] 2.5 mg INHALATION RT-Q6H PRN PRN Reason: Shortness Of Breath Pantoprazole [Protonix] 40 mg PO DAILY #30 tablet.dr Atorvastatin [Lipitor] 10 mg PO HS Omeprazole 40 mg PO DAILY Sucralfate [Carafate] 1 gm PO AC-TID glipiZIDE XL [Glucotrol XL] 5 mg PO HS Discharge Medication List oxyCODONE HCL [oxyCODONE HCL (IR)] 30 mg PO QID 04/21/14 [History] ALPRAZolam [Xanax] 0.5 mg PO BID PRN 07/16/18 [History] Isosorbide Mononitrate ER [Imdur] 30 mg PO DAILY 07/16/18 [History] hydrALAZINE HCL [Apresoline] 100 mg PO TID 07/16/18 [History] Rivaroxaban [Xarelto] 15 mg PO BID 02/01/19 [History] glipiZIDE XL [Glucotrol XL] 10 mg PO DAILY 02/01/19 [History] amLODIPine [Norvasc] 5 mg PO DAILY #90 tab 02/02/19 [Rx] Albuterol Nebulized [Ventolin Nebulized] 2.5 mg INHALATION RT-Q6H PRN 09/21/19 [History] Ergocalciferol [Vitamin D2 (DRISDOL)] 50,000 unit PO SA 09/21/19 [History] Fluticasone/Salmeterol [Fluticasone-Salmeterol 113-14] 1 puff INHALATION RT-BID 09/21/19 [History] Ipratropium Nebulized [Atrovent Nebulized 0.2 MG/ML] 0.5 mg INHALATION RT-Q6H PRN 09/21/19 [History] Lisinopril 40 mg PO BID 09/21/19 [History] Metoprolol Tartrate [Lopressor] 50 mg PO BID 09/21/19 [History] Mupirocin 2% Oint [Bactroban 2% Oint] 1 applic TOPICAL TID PRN 09/21/19 [History] Pseudoephedrine 12Hr [Sudafed 12 Hour] 120 mg PO Q12H PRN 09/21/19 [History] Pantoprazole [Protonix] 40 mg PO DAILY #30 tablet. 09/28/19 [Rx] Atorvastatin [Lipitor] 10 mg PO HS 10/30/19 [History] Omeprazole 40 mg PO DAILY 10/30/19 [History] Sucralfate [Carafate] 1 gm PO AC-TID 10/30/19 [History] glipiZIDE XL [Glucotrol XL] 5 mg PO HS 10/30/19 [History] Follow up Appointment(s)/Referral(s): Marian Bradford MD [Primary Care Provider] - 1-2 days Patient Instructions/Handouts: Low Fat Diet (DC) Activity/Diet/Wound Care/Special Instructions: STOP XARELTO ON FridayNOV 02. Discharge Disposition: HOME SELF-CARE
[2019-11-06] MEDS ORDERED: ERGOCALCIFEROL 50,000 UNIT CAP PO SCH (09:00)
== END 2019-10-31 18:00 | disposition home or self-care (01) ==
LOC: EC 12:17 → 4SSUR 16:00
PROVIDERS: ADMIT Surgery Plastic and Reconstructive Surgery; ATTEND Surgery Plastic and Reconstructive Surgery
DX: K80.20 Calculus of gallbladder without cholecystitis without obstruction (principal); K21.9 Gastro-esophageal reflux disease without esophagitis; E66.01 Morbid (severe) obesity due to excess calories; Z68.44 Body mass index [BMI] 60.0-69.9, adult; G47.30 Sleep apnea, unspecified; Z79.01 Long term (current) use of anticoagulants; J44.9 Chronic obstructive pulmonary disease, unspecified; I10 Essential (primary) hypertension; H91.90 Unspecified hearing loss, unspecified ear; E78.5 Hyperlipidemia, unspecified; E11.9 Type 2 diabetes mellitus without complications; I20.9 Angina pectoris, unspecified; M19.90 Unspecified osteoarthritis, unspecified site; H40.9 Unspecified glaucoma; Z86.711 Personal history of pulmonary embolism; F32.9 Major depressive disorder, single episode, unspecified; F41.9 Anxiety disorder, unspecified; Z87.891 Personal history of nicotine dependence; Z79.899 Other long term (current) drug therapy; Z79.84 Long term (current) use of oral hypoglycemic drugs; Z79.51 Long term (current) use of inhaled steroids; Z79.891 Long term (current) use of opiate analgesic
CPT/HCPCS: 96376 ×3; 96361 ×3; 96375 ×2; 96374; 99285; 36415; 94640; 80053; 82150; 83690; 85025; 74018; G0378 ×2; J2765; J2405; J1885; J1170 ×2; C9113

== ENCOUNTER 2019-11-03 18:18 | Inpatient (IN) | payer OTHER ==
[2019-11-03] MEDS ORDERED: SODIUM CHLORIDE 0.9% 1,000 ML IV STA (20:35)
[2019-11-03] MEDS ORDERED: HYDROmorphone 1 MG/ML 1 ML SYRINGE IVP STA (20:35)
[2019-11-03 20:48] LABS: Basophils # (A) 0.1 k/uL (0-0.2); Basophils % (A) 1 %; Eosinophils # (A) 0.3 k/uL (0-0.7); Eosinophils % (A) 3 %; HGB 14.7 gm/dL (13.0-17.5); Lymphocytes # (A) 2.6 k/uL (1.0-4.8); Lymphocytes % (A) 31 %; MCH 29.6 pg (25.0-35.0); MCHC 33.4 g/dL (31.0-37.0); MCV 88.7 fL (80.0-100.0); Mean Platelet Volume 7.6; Monocytes # (A) 0.4 k/uL (0-1.0); Monocytes % (A) 5 %; Neutrophils # (A) 4.7 k/uL (1.3-7.7); Neutrophils % (A) 57 %; Platelet Count 189 k/uL (150-450); RBC 4.96 m/uL (4.30-5.90); RDW 13.4 % (11.5-15.5); WBC 8.3 k/uL (3.8-10.6)
--- NOTE | 2019-11-03 20:51 | ED ---
Abdominal Pain HPI - General Source: patient Mode of arrival: wheelchair Limitations: no limitations <Rosalee Carmen - Last Filed: 11/03/19 22:34> <Belkis Goldsmith - Last Filed: 11/03/19 22:46> - General Chief Complaint: Abdominal Pain Stated Complaint: post op pain Time Seen by Provider: 11/03/19 20:01 - History of Present Illness Initial Comments: 49-year-old male patient with known gallbladder dysfunction presents to the emergency department today for evaluation of increasing right upper quadrant abdominal pain. Patient states he is scheduled to have a cholecystectomy with Dr. Simon on 11/05/2019. States that today the pain became unbearable. States he is having difficulty eating or drinking. He denies any vomiting but states he has been nauseous. States he he had 6-7 loose bowel movements today. Denies any hematochezia or melena with this. Denies any fever or chills. Patient denies any recent rash, shortness breath, chest pain, back pain, numbness, tingling, dizziness, weakness, hematuria, dysuria, urinary urgency, urinary frequency, headache, visual changes, or any other complaints. (Rosalee Carmen) - Related Data Home Medications Medication Instructions Recorded Confirmed oxyCODONE HCL [oxyCODONE HCL (IR)] 30 mg PO QID 04/21/14 11/03/19 ALPRAZolam [Xanax] 0.5 mg PO BID PRN 07/16/18 11/03/19 Isosorbide Mononitrate ER [Imdur] 30 mg PO QAM 07/16/18 11/03/19 hydrALAZINE HCL [Apresoline] 100 mg PO TID 07/16/18 11/03/19 Rivaroxaban [Xarelto] 15 mg PO BID 02/01/19 11/03/19 glipiZIDE XL [Glucotrol XL] 10 mg PO QAM 02/01/19 11/03/19 Albuterol Nebulized [Ventolin 2.5 mg INHALATION RT-Q6H PRN 09/21/19 11/03/19 Nebulized] Ergocalciferol [Vitamin D2 50,000 unit PO SA 09/21/19 11/03/19 (DRISDOL)] Fluticasone/Salmeterol 1 puff INHALATION RT-BID PRN 09/21/19 11/03/19 [Fluticasone-Salmeterol 113-14] Ipratropium Nebulized [Atrovent 0.5 mg INHALATION RT-Q6H PRN 09/21/19 11/03/19 Nebulized 0.2 MG/ML] Lisinopril 40 mg PO BID 09/21/19 11/03/19 Metoprolol Tartrate [Lopressor] 50 mg PO BID 09/21/19 11/03/19 Mupirocin 2% Oint [Bactroban 2% 1 applic TOPICAL TID PRN 09/21/19 11/03/19 Oint] Pseudoephedrine 12Hr [Sudafed 12 120 mg PO Q12H PRN 09/21/19 11/03/19 Hour] Atorvastatin [Lipitor] 10 mg PO HS 10/30/19 11/03/19 Omeprazole 40 mg PO DAILY 10/30/19 11/03/19 Sucralfate [Carafate] 1 gm PO AC-TID 10/30/19 11/03/19 glipiZIDE XL [Glucotrol XL] 5 mg PO HS 10/30/19 11/03/19 amLODIPine [Norvasc] 5 mg PO QAM 11/03/19 11/03/19 Previous Rx's Medication Instructions Recorded Pantoprazole [Protonix] 40 mg PO DAILY #30 tablet. 09/28/19 Allergies Allergy/AdvReac Type Severity Reaction Status Date / Time cyclobenzaprine HCl Allergy Itching Verified 11/03/19 19:03 [From Flexeril] ibuprofen [From Motrin] AdvReac Nausea Verified 11/03/19 19:03 Review of Systems ROS Other: All systems not noted in ROS Statement are negative. <Rosalee Carmen M - Last Filed: 11/03/19 22:34> ROS Other: All systems not noted in ROS Statement are negative. <Belkis Goldsmith - Last Filed: 11/03/19 22:46> ROS Statement: Those systems with pertinent positive or pertinent negative responses have been documented in the HPI. 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 and the patient underwent a tympanomastoidectomy with tympanoplasty, morbid obesity, obstructive sleep apnea with CPAP, chronic back pain, chronic left knee pain/torn meniscus and bone on bone, 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-pt states he currently has a R eyelid infection, R lower leg DVT and pulmonary embolism pt thinks was on L side, previous history of cellulitis, UTI, History of Any Multi-Drug Resistant Organisms: None Reported Past Surgical History: Joint Replacement Additional Past Surgical History / Comment(s): R ear sugically resected/tympanomastoidectomy with tympanoplasty, bilateral myringotomy/tubes, R eye enucleation, R total knee arthroplasty, EGD Past Anesthesia/Blood Transfusion Reactions: No Reported Reaction Past Psychological History: Anxiety, Depression, Schizophrenia Smoking Status: Former smoker Past Alcohol Use History: None Reported Past Drug Use History: None Reported - Past Family History Father History Unknown: Yes Family Medical History: Unable to Obtain Additional Family Medical History / Comment(s): Patient was adopted Mother Family Medical History: Unable to Obtain Additional Family Medical History / Comment(s): Patient was adopted <NellaRosalee M - Last Filed: 11/03/19 22:34> General Exam Limitations: no limitations General appearance: alert, in no apparent distress, other (This is a well- developed, well-nourished, obese adult male patient in no acute distress. Vital signs upon presentation are temperature 98.0F, pulse 72, respirations 20, blood pressure 162/99, pulse ox 99% on room air.) Eye exam: Present: normal appearance, PERRL, EOMI. Absent: scleral icterus, con junctival injection, periorbital swelling ENT exam: Present: normal exam, normal oropharynx, mucous membranes moist Respiratory exam: Present: normal lung sounds bilaterally. Absent: respiratory distress, wheezes, rales, rhonchi, stridor Cardiovascular Exam: Present: regular rate, normal rhythm, normal heart sounds. Absent: systolic murmur, diastolic murmur, rubs, gallop, clicks GI/Abdominal exam: Present: soft, tenderness (Upper abdominal tenderness), normal bowel sounds. Absent: distended, guarding, rebound, rigid Neurological exam: Present: alert, oriented X3, CN II-XII intact Psychiatric exam: Present: normal affect, normal mood Skin exam: Present: warm, dry, intact, normal color. Absent: rash <Rosalee Carmen - Last Filed: 11/03/19 22:34> Course Vital Signs 11/03/19 19:00 Temperature 98.0 F Pulse Rate 72 Respiratory 20 Rate Blood Pressure 162/99 O2 Sat by Pulse 99 Oximetry Medical Decision Making - Lab Data Result diagrams: 11/03/19 20:23 11/03/19 20:23 <Rosalee Carmen - Last Filed: 11/03/19 22:34> - Lab Data Result diagrams: 11/03/19 20:23 11/03/19 20:23 <Belkis Goldsmith - Last Filed: 11/03/19 22:46> - Medical Decision Making I personally saw and evaluated this patient this is a morbidly obese 49-year-old male with extensive past medical history who presents to the emergency department today for reevaluation of abdominal pain. Patient was previously admitted for pain management due to biliary colic with the plan for cholecystectomy scheduled on November 05, patient elected to leave the hospital but his pain is been unmanaged at home despite taking oral oxycodone therefore he returned. Patient care was discussed with his surgeon Dr. Haq who agrees with plan for admission for pain management. (Belkis Goldsmith) - Lab Data Lab Results 11/03/19 11/03/19 11/03/19 Range/Units 20:23 20:23 20:23 WBC 8.3 (3.8-10.6) k/uL RBC 4.96 (4.30-5.90) m/uL Hgb 14.7 (13.0-17.5) gm/dL Hct 44.0 (39.0-53.0) % MCV 88.7 (80.0-100.0) fL MCH 29.6 (25.0-35.0) pg MCHC 33.4 (31.0-37.0) g/dL RDW 13.4 (11.5-15.5) % Plt Count 189 (150-450) k/uL Neutrophils % 57 % Lymphocytes % 31 % Monocytes % 5 % Eosinophils % 3 % Basophils % 1 % Neutrophils # 4.7 (1.3-7.7) k/uL Lymphocytes # 2.6 (1.0-4.8) k/uL Monocytes # 0.4 (0-1.0) k/uL Eosinophils # 0.3 (0-0.7) k/uL Basophils # 0.1 (0-0.2) k/uL Sodium 140 (137-145) mmol/L Potassium 4.0 (3.5-5.1) mmol/L Chloride 105 (98-107) mmol/L Carbon Dioxide 29 (22-30) mmol/L Anion Gap 6 mmol/L BUN 8 L (9-20) mg/dL Creatinine 0.56 L (0.66-1.25) mg/dL Est GFR (CKD-EPI)AfAm >90 (>60 ml/min/1.73 sqM) Est GFR (CKD-EPI)NonAf >90 (>60 ml/min/1.73 sqM) Glucose 141 H (74-99) mg/dL Plasma Lactic Acid Naeem 1.1 (0.7-2.0) mmol/L Calcium 8.3 L (8.4-10.2) mg/dL Total Bilirubin 0.7 (0.2-1.3) mg/dL AST 28 (17-59) U/L ALT 30 (4-49) U/L Alkaline Phosphatase 114 (38-126) U/L Total Protein 6.8 (6.3-8.2) g/dL Albumin 3.5 (3.5-5.0) g/dL Amylase <30 L (30-110) U/L Lipase 93 (23-300) U/L Urine Color Urine Appearance (Clear) Urine pH (5.0-8.0) Ur Specific [place] (1.001-1.035) Urine Protein (Negative) Urine Glucose (UA) (Negative) Urine Ketones (Negative) Urine Blood (Negative) Urine Nitrite (Negative) Urine Bilirubin (Negative) Urine Urobilinogen (<2.0) mg/dL Ur Leukocyte Esterase (Negative) 11/03/19 Range/Units 20:47 WBC (3.8-10.6) k/uL RBC (4.30-5.90) m/uL Hgb (13.0-17.5) gm/dL Hct (39.0-53.0) % MCV (80.0-100.0) fL MCH (25.0-35.0) pg MCHC (31.0-37.0) g/dL RDW (11.5-15.5) % Plt Count (150-450) k/uL Neutrophils % % Lymphocytes % % Monocytes % % Eosinophils % % Basophils % % Neutrophils # (1.3-7.7) k/uL Lymphocytes # (1.0-4.8) k/uL Monocytes # (0-1.0) k/uL Eosinophils # (0-0.7) k/uL Basophils # (0-0.2) k/uL Sodium (137-145) mmol/L Potassium (3.5-5.1) mmol/L Chloride (98-107) mmol/L Carbon Dioxide (22-30) mmol/L Anion Gap mmol/L BUN (9-20) mg/dL Creatinine (0.66-1.25) mg/dL Est GFR (CKD-EPI)AfAm (>60 ml/min/1.73 sqM) Est GFR (CKD-EPI)NonAf (>60 ml/min/1.73 sqM) Glucose (74-99) mg/dL Plasma Lactic Acid Naeem (0.7-2.0) mmol/L Calcium (8.4-10.2) mg/dL Total Bilirubin (0.2-1.3) mg/dL AST (17-59) U/L ALT (4-49) U/L Alkaline Phosphatase (38-126) U/L Total Protein (6.3-8.2) g/dL Albumin (3.5-5.0) g/dL Amylase (30-110) U/L Lipase (23-300) U/L Urine Color Yellow Urine Appearance Clear (Clear) Urine pH 6.0 (5.0-8.0) Ur Specific [place] 1.024 (1.001-1.035) Urine Protein Trace H (Negative) Urine Glucose (UA) 1+ H (Negative) Urine Ketones Negative (Negative) Urine Blood Negative (Negative) Urine Nitrite Negative (Negative) Urine Bilirubin Negative (Negative) Urine Urobilinogen 4.0 (<2.0) mg/dL Ur Leukocyte Esterase Negative (Negative) Disposition Decision to Admit Reason: Admit from [facility] Decision Date: 11/03/19 Decision Time: 22:35 <Rosalee Carmen - Last Filed: 11/03/19 22:34> <Belkis Goldsmith - Last Filed: 11/03/19 22:46> Clinical Impression: Abdominal pain Disposition: ADMITTED IP TO THIS HOSP Referrals: Marian Bradford MD [Primary Care Provider] - 1-2 days
[2019-11-03 20:52] LABS: Appearance,Urine Clear (Clear); Bilirubin,Urine Negative (Negative); Blood,Urine Negative (Negative); Color,Urine Yellow; Glucose,Urine (UA) 1+ (Negative); Ketones,Urine Negative (Negative); Leukocyte Esterase,Urine Negative (Negative); Nitrite,Urine Negative (Negative); Protein,Urine Trace (Negative); Specific Gravity,Urine 1.024 (1.001-1.035)
[2019-11-03 20:57] LABS: ALT 30 U/L (4-49); AST 28 U/L (17-59); African American GFR (CKD) >90 (>60 ml/min/1.73 sqM); Albumin 3.5 g/dL (3.5-5.0); Alkaline Phosphatase 114 U/L (38-126); Amylase <30 U/L (30-110); Anion Gap 6 mmol/L; Blood Urea Nitrogen 8 mg/dL (9-20); Calcium 8.3 mg/dL (8.4-10.2); Carbon Dioxide 29 mmol/L (22-30); Chloride 105 mmol/L (98-107); Glucose 141 mg/dL (74-99); Non-African American GFR(CKD) >90 (>60 ml/min/1.73 sqM); Sodium 140 mmol/L (137-145); Total Bilirubin 0.7 mg/dL (0.2-1.3); Total Protein 6.8 g/dL (6.3-8.2)
[2019-11-03] MEDS: ONDANSETRON ODT 8 MG TAB.RAPDIS PO STA ×2 (21:11→21:12)
[2019-11-03] MEDS ORDERED: ONDANSETRON ODT 4 MG TAB PO STA (21:12)
[2019-11-03] MEDS ORDERED: NALOXONE 0.4 MG/ML 1 ML VIAL IV PRN (22:30)
[2019-11-03] MEDS: HYDROmorphone 0.5 MG/0.5 ML SYRINGE IVP PRN (22:44)
[2019-11-04] MEDS: HYDROmorphone 0.5 MG/0.5 ML SYRINGE IVP PRN ×3 (02:35→16:57)
[2019-11-04] MEDS ORDERED: IPRATROPIUM 0.5 MG/2.5 ML NEBU INHALATION PRN (09:02)
[2019-11-04] MEDS ORDERED: SALMETEROL INHALATION PRN (09:02)
[2019-11-04] MEDS ORDERED: FLUTICASONE INHALATION PRN (09:02)
[2019-11-04] MEDS ORDERED: SYMBICORT 160-4.5 MCG INHALER INHALATION PRN (09:15)
[2019-11-04] MEDS: METOPROLOL TARTRATE 50 MG TAB PO SCH ×2 (10:01→21:22)
[2019-11-04] MEDS: ISOSORBIDE MONONITRATE ER 30 MG TAB.ER.24H PO SCH (10:02)
[2019-11-04] MEDS: LISINOPRIL 20 MG TAB PO SCH ×2 (10:02→21:22)
[2019-11-04] MEDS: hydrALAZINE HCL 50 MG TAB PO SCH ×3 (10:02→23:03)
[2019-11-04] MEDS: amLODIPine 5 MG TAB PO SCH (10:02)
[2019-11-04 10:21] LABS: Glucose,Whole Blood 105 mg/dL (75-99)
[2019-11-04 12:03] LABS: Glucose,Whole Blood 144 mg/dL (75-99)
[2019-11-04] MEDS: SUCRALFATE 1 GM TAB PO SCH ×3 (12:47→21:22)
[2019-11-04] MEDS: INSULIN ASPART (NovoLOG) 100 UNIT/ML VIAL SQ SCH ×3 (12:48→21:22)
--- NOTE | 2019-11-04 14:37 | P.GSHP ---
<Kerrie Schaffer A - Last Filed: 11/04/19 14:32> History of Present Illness H&P Date: 11/04/19 Chief Complaint: abdominal pain CHIEF COMPLAINT: Abdominal pain HISTORY OF PRESENT ILLNESS: 49-year-old male presents to emergency room with a chief complaint of abdominal pain. Patient was originally scheduled for outpatient cholecystectomy tomorrow 11/05/[address] Simon. Patient states he began having abdominal pain yesterday that was too severe to wait so he came to the emergency room for further evaluation. PAST MEDICAL HISTORY: See list. PAST SURGICAL HISTORY: See list. MEDICATIONS: See list. ALLERGIES: See list. SOCIAL HISTORY: No illicit drug use. REVIEW OF SYSTEMS: CONSTITUTIONAL: Denies fever or chills. HEENT: Denies blurred vision, vision changes, or eye pain. Denies hemoptysis ENDOCRINE: Denies heat or cold intolerance. CARDIOVASCULAR: Denies chest pain or pressure. RESPIRATORY: No shortness of breath. GASTROINTESTINAL: See HPI for pertinent findings. NEURO: Denies history of seizures. PSYCH: No depression or suicidal ideation HEMATOLOGIC: Denies bleeding disorders. History of DVT. LYMPHATIC: The patient denies any lumps and bumps around the neck. GENITOURINARY: Denies any blood in urine or increased urinary frequency. MUSCULOSKELETAL: Denies myalgias. Denies joint swelling. Denies decreased range of motion beyond patients baseline. SKIN: Denies pruitis. Denies rash. PHYSICAL EXAM: VITAL SIGNS: Reviewed GENERAL: Well-developed in no acute distress. HEENT: No sclera icterus. Extraocular movements grossly intact. Moist buccal mucosa. Head is atraumatic, normocephalic. Hears conversational speech. No nasal drainage. NECK: Supple without lymphadenopathy. CHEST: Non-labored respirations and equal bilateral excursions. CARDIOVASCULAR: Regular rate with regular rhythm. Palpable 2+ radial pulses. ABDOMEN: Soft. Nondistended. Obese. Tenderness on palpation of right upper quadrant. MUSCULOSKELETAL: No clubbing, cyanosis or edema. NEUROLOGIC: No focal or lateralizing signs. Cranial nerves II through XII grossly intact. PSYCH: Appropriate affect. Alert and oriented to person, place and time. SKIN: Well perfused. Good skin turgor. LABORATORY DATA: WBC 8.3. Hemoglobin 14.7. Platelet count 189. Sodium 140. Potassium 4.0. BUN 8. Creatinine 0.56. Lactic acid 1.1. ASSESSMENT: 1. Biliary colic to gallstones PLAN: Resume diet today. NPO at midnight Continue to hold Xarelto Patient scheduled for cholecystectomy tomorrow with Dr. Simon Nurse practitioner note has been reviewed by physician. Signing provider agrees with the documented findings, assessment, and plan of care. 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 and the patient underwent a tympanomastoidectomy with tympanoplasty, morbid obesity, obstructive sleep apnea with CPAP, chronic back pain, chronic left knee pain/torn meniscus and bone on bone, 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-pt states he currently has a R eyelid infection, R lower leg DVT and pulmonary embolism pt thinks was on L side, previous history of cellulitis, UTI, History of Any Multi-Drug Resistant Organisms: None Reported Past Surgical History: Ear Surgery, Joint Replacement Additional Past Surgical History / Comment(s): R ear sugically resected/tympanomastoidectomy with tympanoplasty, bilateral myringotomy/tubes, R eye enucleation, R total knee arthroplasty, EGD Past Anesthesia/Blood Transfusion Reactions: No Reported Reaction Past Psychological History: Anxiety, Depression, Schizophrenia Additional Psychological History / Comment(s): Pt resides with his significant other. He uses no assistive device. He has a nebulizer. He drives. Pt states he was diagnosed with schizophrenia as a teen but that no one states this any more but does have depression and anxiety. Smoking Status: Former smoker Past Alcohol Use History: None Reported Additional Past Alcohol Use History / Comment(s): Pt started smoking in 1987. States he quit 6 weeks ago. Past Drug Use History: None Reported - Past Family History Father History Unknown: Yes Family Medical History: Unable to Obtain Additional Family Medical History / Comment(s): Patient was adopted Mother Family Medical History: Unable to Obtain, Diabetes Mellitus Additional Family Medical History / Comment(s): Patient was adopted Medications and Allergies Home Medications Medication Instructions Recorded Confirmed Type oxyCODONE HCL [oxyCODONE HCL (IR)] 30 mg PO QID 04/21/14 11/03/19 History ALPRAZolam [Xanax] 0.5 mg PO BID PRN 07/16/18 11/03/19 History Isosorbide Mononitrate ER [Imdur] 30 mg PO DAILY 07/16/18 11/03/19 History hydrALAZINE HCL [Apresoline] 100 mg PO TID 07/16/18 11/03/19 History Rivaroxaban [Xarelto] 15 mg PO BID 02/01/19 11/03/19 History glipiZIDE XL [Glucotrol XL] 10 mg PO DAILY 02/01/19 11/03/19 History Albuterol Nebulized [Ventolin 2.5 mg INHALATION RT-QID PRN 09/21/19 11/03/19 History Nebulized] Ergocalciferol [Vitamin D2 50,000 unit PO SA 09/21/19 11/03/19 History (DRISDOL)] Fluticasone/Salmeterol 1 puff INHALATION RT-BID PRN 09/21/19 11/03/19 History [Fluticasone-Salmeterol 113-14] Ipratropium Nebulized [Atrovent 0.5 mg INHALATION RT-QID PRN 09/21/19 11/03/19 History Nebulized 0.2 MG/ML] Lisinopril 40 mg PO BID 09/21/19 11/03/19 History Metoprolol Tartrate [Lopressor] 50 mg PO BID 09/21/19 11/03/19 History Mupirocin 2% Oint [Bactroban 2% 1 applic TOPICAL TID PRN 09/21/19 11/03/19 History Oint] Pseudoephedrine 12Hr [Sudafed 12 120 mg PO Q12H PRN 09/21/19 11/03/19 History Hour] Pantoprazole [Protonix] 40 mg PO DAILY #30 tablet.dr 09/28/19 11/03/19 Rx Atorvastatin [Lipitor] 10 mg PO HS 10/30/19 11/03/19 History Omeprazole 40 mg PO DAILY 10/30/19 11/03/19 History Sucralfate [Carafate] 1 gm PO ACHS 10/30/19 11/03/19 History glipiZIDE XL [Glucotrol XL] 5 mg PO HS 10/30/19 11/03/19 History amLODIPine [Norvasc] 5 mg PO DAILY 11/03/19 11/03/19 History Allergies Allergy/AdvReac Type Severity Reaction Status Date / Time cyclobenzaprine HCl Allergy Itching Verified 11/03/19 23:09 [From Flexeril] ibuprofen [From Motrin] AdvReac Nausea Verified 11/03/19 23:09 Surgical - Exam Vital Signs Temp Pulse Resp BP Pulse Ox 98.0 F 72 20 162/99 99 11/03/19 19:00 11/03/19 19:00 11/03/19 19:00 11/03/19 19:00 11/03/19 19:00 Results - Labs 11/03/19 20:23 11/03/19 20:23 Abnormal Lab Results - Last 24 Hours (Table) 11/03/19 11/03/19 Range/Units 20:23 20:47 BUN 8 L (9-20) mg/dL Creatinine 0.56 L (0.66-1.25) mg/dL Glucose 141 H (74-99) mg/dL Calcium 8.3 L (8.4-10.2) mg/dL Amylase <30 L (30-110) U/L Urine Protein Trace H (Negative) Urine Glucose (UA) 1+ H (Negative) Diabetes panel 11/03/19 Range/Units 20:23 Sodium 140 (137-145) mmol/L Potassium 4.0 (3.5-5.1) mmol/L Chloride 105 (98-107) mmol/L Carbon Dioxide 29 (22-30) mmol/L BUN 8 L (9-20) mg/dL Creatinine 0.56 L (0.66-1.25) mg/dL Glucose 141 H (74-99) mg/dL Calcium 8.3 L (8.4-10.2) mg/dL AST 28 (17-59) U/L ALT 30 (4-49) U/L Alkaline Phosphatase 114 (38-126) U/L Total Protein 6.8 (6.3-8.2) g/dL Albumin 3.5 (3.5-5.0) g/dL Calcium panel 11/03/19 Range/Units 20:23 Calcium 8.3 L (8.4-10.2) mg/dL Albumin 3.5 (3.5-5.0) g/dL Pituitary panel 11/03/19 Range/Units 20:23 Sodium 140 (137-145) mmol/L Potassium 4.0 (3.5-5.1) mmol/L Chloride 105 (98-107) mmol/L Carbon Dioxide 29 (22-30) mmol/L BUN 8 L (9-20) mg/dL Creatinine 0.56 L (0.66-1.25) mg/dL Glucose 141 H (74-99) mg/dL Calcium 8.3 L (8.4-10.2) mg/dL Adrenal panel 11/03/19 Range/Units 20:23 Sodium 140 (137-145) mmol/L Potassium 4.0 (3.5-5.1) mmol/L Chloride 105 (98-107) mmol/L Carbon Dioxide 29 (22-30) mmol/L BUN 8 L (9-20) mg/dL Creatinine 0.56 L (0.66-1.25) mg/dL Glucose 141 H (74-99) mg/dL Calcium 8.3 L (8.4-10.2) mg/dL Total Bilirubin 0.7 (0.2-1.3) mg/dL AST 28 (17-59) U/L ALT 30 (4-49) U/L Alkaline Phosphatase 114 (38-126) U/L Total Protein 6.8 (6.3-8.2) g/dL Albumin 3.5 (3.5-5.0) g/dL <Lachelle Simon N - Last Filed: 11/04/19 17:53> History of Present Illness Patient presented with recurrent right upper quadrant abdominal pain. He is high risk with history of chronic anticoagulation, super morbid obesity weight over 500+ pounds including diabetes. We'll proceed with cholecystectomy for symptomatic gallstones with history of gallstone pancreatitis Surgical - Exam Vital Signs Temp Pulse Resp BP Pulse Ox 98.0 F 72 20 162/99 99 11/03/19 19:00 11/03/19 19:00 11/03/19 19:00 11/03/19 19:00 11/03/19 19:00 Results - Labs 11/03/19 20:23 11/03/19 20:23 Abnormal Lab Results - Last 24 Hours (Table) 11/03/19 11/03/19 11/04/19 Range/Units 20:23 20:47 10:10 BUN 8 L (9-20) mg/dL Creatinine 0.56 L (0.66-1.25) mg/dL Glucose 141 H (74-99) mg/dL POC Glucose (mg/dL) 105 H (75-99) mg/dL Calcium 8.3 L (8.4-10.2) mg/dL Amylase <30 L (30-110) U/L Urine Protein Trace H (Negative) Urine Glucose (UA) 1+ H (Negative) 11/04/19 11/04/19 Range/Units 11:52 17:29 BUN (9-20) mg/dL Creatinine (0.66-1.25) mg/dL Glucose (74-99) mg/dL POC Glucose (mg/dL) 144 H 118 H (75-99) mg/dL Calcium (8.4-10.2) mg/dL Amylase (30-110) U/L Urine Protein (Negative) Urine Glucose (UA) (Negative) Diabetes panel 11/03/19 Range/Units 20:23 Sodium 140 (137-145) mmol/L Potassium 4.0 (3.5-5.1) mmol/L Chloride 105 (98-107) mmol/L Carbon Dioxide 29 (22-30) mmol/L BUN 8 L (9-20) mg/dL Creatinine 0.56 L (0.66-1.25) mg/dL Glucose 141 H (74-99) mg/dL Calcium 8.3 L (8.4-10.2) mg/dL AST 28 (17-59) U/L ALT 30 (4-49) U/L Alkaline Phosphatase 114 (38-126) U/L Total Protein 6.8 (6.3-8.2) g/dL Albumin 3.5 (3.5-5.0) g/dL Calcium panel 11/03/19 Range/Units 20:23 Calcium 8.3 L (8.4-10.2) mg/dL Albumin 3.5 (3.5-5.0) g/dL Pituitary panel 11/03/19 Range/Units 20:23 Sodium 140 (137-145) mmol/L Potassium 4.0 (3.5-5.1) mmol/L Chloride 105 (98-107) mmol/L Carbon Dioxide 29 (22-30) mmol/L BUN 8 L (9-20) mg/dL Creatinine 0.56 L (0.66-1.25) mg/dL Glucose 141 H (74-99) mg/dL Calcium 8.3 L (8.4-10.2) mg/dL Adrenal panel 11/03/19 Range/Units 20:23 Sodium 140 (137-145) mmol/L Potassium 4.0 (3.5-5.1) mmol/L Chloride 105 (98-107) mmol/L Carbon Dioxide 29 (22-30) mmol/L BUN 8 L (9-20) mg/dL Creatinine 0.56 L (0.66-1.25) mg/dL Glucose 141 H (74-99) mg/dL Calcium 8.3 L (8.4-10.2) mg/dL Total Bilirubin 0.7 (0.2-1.3) mg/dL AST 28 (17-59) U/L ALT 30 (4-49) U/L Alkaline Phosphatase 114 (38-126) U/L Total Protein 6.8 (6.3-8.2) g/dL Albumin 3.5 (3.5-5.0) g/dL
[2019-11-04] MEDS: HEPARIN SODIUM,PORCINE 5,000 UNIT/ML 1 ML VIAL SQ SCH (16:58)
[2019-11-04 17:31] LABS: Glucose,Whole Blood 118 mg/dL (75-99)
[2019-11-04] MEDS: HYDROmorphone 1 MG/ML 1 ML SYRINGE IVP PRN ×2 (17:32→21:22)
[2019-11-04 21:07] LABS: Glucose,Whole Blood 142 mg/dL (75-99)
[2019-11-04] MEDS: ATORVASTATIN 10 MG TAB PO SCH (21:22)
[2019-11-05] MEDS: HEPARIN SODIUM,PORCINE 5,000 UNIT/ML 1 ML VIAL SQ SCH ×4 (01:15→23:55)
[2019-11-05] MEDS: HYDROmorphone 1 MG/ML 1 ML SYRINGE IVP PRN ×6 (02:37→22:15)
[2019-11-05] MEDS: ALPRAZolam 0.5 MG TAB PO PRN (02:37)
[2019-11-05] MEDS ORDERED: ceFAZolin 3 GM in SODIUM CHLORIDE 0.9% 100 ML IVPB ONE (05:00)
[2019-11-05] MEDS ORDERED: HEPARIN SODIUM,PORCINE 5,000 UNIT/ML 1 ML VIAL SQ ONE (05:00)
[2019-11-05] MEDS ORDERED: INDOCYANINE GREEN 25 MG VIAL IV ONE ×2 (05:00→09:10)
[2019-11-05] MEDS: ALBUTEROL NEBULIZED 2.5 MG/3 ML INHALATION PRN ×2 (05:41→21:07)
[2019-11-05 07:22] LABS: Glucose,Whole Blood 121 mg/dL (75-99)
[2019-11-05] MEDS ORDERED: LACTATED RINGERS 1,000 ML IV ONE ×3 (07:42→10:54)
[2019-11-05] MEDS ORDERED: GABAPENTIN 300 MG CAP PO ONE (08:00)
[2019-11-05] MEDS ORDERED: ACETAMINOPHEN TAB 500 MG TAB PO ONE (08:00)
[2019-11-05] MEDS ORDERED: ONDANSETRON 4 MG/2 ML VIAL IVP ONE (08:01)
[2019-11-05] MEDS ORDERED: DEXAMETHASONE SOD PHOSPHATE 10 MG/ML 1 ML VIAL IV ONE (08:02)
[2019-11-05] MEDS: INSULIN ASPART (NovoLOG) 100 UNIT/ML VIAL SQ SCH ×4 (08:17→21:50)
[2019-11-05] MEDS: PANTOPRAZOLE 40 MG TABLET PO SCH (08:18)
[2019-11-05] MEDS: SUCRALFATE 1 GM TAB PO SCH ×4 (08:18→21:09)
[2019-11-05] MEDS ORDERED: MIDAZOLAM 2 MG/2 ML VIAL ONE (09:10)
[2019-11-05] MEDS ORDERED: KETAMINE 10 MG/ML 20 ML VIAL ONE (09:10)
[2019-11-05] MEDS ORDERED: fentaNYL (PF) 50 MCG/ML 2 ML AMP ONE (09:10)
[2019-11-05] MEDS ORDERED: NEOSTIGMINE 1 MG/ML 10 ML VIAL ONE (09:10)
[2019-11-05] MEDS ORDERED: SUCCINYLCHOLINE CHLORIDE VIAL 200 MG/10 ML VIAL IV ONE (09:10)
[2019-11-05] MEDS ORDERED: ePHEDrine SULFATE/0.9% NACL/PF 50 MG/5 ML SYRINGE IV ONE (09:10)
[2019-11-05] MEDS ORDERED: ROCURONIUM BROMIDE 10 MG/ML 10 ML VIAL IV ONE (09:10)
[2019-11-05] MEDS ORDERED: PROPOFOL 10 MG/ML 20 ML VIAL IV ONE (09:10)
[2019-11-05] MEDS ORDERED: LIDOCAINE 1% INJ 10MG/ML (20 ML MDV) ONE (09:10)
[2019-11-05] MEDS ORDERED: GLYCOPYRROLATE 0.2 MG/ML 2 ML VIAL ONE (09:10)
[2019-11-05] MEDS ORDERED: LIDOCAINE 2%-EPI 1:100,000 20 ML VIAL SQ ONE ×3 (09:54)
[2019-11-05] MEDS ORDERED: ONDANSETRON 4 MG/2 ML VIAL IVP PRN (11:25)
[2019-11-05] MEDS ORDERED: ACETAMINOPHEN IV (For NPO) 1,000 MG in EMPTY BAG 1 BAG IVPB ONE (11:25)
--- NOTE | 2019-11-05 11:40 | P.OP ---
Date of Procedure: 11/05/19 Description of Procedure: SURGEON: RASHAD NICE MD PREOPERATIVE DIAGNOSES: 1. Acute on chronic cholecystitis 2. History of gallstone pancreatitis with right upper quadrant abdominal pain 3. Super morbid obesity, BMI 66.9 4. Diabetes type 2, [id number] 5. Severe obstructive sleep apnea 6. Congestive heart failure, chronic diastolic dysfunction 7. Hyperlipidemia 8. Gastroesophageal reflux disease 9. Chronic pain syndrome 10. History of multiple pulmonary embolisms 11. Chronic anticoagulation 12. History of right eye enucleation POSTOPERATIVE DIAGNOSES: 1. Acute on chronic cholecystitis 2. History of gallstone pancreatitis with right upper quadrant abdominal pain 3. Super morbid obesity, BMI 66.9 4. Diabetes type 2, [id number] 5. Severe obstructive sleep apnea 6. Congestive heart failure, chronic diastolic dysfunction 7. Hyperlipidemia 8. Gastroesophageal reflux disease 9. Chronic pain syndrome 10. History of multiple pulmonary embolisms 11. Chronic anticoagulation 12. History of right eye enucleation 13. Peritoneal adhesions, right upper quadrant pericholecystic 14. Hydrops cholecystitis OPERATION: 1. Robotic-assisted da Amira Xi laparoscopic lysis of adhesions over 30 minutes 2. Robotic-assisted da Amira Xi laparoscopic cholecystectomy, multiport with FIREFLY ESTIMATED BLOOD LOSS: 10 mL. SPECIMENS REMOVED: Gallbladder. COMPLICATIONS: None. OPERATIVE FINDINGS: 1. Acute on chronic cholecystitis with extremely large over 16-cm gallbladder with hydrops. 2. Console time 48 minutes INDICATIONS: The patient is a 49-year-old male who presents with acute on chronic cholelcystitis. He has history of gallstone pancreatitis and recurrent right upper quadrant abdominal pian. Surgical intervention with a laparoscopic cholecystectomy was described at length including injury to the biliary tree, bleeding, infection, need for further surgery. Informed consent was obtained. Robotic assisted laparoscopic approach was described. Benefits and risks of the procedure including but not limited to bleeding, infection, injury to the biliary tree was described. Informed consent was obtained. ADDITIONAL PREPARATION TIME NEEDED FOR 500+ pound patient preparation. DESCRIPTION OF PROCEDURE: Patient was brought to the operating room, placed in supine position. After general induction, the abdomen had been prepped and draped in standard sterile fashion. The robotic da Amira XI system was primed. After a timeout protocol was performed, the patient had been prepped and draped in standard sterile fashion. The patient was injected with indocyanine green. A 5 mm 0 degrees laparoscopic trocar entry was performed along the left upper quadrant. The abdomen insufflated to 15 mmHg pressure which was tolerated well. Diagnostic laparoscopy demonstrated no injury to bowel viscera or mesentery. The liver surface was unremarkable. Next, two 8 mm robotic ports were placed along the right upper abdomen. The camera 8-mm port was maintained along the epigastrium. Another 8 mm port was placed along the left upper abdominal wall after exchanging the 5 mm port. Please note that the ports were placed at least 10 to 15 cm away from the target anatomy of the gallbladder. The robot was docked along the left lateral abdomen. The patient was repositioned in reverse Trendelenburg position. Using a grasper for arm 3, a grasper for arm 4, including hook cautery for arm 1, the robotic system was docked and primed as described. Instruments were interchanged by the assistant professor of geography including hook cautery, Bovie cautery and clip appliers. I had sat at the console. Severe pericholecystic adhesions were identified along the gallbladder requiring over 30 minutes of sharp dissection using hook cautery and blunt dissection throughout the fundus, body and infundibulum of the gallbladder. The gallbladder was hydropic over 15 cm adding moderate complexity to the case. A dome down technique was performed to dissect the gallbladder free from the hepatic fossa prior to isolating the cystic structures. The gallbladder fundus was retracted over the dome of the liver. Using a grasper, the cystic duct including the cystic artery was carefully skeletonized. FIREFLY was used to identify the cystic artery and cystic structures. A critical view of safety was obtained. Large PLASTIC clips were used throughout the entire case. Using a clip barbering instructor 2 clips were placed proximally, and 1 clip was placed between the infundibulum and cystic duct and divided using cautery. Next, the cystic artery was similarly clipped and cauterized. Electro-Bovie cautery was used to remove the gallbladder from the hepatic fossa. Hemostasis was checked and found to be adequate. The robot was undocked. I re-scrubbed into the case. Using a 15 mm Endo Catch bag via the left upper quadrant incision, the specimen was removed from the abdominal cavity after widening the incision over 4 cm to accommodate the hydropic gallbladder. The fascial defect was oversewn using 0 Vicryl and [place]. All pneumoperitoneum instruments were evacuated from the abdominal cavity. The incisions were reapproximated using 4-0 Monocryl in an interrupted subcuticular fashion. Fascial defects were less than 8 mm in size. Please note along the trocar sites, local anesthetic was placed as a field block prior to insertion of all instruments. Liquid glue was applied to the skin. At the end of the procedure needle, sponge, and instrument count had been verified correct by the medical surgical tech. The patient was transferred to postanesthesia care unit in stable condition. Intraoperative films were shared with the patient's family who were very pleased with the level of care.
[2019-11-05] MEDS ORDERED: HYDROmorphone 1 MG/ML 1 ML SYRINGE IVP ONE ×2 (11:50→12:00)
[2019-11-05] MEDS ORDERED: diphenhydrAMINE 50 MG/ML 1 ML VIAL IVP ONE (12:05)
[2019-11-05] MEDS ORDERED: fentaNYL (PF) 50 MCG/ML 2 ML AMP IVP ONE ×2 (12:16→12:26)
[2019-11-05 12:36] LABS: Glucose,Whole Blood 191 mg/dL (75-99)
[2019-11-05] MEDS: hydrALAZINE HCL 50 MG TAB PO SCH ×3 (15:10→21:10)
[2019-11-05] MEDS: LISINOPRIL 20 MG TAB PO SCH ×2 (15:11→21:10)
[2019-11-05] MEDS: amLODIPine 5 MG TAB PO SCH (15:37)
[2019-11-05] MEDS: ISOSORBIDE MONONITRATE ER 30 MG TAB.ER.24H PO SCH (15:37)
[2019-11-05] MEDS: METOPROLOL TARTRATE 50 MG TAB PO SCH ×2 (15:38→21:09)
[2019-11-05 17:18] LABS: Glucose,Whole Blood 206 mg/dL (75-99)
[2019-11-05 20:29] LABS: Glucose,Whole Blood 147 mg/dL (75-99)
[2019-11-05] MEDS: ATORVASTATIN 10 MG TAB PO SCH (21:10)
[2019-11-05 21:50] LABS: Glucose,Whole Blood 175 mg/dL (75-99)
[2019-11-06] MEDS: HYDROmorphone 1 MG/ML 1 ML SYRINGE IVP PRN ×6 (01:54→21:21)
[2019-11-06 06:59] LABS: Glucose,Whole Blood 160 mg/dL (75-99)
[2019-11-06 07:03] LABS: Basophils % (A) 0 %; Eosinophils % (A) 0 %; HCT 42.8 % (39.0-53.0); Lymphocytes # (A) 1.7 k/uL (1.0-4.8); Lymphocytes % (A) 14 %; MCH 29.4 pg (25.0-35.0); MCHC 32.7 g/dL (31.0-37.0); MCV 90.1 fL (80.0-100.0); Mean Platelet Volume 7.9; Monocytes # (A) 0.6 k/uL (0-1.0); Monocytes % (A) 5 %; Neutrophils # (A) 9.5 k/uL (1.3-7.7); Neutrophils % (A) 79 %; Platelet Count 213 k/uL (150-450); RBC 4.75 m/uL (4.30-5.90); RDW 13.5 % (11.5-15.5)
[2019-11-06 07:18] LABS: ALT 33 U/L (4-49); AST 31 U/L (17-59); African American GFR (CKD) >90 (>60 ml/min/1.73 sqM); Albumin 3.5 g/dL (3.5-5.0); Alkaline Phosphatase 80 U/L (38-126); Anion Gap 7 mmol/L; Blood Urea Nitrogen 11 mg/dL (9-20); Calcium 8.7 mg/dL (8.4-10.2); Carbon Dioxide 30 mmol/L (22-30); Chloride 101 mmol/L (98-107); Glucose 161 mg/dL (74-99); Magnesium 1.9 mg/dL (1.6-2.3); Non-African American GFR(CKD) >90 (>60 ml/min/1.73 sqM); Phosphorus 3.6 mg/dL (2.5-4.5); Potassium 4.2 mmol/L (3.5-5.1); Sodium 138 mmol/L (137-145); Total Bilirubin 0.8 mg/dL (0.2-1.3); Total Protein 6.8 g/dL (6.3-8.2)
[2019-11-06] MEDS: SUCRALFATE 1 GM TAB PO SCH ×4 (07:36→21:21)
[2019-11-06] MEDS: amLODIPine 5 MG TAB PO SCH (07:37)
[2019-11-06] MEDS: METOPROLOL TARTRATE 50 MG TAB PO SCH ×2 (07:37→21:21)
[2019-11-06] MEDS: PANTOPRAZOLE 40 MG TABLET PO SCH (07:37)
[2019-11-06] MEDS: hydrALAZINE HCL 50 MG TAB PO SCH ×2 (07:37→17:32)
[2019-11-06] MEDS: LISINOPRIL 20 MG TAB PO SCH ×2 (07:37→21:21)
[2019-11-06] MEDS: INSULIN ASPART (NovoLOG) 100 UNIT/ML VIAL SQ SCH ×4 (07:38→21:21)
[2019-11-06] MEDS: ISOSORBIDE MONONITRATE ER 30 MG TAB.ER.24H PO SCH (07:38)
[2019-11-06] MEDS: HEPARIN SODIUM,PORCINE 5,000 UNIT/ML 1 ML VIAL SQ SCH ×2 (07:38→17:32)
[2019-11-06] MEDS: ALBUTEROL NEBULIZED 2.5 MG/3 ML INHALATION PRN (08:18)
[2019-11-06] MEDS: ALPRAZolam 0.5 MG TAB PO PRN (10:25)
[2019-11-06 12:14] LABS: Glucose,Whole Blood 172 mg/dL (75-99)
--- NOTE | 2019-11-06 13:54 | P.PN ---
Subjective Progress Note Date: 11/06/19 Principal diagnosis: Acute cholecystitis Patient ambulating in the hallway. Complaining of some gassy pain. White blood cell count 12. Normal liver enzymes. He is afebrile. Objective - Vital Signs Vital signs: Vital Signs Temp 97.4 F L 11/06/19 07:00 Pulse 72 11/06/19 08:30 Resp 16 11/06/19 08:20 BP 162/79 11/06/19 07:00 Pulse Ox 98 11/06/19 07:00 Intake & Output 11/05/19 11/06/19 11/06/19 18:59 06:59 18:59 Intake Total 1920 Output Total 10 Balance 0 Intake: IV 1700 Oral 220 Output: Estimated Blood Loss 10 Other: Voiding Method Toilet Toilet Toilet # Voids 2 2 - Exam Abdomen: Soft, nondistended, incisions clean and dry - Labs CBC & Chem 7: 11/06/19 06:25 11/06/19 06:25 Labs: Abnormal Lab Results - Last 24 Hours (Table) 11/05/19 11/05/19 11/05/19 Range/Units 17:16 20:27 21:48 WBC (3.8-10.6) k/uL Neutrophils # (1.3-7.7) k/uL Glucose (74-99) mg/dL POC Glucose (mg/dL) 206 H 147 H 175 H (75-99) mg/dL 11/06/19 11/06/19 11/06/19 Range/Units 06:25 06:25 06:54 WBC 12.0 H (3.8-10.6) k/uL Neutrophils # 9.5 H (1.3-7.7) k/uL Glucose 161 H (74-99) mg/dL POC Glucose (mg/dL) 160 H (75-99) mg/dL 11/06/19 Range/Units 11:40 WBC (3.8-10.6) k/uL Neutrophils # (1.3-7.7) k/uL Glucose (74-99) mg/dL POC Glucose (mg/dL) 172 H (75-99) mg/dL Assessment and Plan (1) Acute and chronic cholecystitis Narrative/Plan: Ambulation. Add Colace and Mylicon. Continue diet as ordered. Recheck labs tomorrow. Current Visit: Yes Status: Acute Code(s): K81.2 - ACUTE CHOLECYSTITIS WITH CHRONIC CHOLECYSTITIS SNOMED Code(s): 962834126
[2019-11-06] MEDS: SIMETHICONE 80 MG CHEWABLE PO SCH (16:09)
[2019-11-06] MEDS ORDERED: MUPIROCIN 2% OINT 22 GM TUBE TOPICAL PRN (16:26)
--- NOTE | 2019-11-06 16:26 | P.CONS ---
History of Present Illness - Reason for Consult Consult date: 11/06/19 Medical management Requesting physician: Lachelle Simon - Chief Complaint Abdominal pain - History of Present Illness Consultation: This is a 49-year-old patient follows with Dr.l guerrier. Chronic stable medical conditions include obesity, hypertension, GERD, artificial right eye, chronic pulmonary embolism on Xarelto. chronic cardiomyopathy EF 40-45%. Was admitted to the hospital for gallstone pancreatitis. Patient is the hospital about a week ago with abdominal pain, seen by Dr. Haq but because. On anticoagulation was discharged home. Patient was scheduled for surgery on November 05. Patient's right upper quadrant pain became unbearable. And prese nted to ER. Some nausea. No fever no chills. Patient had a robotic-assisted cholecystectomy. Postprocedure feeling better. Some residual pain. Up and about in the hallway. No nausea vomiting.. Review of systems: GEN.: Tired EYES: Artificial right eye HEENT: None NECK: None RESPIRATORY: None CARDIOVASCULAR: None GASTROINTESTINAL: As above GENITOURINARY: None MUSCULOSKELETAL: [Joint pains LYMPHATICS: None HEMATOLOGICAL: None PSYCHIATRY: None NEUROLOGICAL: None Past medical history to include: COPD, morbid obesity, hypertension, artificial right eye, cardiomyopathy EF 40- 45%, secondary pulmonary hypertension, chronic pulmonary embolism on Xarelto, obstructive sleep apnea, cholesteatoma right ear, chronic back pain, gallstone pancreatitis Psych history: Schizoaffective disorder, anxiety Social history: Lives with his significant other, smoking for many years. Family history: Patient is adopted Physical examination: VITAL SIGNS: 97.4, 74, 16, 162/79, 98% room air GENERAL: BMI 66.9, sitting upon a chair, awake EYES: Artificial right eye, left eye is normall. HEENT: External appearance of nose and ears normal, oral cavity grossly normal. NECK: JVD unable to assess masses not palpable. HEART: Heart sounds are distant; minimal edema. LUNGS: Respiratory rate normal; distant breath sounds. ABDOMEN: Soft, mild abdominal tenderness, no guarding rigidity, liver spleen not palpable, no masses palpable. PSYCH: Alert and oriented x3; mood and affect normal. NEUROLOGICAL: Cranial nerves grossly intact; no facial asymmetry, power and sensation grossly intact. -Artificial right eye LYMPHATICS: No lymph nodes palpable in the axilla and neck INVESTIGATIONS, reviewed in the clinical context: White count 12 hemoglobin 14 potassium 4.2 crit is 43 Assessment: -Acute on chronic cholecystitis followed by robotic-assisted cholecystectomy -COPD in a current smoker -Chronic nicotine dependence patient cigarette smoker -Morbid obesity BMI 63.6 -GERD -Essential hypertension -Chronic pulmonary embolism for which patient on Xarelto, currently held -Obstructive sleep apnea does not use CPAP machine and -Chronic cardiomyopathy EF 40% -Hypertensive heart disease -Artificial right eye PLAN: Care was discussed with the patient. Home medications resumed. Accu-Cheks will be followed. Xarelto to be resumed when okay Dr. Haq. Patient has been put on a low fat diet. Oral hypoglycemics will be resumed started this evening. Care was discussed with the patient. Question were answered. Thank you Dr. Haq Past Medical History Past Medical History: Chest Pain / Angina, COPD, Diabetes Mellitus, Deep Vein Thrombosis (DVT), Eye Disorder, GERD/Reflux, Hearing Disorder / Deafness, Hyperlipidemia, Hypertension, Osteoarthritis (OA), Pneumonia, Pulmonary Embolus (PE), Respiratory Disorder, Sleep Apnea/CPAP/BIPAP Additional Past Medical History / Comment(s): NIDDM type II, pt states he has n erve damage that affects bilateral legs/feet, pt treated for TB in the , 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 and the patient underwent a tympanomastoidectomy with tympanoplasty, morbid obesity, obstructive sleep apnea with CPAP, chronic back pain, chronic left knee pain/torn meniscus and bone on bone, 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-pt states he currently has a R eyelid infection, R lower leg DVT and pulmonary embolism pt thinks was on L side, previous history of cellulitis, UTI, History of Any Multi-Drug Resistant Organisms: None Reported Past Surgical History: Ear Surgery, Joint Replacement Additional Past Surgical History / Comment(s): R ear sugically resected/tympanomastoidectomy with tympanoplasty, bilateral myringotomy/tubes, R eye enucleation, R total knee arthroplasty, EGD Past Anesthesia/Blood Transfusion Reactions: No Reported Reaction Past Psychological History: Anxiety, Depression, Schizophrenia Additional Psychological History / Comment(s): Pt resides with his significant other. He uses no assistive device. He has a nebulizer. He drives. Pt states he was diagnosed with schizophrenia as a teen but that no one states this an ymore but does have depression and anxiety. Smoking Status: Former smoker Past Alcohol Use History: None Reported Additional Past Alcohol Use History / Comment(s): Pt started smoking in 1987. States he quit 6 weeks ago. Past Drug Use History: None Reported - Past Family History Father History Unknown: Yes Family Medical History: Unable to Obtain Additional Family Medical History / Comment(s): Patient was adopted Mother Family Medical History: Unable to Obtain, Diabetes Mellitus Additional Family Medical History / Comment(s): Patient was adopted Medications and Allergies Home Medications Medication Instructions Recorded Confirmed Type oxyCODONE HCL [oxyCODONE HCL (IR)] 30 mg PO QID 04/21/14 11/03/19 History ALPRAZolam [Xanax] 0.5 mg PO BID PRN 07/16/18 11/03/19 History Isosorbide Mononitrate ER [Imdur] 30 mg PO DAILY 07/16/18 11/03/19 History hydrALAZINE HCL [Apresoline] 100 mg PO TID 07/16/18 11/03/19 History Rivaroxaban [Xarelto] 15 mg PO BID 02/01/19 11/03/19 History glipiZIDE XL [Glucotrol XL] 10 mg PO DAILY 02/01/19 11/03/19 History Albuterol Nebulized [Ventolin 2.5 mg INHALATION RT-QID PRN 09/21/19 11/03/19 History Nebulized] Ergocalciferol [Vitamin D2 50,000 unit PO SA 09/21/19 11/03/19 History (DRISDOL)] Fluticasone/Salmeterol 1 puff INHALATION RT-BID PRN 09/21/19 11/03/19 History [Fluticasone-Salmeterol 113-14] Ipratropium Nebulized [Atrovent 0.5 mg INHALATION RT-QID PRN 09/21/19 11/03/19 History Nebulized 0.2 MG/ML] Lisinopril 40 mg PO BID 09/21/19 11/03/19 History Metoprolol Tartrate [Lopressor] 50 mg PO BID 09/21/19 11/03/19 History Mupirocin 2% Oint [Bactroban 2% 1 applic TOPICAL TID PRN 09/21/19 11/03/19 History Oint] Pseudoephedrine 12Hr [Sudafed 12 120 mg PO Q12H PRN 09/21/19 11/03/19 History Hour] Pantoprazole [Protonix] 40 mg PO DAILY #30 tablet. 09/28/19 11/03/19 Rx Atorvastatin [Lipitor] 10 mg PO HS 10/30/19 11/03/19 History Omeprazole 40 mg PO DAILY 10/30/19 11/03/19 History Sucralfate [Carafate] 1 gm PO ACHS 10/30/19 11/03/19 History glipiZIDE XL [Glucotrol XL] 5 mg PO HS 10/30/19 11/03/19 History amLODIPine [Norvasc] 5 mg PO DAILY 11/03/19 11/03/19 History Allergies Allergy/AdvReac Type Severity Reaction Status Date / Time cyclobenzaprine HCl Allergy Itching Verified 11/05/19 07:43 [From Flexeril] ibuprofen [From Motrin] AdvReac Nausea Verified 11/05/19 07:43 Physical Exam Vitals: Vital Signs Temp Pulse Pulse Resp BP Pulse Ox 11/06/19 08:30 72 11/06/19 08:21 76 11/06/19 08:20 74 16 11/06/19 07:00 97.4 F L 74 16 162/79 98 11/06/19 04:00 20 11/06/19 02:37 98.8 F 69 16 124/71 95 11/05/19 21:20 75 11/05/19 21:08 75 11/05/19 18:59 98.8 F 80 16 151/76 91 L 11/05/19 16:00 80 16 11/05/19 14:15 80 178/70 11/05/19 14:14 79 127/86 11/05/19 12:45 97.9 F 76 12 163/78 94 L 11/05/19 12:20 80 18 160/72 94 L 11/05/19 12:00 80 18 160/70 94 L 11/05/19 11:45 78 20 175/79 95 11/05/19 11:34 98.7 F 78 20 184/77 96 Intake and Output 11/05/19 11/06/19 11/06/19 22:59 06:59 14:59 Other: Voiding Method Toilet Toilet # Voids 2 Results CBC & Chem 7: 11/06/19 06:25 11/06/19 06:25 Labs: Abnormal Lab Results - Last 24 Hours (Table) 11/05/19 11/05/19 11/05/19 Range/Units 12:34 17:16 20:27 WBC (3.8-10.6) k/uL Neutrophils # (1.3-7.7) k/uL Glucose (74-99) mg/dL POC Glucose (mg/dL) 191 H 206 H 147 H (75-99) mg/dL 11/05/19 11/06/19 11/06/19 Range/Units 21:48 06:25 06:25 WBC 12.0 H (3.8-10.6) k/uL Neutrophils # 9.5 H (1.3-7.7) k/uL Glucose 161 H (74-99) mg/dL POC Glucose (mg/dL) 175 H (75-99) mg/dL 11/06/19 Range/Units 06:54 WBC (3.8-10.6) k/uL Neutrophils # (1.3-7.7) k/uL Glucose (74-99) mg/dL POC Glucose (mg/dL) 160 H (75-99) mg/dL
[2019-11-06 17:09] LABS: Glucose,Whole Blood 114 mg/dL (75-99)
[2019-11-06 21:05] LABS: Glucose,Whole Blood 173 mg/dL (75-99)
[2019-11-06] MEDS: DOCUSATE 100 MG CAP PO PRN (21:20)
[2019-11-06] MEDS: ATORVASTATIN 10 MG TAB PO SCH (21:21)
[2019-11-06] MEDS: glipiZIDE 5 MG TAB PO SCH (21:21)
[2019-11-07] MEDS: hydrALAZINE HCL 50 MG TAB PO SCH ×4 (00:27→21:21)
[2019-11-07] MEDS: SIMETHICONE 80 MG CHEWABLE PO SCH ×2 (00:28→09:29)
[2019-11-07] MEDS: HEPARIN SODIUM,PORCINE 5,000 UNIT/ML 1 ML VIAL SQ SCH ×3 (00:28→15:21)
[2019-11-07] MEDS: HYDROmorphone 1 MG/ML 1 ML SYRINGE IVP PRN ×5 (00:28→22:30)
[2019-11-07 06:52] LABS: Basophils # (A) 0.1 k/uL (0-0.2); Basophils % (A) 1 %; Eosinophils # (A) 0.1 k/uL (0-0.7); Eosinophils % (A) 1 %; HCT 43.2 % (39.0-53.0); Lymphocytes # (A) 2.2 k/uL (1.0-4.8); Lymphocytes % (A) 20 %; MCH 29.1 pg (25.0-35.0); MCHC 32.4 g/dL (31.0-37.0); MCV 89.8 fL (80.0-100.0); Mean Platelet Volume 7.6; Monocytes # (A) 0.6 k/uL (0-1.0); Monocytes % (A) 5 %; Neutrophils # (A) 7.7 k/uL (1.3-7.7); Neutrophils % (A) 72 %; Platelet Count 222 k/uL (150-450); RBC 4.81 m/uL (4.30-5.90); RDW 13.6 % (11.5-15.5); WBC 10.7 k/uL (3.8-10.6)
[2019-11-07 07:00] LABS: Glucose,Whole Blood 149 mg/dL (75-99)
[2019-11-07 07:04] LABS: ALT 29 U/L (4-49); AST 26 U/L (17-59); African American GFR (CKD) >90 (>60 ml/min/1.73 sqM); Albumin 3.3 g/dL (3.5-5.0); Alkaline Phosphatase 77 U/L (38-126); Anion Gap 6 mmol/L; Blood Urea Nitrogen 12 mg/dL (9-20); Calcium 8.7 mg/dL (8.4-10.2); Carbon Dioxide 32 mmol/L (22-30); Chloride 101 mmol/L (98-107); Glucose 164 mg/dL (74-99); Non-African American GFR(CKD) >90 (>60 ml/min/1.73 sqM); Potassium 3.8 mmol/L (3.5-5.1); Sodium 139 mmol/L (137-145); Total Protein 6.4 g/dL (6.3-8.2)
[2019-11-07] MEDS ORDERED: NON FORMULARY DRUG (Omeprazole [Omeprazole] 40 MG) PO SCH (09:00)
[2019-11-07] MEDS: INSULIN ASPART (NovoLOG) 100 UNIT/ML VIAL SQ SCH ×4 (09:26→20:44)
[2019-11-07] MEDS: LISINOPRIL 20 MG TAB PO SCH ×2 (09:28→20:43)
[2019-11-07] MEDS: ISOSORBIDE MONONITRATE ER 30 MG TAB.ER.24H PO SCH (09:28)
[2019-11-07] MEDS: PANTOPRAZOLE 40 MG TABLET PO SCH (09:28)
[2019-11-07] MEDS: METOPROLOL TARTRATE 50 MG TAB PO SCH ×2 (09:29→20:43)
[2019-11-07] MEDS: SUCRALFATE 1 GM TAB PO SCH ×4 (09:29→20:44)
[2019-11-07] MEDS: amLODIPine 5 MG TAB PO SCH (09:29)
[2019-11-07] MEDS: glipiZIDE 10 MG TAB PO SCH (09:29)
--- NOTE | 2019-11-07 09:42 | P.PN ---
Subjective Progress Note Date: 11/07/19 Principal diagnosis: Acute cholecystitis Patient doing better today. Pain is improved. White blood cell count was normal. Liver enzymes normal. Objective - Vital Signs Vital signs: Vital Signs Temp 98.4 F 11/07/19 07:54 Pulse 89 11/07/19 07:54 Resp 18 11/07/19 07:54 BP 147/81 11/07/19 07:54 Pulse Ox 93 L 11/07/19 07:54 Intake & Output 11/06/19 11/07/19 11/07/19 18:59 06:59 18:59 Intake Total 480 150 110 Balance 480 150 110 Intake: Oral 480 150 110 Other: Voiding Method Toilet Toilet # Voids 2 2 - Exam Abdomen: Soft, mild incisional tenderness, dressings clean dry - Labs CBC & Chem 7: 11/07/19 06:20 11/07/19 06:20 Labs: Abnormal Lab Results - Last 24 Hours (Table) 11/06/19 11/06/19 11/06/19 Range/Units 11:40 16:49 21:02 WBC (3.8-10.6) k/uL Carbon Dioxide (22-30) mmol/L Glucose (74-99) mg/dL POC Glucose (mg/dL) 172 H 114 H 173 H (75-99) mg/dL Albumin (3.5-5.0) g/dL 11/07/19 11/07/19 11/07/19 Range/Units 06:20 06:20 06:58 WBC 10.7 H (3.8-10.6) k/uL Carbon Dioxide 32 H (22-30) mmol/L Glucose 164 H (74-99) mg/dL POC Glucose (mg/dL) 149 H (75-99) mg/dL Albumin 3.3 L (3.5-5.0) g/dL Assessment and Plan (1) Acute and chronic cholecystitis Narrative/Plan: Patient overall doing well. Continue increasing activity. Low-fat diet. Current Visit: Yes Status: Acute Code(s): K81.2 - ACUTE CHOLECYSTITIS WITH CHRONIC CHOLECYSTITIS SNOMED Code(s): 961034740
[2019-11-07] MEDS: DOCUSATE 100 MG CAP PO PRN (10:32)
[2019-11-07 12:12] LABS: Glucose,Whole Blood 106 mg/dL (75-99)
[2019-11-07] MEDS: SIMETHICONE 40 MG/0.6 ML DROPS 2,000 MG/30 ML BOTTLE PO SCH ×4 (14:52→21:21)
[2019-11-07 16:54] LABS: Glucose,Whole Blood 140 mg/dL (75-99)
[2019-11-07 20:36] LABS: Glucose,Whole Blood 177 mg/dL (75-99)
[2019-11-07] MEDS: ATORVASTATIN 10 MG TAB PO SCH (20:43)
[2019-11-07] MEDS: glipiZIDE 5 MG TAB PO SCH (20:44)
--- NOTE | 2019-11-07 21:55 | P.PN ---
Progress Note - Text Progress Note Date: 11/07/19 - Chief Complaint Abdominal pain history of presenting complaint: This is a 49-year-old patient follows with Dr.l guerrier. Chronic stable medical conditions include obesity, hypertension, GERD, artificial right eye, chronic pulmonary embolism on Xarelto. chronic cardiomyopathy EF 40-45%. Was admitted to the hospital for gallstone pancreatitis. Patient is the hospital about a week ago with abdominal pain, seen by Dr. Haq but because On anticoagulation was discharged home. Patient was scheduled for surgery on November 05. presented with right upper quadrant pain became unbearable. And presented to ER. Some nausea. No fever no chills. Hospital course: Patient had a robotic-assisted cholecystectomy. Today-sitting up. Did vomit last night. No flatus. Patient has been getting IV Dilaudid. No bowel movement. Has been up in the hallway. Review of systems: Was done for constitutional, cardiovascular, GI, pulmonary. relevant finding as above Active Medications Albuterol Sulfate (Ventolin Nebulized) 2.5 mg INHALATION RT-QID PRN PRN Reason: Shortness Of Breath Last Admin: 11/06/19 08:18 Dose: 2.5 mg Documented by: Alprazolam (Xanax) 0.5 mg PO BID PRN PRN Reason: Anxiety Last Admin: 11/06/19 10:25 Dose: 0.5 mg Documented by: Amlodipine Besylate (Norvasc) 5 mg PO DAILY [facility] Last Admin: 11/07/19 09:29 Dose: 5 mg Documented by: Atorvastatin Calcium (Lipitor) 10 mg PO [facility] Last Admin: 11/07/19 20:43 Dose: 10 mg Documented by: Budesonide/Formoterol Fumarate (Symbicort 160-4.5 Mcg Inhaler) 1 puff INHALATION RT-BID PRN PRN Reason: Shortness Of Breath Last Admin: 11/06/19 08:18 Dose: 1 puff Documented by: Docusate Sodium (Colace) 100 mg PO DAILY PRN PRN Reason: Constipation Last Admin: 11/07/19 10:32 Dose: 100 mg Documented by: Glipizide (Glucotrol) 5 mg PO [facility] Last Admin: 11/07/19 20:44 Dose: 5 mg Documented by: Glipizide (Glucotrol) 10 mg PO [facility] Last Admin: 11/07/19 09:29 Dose: 10 mg Documented by: Heparin Sodium (Porcine) (Heparin) 5,000 unit SQ Q8HR [facility] Last Admin: 11/07/19 15:21 Dose: 5,000 unit Documented by: Hydralazine HCl (Apresoline) 100 mg PO TID [facility] Last Admin: 11/07/19 21:21 Dose: 100 mg Documented by: Hydromorphone HCl (Dilaudid) 1 mg IVP Q3HR PRN PRN Reason: Moderate Pain Last Admin: 11/07/19 10:31 Dose: 1 mg Documented by: Insulin Aspart (Novolog) [address] [facility]; Protocol Last Admin: 11/07/19 20:44 Dose: 4 unit Documented by: Ipratropium [place] (Atrovent Nebulized) 0.5 mg INHALATION RT-QID PRN PRN Reason: Shortness Of Breath Isosorbide Mononitrate (Imdur) 30 mg PO DAILY [facility] Last Admin: 11/07/19 09:28 Dose: 30 mg Documented by: Lisinopril (Zestril) 40 mg PO BID [facility] Last Admin: 11/07/19 20:43 Dose: 40 mg Documented by: Metoprolol Tartrate (Lopressor) 50 mg PO BID [facility] Last Admin: 11/07/19 20:43 Dose: 50 mg Documented by: Mupirocin (Bactroban Oint) 1 applic TOPICAL TID PRN PRN Reason: Rash Naloxone HCl (Narcan) 0.2 mg IV Q2M PRN PRN Reason: Opioid Reversal Ondansetron HCl (Zofran) 4 mg IVP Q8HR PRN PRN Reason: Nausea And Vomiting Last Admin: 11/06/19 23:10 Dose: 4 mg Documented by: Oxycodone HCl (Oxyir) 30 mg PO QID [facility] Last Admin: 11/07/19 21:21 Dose: 30 mg Documented by: Pantoprazole Sodium (Protonix) 40 mg PO [facility] Last Admin: 11/07/19 09:28 Dose: 40 mg Documented by: Simethicone (Mylicon Drops) 40 mg PO QID [facility] Last Admin: 11/07/19 21:21 Dose: 40 mg Documented by: Sucralfate (Carafate) 1 gm PO [facility] Last Admin: 11/07/19 20:44 Dose: Not Given Documented by: Physical examination: VITAL SIGNS: 98.4, 74, 18, 112/69, 92% on room air GENERAL: sitting up, a bit tired EYES: Artificial right eye, left eye is normal. HEENT: External appearance of nose and ears normal, oral cavity grossly normal. NECK: JVD unable to assess masses not palpable. HEART: Heart sounds are distant; minimal edema. LUNGS: Respiratory rate normal; distant breath sounds. ABDOMEN: Soft, mild abdominal tenderness, no guarding rigidity, liver spleen not palpable, no masses palpable. PSYCH: Alert and oriented x3; mood and affect anxious INVESTIGATIONS, reviewed in the clinical context: White count 10.7 hemoglobin 14 potassium 3.8 creatinine 0.71 Previous testing White count 12 hemoglobin 14 potassium 4.2 crit is 43 Assessment: -Postprocedure vomiting with abdominal pain. Could be a side effect of narcotics. Abdominal examination otherwise relatively benign -Acute on chronic cholecystitis followed by robotic-assisted cholecystectomy -COPD in a current smoker -Chronic nicotine dependence patient cigarette smoker -Morbid obesity BMI 63.6 -GERD -Essential hypertension -Chronic pulmonary embolism for which patient on Xarelto, currently held -Obstructive sleep apnea does not use CPAP machine and -Chronic cardiomyopathy EF 40% -Hypertensive heart disease -Artificial right eye PLAN: suggest to cut back on narcotics. Patient2 ambulate. IV fluids. Other medications to continue. resume Xarelto if okay with surgery. Discussed with patient. Thank you Dr. Haq
[2019-11-07] MEDS: LACTATED RINGERS 1,000 ML IV SCH ×2 (22:29→22:40)
[2019-11-07] MEDS: ALPRAZolam 0.5 MG TAB PO PRN (22:30)
[2019-11-08] MEDS: HEPARIN SODIUM,PORCINE 5,000 UNIT/ML 1 ML VIAL SQ SCH ×2 (00:33→08:22)
[2019-11-08] MEDS: HYDROmorphone 1 MG/ML 1 ML SYRINGE IVP PRN ×2 (02:34→08:23)
[2019-11-08 06:56] LABS: Glucose,Whole Blood 146 mg/dL (75-99)
[2019-11-08 07:54] VITALS: PULSE 76
[2019-11-08] MEDS: SIMETHICONE 40 MG/0.6 ML DROPS 2,000 MG/30 ML BOTTLE PO SCH ×2 (08:23→12:39)
[2019-11-08] MEDS: INSULIN ASPART (NovoLOG) 100 UNIT/ML VIAL SQ SCH ×2 (08:23→12:10)
[2019-11-08] MEDS: hydrALAZINE HCL 50 MG TAB PO SCH (08:24)
[2019-11-08] MEDS: LISINOPRIL 20 MG TAB PO SCH (08:24)
[2019-11-08] MEDS: amLODIPine 5 MG TAB PO SCH (08:25)
[2019-11-08] MEDS: ISOSORBIDE MONONITRATE ER 30 MG TAB.ER.24H PO SCH (08:25)
[2019-11-08] MEDS: PANTOPRAZOLE 40 MG TABLET PO SCH (08:25)
[2019-11-08] MEDS: METOPROLOL TARTRATE 50 MG TAB PO SCH (08:25)
[2019-11-08] MEDS: glipiZIDE 10 MG TAB PO SCH (08:25)
[2019-11-08] MEDS: SUCRALFATE 1 GM TAB PO SCH ×2 (08:25→12:39)
[2019-11-08] MEDS ORDERED: MAGNESIUM HYDROXIDE 2,400 MG/10 ML CUP PO ONE (08:29)
[2019-11-08 09:10] LABS: Basophils # (A) 0.1 k/uL (0-0.2); Basophils % (A) 1 %; Eosinophils # (A) 0.3 k/uL (0-0.7); Eosinophils % (A) 3 %; HCT 42.8 % (39.0-53.0); HGB 13.9 gm/dL (13.0-17.5); Lymphocytes # (A) 2.7 k/uL (1.0-4.8); Lymphocytes % (A) 32 %; MCH 29.3 pg (25.0-35.0); MCHC 32.4 g/dL (31.0-37.0); MCV 90.6 fL (80.0-100.0); Mean Platelet Volume 7.9; Monocytes # (A) 0.5 k/uL (0-1.0); Monocytes % (A) 5 %; Neutrophils # (A) 4.7 k/uL (1.3-7.7); Neutrophils % (A) 57 %; Platelet Count 208 k/uL (150-450); RBC 4.73 m/uL (4.30-5.90); RDW 13.6 % (11.5-15.5); WBC 8.4 k/uL (3.8-10.6)
[2019-11-08 09:27] LABS: ALT 25 U/L (4-49); AST 25 U/L (17-59); African American GFR (CKD) >90 (>60 ml/min/1.73 sqM); Albumin 3.4 g/dL (3.5-5.0); Alkaline Phosphatase 80 U/L (38-126); Anion Gap 6 mmol/L; Blood Urea Nitrogen 11 mg/dL (9-20); Calcium 8.5 mg/dL (8.4-10.2); Carbon Dioxide 34 mmol/L (22-30); Chloride 99 mmol/L (98-107); Glucose 142 mg/dL (74-99); Non-African American GFR(CKD) >90 (>60 ml/min/1.73 sqM); Potassium 3.6 mmol/L (3.5-5.1); Sodium 139 mmol/L (137-145); Total Bilirubin 1.2 mg/dL (0.2-1.3); Total Protein 6.5 g/dL (6.3-8.2)
--- NOTE | 2019-11-08 10:40 | P.DS ---
Providers Date of admission: 11/05/19 11:25 Expected date of discharge: 11/08/19 Attending physician: Lachelle Simon Consults: 11/05/19 11:43 Consult Physician Routine Consulting Provider: Jonathan Barton Consult Reason/Comments: Medical management Do you want consulting provider notified?: Yes Primary care physician: Marian Bradford [facility] Course: 49-year-old male presents to emergency room with a chief complaint of abdominal pain. Patient was originally scheduled for outpatient cholecystectomy tomorrow 11/05/[address] Simon. Patient states he began having abdominal pain yesterday 11/03/2019 that was too severe to wait so he came to the emergency room for further evaluation. Patient underwent robotic-assisted laparoscopic lysis of adhesions and cholecystectomy with Dr. Simon in 11/05/2019. Patient is doing well postoperatively without any immediate complications. He is tolerating diet without nausea or vomiting. Pain is controlled on oral medications. Vital signs are stable. He is stable for discharge home today. Please see EMR for further hospital course details. Discharge Diagnosis: 1. Acute on chronic cholecystitis 2. History of gallstone pancreatitis with right upper quadrant abdominal pain 3. Super morbid obesity, BMI 66.9 4. Diabetes type 2, [id number] 5. Severe obstructive sleep apnea 6. Congestive heart failure, chronic diastolic dysfunction 7. Hyperlipidemia 8. Gastroesophageal reflux disease 9. Chronic pain syndrome 10. History of multiple pulmonary embolisms 11. Chronic anticoagulation 12. History of right eye enucleation 13. Peritoneal adhesions, right upper quadrant pericholecystic 14. Hydrops cholecystitis Nurse practitioner note has been reviewed by physician. Signing provider agrees with the documented findings, assessment, and plan of care. Patient Condition at Discharge: Stable Plan - Discharge Summary Discharge Rx Participant: Yes New Discharge Prescriptions: Continue oxyCODONE HCL [oxyCODONE HCL (IR)] 30 mg PO QID Isosorbide Mononitrate ER [Imdur] 30 mg PO DAILY ALPRAZolam [Xanax] 0.5 mg PO BID PRN PRN Reason: Anxiety hydrALAZINE HCL [Apresoline] 100 mg PO TID glipiZIDE XL [Glucotrol XL] 10 mg PO DAILY Rivaroxaban [Xarelto] 15 mg PO BID Ergocalciferol [Vitamin D2 (DRISDOL)] 50,000 unit PO SA Pseudoephedrine 12Hr [Sudafed 12 Hour] 120 mg PO Q12H PRN PRN Reason: Congestion Mupirocin 2% Oint [Bactroban 2% Oint] 1 applic TOPICAL TID PRN PRN Reason: Rash Metoprolol Tartrate [Lopressor] 50 mg PO BID Lisinopril 40 mg PO BID Ipratropium Nebulized [Atrovent Nebulized 0.2 MG/ML] 0.5 mg INHALATION RT-QID PRN PRN Reason: Shortness Of Breath Fluticasone/Salmeterol [Fluticasone-Salmeterol 113-14] 1 puff INHALATION RT- BID PRN PRN Reason: Shortness Of Breath Albuterol Nebulized [Ventolin Nebulized] 2.5 mg INHALATION RT-QID PRN PRN Reason: Shortness Of Breath Pantoprazole [Protonix] 40 mg PO DAILY #30 tablet.dr Atorvastatin [Lipitor] 10 mg PO HS Omeprazole 40 mg PO DAILY Sucralfate [Carafate] 1 gm PO ACHS glipiZIDE XL [Glucotrol XL] 5 mg PO HS amLODIPine [Norvasc] 5 mg PO DAILY Discharge Medication List oxyCODONE HCL [oxyCODONE HCL (IR)] 30 mg PO QID 04/21/14 [History] ALPRAZolam [Xanax] 0.5 mg PO BID PRN 07/16/18 [History] Isosorbide Mononitrate ER [Imdur] 30 mg PO DAILY 07/16/18 [History] hydrALAZINE HCL [Apresoline] 100 mg PO TID 07/16/18 [History] Rivaroxaban [Xarelto] 15 mg PO BID 02/01/19 [History] glipiZIDE XL [Glucotrol XL] 10 mg PO DAILY 02/01/19 [History] Albuterol Nebulized [Ventolin Nebulized] 2.5 mg INHALATION RT-QID PRN 09/21/19 [History] Ergocalciferol [Vitamin D2 (DRISDOL)] 50,000 unit PO SA 09/21/19 [History] Fluticasone/Salmeterol [Fluticasone-Salmeterol 113-14] 1 puff INHALATION RT-BID PRN 09/21/19 [History] Ipratropium Nebulized [Atrovent Nebulized 0.2 MG/ML] 0.5 mg INHALATION RT-QID PRN 09/21/19 [History] Lisinopril 40 mg PO BID 09/21/19 [History] Metoprolol Tartrate [Lopressor] 50 mg PO BID 09/21/19 [History] Mupirocin 2% Oint [Bactroban 2% Oint] 1 applic TOPICAL TID PRN 09/21/19 [History] Pseudoephedrine 12Hr [Sudafed 12 Hour] 120 mg PO Q12H PRN 09/21/19 [History] Pantoprazole [Protonix] 40 mg PO DAILY #30 tablet.dr 09/28/19 [Rx] Atorvastatin [Lipitor] 10 mg PO HS 10/30/19 [History] Omeprazole 40 mg PO DAILY 10/30/19 [History] Sucralfate [Carafate] 1 gm PO ACHS 10/30/19 [History] glipiZIDE XL [Glucotrol XL] 5 mg PO HS 10/30/19 [History] amLODIPine [Norvasc] 5 mg PO DAILY 11/03/19 [History] Follow up Appointment(s)/Referral(s): Lachelle Simon MD [STAFF PHYSICIAN] - 1 Week Marian Bradford MD [Primary Care Provider] - 1-2 days
[2019-11-08 11:33] LABS: Glucose,Whole Blood 114 mg/dL (75-99)
[2019-11-08] MEDS: LACTATED RINGERS 1,000 ML IV SCH (12:11)
[2019-11-08 15:09] VITALS: BP 175/80; RESP 16; TEMP 97.4
--- NOTE | 2019-11-08 21:48 | P.PN ---
Progress Note - Text Progress Note Date: 11/08/19 - Chief Complaint Abdominal pain history of presenting complaint: This is a 49-year-old patient follows with Dr.l guerrier. Chronic stable medical conditions include obesity, hypertension, GERD, artificial right eye, chronic pulmonary embolism on Xarelto. chronic cardiomyopathy EF 40-45%. Was admitted to the hospital for gallstone pancreatitis. Patient is the hospital about a week ago with abdominal pain, seen by Dr. Haq but because On anticoagulation was discharged home. Patient was scheduled for surgery on November 05. presented with right upper quadrant pain became unbearable. And presented to ER. Some nausea. No fever no chills. Hospital course: Patient had a robotic-assisted cholecystectomy. Today-very well. Pain well controlled. Has not had a bowel movement. Up and about.. Review of systems: Was done for constitutional, cardiovascular, GI, pulmonary. relevant finding as above Current medications reviewed in today's electronic records Physical examination: VITAL SIGNS: 97.9, 76, 18, 150/77, 90% on room air GENERAL: sitting up, comfortable EYES: Artificial right eye, left eye is normal. HEENT: External appearance of nose and ears normal, oral cavity grossly normal. NECK: JVD unable to assess masses not palpable. HEART: Heart sounds are distant; minimal edema. LUNGS: Respiratory rate normal; distant breath sounds. ABDOMEN: Soft, minimal abdominal tenderness, no guarding rigidity, liver spleen not palpable, no masses palpable. PSYCH: Alert and oriented x3; mood and affect anxious INVESTIGATIONS, reviewed in the clinical context: White count 8.4 hemoglobin 13.9 potassium 3.6 creatinine 0.74 Previous testing White count 12 hemoglobin 14 potassium 4.2 crit is 43 Assessment: -Acute on chronic cholecystitis followed by robotic-assisted cholecystectomy -COPD in a current smoker -Chronic nicotine dependence patient cigarette smoker -Morbid obesity BMI 63.6 -GERD -Essential hypertension -Chronic pulmonary embolism for which patient on Xarelto, currently held -Obstructive sleep apnea does not use CPAP machine and -Chronic cardiomyopathy EF 40% -Hypertensive heart disease -Artificial right eye PLAN: Care was discussed the patient. Oral looking much better. Anticoagulation. Resume if okay with surgery. Thank you Dr. Haq
== END 2019-11-08 16:01 | disposition still patient (30) | DRG 418 ==
LOC: EC 18:18 → 4SSUR 22:30 → OBSVTOIN 11-05 11:25
PROVIDERS: ADMIT Surgery Plastic and Reconstructive Surgery; ATTEND Surgery Plastic and Reconstructive Surgery
PROC: 0FT44ZZ Resection of Gallbladder, Percutaneous Endoscopic Approach (ICD-10-PCS; principal; 2019-11-05 08:30)
PROC: 8E0W4CZ Robotic Assisted Procedure of Trunk Region, Percutaneous Endoscopic Approach (ICD-10-PCS; principal; 2019-11-05 08:30)
PROC: 0FN44ZZ Release Gallbladder, Percutaneous Endoscopic Approach (ICD-10-PCS; principal; 2019-11-05 08:30)
DX: K80.12 Calculus of gallbladder with acute and chronic cholecystitis without obstruction (principal); I50.32 Chronic diastolic (congestive) heart failure; I42.9 Cardiomyopathy, unspecified; Z68.44 Body mass index [BMI] 60.0-69.9, adult; K82.1 Hydrops of gallbladder; I27.82 Chronic pulmonary embolism; K21.9 Gastro-esophageal reflux disease without esophagitis; E11.9 Type 2 diabetes mellitus without complications; E66.01 Morbid (severe) obesity due to excess calories; E78.5 Hyperlipidemia, unspecified; H91.90 Unspecified hearing loss, unspecified ear; K66.0 Peritoneal adhesions (postprocedural) (postinfection); F32.9 Major depressive disorder, single episode, unspecified; F17.210 Nicotine dependence, cigarettes, uncomplicated; F41.9 Anxiety disorder, unspecified; G89.4 Chronic pain syndrome; G47.33 Obstructive sleep apnea (adult) (pediatric); I11.0 Hypertensive heart disease with heart failure; Z96.651 Presence of right artificial knee joint; R63.3 Feeding difficulties; M19.90 Unspecified osteoarthritis, unspecified site; J44.9 Chronic obstructive pulmonary disease, unspecified; Z79.01 Long term (current) use of anticoagulants; Z79.84 Long term (current) use of oral hypoglycemic drugs; Z79.899 Other long term (current) drug therapy; Z83.3 Family history of diabetes mellitus; Z86.718 Personal history of other venous thrombosis and embolism; Z88.8 Allergy status to other drugs, medicaments and biological substances; Z99.89 Dependence on other enabling machines and devices; Z97.0 Presence of artificial eye
CPT/HCPCS: 36415; 80053; 81003; 82150; 83605; 83690; 83735; 84100; 85025; 88304; 94640; 96361; 96374; 96376; 99285

== ENCOUNTER 2019-12-02 16:01 | Emergency (ER) | payer OTHER ==
[2019-12-02 16:06] VITALS: PULSE 78; RESP 16; TEMP 97.5
[2019-12-02] MEDS ORDERED: cefTRIAXone IN SWFI 1,000 MG/10 ML SYRINGE IVP STA (16:23)
[2019-12-02] MEDS ORDERED: SODIUM CHLORIDE 0.9% 500 ML 500 ML IV ONE (16:24)
[2019-12-02 16:52] LABS: Basophils % (A) 1 %; Eosinophils # (A) 0.4 k/uL (0-0.7); Eosinophils % (A) 4 %; HGB 15.4 gm/dL (13.0-17.5); Lymphocytes # (A) 2.4 k/uL (1.0-4.8); Lymphocytes % (A) 27 %; MCH 29.7 pg (25.0-35.0); MCHC 33.5 g/dL (31.0-37.0); MCV 88.6 fL (80.0-100.0); Mean Platelet Volume 9.2; Monocytes # (A) 0.4 k/uL (0-1.0); Monocytes % (A) 5 %; Neutrophils # (A) 5.5 k/uL (1.3-7.7); Neutrophils % (A) 62 %; Platelet Count 123 k/uL (150-450); RBC 5.19 m/uL (4.30-5.90); RDW 13.3 % (11.5-15.5); WBC 8.9 k/uL (3.8-10.6)
--- NOTE | 2019-12-02 16:57 | ED ---
Wound/Laceration HPI - General Chief Complaint: Wound/Laceration Stated Complaint: Infection Time Seen by Provider: 12/02/19 16:07 Source: patient Mode of arrival: ambulatory Limitations: no limitations - History of Present Illness Initial Comments: 49-year-old male hx of DM, HTN presenting today for chief complaint of possible surgical incision infection. Patient states that he has had delayed healing of the 2 small incisions from a laparoscopic gallbladder removal approximately one month ago. Patient states that it seemed to be healing slowly and now there is some clear drainage and some yellowing of the skin near it. He states he has redness where he is applied the tape believes he is ALLERGIC to due to the redness when tape is removd. Patient denies any fevers, or abdominal pain, denies purulent drainage. Denies increasing pain at the incision site. Patient does state that he has seen his surgeon within the last 2 weeks but states he was told to apply a topical ointment and peroxide. Patient is a type II diabetic on metformin. Patient states he is not a smoker. Patient denies any other complaints, denies leg swelling, chest pain or SOB. Remaining ROS (-). Upon arrival patient appears well, BP noted to be elevated otherwise patient afebrile, with no tachycardia. - Related Data Home Medications Medication Instructions Recorded Confirmed oxyCODONE HCL [oxyCODONE HCL (IR)] 30 mg PO QID 04/21/14 11/03/19 ALPRAZolam [Xanax] 0.5 mg PO BID PRN 07/16/18 11/03/19 Isosorbide Mononitrate ER [Imdur] 30 mg PO DAILY 07/16/18 11/03/19 hydrALAZINE HCL [Apresoline] 100 mg PO TID 07/16/18 11/03/19 Rivaroxaban [Xarelto] 15 mg PO BID 02/01/19 11/03/19 glipiZIDE XL [Glucotrol XL] 10 mg PO DAILY 02/01/19 11/03/19 Albuterol Nebulized [Ventolin 2.5 mg INHALATION RT-QID PRN 09/21/19 11/03/19 Nebulized] Ergocalciferol [Vitamin D2 50,000 unit PO SA 09/21/19 11/03/19 (DRISDOL)] Fluticasone/Salmeterol 1 puff INHALATION RT-BID PRN 09/21/19 11/03/19 [Fluticasone-Salmeterol 113-14] Ipratropium Nebulized [Atrovent 0.5 mg INHALATION RT-QID PRN 09/21/19 11/03/19 Nebulized 0.2 MG/ML] Lisinopril 40 mg PO BID 09/21/19 11/03/19 Metoprolol Tartrate [Lopressor] 50 mg PO BID 09/21/19 11/03/19 Mupirocin 2% Oint [Bactroban 2% 1 applic TOPICAL TID PRN 09/21/19 11/03/19 Oint] Pseudoephedrine 12Hr [Sudafed 12 120 mg PO Q12H PRN 09/21/19 11/03/19 Hour] Atorvastatin [Lipitor] 10 mg PO HS 10/30/19 11/03/19 Omeprazole 40 mg PO DAILY 10/30/19 11/03/19 Sucralfate [Carafate] 1 gm PO ACHS 10/30/19 11/03/19 glipiZIDE XL [Glucotrol XL] 5 mg PO HS 10/30/19 11/03/19 amLODIPine [Norvasc] 5 mg PO DAILY 11/03/19 11/03/19 Previous Rx's Medication Instructions Recorded Pantoprazole [Protonix] 40 mg PO DAILY #30 tablet. 09/28/19 Psyllium Husk (with Sugar) 0 gm PO Q48H #30 gm 11/08/19 [Metamucil Powder] Cephalexin [Keflex] 500 mg PO Q6HR 7 Days #28 cap 12/02/19 Allergies Allergy/AdvReac Type Severity Reaction Status Date / Time cyclobenzaprine HCl Allergy Itching Verified 12/02/19 16:06 [From Flexeril] ibuprofen [From Motrin] AdvReac Nausea Verified 12/02/19 16:06 Review of Systems ROS Statement: Those systems with pertinent positive or pertinent negative responses have been documented in the HPI. ROS Other: All systems not noted in ROS Statement are negative. 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 and the patient underwent a tympanomastoidectomy with tympanoplasty, morbid obesity, obstructive sleep apnea with CPAP, chronic back pain, chronic left knee pain/torn meniscus and bone on bone, 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-pt states he currently has a R eyelid infection, R lower leg DVT and pulmonary embolism pt thinks was on L side, previous history of cellulitis, UTI, History of Any Multi-Drug Resistant Organisms: None Reported Past Surgical History: Ear Surgery, Joint Replacement Additional Past Surgical History / Comment(s): R ear sugically resected/tympanomastoidectomy with tympanoplasty, bilateral myringotomy/tubes, R eye enucleation, R total knee arthroplasty, EGD Past Anesthesia/Blood Transfusion Reactions: No Reported Reaction Past Psychological History: Anxiety, Depression, Schizophrenia Smoking Status: Former smoker Past Alcohol Use History: None Reported Past Drug Use History: None Reported - Past Family History Father History Unknown: Yes Family Medical History: Unable to Obtain Additional Family Medical History / Comment(s): Patient was adopted Mother Family Medical History: Unable to Obtain, Diabetes Mellitus Additional Family Medical History / Comment(s): Patient was adopted General Exam - General Exam Comments Initial Comments: General: The patient is awake and alert, in no distress, and does not appear acutely ill, morbidly obese. Eye: +3 mm pupils are equal, round and reactive to light, extra-ocular movements are intact. No nystagmus. There is normal conjunctiva bilaterally. No signs of icterus. Ears, nose, mouth and throat: There are moist mucous membranes and no oral lesions. Neck: The neck is supple, there is no tenderness or JVD. Cardiovascular: There is a regular rate and rhythm. No murmur, rub or gallop is appreciated. Respiratory: Lungs are clear to auscultation, respirations are non-labored, breath sounds are equal. No wheezes, stridor, rales, or rhonchi. Gastrointestinal: Soft, non-distended, non-tender abdomen without masses or organomegaly noted. There is no rebound or guarding present. Musculoskeletal: Normal ROM, no tenderness. Strength 5/5. Sensation intact. Radial pulses equal bilaterally 2+. Neurological: A&O x 3. CN II-XII intact grossly, There are no obvious motor or sensory deficits. Coordination appears grossly intact. Speech is normal. Skin: Skin is warm and dry and no rashes or lesions are noted. Psychiatric: Cooperative, appropriate mood & affect, normal judgment. Limitations: no limitations Course Vital Signs 12/02/19 12/02/19 16:02 17:00 Temperature 97.5 F L Pulse Rate 78 Respiratory 16 Rate Blood Pressure 180/111 165/98 O2 Sat by Pulse 99 Oximetry Medical Decision Making - Medical Decision Making 49yo presenting for possible infection, serosanguineous drainage, no purulent, no large dehiscence. NO leukocytosis, no fever, lactic acid WNL, no clinical evidence of abscess, no pain to palpation slight redness only in pattern of xiao lication of tape. Patient appears well nontoxic. No signs of cellulitis or infection there does appear to be some slight delayed wound healing. Patient will be initiated on antibiotics given diabetic status to prevent secondary infection, or if there is early developing infection. Discussed importance of timely f/u with surgeon, strict return parameters. Patient is to call Dr. Tena office tomorrow. Case discussed with Dr Hdz who is agreeable to care plan and discharge. - Lab Data Result diagrams: 12/02/19 16:31 12/02/19 16:31 Lab Results 12/02/19 12/02/19 12/02/19 Range/Units 16:31 16:31 16:31 WBC 8.9 (3.8-10.6) k/uL RBC 5.19 (4.30-5.90) m/uL Hgb 15.4 (13.0-17.5) gm/dL Hct 46.0 (39.0-53.0) % MCV 88.6 (80.0-100.0) fL MCH 29.7 (25.0-35.0) pg MCHC 33.5 (31.0-37.0) g/dL RDW 13.3 (11.5-15.5) % Plt Count 123 L (150-450) k/uL Neutrophils % 62 % Lymphocytes % 27 % Monocytes % 5 % Eosinophils % 4 % Basophils % 1 % Neutrophils # 5.5 (1.3-7.7) k/uL Lymphocytes # 2.4 (1.0-4.8) k/uL Monocytes # 0.4 (0-1.0) k/uL Eosinophils # 0.4 (0-0.7) k/uL Basophils # 0.0 (0-0.2) k/uL Sodium 138 (137-145) mmol/L Potassium 4.7 (3.5-5.1) mmol/L Chloride 100 (98-107) mmol/L Carbon Dioxide 29 (22-30) mmol/L Anion Gap 9 mmol/L BUN 13 (9-20) mg/dL Creatinine 0.61 L (0.66-1.25) mg/dL Est GFR (CKD-EPI)AfAm >90 (>60 ml/min/1.73 sqM) Est GFR (CKD-EPI)NonAf >90 (>60 ml/min/1.73 sqM) Glucose 212 H (74-99) mg/dL Plasma Lactic Acid Naeem 1.5 (0.7-2.0) mmol/L Calcium 8.9 (8.4-10.2) mg/dL Total Bilirubin 1.1 (0.2-1.3) mg/dL AST 43 (17-59) U/L ALT 31 (4-49) U/L Alkaline Phosphatase 93 (38-126) U/L Total Protein 7.7 (6.3-8.2) g/dL Albumin 4.2 (3.5-5.0) g/dL Disposition Clinical Impression: Delayed surgical wound healing Disposition: HOME SELF-CARE Condition: Good Instructions (If sedation given, give patient instructions): Wound Healing and Your Diet (ED) Additional Instructions: Please use medication as discussed. Please follow-up with family doctor in the next 2 days, call surgeon tomorrow morning as discussed and please schedule appointment in next 24-48 hours, or as surgeon sees fit. Please return to [facility] if the symptoms increase or worsen or for any other concerns, redness, increasing drainage, fevers. Request records from visit to review with PCP and surgeon. Prescriptions: Cephalexin [Keflex] 500 mg PO Q6HR 7 Days #28 cap Is patient prescribed a controlled substance at d/c from ED?: No Referrals: Marian Bradford MD [Primary Care Provider] - 1-2 days Lachelle Simon MD [STAFF PHYSICIAN] - 1-2 days Time of Disposition: 17:16
[2019-12-02 16:59] LABS: ALT 31 U/L (4-49); AST 43 U/L (17-59); African American GFR (CKD) >90 (>60 ml/min/1.73 sqM); Albumin 4.2 g/dL (3.5-5.0); Alkaline Phosphatase 93 U/L (38-126); Anion Gap 9 mmol/L; Blood Urea Nitrogen 13 mg/dL (9-20); Calcium 8.9 mg/dL (8.4-10.2); Carbon Dioxide 29 mmol/L (22-30); Chloride 100 mmol/L (98-107); Glucose 212 mg/dL (74-99); Non-African American GFR(CKD) >90 (>60 ml/min/1.73 sqM); Potassium 4.7 mmol/L (3.5-5.1); Sodium 138 mmol/L (137-145); Total Bilirubin 1.1 mg/dL (0.2-1.3); Total Protein 7.7 g/dL (6.3-8.2)
[2019-12-02 17:01] VITALS: BP 165/98
== END 2019-12-02 17:27 | disposition home or self-care (01) ==
LOC: EC 16:01
DX: T81.89XA Other complications of procedures, not elsewhere classified, initial encounter (principal); F41.9 Anxiety disorder, unspecified; F32.9 Major depressive disorder, single episode, unspecified; J44.9 Chronic obstructive pulmonary disease, unspecified; I10 Essential (primary) hypertension; E78.5 Hyperlipidemia, unspecified; G47.33 Obstructive sleep apnea (adult) (pediatric); E11.39 Type 2 diabetes mellitus with other diabetic ophthalmic complication; H40.9 Unspecified glaucoma; H42 Glaucoma in diseases classified elsewhere; E66.01 Morbid (severe) obesity due to excess calories; Z68.44 Body mass index [BMI] 60.0-69.9, adult; Z79.01 Long term (current) use of anticoagulants; Z79.84 Long term (current) use of oral hypoglycemic drugs; Z79.899 Other long term (current) drug therapy; Z88.6 Allergy status to analgesic agent; Z88.8 Allergy status to other drugs, medicaments and biological substances; Z96.651 Presence of right artificial knee joint; Z87.891 Personal history of nicotine dependence; Z99.89 Dependence on other enabling machines and devices; Z86.718 Personal history of other venous thrombosis and embolism
CPT/HCPCS: 99283; 96374; 36415; 80053; 83605; 85025; 87040; J0696

== ENCOUNTER 2019-12-17 10:25 | Observation (INO) | payer OTHER ==
[2019-12-17] MEDS ORDERED: NITROGLYCERIN OINT 1 INCH/GM PACKET TOPICAL STA (11:15)
[2019-12-17] MEDS ORDERED: ASPIRIN 81 MG PO STA (11:15)
--- NOTE | 2019-12-17 11:22 | ED ---
General Adult HPI - General Chief complaint: Chest Pain Stated complaint: Chest pain Time Seen by Provider: 12/17/19 10:50 Source: patient, RN notes reviewed Mode of arrival: wheelchair Limitations: no limitations - History of Present Illness Initial comments: Patient is a pleasant 49-year-old male presenting to the emergency Department with complaints of chest discomfort. Onset of symptoms was a day or 2 ago. Patient has mild burning in his chest rated 3 or 4/10. Symptoms do worsen with exertion. There is mild associated dyspnea. Patient was sweating a couple of days ago. No nausea. No history of similar symptoms previously. No new leg pa in or new leg swelling. - Related Data Home Medications Medication Instructions Recorded Confirmed oxyCODONE HCL [oxyCODONE HCL (IR)] 30 mg PO QID 04/21/14 11/03/19 ALPRAZolam [Xanax] 0.5 mg PO BID PRN 07/16/18 11/03/19 Isosorbide Mononitrate ER [Imdur] 30 mg PO DAILY 07/16/18 11/03/19 hydrALAZINE HCL [Apresoline] 100 mg PO TID 07/16/18 11/03/19 Rivaroxaban [Xarelto] 15 mg PO BID 02/01/19 11/03/19 glipiZIDE XL [Glucotrol XL] 10 mg PO DAILY 02/01/19 11/03/19 Albuterol Nebulized [Ventolin 2.5 mg INHALATION RT-QID PRN 09/21/19 11/03/19 Nebulized] Ergocalciferol [Vitamin D2 50,000 unit PO SA 09/21/19 11/03/19 (DRISDOL)] Fluticasone/Salmeterol 1 puff INHALATION RT-BID PRN 09/21/19 11/03/19 [Fluticasone-Salmeterol 113-14] Ipratropium Nebulized [Atrovent 0.5 mg INHALATION RT-QID PRN 09/21/19 11/03/19 Nebulized 0.2 MG/ML] Lisinopril 40 mg PO BID 09/21/19 11/03/19 Metoprolol Tartrate [Lopressor] 50 mg PO BID 09/21/19 11/03/19 Mupirocin 2% Oint [Bactroban 2% 1 applic TOPICAL TID PRN 09/21/19 11/03/19 Oint] Pseudoephedrine 12Hr [Sudafed 12 120 mg PO Q12H PRN 09/21/19 11/03/19 Hour] Atorvastatin [Lipitor] 10 mg PO HS 10/30/19 11/03/19 Omeprazole 40 mg PO DAILY 10/30/19 11/03/19 Sucralfate [Carafate] 1 gm PO ACHS 10/30/19 11/03/19 glipiZIDE XL [Glucotrol XL] 5 mg PO HS 10/30/19 11/03/19 amLODIPine [Norvasc] 5 mg PO DAILY 11/03/19 11/03/19 Previous Rx's Medication Instructions Recorded Pantoprazole [Protonix] 40 mg PO DAILY #30 tablet. 09/28/19 Psyllium Husk (with Sugar) 0 gm PO Q48H #30 gm 11/08/19 [Metamucil Powder] Cephalexin [Keflex] 500 mg PO Q6HR 7 Days #28 cap 12/02/19 Allergies Allergy/AdvReac Type Severity Reaction Status Date / Time cyclobenzaprine HCl Allergy Itching Verified 12/02/19 16:06 [From Flexeril] ibuprofen [From Motrin] AdvReac Nausea Verified 12/02/19 16:06 Review of Systems ROS Statement: Those systems with pertinent positive or pertinent negative responses have been documented in the HPI. ROS Other: All systems not noted in ROS Statement are negative. Constitutional: Denies: fever, chills Eyes: Denies: eye pain ENT: Denies: ear pain Respiratory: Reports: dyspnea Cardiovascular: Reports: chest pain Endocrine: Denies: fatigue Gastrointestinal: Denies: abdominal pain, nausea Genitourinary: Denies: dysuria Musculoskeletal: Denies: back pain Skin: Denies: rash Neurological: Denies: weakness 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 and the patient underwent a tympanomastoidectomy with tympanoplasty, morbid obesity, obstructive sleep apnea with CPAP, chronic back pain, chronic left knee pain/torn meniscus and bone on bone, 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-pt states he currently has a R eyelid infection, R lower leg DVT and pulmonary embolism pt thinks was on L side, previous history of cellulitis, UTI, History of Any Multi-Drug Resistant Organisms: None Reported Past Surgical History: Ear Surgery, Joint Replacement Additional Past Surgical History / Comment(s): R ear sugically resected/tympanomastoidectomy with tympanoplasty, bilateral myringotomy/tubes, R eye enucleation, R total knee arthroplasty, EGD Past Anesthesia/Blood Transfusion Reactions: No Reported Reaction Past Psychological History: Anxiety, Depression, Schizophrenia Smoking Status: Former smoker Past Alcohol Use History: None Reported Past Drug Use History: None Reported - Past Family History Father History Unknown: Yes Family Medical History: Unable to Obtain Additional Family Medical History / Comment(s): Patient was adopted Mother Family Medical History: Unable to Obtain, Diabetes Mellitus Additional Family Medical History / Comment(s): Patient was adopted General Exam Limitations: no limitations General appearance: alert, in no apparent distress, obese Head exam: Present: normocephalic Eye exam: Present: other (Right eye atrophy) ENT exam: Present: normal oropharynx Neck exam: Present: normal inspection Respiratory exam: Present: normal lung sounds bilaterally. Absent: chest wall tenderness Cardiovascular Exam: Present: regular rate, normal rhythm Expanded Peripheral pulses: 2+: Radial (R), Radial (L), Dorsalis Pedis (R), Dorsalis Pedis (L) GI/Abdominal exam: Present: soft. Absent: tenderness Extremities exam: Absent: calf tenderness Neurological exam: Present: alert Psychiatric exam: Present: normal affect, normal mood Skin exam: Present: normal color Course Vital Signs 12/17/19 10:44 Temperature 98.2 F Pulse Rate 79 Respiratory 17 Rate Blood Pressure 147/80 O2 Sat by Pulse 95 Oximetry EKG Findings - EKG Comments: EKG Findings:: Normal sinus rhythm 76. MT 158. QRS 158. QT 436. QTc 490 axis. Rate bundle-branch block. Left anterior fascicular block. No acute ST change. Medical Decision Making - Medical Decision Making Patient reevaluated and resting comfortably in bed. Patient updated on results and plan. Case was discussed in detail Dr. Bishop, covering for enrrique Huff admits for Dr. Bradford. - Lab Data Result diagrams: 12/17/19 11:03 12/17/19 11:03 Lab Results 12/17/19 12/17/19 12/17/19 Range/Units 11:03 11:03 11:03 WBC 8.1 (3.8-10.6) k/uL RBC 4.85 (4.30-5.90) m/uL Hgb 14.6 (13.0-17.5) gm/dL Hct 42.9 (39.0-53.0) % MCV 88.5 (80.0-100.0) fL MCH 30.0 (25.0-35.0) pg MCHC 34.0 (31.0-37.0) g/dL RDW 13.4 (11.5-15.5) % Plt Count 186 D (150-450) k/uL Neutrophils % 63 % Lymphocytes % 26 % Monocytes % 6 % Eosinophils % 3 % Basophils % 1 % Neutrophils # 5.1 (1.3-7.7) k/uL Lymphocytes # 2.1 (1.0-4.8) k/uL Monocytes # 0.5 (0-1.0) k/uL Eosinophils # 0.2 (0-0.7) k/uL Basophils # 0.0 (0-0.2) k/uL PT 10.6 (9.0-12.0) sec INR 1.0 (<1.2) APTT 28.7 (22.0-30.0) sec Sodium 135 L (137-145) mmol/L Potassium 4.1 (3.5-5.1) mmol/L Chloride 102 (98-107) mmol/L Carbon Dioxide 24 (22-30) mmol/L Anion Gap 9 mmol/L BUN 13 (9-20) mg/dL Creatinine 0.66 (0.66-1.25) mg/dL Est GFR (CKD-EPI)AfAm >90 (>60 ml/min/1.73 sqM) Est GFR (CKD-EPI)NonAf >90 (>60 ml/min/1.73 sqM) Glucose 243 H (74-99) mg/dL Calcium 8.5 (8.4-10.2) mg/dL Magnesium 1.8 (1.6-2.3) mg/dL Total Bilirubin 0.9 (0.2-1.3) mg/dL AST 44 (17-59) U/L ALT 27 (4-49) U/L Alkaline Phosphatase 130 H (38-126) U/L Troponin I (0.000-0.034) ng/mL NT-Pro-B Natriuret Pep pg/mL Total Protein 7.0 (6.3-8.2) g/dL Albumin 3.7 (3.5-5.0) g/dL 12/17/19 12/17/19 Range/Units 11:03 11:03 WBC (3.8-10.6) k/uL RBC (4.30-5.90) m/uL Hgb (13.0-17.5) gm/dL Hct (39.0-53.0) % MCV (80.0-100.0) fL MCH (25.0-35.0) pg MCHC (31.0-37.0) g/dL RDW (11.5-15.5) % Plt Count (150-450) k/uL Neutrophils % % Lymphocytes % % Monocytes % % Eosinophils % % Basophils % % Neutrophils # (1.3-7.7) k/uL Lymphocytes # (1.0-4.8) k/uL Monocytes # (0-1.0) k/uL Eosinophils # (0-0.7) k/uL Basophils # (0-0.2) k/uL PT (9.0-12.0) sec INR (<1.2) APTT (22.0-30.0) sec Sodium (137-145) mmol/L Potassium (3.5-5.1) mmol/L Chloride (98-107) mmol/L Carbon Dioxide (22-30) mmol/L Anion Gap mmol/L BUN (9-20) mg/dL Creatinine (0.66-1.25) mg/dL Est GFR (CKD-EPI)AfAm (>60 ml/min/1.73 sqM) Est GFR (CKD-EPI)NonAf (>60 ml/min/1.73 sqM) Glucose (74-99) mg/dL Calcium (8.4-10.2) mg/dL Magnesium (1.6-2.3) mg/dL Total Bilirubin (0.2-1.3) mg/dL AST (17-59) U/L ALT (4-49) U/L Alkaline Phosphatase (38-126) U/L Troponin I <0.012 (0.000-0.034) ng/mL NT-Pro-B Natriuret Pep 60 pg/mL Total Protein (6.3-8.2) g/dL Albumin (3.5-5.0) g/dL - Radiology Data Radiology results: image reviewed (Chest x-ray shows mild prominence of central pulmonary vasculature and mild cardiomegaly.) Disposition Clinical Impression: Chest pain Disposition: ADMITTED IP TO THIS HOSP Is patient prescribed a controlled substance at d/c from ED?: No Referrals: Marian Bradford MD [Primary Care Provider] - 1-2 days Decision Time: 12:29
--- NOTE | 2019-12-17 11:40 | XR ---
EXAMINATION TYPE: XR chest 2V DATE OF EXAM: 12/17/2019 COMPARISON: 02/04/2019 HISTORY: Chest pain TECHNIQUE: Frontal and lateral views of the chest are obtained. FINDINGS: There is no focal air space opacity, pleural effusion, or pneumothorax seen. The cardiac silhouette size is mildly enlarged and central pulmonary vasculature are mildly prominent. The osse ous structures are intact. IMPRESSION: Mild prominence of the central pulmonary vasculature and mildly enlarged cardiac mediast inal silhouette. Early congestive heart failure should be considered.
[2019-12-17 11:44] LABS: ALT 27 U/L (4-49); AST 44 U/L (17-59); African American GFR (CKD) >90 (>60 ml/min/1.73 sqM); Albumin 3.7 g/dL (3.5-5.0); Alkaline Phosphatase 130 U/L (38-126); Anion Gap 9 mmol/L; Blood Urea Nitrogen 13 mg/dL (9-20); Calcium 8.5 mg/dL (8.4-10.2); Carbon Dioxide 24 mmol/L (22-30); Chloride 102 mmol/L (98-107); Glucose 243 mg/dL (74-99); Magnesium 1.8 mg/dL (1.6-2.3); Non-African American GFR(CKD) >90 (>60 ml/min/1.73 sqM); Partial Thromboplastin Time 28.7 sec (22.0-30.0); Potassium 4.1 mmol/L (3.5-5.1); Prothrombin Time 10.6 sec (9.0-12.0); Sodium 135 mmol/L (137-145); Total Bilirubin 0.9 mg/dL (0.2-1.3)
[2019-12-17 11:57] LABS: Basophils % (A) 1 %; Eosinophils # (A) 0.2 k/uL (0-0.7); Eosinophils % (A) 3 %; HCT 42.9 % (39.0-53.0); HGB 14.6 gm/dL (13.0-17.5); Lymphocytes # (A) 2.1 k/uL (1.0-4.8); Lymphocytes % (A) 26 %; MCV 88.5 fL (80.0-100.0); Mean Platelet Volume 7.9; Monocytes # (A) 0.5 k/uL (0-1.0); Monocytes % (A) 6 %; Neutrophils # (A) 5.1 k/uL (1.3-7.7); Neutrophils % (A) 63 %; RBC 4.85 m/uL (4.30-5.90); RDW 13.4 % (11.5-15.5); WBC 8.1 k/uL (3.8-10.6)
[2019-12-17 11:59] LABS: Platelet Count 186 k/uL (150-450)
[2019-12-17] MEDS ORDERED: NITROGLYCERIN SL TABS 0.4 MG TAB SUBLINGUAL PRN (12:29)
[2019-12-17] MEDS ORDERED: oxyCODONE-APAP 5-325MG 1 EACH TAB PO PRN (13:23)
[2019-12-17] MEDS ORDERED: PNEUMOCOCCAL VACC-PNEUMOVAX 23 25 MCG/0.5 ML VIAL IM ONE (13:40)
[2019-12-17] MEDS ORDERED: ALBUTEROL INHALER 60 PUFF/8 GM INHALER INHALATION PRN (14:40)
[2019-12-17] MEDS ORDERED: IPRATROPIUM 0.5 MG/2.5 ML NEBU INHALATION PRN (14:40)
[2019-12-17] MEDS ORDERED: ALBUTEROL NEBULIZED 2.5 MG/3 ML INHALATION PRN (14:40)
[2019-12-17] MEDS ORDERED: ALPRAZolam 0.5 MG TAB PO PRN (14:40)
[2019-12-17] MEDS ORDERED: SYMBICORT 160-4.5 MCG INHALER INHALATION PRN ×2 (14:40→14:52)
[2019-12-17] MEDS ORDERED: IPRATROPIUM-ALBUTEROL 3 ML NEB INHALATION PRN (14:53)
--- NOTE | 2019-12-17 15:21 | P.HPIM ---
History of Present Illness 49-year-old pleasant morbidly obese gentleman came in with complains of epigastric retrosternal chest chest pain which is a burning sensation not associated with food 3-4/10 in severity nonradiating does have some exertional shortness of breath although patient is morbidly obese does have significant restrictive lung disease does have sleep apnea denied any fever chills nausea coughing chest pain is nonpleuritic not associated with food. Patient anti- correlation because of his previous DVT and facet of troponin is negative chest x-ray showing right bundle branch block and left anterior vascular block which is not unexpected, there are no significant acute ST-T wave changes. Denied any nausea vomiting lightheadedness diaphoresis associated with chest pain. Patient had dobutamine echocardiogram last year which was negative for any inducible ischemia Review of Systems REVIEW OF SYSTEMS: CONSTITUTIONAL: No fever, no malaise, no fatigue. HEENT: No recent visual problems or hearing problems. Denied any sore throat. CARDIOVASCULAR: No orthopnea, PND, no palpitations, no syncope. PULMONARY: no cough, no hemoptysis. GASTROINTESTINAL: No diarrhea, no nausea, no vomiting, no abdominal pain. NEUROLOGICAL: No headaches, no weakness, no numbness. HEMATOLOGICAL: Denies any bleeding or petechiae. GENITOURINARY: Denies any burning micturition, frequency, or urgency. MUSCULOSKELETAL/RHEUMATOLOGICAL: Denies any joint pain, swelling, or any muscle pain. ENDOCRINE: Denies any polyuria or polydipsia. The rest of the 14-point review of systems is negative. 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 and the patient underwent a tympanomastoidectomy with tympanoplasty, morbid obesity, obstructive sleep apnea with CPAP, chronic back pain, chronic left knee pain/torn meniscus and bone on bone, 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, R lower leg DVT and pulmonary embolism pt thinks was on L side, previous history of cellulitis, UTI, History of Any Multi-Drug Resistant Organisms: None Reported Past Surgical History: Cholecystectomy, Ear Surgery, Joint Replacement Additional Past Surgical History / Comment(s): Lap cholecystectomy with lysis of adhesions, R ear sugically resected/tympanomastoidectomy with tympanoplasty, bilateral myringotomy/tubes, R eye enucleation, R total knee arthroplasty, EGD Past Anesthesia/Blood Transfusion Reactions: No Reported Reaction Past Psychological History: Anxiety, Depression, Schizophrenia Additional Psychological History / Comment(s): Pt resides with his significant other and her 2 children. He uses no assistive device. He has a nebulizer. He drives. Pt states he was diagnosed with schizophrenia as a teen but that no one states this anymore but does have depression and anxiety. Smoking Status: Former smoker Past Alcohol Use History: None Reported Additional Past Alcohol Use History / Comment(s): Pt started smoking in 1987. States he quit 09/2019 Past Drug Use History: None Reported - Past Family History Father History Unknown: Yes Family Medical History: Unable to Obtain Additional Family Medical History / Comment(s): Patient was adopted Mother Family Medical History: Unable to Obtain, Diabetes Mellitus Additional Family Medical History / Comment(s): Patient was adopted Medications and Allergies Home Medications Medication Instructions Recorded Confirmed Type oxyCODONE HCL [oxyCODONE HCL (IR)] 30 mg PO QID 04/21/14 12/17/19 History ALPRAZolam [Xanax] 0.5 mg PO BID PRN 07/16/18 12/17/19 History Isosorbide Mononitrate ER [Imdur] 30 mg PO DAILY 07/16/18 12/17/19 History hydrALAZINE HCL [Apresoline] 100 mg PO TID 07/16/18 12/17/19 History Rivaroxaban [Xarelto] 15 mg PO BID 02/01/19 12/17/19 History glipiZIDE XL [Glucotrol XL] 10 mg PO DAILY 02/01/19 12/17/19 History Albuterol Nebulized [Ventolin 2.5 mg INHALATION RT-QID PRN 09/21/19 12/17/19 History Nebulized] Ergocalciferol [Vitamin D2 50,000 unit PO SA 09/21/19 12/17/19 History (DRISDOL)] Fluticasone/Salmeterol 1 puff INHALATION RT-BID PRN 09/21/19 12/17/19 History [Fluticasone-Salmeterol 113-14] Ipratropium Nebulized [Atrovent 0.5 mg INHALATION RT-QID PRN 09/21/19 12/17/19 History Nebulized 0.2 MG/ML] Lisinopril 40 mg PO BID 09/21/19 12/17/19 History Metoprolol Tartrate [Lopressor] 50 mg PO BID 09/21/19 12/17/19 History Mupirocin 2% Oint [Bactroban 2% 1 applic TOPICAL TID PRN 09/21/19 12/17/19 History Oint] Pseudoephedrine 12Hr [Sudafed 12 120 mg PO Q12H PRN 09/21/19 12/17/19 History Hour] Pantoprazole [Protonix] 40 mg PO DAILY #30 tablet. 09/28/19 12/17/19 Rx Atorvastatin [Lipitor] 10 mg PO HS 10/30/19 12/17/19 History Omeprazole 40 mg PO DAILY 10/30/19 12/17/19 History Sucralfate [Carafate] 1 gm PO ACHS 10/30/19 12/17/19 History glipiZIDE XL [Glucotrol XL] 5 mg PO HS 10/30/19 12/17/19 History amLODIPine [Norvasc] 5 mg PO DAILY 11/03/19 12/17/19 History Cephalexin [Keflex] 500 mg PO Q6HR 7 Days #28 cap 12/02/19 12/17/19 Rx Albuterol Sulfate [Ventolin HFA] 2 puff INHALATION RT-Q6H PRN 12/17/19 12/17/19 History Cetirizine HCl [Zyrtec] 10 mg PO DAILY 12/17/19 12/17/19 History Fluticasone Propionate [Flonase 1 spray EA NOSTRIL DAILY PRN 12/17/19 12/17/19 History Allergy Relief] Psyllium Husk (with Sugar) 1 dose PO Q48H 12/17/19 12/17/19 History [Metamucil Powder] Allergies Allergy/AdvReac Type Severity Reaction Status Date / Time cyclobenzaprine HCl Allergy Itching Verified 12/17/19 14:05 [From Flexeril] ibuprofen [From Motrin] AdvReac Nausea Verified 12/17/19 14:05 Physical Exam Vitals: Vital Signs Temp Pulse Resp BP Pulse Ox 12/17/19 13:22 73 16 138/75 97 12/17/19 10:44 98.2 F 79 17 147/80 95 Intake and Output 12/17/19 12/17/19 12/17/19 06:59 14:59 22:59 Other: Weight 238.6 kg PHYSICAL EXAMINATION: GENERAL: The patient is alert and oriented x3, not in any acute distress. Morbidly obese HEENT: Pupils are round and equally reacting to light. EOMI. No scleral icterus. No conjunctival pallor. Normocephalic, atraumatic. No pharyngeal erythema. No thyromegaly. CARDIOVASCULAR: S1 and S2 present. No murmurs, rubs, or gallops. PULMONARY: Chest is clear to auscultation, no wheezing or crackles. ABDOMEN: Soft, nontender, nondistended, normoactive bowel sounds. No palpable organomegaly. MUSCULOSKELETAL: No joint swelling or deformity. EXTREMITIES: No cyanosis, clubbing, or pedal edema. NEUROLOGICAL: Gross neurological examination did not reveal any focal deficits. SKIN: No rashes. Results CBC & Chem 7: 12/17/19 11:03 12/17/19 11:03 Labs: Abnormal Lab Results - Last 24 Hours (Table) 12/17/19 Range/Units 11:03 Sodium 135 L (137-145) mmol/L Glucose 243 H (74-99) mg/dL Alkaline Phosphatase 130 H (38-126) U/L Thrombosis Risk Factor Assmnt - Choose All That Apply Any of the Below Risk Factors Present?: Yes Each Factor Represents 1 point: Age 41-60 years, Obesity (BMI >25) Other Risk Factors: Yes Each Risk Factor Represents 3 Points: History of DVT/PE Other congenital or acquired thrombophilia - If yes, enter type in comment: No Thrombosis Risk Factor Assessment Total Risk Factor Score: 5 Thrombosis Risk Factor Assessment Level: High Risk Assessment and Plan Plan: -Chest pain: We will rule out unstable angina, acute coronary syndromes. Patient has atypical chest pain mostly consistent with gastroesophageal reflux disease patient was started on Protonix patient is already taking the a proton pump inhibitor along with the simethicone at home. -History of DVT on anti-correlation at visit -COPD without any acute exacerbation patient quit smoking in September 2019 -Gastroesophageal reflux disease Hyperlipidemia Hypertension -Morbid obesity obstructive sleep apnea and restrictive lung disease and shortness of breath is probably secondary to this patient does use CPAP machine at home which will be resumed extensive weight loss counseling was provided.
[2019-12-17] MEDS: NITROGLYCERIN OINT 1 INCH/GM PACKET TOPICAL SCH ×2 (15:56→23:33)
[2019-12-17] MEDS: PANTOPRAZOLE 40 MG/10 ML VIAL IVP SCH (16:05)
[2019-12-17] MEDS: SUCRALFATE 1 GM TAB PO SCH ×2 (16:05→21:22)
[2019-12-17] MEDS: hydrALAZINE HCL 50 MG TAB PO SCH ×2 (16:05→21:21)
[2019-12-17] MEDS ORDERED: oxyCODONE-APAP 5-325MG 1 EACH TAB PO STA (16:14)
[2019-12-17 16:31] LABS: Glucose,Whole Blood 169 mg/dL (75-99)
[2019-12-17 19:55] VITALS: RESP 18
[2019-12-17 20:29] LABS: Glucose,Whole Blood 175 mg/dL (75-99)
[2019-12-17] MEDS ORDERED: ATORVASTATIN 10 MG TAB PO SCH (21:00)
[2019-12-17] MEDS: LISINOPRIL 20 MG TAB PO SCH (21:21)
[2019-12-17] MEDS: RIVAROXABAN 15 MG TAB PO SCH (21:21)
[2019-12-17] MEDS: METOPROLOL TARTRATE 50 MG TAB PO SCH (21:22)
[2019-12-18 04:04] LABS: Cholesterol 125 mg/dL (<200); HDL Cholesterol 35 mg/dL (40-60); LDL Cholesterol,Calculated 30 mg/dL (0-99); Triglycerides 300 mg/dL (<150)
[2019-12-18 07:14] LABS: Glucose,Whole Blood 161 mg/dL (75-99)
[2019-12-18 08:10] VITALS: BP 124/86; PULSE 70; TEMP 96.4
[2019-12-18] MEDS ORDERED: ASPIRIN 325 MG TAB PO SCH (09:00)
[2019-12-18] MEDS ORDERED: amLODIPine 5 MG TAB PO SCH (09:00)
[2019-12-18] MEDS ORDERED: GLIPIZIDE 10 MG PO SCH (09:00)
[2019-12-18] MEDS ORDERED: LORATADINE 10 MG TAB PO SCH (09:00)
[2019-12-18] MEDS ORDERED: ISOSORBIDE MONONITRATE ER 30 MG TAB.ER.24H PO SCH (09:00)
--- NOTE | 2019-12-18 11:41 | ECHOF ---
Referral Reason:chest pain MEASUREMENTS -------- HEIGHT: 182.9 cm WEIGHT: 238.6 kg BP: 124/86 IVSd: 1.4 cm (0.6 - 1.1) LVIDd: 6.5 cm (3.9 - 5.3) LVPWd: 1.8 cm (0.6 - 1.1) IVSs: 2.1 cm LVIDs: 5.8 cm LVPWs: 2.2 cm Ao Diam: 3.1 cm (2.0 - 3.7) MV E Delano: 0.56 m/s MV DecT: 263 ms MV A Delano: 0.61 m/s MV E/A Ratio: 0.91 FINDINGS -------- BBB Morbid Obesity This was a techncally difficult study with suboptimal views, , Lumason utilized for enhancement of images. The left ventricular size is normal. There is moderate concentric left ventricular hypertrophy. O verall left ventricular systolic function is low-normal with, an EF between 50 - 55 %. The RV was not well visualized. The left atrium was not well visualized. The right atrium was not well visualized. The aortic valve was not well visualized. The mitral valve was not well visualized. The tricuspid valve was not well visualized. Unable to estimate RVSP due to inadequate TR jet spect ral doppler profile. The pulmonic valve was not well visualized. CONCLUSIONS -------- 1. BBB 2. Morbid Obesity 3. This was a techncally difficult study with suboptimal views, , Lumason utilized for enhancement of images. 4. The left ventricular size is normal. 5. There is moderate concentric left ventricular hypertrophy. 6. The RV was not well visualized. 7. The left atrium was not well visualized. 8. The right atrium was not well visualized. 9. The aortic valve was not well visualized. 10. The mitral valve was not well visualized. 11. The tricuspid valve was not well visualized. 12. Unable to estimate RVSP due to inadequate TR jet spectral doppler profile. 13. The pulmonic valve was not well visualized. PICKLING OPERATOR: Jody Wolf, ANNECS
[2019-12-18] MEDS: METOPROLOL TARTRATE 50 MG TAB PO SCH (11:49)
[2019-12-18] MEDS: LISINOPRIL 20 MG TAB PO SCH (11:49)
[2019-12-18] MEDS: hydrALAZINE HCL 50 MG TAB PO SCH (11:50)
[2019-12-18] MEDS: SUCRALFATE 1 GM TAB PO SCH ×2 (11:50→11:51)
[2019-12-18] MEDS: PANTOPRAZOLE 40 MG/10 ML VIAL IVP SCH (11:50)
[2019-12-18] MEDS: RIVAROXABAN 15 MG TAB PO SCH (11:51)
[2019-12-18 12:06] LABS: Glucose,Whole Blood 205 mg/dL (75-99)
--- NOTE | 2019-12-18 12:06 | CONS ---
CONSULTATION CHIEF COMPLAINT: Chest pain. Juan is a 49-year-old gentleman with complex and multiple medical problems, including morbid obesity, sleep apnea, hypertension and dyslipidemia, who was admitted to hospital primarily because he was concerned that he may have coronavirus. The patient states that he had mild shortness of breath and sharp pain in the chest. With all the things going on around, he decided to come to hospital and was admitted with chest pain. The patient does not have any travel; in fact, he did not even leave his home for the last several weeks. He is morbidly obese and his physical activity is very limited. His risk for coronavirus is very low. Since being admitted he is doing well; has not had any episodes of chest pain. EKG shows sinus rhythm with right bundle branch block and left anterior fascicular block. He has had cardiac enzymes that have all been within normal limits. LDL cholesterol is normal. His white cell count is normal, as is the hemoglobin. The patient's chest pain is sharp, atypical and is probably of no significance. PAST MEDICAL HISTORY: Significant for COPD, hypertension, diabetes, dyslipidemia, sleep apnea and diabetes. MEDICATIONS: Medications at home are as charted, and I reviewed them. ALLERGIES: FLEXERIL AND MOTRIN. FAMILY HISTORY: Negative for premature coronary artery disease. SOCIAL HISTORY: Significant for prior smoking. REVIEW OF SYSTEMS: HEENT is unremarkable. CARDIAC: As described above. RESPIRATORY: As described above. GI: Negative. GENITOURINARY: Negative. ALLERGY: Negative. IMMUNOLOGY: Negative. SKIN: Negative. MUSCULOSKELETAL: Significant for arthritis. PSYCHOSOCIAL: Negative. ENDOCRINE: Negative. DERMATOLOGY: Negative. CONSTITUTIONAL: Negative. ONCOLOGICAL: Negative. PROSTHETIC ASSISTANT: Negative. Rest of the system review is not relevant. PHYSICAL EXAMINATION: On exam, patient is afebrile. Heart rate 70. The blood pressure is 125/86, respiratory rate is 18. Chest exam reveals good air entry bilaterally. Heart exam reveals first and second heart sounds. No gallop. No murmur. Abdomen is soft, nontender. Examination of extremities did not reveal any edema. Peripheral pulses are felt. LABS: As described above. EKG is as described above. ASSESSMENT: Atypical chest pain. PLAN: The patient does not require any further cardiac workup at this time. I will obtain a 2D echo to assess his LV function and ambulate him; if he is feeling good, discharge him home. MMODL / IJN: [id number] /
--- NOTE | 2019-12-18 16:09 | P.DS ---
Providers Date of admission: 12/17/19 12:31 Attending physician: Tony Bishop Consults: 12/17/19 12:29 Consult Physician Urgent Consulting Provider: Avani Case Consult Reason/Comments: cp Do you want consulting provider notified?: Yes Primary care physician: Marian Bradford Hospital Course: she is admitted for atypical chest pain rule out acute medicine syndromes cardiology evaluated the patient echocardiogram was obtained patient was subsequently discharged home. Patient's symptoms are probably related Stress visual reflux disease patient is on a proton inhibitor and simethicone for which we will continue patient the is being discharged today. PHYSICAL EXAMINATION: GENERAL: The patient is alert and oriented x3, not in any acute distress. Well developed, well nourished. HEENT: Pupils are round and equally reacting to light. EOMI. No scleral icterus. No conjunctival pallor. Normocephalic, atraumatic. No pharyngeal erythema. No thyromegaly. CARDIOVASCULAR: S1 and S2 present. No murmurs, rubs, or gallops. PULMONARY: Chest is clear to auscultation, no wheezing or crackles. ABDOMEN: Soft, nontender, nondistended, normoactive bowel sounds. No palpable organomegaly. MUSCULOSKELETAL: No joint swelling or deformity. EXTREMITIES: No cyanosis, clubbing, or pedal edema. NEUROLOGICAL: Gross neurological examination did not reveal any focal deficits. SKIN: No rashes. The rest of the medical problems please refer to my HPI for further details Patient Condition at Discharge: Fair Plan - Discharge Summary Discharge Rx Participant: No New Discharge Prescriptions: Continue oxyCODONE HCL [oxyCODONE HCL (IR)] 30 mg PO QID Isosorbide Mononitrate ER [Imdur] 30 mg PO DAILY ALPRAZolam [Xanax] 0.5 mg PO BID PRN PRN Reason: Anxiety hydrALAZINE HCL [Apresoline] 100 mg PO TID glipiZIDE XL [Glucotrol XL] 10 mg PO DAILY Rivaroxaban [Xarelto] 15 mg PO BID Ergocalciferol [Vitamin D2 (DRISDOL)] 50,000 unit PO SA Pseudoephedrine 12Hr [Sudafed 12 Hour] 120 mg PO Q12H PRN PRN Reason: Congestion Mupirocin 2% Oint [Bactroban 2% Oint] 1 applic TOPICAL TID PRN PRN Reason: Rash Metoprolol Tartrate [Lopressor] 50 mg PO BID Lisinopril 40 mg PO BID Ipratropium Nebulized [Atrovent Nebulized 0.2 MG/ML] 0.5 mg INHALATION RT-QID PRN PRN Reason: Shortness Of Breath Fluticasone/Salmeterol [Fluticasone-Salmeterol 113-14] 1 puff INHALATION RT- BID PRN PRN Reason: Shortness Of Breath Albuterol Nebulized [Ventolin Nebulized] 2.5 mg INHALATION RT-QID PRN PRN Reason: Shortness Of Breath Pantoprazole [Protonix] 40 mg PO DAILY #30 tablet.dr Atorvastatin [Lipitor] 10 mg PO HS Omeprazole 40 mg PO DAILY Sucralfate [Carafate] 1 gm PO ACHS glipiZIDE XL [Glucotrol XL] 5 mg PO HS amLODIPine [Norvasc] 5 mg PO DAILY Cephalexin [Keflex] 500 mg PO Q6HR 7 Days #28 cap Albuterol Sulfate [Ventolin HFA] 2 puff INHALATION RT-Q6H PRN PRN Reason: Shortness Of Breath Fluticasone Propionate [Flonase Allergy Relief] 1 spray EA NOSTRIL DAILY PRN PRN Reason: Allergy Symptoms Cetirizine HCl [Zyrtec] 10 mg PO DAILY Psyllium Husk (with Sugar) [Metamucil Powder] 1 dose PO Q48H Discharge Medication List oxyCODONE HCL [oxyCODONE HCL (IR)] 30 mg PO QID 04/21/14 [History] ALPRAZolam [Xanax] 0.5 mg PO BID PRN 07/16/18 [History] Isosorbide Mononitrate ER [Imdur] 30 mg PO DAILY 07/16/18 [History] hydrALAZINE HCL [Apresoline] 100 mg PO TID 07/16/18 [History] Rivaroxaban [Xarelto] 15 mg PO BID 02/01/19 [History] glipiZIDE XL [Glucotrol XL] 10 mg PO DAILY 02/01/19 [History] Albuterol Nebulized [Ventolin Nebulized] 2.5 mg INHALATION RT-QID PRN 09/21/19 [History] Ergocalciferol [Vitamin D2 (DRISDOL)] 50,000 unit PO SA 09/21/19 [History] Fluticasone/Salmeterol [Fluticasone-Salmeterol 113-14] 1 puff INHALATION RT-BID PRN 09/21/19 [History] Ipratropium Nebulized [Atrovent Nebulized 0.2 MG/ML] 0.5 mg INHALATION RT-QID PRN 09/21/19 [History] Lisinopril 40 mg PO BID 09/21/19 [History] Metoprolol Tartrate [Lopressor] 50 mg PO BID 09/21/19 [History] Mupirocin 2% Oint [Bactroban 2% Oint] 1 applic TOPICAL TID PRN 09/21/19 [History] Pseudoephedrine 12Hr [Sudafed 12 Hour] 120 mg PO Q12H PRN 09/21/19 [History] Pantoprazole [Protonix] 40 mg PO DAILY #30 tablet.dr 09/28/19 [Rx] Atorvastatin [Lipitor] 10 mg PO HS 10/30/19 [History] Omeprazole 40 mg PO DAILY 10/30/19 [History] Sucralfate [Carafate] 1 gm PO ACHS 10/30/19 [History] glipiZIDE XL [Glucotrol XL] 5 mg PO HS 10/30/19 [History] amLODIPine [Norvasc] 5 mg PO DAILY 11/03/19 [History] Cephalexin [Keflex] 500 mg PO Q6HR 7 Days #28 cap 12/02/19 [Rx] Albuterol Sulfate [Ventolin HFA] 2 puff INHALATION RT-Q6H PRN 12/17/19 [History] Cetirizine HCl [Zyrtec] 10 mg PO DAILY 12/17/19 [History] Fluticasone Propionate [Flonase Allergy Relief] 1 spray EA NOSTRIL DAILY PRN 12/17/19 [History] Psyllium Husk (with Sugar) [Metamucil Powder] 1 dose PO Q48H 12/17/19 [History] Follow up Appointment(s)/Referral(s): Marian Bradford MD [Primary Care Provider] - 3 Days Enmanuel Price MD [STAFF PHYSICIAN] - 3 Weeks Discharge Disposition: HOME SELF-CARE
== END 2019-12-18 12:54 | disposition home or self-care (01) ==
LOC: EC 10:25 → 1SOBS 12:31
PROVIDERS: ADMIT Internal Medicine; ATTEND Internal Medicine
DX: R07.89 Other chest pain (principal); R06.00 Dyspnea, unspecified; J44.9 Chronic obstructive pulmonary disease, unspecified; E11.9 Type 2 diabetes mellitus without complications; Z86.711 Personal history of pulmonary embolism; Z86.718 Personal history of other venous thrombosis and embolism; K21.9 Gastro-esophageal reflux disease without esophagitis; H91.90 Unspecified hearing loss, unspecified ear; E78.5 Hyperlipidemia, unspecified; I10 Essential (primary) hypertension; M19.90 Unspecified osteoarthritis, unspecified site; G47.30 Sleep apnea, unspecified; E66.01 Morbid (severe) obesity due to excess calories; G89.29 Other chronic pain; M54.9 Dorsalgia, unspecified; I44.4 Left anterior fascicular block; Z87.891 Personal history of nicotine dependence; F20.9 Schizophrenia, unspecified; F41.9 Anxiety disorder, unspecified; F32.9 Major depressive disorder, single episode, unspecified; M25.562 Pain in left knee; H40.9 Unspecified glaucoma; Z86.11 Personal history of tuberculosis; Z96.651 Presence of right artificial knee joint; Z97.0 Presence of artificial eye; Z99.89 Dependence on other enabling machines and devices; Z83.3 Family history of diabetes mellitus; Z79.01 Long term (current) use of anticoagulants; Z79.891 Long term (current) use of opiate analgesic; Z79.899 Other long term (current) drug therapy; Z88.6 Allergy status to analgesic agent; Z88.8 Allergy status to other drugs, medicaments and biological substances; Z68.45 Body mass index [BMI] 70 or greater, adult
CPT/HCPCS: 93005 ×2; 96374; 99285; 36415; 94640; 94760; 83880; 80061; 80053; 83735; 84484; 85025; 85610; 85730; 71046; 90732; G0378 ×3; C8929; G0009; C9113; Q9950; 93306

== ENCOUNTER 2020-03-27 20:08 | Emergency (ER) | payer OTHER ==
[2020-03-27 20:15] VITALS: BP 165/94; PULSE 76; RESP 20; TEMP 98.5
[2020-03-27] MEDS ORDERED: HYDROmorphone 1 MG/ML 1 ML SYRINGE IM STA ×2 (20:29→21:56)
[2020-03-27] MEDS ORDERED: KETOROLAC 30 MG/ML 1 ML VIAL IM STA (20:29)
--- NOTE | 2020-03-27 21:41 | XR ---
EXAMINATION TYPE: XR knee complete LT DATE OF EXAM: 03/27/2020 COMPARISON: NONE HISTORY: Knee pain TECHNIQUE: 3 views FINDINGS: There is narrowing of the medial joint space. There is spurring of the femoral and tibial c ondyles. There is spurring at the patellofemoral joint. There is no sign of joint effusion. IMPRESSION: Osteoarthritis. No fracture seen.
--- NOTE | 2020-03-27 21:49 | ED ---
Lower Extremity Injury HPI - General Chief Complaint: Extremity Injury, Lower Stated Complaint: Fall, L Leg Pain Time Seen by Provider: 03/27/20 20:17 Source: patient Mode of arrival: wheelchair Limitations: no limitations - History of Present Illness Initial Comments: 49-year-old male patient presents to the emergency department today for evaluation of left knee pain. Patient states that earlier today he had a fall and fell landing on the knee. States he has been having increased pain to the medial aspect of the knee since then. States he is now unable to bear weight on the leg. Denies any numbness or tingling to the extremity. Denies any neck or back pain. Denies hitting his head or losing consciousness with the fall. Patient denies previous injury to the knee. States he has taken his home oxycodone without relief of pain. Patient denies any chest pain, shortness of breath, dizziness, weakness, abdominal pain, nausea, vomiting, or difficulties with bowel movements or urination. - Related Data Home Medications Medication Instructions Recorded Confirmed oxyCODONE HCL [oxyCODONE HCL (IR)] 30 mg PO QID 04/21/14 12/17/19 ALPRAZolam [Xanax] 0.5 mg PO BID PRN 07/16/18 12/17/19 Isosorbide Mononitrate ER [Imdur] 30 mg PO DAILY 07/16/18 12/17/19 hydrALAZINE HCL [Apresoline] 100 mg PO TID 07/16/18 12/17/19 Rivaroxaban [Xarelto] 15 mg PO BID 02/01/19 12/17/19 glipiZIDE XL [Glucotrol XL] 10 mg PO DAILY 02/01/19 12/17/19 Albuterol Nebulized [Ventolin 2.5 mg INHALATION RT-QID PRN 09/21/19 12/17/19 Nebulized] Ergocalciferol [Vitamin D2 50,000 unit PO SA 09/21/19 12/17/19 (DRISDOL)] Fluticasone/Salmeterol 1 puff INHALATION RT-BID PRN 09/21/19 12/17/19 [Fluticasone-Salmeterol 113-14] Ipratropium Nebulized [Atrovent 0.5 mg INHALATION RT-QID PRN 09/21/19 12/17/19 Nebulized 0.2 MG/ML] Lisinopril 40 mg PO BID 09/21/19 12/17/19 Metoprolol Tartrate [Lopressor] 50 mg PO BID 09/21/19 12/17/19 Mupirocin 2% Oint [Bactroban 2% 1 applic TOPICAL TID PRN 09/21/19 12/17/19 Oint] Pseudoephedrine 12Hr [Sudafed 12 120 mg PO Q12H PRN 09/21/19 12/17/19 Hour] Atorvastatin [Lipitor] 10 mg PO HS 10/30/19 12/17/19 Omeprazole 40 mg PO DAILY 10/30/19 12/17/19 Sucralfate [Carafate] 1 gm PO ACHS 10/30/19 12/17/19 glipiZIDE XL [Glucotrol XL] 5 mg PO HS 10/30/19 12/17/19 amLODIPine [Norvasc] 5 mg PO DAILY 11/03/19 12/17/19 Albuterol Sulfate [Ventolin HFA] 2 puff INHALATION RT-Q6H PRN 12/17/19 12/17/19 Cetirizine HCl [Zyrtec] 10 mg PO DAILY 12/17/19 12/17/19 Fluticasone Propionate [Flonase 1 spray EA NOSTRIL DAILY PRN 12/17/19 12/17/19 Allergy Relief] Psyllium Husk (with Sugar) 1 dose PO Q48H 12/17/19 12/17/19 [Metamucil Powder] Previous Rx's Medication Instructions Recorded Pantoprazole [Protonix] 40 mg PO DAILY #30 tablet. 09/28/19 Cephalexin [Keflex] 500 mg PO Q6HR 7 Days #28 cap 12/02/19 Allergies Allergy/AdvReac Type Severity Reaction Status Date / Time cyclobenzaprine HCl Allergy Itching Verified 03/27/20 20:15 [From Flexeril] ibuprofen [From Motrin] AdvReac Nausea Verified 03/27/20 20:15 Review of Systems ROS Statement: Those systems with pertinent positive or pertinent negative responses have been documented in the HPI. ROS Other: All systems not noted in ROS Statement are negative. 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 and the patient underwent a tympanomastoidectomy with tympanoplasty, morbid obesity, obstructive sleep apnea with CPAP, chronic back pain, chronic left knee pain/torn meniscus and bone on bone, 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, R lower leg DVT and pulmonary embolism pt thinks was on L side, previous history of cellulitis, UTI, History of Any Multi-Drug Resistant Organisms: None Reported Past Surgical History: Cholecystectomy, Ear Surgery, Joint Replacement Additional Past Surgical History / Comment(s): Lap cholecystectomy with lysis of adhesions, R ear sugically resected/tympanomastoidectomy with tympanoplasty, bilateral myringotomy/tubes, R eye enucleation, R total knee arthroplasty, EGD Past Anesthesia/Blood Transfusion Reactions: No Reported Reaction Past Psychological History: Anxiety, Depression, Schizophrenia Smoking Status: Former smoker Past Alcohol Use History: None Reported Past Drug Use History: None Reported - Past Family History Father History Unknown: Yes Family Medical History: Unable to Obtain Additional Family Medical History / Comment(s): Patient was adopted Mother Family Medical History: Unable to Obtain, Diabetes Mellitus Additional Family Medical History / Comment(s): Patient was adopted General Exam Limitations: no limitations General appearance: alert, in no apparent distress, other (This is a well- developed, well-nourished adult male patient in no acute distress. Vital signs upon presentation are temperature 98.5F, pulse 76, respirations 20, blood pressure 165/94, pulse ox 93% on room air.) Eye exam: Present: normal appearance, PERRL, EOMI. Absent: scleral icterus, conjunctival injection, periorbital swelling ENT exam: Present: normal exam, normal oropharynx, mucous membranes moist Neck exam: Present: normal inspection, full ROM, other (Nontender, no step-off, no deformity to firm midline palpation of the posterior cervical spine. Full range of motion without pain or limitation.). Absent: tenderness, meningismus, lymphadenopathy Respiratory exam: Present: normal lung sounds bilaterally. Absent: respiratory distress, wheezes, rales, rhonchi, stridor Cardiovascular Exam: Present: regular rate, normal rhythm, normal heart sounds. Absent: systolic murmur, diastolic murmur, rubs, gallop, clicks Extremities exam: Present: full ROM, tenderness (Medial aspect left knee), normal capillary refill, other (Skin to the left leg is pink, warm, dry. Cap refills less than 3 seconds. Pedal pulses 2+ and equal bilaterally.). Absent: pedal edema, joint swelling, calf tenderness Neurological exam: Present: alert, oriented X3, CN II-XII intact Psychiatric exam: Present: normal affect, normal mood Skin exam: Present: warm, dry, intact, normal color. Absent: rash Course Vital Signs 03/27/20 20:11 Temperature 98.5 F Pulse Rate 76 Respiratory 20 Rate Blood Pressure 165/94 O2 Sat by Pulse 93 L Oximetry Medical Decision Making - Medical Decision Making 49-year-old male patient presents to the emergency department today for evaluation of left knee pain after experiencing a fall this morning. Physical examination reveals medial knee tenderness. Skin is otherwise unremarkable. Neurovascular status is intact. X-rays negative. He will be placed in a knee immobilizer and instructed to follow-up with orthopedic specialty for further evaluation as soon as possible. Return parameters were discussed in detail. He verbalizes understanding and agrees with this plan. - Radiology Data Radiology results: report reviewed, image reviewed 3 views of the left knee are obtained. Report was reviewed in its entirety. Impression by Dr. Osborne shows osteoarthritis. No fracture seen. Disposition Clinical Impression: Strain of left knee Disposition: HOME SELF-CARE Condition: Good Instructions (If sedation given, give patient instructions): Knee Sprain (ED) Additional Instructions: Use leslye wrap for comfort and support. Rest, ice, elevate the leg. Take home pain medications as directed. Follow-up with orthopedic specialty for further evaluation as as possible. Follow up to primary care physician for recheck in 1-2 days. Return to the emergency department immediately for any new, worsening, or concerning symptoms. Is patient prescribed a controlled substance at d/c from ED?: No Referrals: Marian Bradford MD [Primary Care Provider] - 1-2 days Mathew Taylor MD [Medical Doctor] - 1-2 days Time of Disposition: 21:59
== END 2020-03-27 22:10 | disposition home or self-care (01) ==
LOC: EC 20:08
DX: S86.912A Strain of unspecified muscle(s) and tendon(s) at lower leg level, left leg, initial encounter (principal); J44.9 Chronic obstructive pulmonary disease, unspecified; E11.42 Type 2 diabetes mellitus with diabetic polyneuropathy; K21.9 Gastro-esophageal reflux disease without esophagitis; E78.5 Hyperlipidemia, unspecified; M19.90 Unspecified osteoarthritis, unspecified site; I10 Essential (primary) hypertension; G47.30 Sleep apnea, unspecified; F32.9 Major depressive disorder, single episode, unspecified; F41.9 Anxiety disorder, unspecified; F20.9 Schizophrenia, unspecified; Z79.899 Other long term (current) drug therapy; Z79.01 Long term (current) use of anticoagulants; Z79.84 Long term (current) use of oral hypoglycemic drugs; Z88.8 Allergy status to other drugs, medicaments and biological substances; Z88.6 Allergy status to analgesic agent; Z96.651 Presence of right artificial knee joint; Z87.891 Personal history of nicotine dependence; Z87.01 Personal history of pneumonia (recurrent); Z86.718 Personal history of other venous thrombosis and embolism; Z99.89 Dependence on other enabling machines and devices; W10.9XXA Fall (on) (from) unspecified stairs and steps, initial encounter; Y93.01 Activity, walking, marching and hiking
CPT/HCPCS: 73562; 99283; 96372 ×3; J1885; J1170

== ENCOUNTER 2020-04-30 03:50 | Emergency (ER) | payer OTHER ==
[2020-04-30 04:00] VITALS: RESP 18
[2020-04-30] MEDS ORDERED: HYDROmorphone 1 MG/ML 1 ML SYRINGE IVP STA ×2 (04:13→05:43)
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
[2020-04-30 04:26] LABS: Basophils # (A) 0.1 k/uL (0-0.2); Basophils % (A) 1 %; Eosinophils # (A) 0.4 k/uL (0-0.7); Eosinophils % (A) 3 %; HCT 43.9 % (39.0-53.0); HGB 14.8 gm/dL (13.0-17.5); Lymphocytes # (A) 3.3 k/uL (1.0-4.8); Lymphocytes % (A) 32 %; MCH 29.8 pg (25.0-35.0); MCHC 33.7 g/dL (31.0-37.0); MCV 88.6 fL (80.0-100.0); Mean Platelet Volume 7.1; Monocytes # (A) 0.5 k/uL (0-1.0); Monocytes % (A) 4 %; Neutrophils # (A) 6.1 k/uL (1.3-7.7); Neutrophils % (A) 58 %; Platelet Count 221 k/uL (150-450); RBC 4.96 m/uL (4.30-5.90); RDW 14.3 % (11.5-15.5); WBC 10.5 k/uL (3.8-10.6)
[2020-04-30 04:33] LABS: Potassium 4.1 mmol/L (3.5-5.1)
[2020-04-30 04:34] LABS: ALT 24 U/L (4-49); AST 23 U/L (17-59); African American GFR (CKD) >90 (>60 ml/min/1.73 sqM); Albumin 3.6 g/dL (3.5-5.0); Alkaline Phosphatase 95 U/L (38-126); Amylase 36 U/L (30-110); Anion Gap 6 mmol/L; Blood Urea Nitrogen 11 mg/dL (9-20); Calcium 8.6 mg/dL (8.4-10.2); Carbon Dioxide 27 mmol/L (22-30); Chloride 103 mmol/L (98-107); Glucose 135 mg/dL (74-99); Non-African American GFR(CKD) >90 (>60 ml/min/1.73 sqM); Sodium 136 mmol/L (137-145); Total Bilirubin 0.8 mg/dL (0.2-1.3); Total Protein 6.7 g/dL (6.3-8.2)
[2020-04-30 04:47] LABS: Appearance,Urine Clear (Clear); Bilirubin,Urine Negative (Negative); Blood,Urine Negative (Negative); Color,Urine Yellow; Glucose,Urine (UA) 1+ (Negative); Ketones,Urine Negative (Negative); Leukocyte Esterase,Urine Trace (Negative); Mucus,Urine Moderate /hpf; Nitrite,Urine Negative (Negative); PH, Urine 5.5 (5.0-8.0); Protein,Urine Trace (Negative); RBC,Urine 2 /hpf (0-5); Specific Gravity,Urine 1.019 (1.001-1.035); Squamous Epithelial Cell,Urine 1 /hpf (0-4); WBC,Urine 4 /hpf (0-5)
--- NOTE | 2020-04-30 05:45 | CT ---
EXAMINATION TYPE: CT abdomen pelvis wo con DATE OF EXAM: 04/30/2020 COMPARISON: 09/22/2019 HISTORY: Abdominal pain CT DLP: mGycm Automated exposure control for dose reduction was used. Images obtained from the diaphragm to the floor the pelvis with no contrast. FINDINGS: Lung bases are clear. There is no pleural effusion. Heart appears slightly enlarged. Exam limited by patient's size. Liver spleen pancreas appear normal. Gallbladder is absent. Stomach is intact. The bile ducts are not dilated. There is no adrenal mass. Kidneys have normal size. There is no hydronephrosis. Ureters are not dilat ed. Bladder is almost empty. There is no evidence of a pelvic mass. There is no free fluid in the pel vis. There is no inguinal hernia. Appendix is posterior and appears normal. There is no mesenteric edema. There is no ascites or free a ir. There is no sign of a bowel obstruction. There are some sigmoid diverticula without evidence of d iverticulitis. There is multilevel spondylotic changes in the lumbar spine. There is no compression f racture. The bony pelvis appears intact. IMPRESSION: Normal appendix. Mild sigmoid diverticulosis without diverticulitis. No acute abnormality in the abdo men pelvis. No significant change compared to old exam.
[2020-04-30 07:14] VITALS: BP 150/78; PULSE 70; TEMP 97.8
== END 2020-04-30 07:11 | disposition home or self-care (01) ==
LOC: EC 03:50
DX: K52.9 Noninfective gastroenteritis and colitis, unspecified (principal); J44.9 Chronic obstructive pulmonary disease, unspecified; F41.9 Anxiety disorder, unspecified; I20.9 Angina pectoris, unspecified; E11.9 Type 2 diabetes mellitus without complications; K21.9 Gastro-esophageal reflux disease without esophagitis; E78.5 Hyperlipidemia, unspecified; I10 Essential (primary) hypertension; E66.01 Morbid (severe) obesity due to excess calories; F32.9 Major depressive disorder, single episode, unspecified; F20.9 Schizophrenia, unspecified; M19.90 Unspecified osteoarthritis, unspecified site; G47.33 Obstructive sleep apnea (adult) (pediatric); F17.200 Nicotine dependence, unspecified, uncomplicated; Z79.899 Other long term (current) drug therapy; Z79.01 Long term (current) use of anticoagulants; Z79.84 Long term (current) use of oral hypoglycemic drugs; Z88.8 Allergy status to other drugs, medicaments and biological substances; Z88.6 Allergy status to analgesic agent; Z90.49 Acquired absence of other specified parts of digestive tract; Z68.44 Body mass index [BMI] 60.0-69.9, adult; Z86.718 Personal history of other venous thrombosis and embolism; Z86.711 Personal history of pulmonary embolism; Z96.651 Presence of right artificial knee joint; Z99.89 Dependence on other enabling machines and devices
CPT/HCPCS: 36415; 80053; 82150; 83690; 85025; 81001; 74176; 99284; 96374; 96375; J1170

== ENCOUNTER 2020-04-30 14:43 | Observation (INO) | payer OTHER ==
[2020-04-30] MEDS ORDERED: FAMOTIDINE 20 MG/2 ML VIAL IV STA (15:21)
[2020-04-30] MEDS ORDERED: DICYCLOMINE 10 MG/ML 2 ML AMP IM STA (15:21)
[2020-04-30] MEDS ORDERED: SODIUM CHLORIDE 0.9% 1,000 ML IV STA (15:21)
[2020-04-30] MEDS ORDERED: ONDANSETRON 4 MG/2 ML VIAL IVP STA (15:21)
--- NOTE | 2020-04-30 15:26 | ED ---
General Adult HPI - General Chief complaint: Abdominal Pain Stated complaint: recheck - abd pain Time Seen by Provider: 04/30/20 15:05 Source: patient, RN notes reviewed Mode of arrival: wheelchair Limitations: no limitations - History of Present Illness Initial comments: Patient is a pleasant 49-year-old male presenting to the emergency Department with complaints of abdominal discomfort. Onset of symptoms was yesterday afternoon/evening. Discomfort worsened over a couple of hours. Patient has had persistent nausea with some dry heaves. Patient has had between 6 and 8 episodes of diarrhea. Discomfort is mid abdomen and upper abdomen. Patient was in the emergency department earlier in the morning and head computed tomography scan and pain medication. Patient states symptoms are similar. No fevers. No history of chronic abdominal discomfort. - Related Data Home Medications Medication Instructions Recorded Confirmed oxyCODONE HCL [oxyCODONE HCL (IR)] 30 mg PO QID 04/21/14 12/17/19 ALPRAZolam [Xanax] 0.5 mg PO BID PRN 07/16/18 12/17/19 Isosorbide Mononitrate ER [Imdur] 30 mg PO DAILY 07/16/18 12/17/19 hydrALAZINE HCL [Apresoline] 100 mg PO TID 07/16/18 12/17/19 Rivaroxaban [Xarelto] 15 mg PO BID 02/01/19 12/17/19 glipiZIDE XL [Glucotrol XL] 10 mg PO DAILY 02/01/19 12/17/19 Albuterol Nebulized [Ventolin 2.5 mg INHALATION RT-QID PRN 09/21/19 12/17/19 Nebulized] Ergocalciferol [Vitamin D2 50,000 unit PO SA 09/21/19 12/17/19 (DRISDOL)] Fluticasone/Salmeterol 1 puff INHALATION RT-BID PRN 09/21/19 12/17/19 [Fluticasone-Salmeterol 113-14] Ipratropium Nebulized [Atrovent 0.5 mg INHALATION RT-QID PRN 09/21/19 12/17/19 Nebulized 0.2 MG/ML] Metoprolol Tartrate [Lopressor] 50 mg PO BID 09/21/19 12/17/19 Mupirocin 2% Oint [Bactroban 2% 1 applic TOPICAL TID PRN 09/21/19 12/17/19 Oint] Pseudoephedrine 12Hr [Sudafed 12 120 mg PO Q12H PRN 09/21/19 12/17/19 Hour] lisinopriL 40 mg PO BID 09/21/19 12/17/19 Atorvastatin [Lipitor] 10 mg PO HS 10/30/19 12/17/19 Omeprazole 40 mg PO DAILY 10/30/19 12/17/19 Sucralfate [Carafate] 1 gm PO ACHS 10/30/19 12/17/19 glipiZIDE XL [Glucotrol XL] 5 mg PO HS 10/30/19 12/17/19 amLODIPine [Norvasc] 5 mg PO DAILY 11/03/19 12/17/19 Albuterol Sulfate [Ventolin HFA] 2 puff INHALATION RT-Q6H PRN 12/17/19 12/17/19 Cetirizine HCl [Zyrtec] 10 mg PO DAILY 12/17/19 12/17/19 Fluticasone Propionate [Flonase 1 spray EA NOSTRIL DAILY PRN 12/17/19 12/17/19 Allergy Relief] Psyllium Husk (with Sugar) 1 dose PO Q48H 12/17/19 12/17/19 [Metamucil Powder] Previous Rx's Medication Instructions Recorded Pantoprazole [Protonix] 40 mg PO DAILY #30 tablet. 09/28/19 Cephalexin [Keflex] 500 mg PO Q6HR 7 Days #28 cap 12/02/19 Allergies Allergy/AdvReac Type Severity Reaction Status Date / Time cyclobenzaprine HCl Allergy Itching Verified 04/30/20 14:54 [From Flexeril] ibuprofen [From Motrin] AdvReac Nausea Verified 04/30/20 14:54 Review of Systems ROS Statement: Those systems with pertinent positive or pertinent negative responses have been documented in the HPI. ROS Other: All systems not noted in ROS Statement are negative. Constitutional: Denies: fever Eyes: Denies: eye pain ENT: Denies: ear pain Respiratory: Denies: cough Cardiovascular: Denies: chest pain Endocrine: Denies: fatigue Gastrointestinal: Reports: abdominal pain, nausea, diarrhea Genitourinary: Denies: dysuria Musculoskeletal: Denies: back pain Skin: Denies: rash Neurological: Denies: weakness 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 and the patient underwent a tympanomastoidectomy with tympanoplasty, morbid obesity, obstructive sleep apnea with CPAP, chronic back pain, chronic left knee pain/torn meniscus and bone on bone, 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, R lower leg DVT and pulmonary embolism pt thinks was on L side, previous history of cellulitis, UTI, History of Any Multi-Drug Resistant Organisms: None Reported Past Surgical History: Cholecystectomy, Ear Surgery, Joint Replacement Additional Past Surgical History / Comment(s): Lap cholecystectomy with lysis of adhesions, R ear sugically resected/tympanomastoidectomy with tympanoplasty, bilateral myringotomy/tubes, R eye enucleation, R total knee arthroplasty, EGD Past Anesthesia/Blood Transfusion Reactions: No Reported Reaction Past Psychological History: Anxiety, Depression, Schizophrenia Smoking Status: Current every day smoker Past Alcohol Use History: None Reported Past Drug Use History: None Reported - Past Family History Father History Unknown: Yes Family Medical History: Unable to Obtain Additional Family Medical History / Comment(s): Patient was adopted Mother Family Medical History: Unable to Obtain, Diabetes Mellitus Additional Family Medical History / Comment(s): Patient was adopted General Exam Limitations: no limitations General appearance: alert, in no apparent distress, obese Head exam: Present: normocephalic Eye exam: Present: other (Patient does not open right eye, chronic) Neck exam: Present: normal inspection Respiratory exam: Present: normal lung sounds bilaterally Cardiovascular Exam: Present: regular rate, normal rhythm Expanded Peripheral pulses: 2+: Dorsalis Pedis (R), Dorsalis Pedis (L) GI/Abdominal exam: Present: soft, tenderness (Mild tenderness in the epigastrium), normal bowel sounds. Absent: distended, guarding, rebound, rigid, pulsatile mass Extremities exam: Present: normal inspection Neurological exam: Present: alert Psychiatric exam: Present: normal affect, normal mood Skin exam: Present: normal color Course Vital Signs 04/30/20 04/30/20 14:50 17:05 Temperature 98.3 F Pulse Rate 73 75 Respiratory 16 18 Rate Blood Pressure 129/86 151/81 O2 Sat by Pulse 96 95 Oximetry EKG Findings - EKG Comments: EKG Findings:: Normal sinus rhythm at 69. AK 162. QRS 154. QT 466. QTc 49. Left axis. Right bundle-branch block. Left anterior fascicular block. No acute ST change. Medical Decision Making - Medical Decision Making Patient reevaluated and resting comfortably in bed. Patient still complain of discomfort. Patient updated on results. Case was discussed with Dr. Sauceda, who will admit for Dr. Barton, covering for Dr. Bradford. He is Dr. Ferrari will be placed on consult. As - Lab Data Result diagrams: 04/30/20 15:28 04/30/20 15:28 Lab Results 04/30/20 04/30/20 04/30/20 Range/Units 15:28 15:28 15:28 WBC 8.4 (3.8-10.6) k/uL RBC 4.85 (4.30-5.90) m/uL Hgb 14.0 (13.0-17.5) gm/dL Hct 42.7 (39.0-53.0) % MCV 88.0 (80.0-100.0) fL MCH 28.8 (25.0-35.0) pg MCHC 32.7 (31.0-37.0) g/dL RDW 14.2 (11.5-15.5) % Plt Count 208 (150-450) k/uL Neutrophils % 61 % Lymphocytes % 28 % Monocytes % 5 % Eosinophils % 3 % Basophils % 1 % Neutrophils # 5.2 (1.3-7.7) k/uL Lymphocytes # 2.4 (1.0-4.8) k/uL Monocytes # 0.5 (0-1.0) k/uL Eosinophils # 0.3 (0-0.7) k/uL Basophils # 0.0 (0-0.2) k/uL PT 11.3 (9.0-12.0) sec INR 1.1 (<1.2) APTT 29.2 (22.0-30.0) sec Sodium 136 L (137-145) mmol/L Potassium 4.0 (3.5-5.1) mmol/L Chloride 101 (98-107) mmol/L Carbon Dioxide 29 (22-30) mmol/L Anion Gap 6 mmol/L BUN 12 (9-20) mg/dL Creatinine 0.61 L (0.66-1.25) mg/dL Est GFR (CKD-EPI)AfAm >90 (>60 ml/min/1.73 sqM) Est GFR (CKD-EPI)NonAf >90 (>60 ml/min/1.73 sqM) Glucose 159 H (74-99) mg/dL Calcium 8.6 (8.4-10.2) mg/dL Total Bilirubin 0.6 (0.2-1.3) mg/dL AST 24 (17-59) U/L ALT 24 (4-49) U/L Alkaline Phosphatase 87 (38-126) U/L Troponin I (0.000-0.034) ng/mL Total Protein 6.5 (6.3-8.2) g/dL Albumin 3.5 (3.5-5.0) g/dL Amylase <30 L (30-110) U/L Lipase 203 (23-300) U/L //20 Range/Units 15:28 WBC (3.8-10.6) k/uL RBC (4.30-5.90) m/uL Hgb (13.0-17.5) gm/dL Hct (39.0-53.0) % MCV (80.0-100.0) fL MCH (25.0-35.0) pg MCHC (31.0-37.0) g/dL RDW (11.5-15.5) % Plt Count (150-450) k/uL Neutrophils % % Lymphocytes % % Monocytes % % Eosinophils % % Basophils % % Neutrophils # (1.3-7.7) k/uL Lymphocytes # (1.0-4.8) k/uL Monocytes # (0-1.0) k/uL Eosinophils # (0-0.7) k/uL Basophils # (0-0.2) k/uL PT (9.0-12.0) sec INR (<1.2) APTT (22.0-30.0) sec Sodium (137-145) mmol/L Potassium (3.5-5.1) mmol/L Chloride (98-107) mmol/L Carbon Dioxide (22-30) mmol/L Anion Gap mmol/L BUN (9-20) mg/dL Creatinine (0.66-1.25) mg/dL Est GFR (CKD-EPI)AfAm (>60 ml/min/1.73 sqM) Est GFR (CKD-EPI)NonAf (>60 ml/min/1.73 sqM) Glucose (74-99) mg/dL Calcium (8.4-10.2) mg/dL Total Bilirubin (0.2-1.3) mg/dL AST (17-59) U/L ALT (4-49) U/L Alkaline Phosphatase (38-126) U/L Troponin I <0.012 (0.000-0.034) ng/mL Total Protein (6.3-8.2) g/dL Albumin (3.5-5.0) g/dL Amylase (30-110) U/L Lipase (23-300) U/L - Radiology Data Radiology results: image reviewed (Chest and abdominal x-ray show no acute process) Disposition Clinical Impression: Abdominal pain Disposition: ADMITTED IP TO THIS HOSP Is patient prescribed a controlled substance at d/c from ED?: No Referrals: Marian Bradford MD [Primary Care Provider] - 1-2 days Decision Time: 17:19
[2020-04-30 15:58] LABS: Basophils % (A) 1 %; Eosinophils # (A) 0.3 k/uL (0-0.7); Eosinophils % (A) 3 %; HCT 42.7 % (39.0-53.0); Lymphocytes # (A) 2.4 k/uL (1.0-4.8); Lymphocytes % (A) 28 %; MCH 28.8 pg (25.0-35.0); MCHC 32.7 g/dL (31.0-37.0); Mean Platelet Volume 7.3; Monocytes # (A) 0.5 k/uL (0-1.0); Monocytes % (A) 5 %; Neutrophils # (A) 5.2 k/uL (1.3-7.7); Neutrophils % (A) 61 %; Platelet Count 208 k/uL (150-450); RBC 4.85 m/uL (4.30-5.90); RDW 14.2 % (11.5-15.5); WBC 8.4 k/uL (3.8-10.6)
[2020-04-30 16:06] LABS: ALT 24 U/L (4-49); AST 24 U/L (17-59); African American GFR (CKD) >90 (>60 ml/min/1.73 sqM); Albumin 3.5 g/dL (3.5-5.0); Alkaline Phosphatase 87 U/L (38-126); Amylase <30 U/L (30-110); Anion Gap 6 mmol/L; Blood Urea Nitrogen 12 mg/dL (9-20); Calcium 8.6 mg/dL (8.4-10.2); Carbon Dioxide 29 mmol/L (22-30); Chloride 101 mmol/L (98-107); Glucose 159 mg/dL (74-99); INR 1.1 (<1.2); Non-African American GFR(CKD) >90 (>60 ml/min/1.73 sqM); Partial Thromboplastin Time 29.2 sec (22.0-30.0); Prothrombin Time 11.3 sec (9.0-12.0); Sodium 136 mmol/L (137-145); Total Bilirubin 0.6 mg/dL (0.2-1.3); Total Protein 6.5 g/dL (6.3-8.2)
--- NOTE | 2020-04-30 16:38 | XR ---
EXAMINATION TYPE: XR chest 2V DATE OF EXAM: 04/30/2020 COMPARISON: 12/17/2019 HISTORY: Abdominal pain chest pain TECHNIQUE: 2 views FINDINGS: Heart and mediastinum are normal. Lungs are clear. Diaphragm is normal. Bony thorax is inta ct. IMPRESSION: Normal chest. No change.
--- NOTE | 2020-04-30 16:41 | XR ---
EXAMINATION TYPE: XR KUB DATE OF EXAM: 04/30/2020 COMPARISON: 10/30/2019 HISTORY: Abdominal pain TECHNIQUE: 4 views upright FINDINGS: There is no sign of intestinal obstruction or pneumoperitoneum. Fecal pattern is normal. Th ere is no evidence of a mass. There are no pathologic calcifications over the kidneys. There are spon dylotic changes in the lumbar spine with levoscoliosis. IMPRESSION: Nonacute abdomen. No adverse change..
[2020-04-30 17:09] VITALS: RESP 18
[2020-04-30] MEDS ORDERED: ONDANSETRON 4 MG/2 ML VIAL IVP PRN (17:20)
[2020-04-30] MEDS ORDERED: MORPHINE SULFATE 2 MG/ML SYRINGE IVP STA (17:20)
[2020-04-30] MEDS ORDERED: MORPHINE SULFATE 4 MG/ML SYRINGE IV PRN (17:20)
[2020-04-30] MEDS ORDERED: NALOXONE 0.4 MG/ML 1 ML VIAL IV PRN (17:20)
[2020-04-30] MEDS ORDERED: PANTOPRAZOLE 40 MG/10 ML VIAL IV SCH (17:30)
[2020-04-30] MEDS: SODIUM CHLORIDE 0.9% 1,000 ML IV SCH (18:34)
[2020-04-30] MEDS ORDERED: ALBUTEROL NEBULIZED 2.5 MG/3 ML INHALATION PRN (20:35)
[2020-04-30] MEDS ORDERED: ALPRAZolam 0.5 MG TAB PO PRN (20:35)
[2020-04-30] MEDS ORDERED: IPRATROPIUM 0.5 MG/2.5 ML NEBU INHALATION PRN (20:35)
[2020-04-30 20:48] LABS: Glucose,Whole Blood 86 mg/dL (75-99)
[2020-04-30] MEDS ORDERED: INSULIN ASPART (NovoLOG) 100 UNIT/ML VIAL SQ SCH (21:00)
[2020-04-30] MEDS ORDERED: ERYTHROMYCIN 5 MG/GM OPHTH OINT 3.5 GM TUBE RIGHT EYE SCH (21:00)
[2020-04-30] MEDS ORDERED: METOPROLOL TARTRATE 50 MG TAB PO SCH (21:30)
--- NOTE | 2020-04-30 21:47 | P.GSCN ---
History of Present Illness Consult date: 04/30/20 History of present illness: Patient seen and evaluated. He reports more periumbilical abdominal pain at all trocar site. CT of the abdomen and pelvis revealed consistent with fat- containing incisional hernia. Recommend abdominal binder. Outpatient management for incisional hernia fat-containing. No emergent surgical intervention needed at this time. 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 and the patient underwent a tympanomastoidectomy with tympanoplasty, morbid obesity, obstructive sleep apnea with CPAP, chronic back pain, chronic left knee pain/torn meniscus and bone on bone, 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, R lower leg DVT and pulmonary embolism pt thinks was on L side, previous history of cellulitis, UTI, History of Any Multi-Drug Resistant Organisms: None Reported Past Surgical History: Cholecystectomy, Ear Surgery, Joint Replacement Additional Past Surgical History / Comment(s): Lap cholecystectomy with lysis of adhesions, R ear sugically resected/tympanomastoidectomy with tympanoplasty, bi lateral myringotomy/tubes, R eye enucleation, R total knee arthroplasty, EGD Past Anesthesia/Blood Transfusion Reactions: No Reported Reaction Past Psychological History: Anxiety, Depression, Schizophrenia Additional Psychological History / Comment(s): Pt resides with his significant other and her 2 children. He uses no assistive device. He has a nebulizer. He drives. Pt states he was diagnosed with schizophrenia as a teen but that no one states this anymore but does have depression and anxiety. Smoking Status: Current every day smoker Past Alcohol Use History: None Reported Additional Past Alcohol Use History / Comment(s): Pt started smoking in 1987. Past Drug Use History: None Reported - Past Family History Father History Unknown: Yes Family Medical History: Unable to Obtain Additional Family Medical History / Comment(s): Patient was adopted Mother Family Medical History: Unable to Obtain, Diabetes Mellitus Additional Family Medical History / Comment(s): Patient was adopted Medications and Allergies Home Medications Medication Instructions Recorded Confirmed Type oxyCODONE HCL [oxyCODONE HCL (IR)] 30 mg PO QID 04/21/14 04/30/20 History ALPRAZolam [Xanax] 0.5 mg PO BID PRN 07/16/18 04/30/20 History hydrALAZINE HCL [Apresoline] 100 mg PO TID 07/16/18 04/30/20 History Rivaroxaban [Xarelto] 15 mg PO BID 02/01/19 04/30/20 History Albuterol Nebulized [Ventolin 2.5 mg INHALATION RT-TID PRN 09/21/19 04/30/20 History Nebulized] Ergocalciferol [Vitamin D2 50,000 unit PO CARVAJAL 09/21/19 04/30/20 History (DRISDOL)] Fluticasone/Salmeterol 1 puff INHALATION RT-BID PRN 09/21/19 04/30/20 History [Fluticasone-Salmeterol 113-14] Ipratropium Nebulized [Atrovent 0.5 mg INHALATION RT-QID PRN 09/21/19 04/30/20 History Nebulized 0.2 MG/ML] Metoprolol Tartrate [Lopressor] 50 mg PO BID 09/21/19 04/30/20 History Mupirocin 2% Oint [Bactroban 2% 1 applic TOPICAL TID PRN 09/21/19 04/30/20 History Oint] Pseudoephedrine 12Hr [Sudafed 12 120 mg PO Q12H PRN 09/21/19 04/30/20 History Hour] lisinopriL 80 mg PO DAILY 09/21/19 04/30/20 History Atorvastatin [Lipitor] 10 mg PO DAILY 10/30/19 04/30/20 History Omeprazole 40 mg PO DAILY 10/30/19 04/30/20 History glipiZIDE XL [Glucotrol XL] 15 mg PO QAM 10/30/19 04/30/20 History Cetirizine HCl [Zyrtec] 10 mg PO BID 12/17/19 04/30/20 History Fluticasone Propionate [Flonase 1 spray EA NOSTRIL DAILY PRN 12/17/19 04/30/20 History Allergy Relief] Diclofenac Sodium [Voltaren] 75 mg PO BID 04/30/20 04/30/20 History Erythromycin Ophth Oint [Romycin 1 applic TOPICAL BID 04/30/20 04/30/20 History Ophth Oint] Isosorbide Mononitrate ER [Imdur] 60 mg PO DAILY 04/30/20 04/30/20 History Naloxone HCl [Narcan] 1 spray INHALATION ONCE PRN 04/30/20 04/30/20 History Pioglitazone [Actos] 15 mg PO DAILY 04/30/20 04/30/20 History Allergies Allergy/AdvReac Type Severity Reaction Status Date / Time cyclobenzaprine HCl Allergy Itching Verified 04/30/20 20:07 [From Flexeril] ibuprofen [From Motrin] AdvReac Nausea Verified 04/30/20 20:07 Surgical - Exam Vital Signs Temp Pulse Resp BP Pulse Ox 98.3 F 73 16 129/86 96 04/30/20 14:50 04/30/20 14:50 04/30/20 14:50 04/30/20 14:50 04/30/20 14:50 Results - Labs 04/30/20 15:28 04/30/20 15:28 Abnormal Lab Results - Last 24 Hours (Table) 04/30/20 Range/Units 15:28 Sodium 136 L (137-145) mmol/L Creatinine 0.61 L (0.66-1.25) mg/dL Glucose 159 H (74-99) mg/dL Amylase <30 L (30-110) U/L Diabetes panel 04/30/20 Range/Units 15:28 Sodium 136 L (137-145) mmol/L Potassium 4.0 (3.5-5.1) mmol/L Chloride 101 (98-107) mmol/L Carbon Dioxide 29 (22-30) mmol/L BUN 12 (9-20) mg/dL Creatinine 0.61 L (0.66-1.25) mg/dL Glucose 159 H (74-99) mg/dL Calcium 8.6 (8.4-10.2) mg/dL AST 24 (17-59) U/L ALT 24 (4-49) U/L Alkaline Phosphatase 87 (38-126) U/L Total Protein 6.5 (6.3-8.2) g/dL Albumin 3.5 (3.5-5.0) g/dL Calcium panel 04/30/20 Range/Units 15:28 Calcium 8.6 (8.4-10.2) mg/dL Albumin 3.5 (3.5-5.0) g/dL Pituitary panel 04/30/20 Range/Units 15:28 Sodium 136 L (137-145) mmol/L Potassium 4.0 (3.5-5.1) mmol/L Chloride 101 (98-107) mmol/L Carbon Dioxide 29 (22-30) mmol/L BUN 12 (9-20) mg/dL Creatinine 0.61 L (0.66-1.25) mg/dL Glucose 159 H (74-99) mg/dL Calcium 8.6 (8.4-10.2) mg/dL Adrenal panel 04/30/20 Range/Units 15:28 Sodium 136 L (137-145) mmol/L Potassium 4.0 (3.5-5.1) mmol/L Chloride 101 (98-107) mmol/L Carbon Dioxide 29 (22-30) mmol/L BUN 12 (9-20) mg/dL Creatinine 0.61 L (0.66-1.25) mg/dL Glucose 159 H (74-99) mg/dL Calcium 8.6 (8.4-10.2) mg/dL Total Bilirubin 0.6 (0.2-1.3) mg/dL AST 24 (17-59) U/L ALT 24 (4-49) U/L Alkaline Phosphatase 87 (38-126) U/L Total Protein 6.5 (6.3-8.2) g/dL Albumin 3.5 (3.5-5.0) g/dL
[2020-04-30] MEDS ORDERED: RIVAROXABAN 15 MG TAB PO SCH (22:00)
[2020-04-30] MEDS ORDERED: SYMBICORT 160-4.5 MCG INHALER INHALATION PRN (22:00)
[2020-04-30] MEDS ORDERED: MUPIROCIN 2% OINT 22 GM TUBE TOPICAL PRN (22:00)
[2020-04-30] MEDS ORDERED: hydrALAZINE HCL 50 MG TAB PO SCH (22:00)
[2020-04-30] MEDS ORDERED: LORATADINE 10 MG TAB PO SCH (22:00)
[2020-04-30] MEDS ORDERED: ETODOLAC 400 MG TAB PO SCH (22:00)
[2020-04-30 23:16] LABS: Appearance,Urine Clear (Clear); Bilirubin,Urine Negative (Negative); Blood,Urine Negative (Negative); Color,Urine Yellow; Glucose,Urine (UA) Negative (Negative); Ketones,Urine Negative (Negative); Leukocyte Esterase,Urine Negative (Negative); Nitrite,Urine Negative (Negative); Protein,Urine Negative (Negative); Specific Gravity,Urine 1.019 (1.001-1.035); Urobilinogen,Urine <2.0 mg/dL (<2.0)
[2020-04-30 23:26] VITALS: BP 116/77; PULSE 66; TEMP 97.7
[2020-05-01 05:58] LABS: Basophils # (A) 0.1 k/uL (0-0.2); Basophils % (A) 1 %; Eosinophils # (A) 0.2 k/uL (0-0.7); Eosinophils % (A) 3 %; HCT 44.2 % (39.0-53.0); HGB 14.1 gm/dL (13.0-17.5); Lymphocytes # (A) 2.1 k/uL (1.0-4.8); Lymphocytes % (A) 27 %; MCH 28.3 pg (25.0-35.0); MCV 88.6 fL (80.0-100.0); Mean Platelet Volume 7.3; Monocytes # (A) 0.4 k/uL (0-1.0); Monocytes % (A) 5 %; Neutrophils # (A) 4.8 k/uL (1.3-7.7); Neutrophils % (A) 63 %; Platelet Count 194 k/uL (150-450); RBC 4.99 m/uL (4.30-5.90); RDW 14.3 % (11.5-15.5); WBC 7.7 k/uL (3.8-10.6)
[2020-05-01] MEDS: SODIUM CHLORIDE 0.9% 1,000 ML IV SCH (06:03)
[2020-05-01 06:15] LABS: ALT 24 U/L (4-49); AST 28 U/L (17-59); African American GFR (CKD) >90 (>60 ml/min/1.73 sqM); Albumin 3.4 g/dL (3.5-5.0); Alkaline Phosphatase 74 U/L (38-126); Anion Gap 5 mmol/L; Blood Urea Nitrogen 10 mg/dL (9-20); Calcium 8.5 mg/dL (8.4-10.2); Carbon Dioxide 28 mmol/L (22-30); Chloride 104 mmol/L (98-107); Glucose 116 mg/dL (74-99); Non-African American GFR(CKD) >90 (>60 ml/min/1.73 sqM); Potassium 4.3 mmol/L (3.5-5.1); Sodium 137 mmol/L (137-145); Total Bilirubin 1.1 mg/dL (0.2-1.3); Total Protein 6.4 g/dL (6.3-8.2)
[2020-05-01] MEDS ORDERED: lisinopriL 20 MG TAB PO SCH (09:00)
[2020-05-01] MEDS ORDERED: PANTOPRAZOLE 40 MG TABLET PO SCH (09:00)
[2020-05-01] MEDS ORDERED: RIVAROXABAN 15 MG TAB PO SCH (09:00)
[2020-05-01] MEDS ORDERED: PIOGLITAZONE 15 MG TAB PO SCH (09:00)
[2020-05-01] MEDS ORDERED: ATORVASTATIN 10 MG TAB PO SCH (09:00)
[2020-05-01] MEDS ORDERED: FLUTICASONE 50MCG/SPRAY NASAL 16GM EA NOSTRIL PRN (09:00)
[2020-05-01] MEDS ORDERED: ISOSORBIDE MONONITRATE ER 60 MG TAB.ER.24H PO SCH (09:00)
[2020-05-01 15:21] LABS: Hemoglobin A1C 6.9 % (4.0-6.0)
[2020-05-01] MEDS ORDERED: PSEUDOEPHEDRINE 12HR 120 MG TABLET.ER PO PRN (22:00)
[2020-05-07] MEDS ORDERED: ERGOCALCIFEROL 50,000 UNIT CAP PO SCH (09:00)
== END 2020-05-01 06:05 | disposition left against medical advice (07) ==
LOC: EC 14:43 → 1SOBS 17:20
PROVIDERS: ADMIT Internal Medicine; ATTEND Internal Medicine
DX: K42.0 Umbilical hernia with obstruction, without gangrene (principal); J44.9 Chronic obstructive pulmonary disease, unspecified; E11.9 Type 2 diabetes mellitus without complications; Z86.718 Personal history of other venous thrombosis and embolism; K21.9 Gastro-esophageal reflux disease without esophagitis; H91.90 Unspecified hearing loss, unspecified ear; E78.5 Hyperlipidemia, unspecified; I10 Essential (primary) hypertension; M19.90 Unspecified osteoarthritis, unspecified site; Z87.01 Personal history of pneumonia (recurrent); Z86.711 Personal history of pulmonary embolism; G47.30 Sleep apnea, unspecified; Z99.89 Dependence on other enabling machines and devices; E11.40 Type 2 diabetes mellitus with diabetic neuropathy, unspecified; Z86.11 Personal history of tuberculosis; G47.33 Obstructive sleep apnea (adult) (pediatric); Z68.44 Body mass index [BMI] 60.0-69.9, adult; F41.9 Anxiety disorder, unspecified; F32.9 Major depressive disorder, single episode, unspecified; F20.9 Schizophrenia, unspecified; F17.200 Nicotine dependence, unspecified, uncomplicated; G89.29 Other chronic pain; M54.9 Dorsalgia, unspecified; M25.562 Pain in left knee; H40.9 Unspecified glaucoma; Z87.440 Personal history of urinary (tract) infections; Z90.49 Acquired absence of other specified parts of digestive tract; Z98.890 Other specified postprocedural states; Z83.3 Family history of diabetes mellitus; I45.10 Unspecified right bundle-branch block; I44.4 Left anterior fascicular block; Z79.01 Long term (current) use of anticoagulants; Z79.84 Long term (current) use of oral hypoglycemic drugs; Z79.891 Long term (current) use of opiate analgesic; Z79.899 Other long term (current) drug therapy; Z88.6 Allergy status to analgesic agent; Z88.8 Allergy status to other drugs, medicaments and biological substances
CPT/HCPCS: 96361; 96372; 96374; 96375; 99284; 99285; 36415; 93005; 80053 ×2; 82150; 83690; 84484; 85025 ×2; 85610; 85730; 81003; 81001; 83036; 71046; 74018; 74176; G0378 ×2; U0003; J0500; J2405; J2270; J1170

== ENCOUNTER 2020-05-16 23:53 | Emergency (ER) | payer OTHER ==
[2020-05-17 00:52] LABS: Appearance,Urine Cloudy (Clear); Bacteria,Urine Occasional /hpf; Bilirubin,Urine Negative (Negative); Blood,Urine Large (Negative); Color,Urine Light Red; Glucose,Urine (UA) 1+ (Negative); Ketones,Urine Negative (Negative); Leukocyte Esterase,Urine Large (Negative); Nitrite,Urine Negative (Negative); Protein,Urine 1+ (Negative); RBC,Urine >182 /hpf (0-5); Specific Gravity,Urine 1.009 (1.001-1.035); Urobilinogen,Urine <2.0 mg/dL (<2.0); WBC,Urine >182 /hpf (0-5)
--- NOTE | 2020-05-17 01:07 | CT ---
EXAMINATION TYPE: CT abdomen pelvis wo con DATE OF EXAM: 05/17/2020 COMPARISON: 09/22/2019 HISTORY: abd pain , groin pain CT DLP: [id number] mGycm Automated exposure control for dose reduction was used. Lung bases are clear of infiltrate. There is no pleural effusion. Heart size is normal. There is no p ericardial effusion. Liver spleen pancreas stomach appear normal. Bile ducts are not dilated. Gallbladder appears absent. There is no adrenal mass. Kidneys show normal size and contour. There is no hydronephrosis. Ureters a re not dilated. There is no retroperitoneal adenopathy. There is small umbilical hernia that measures 2 cm and contains fat. Bladder is almost empty. There is no pelvic mass. There is no inguinal hernia . There is no free fluid in the pelvis. There is no mesenteric edema. There is no ascites or free air. There is no bowel obstruction. There a re some hypertrophic degenerative disc changes throughout the lumbar spine. There is no compression f racture. The bony pelvis is intact. Hip joints are intact. Sacrum and coccyx appear intact. There is no evidence of a pelvic mass. There are some sigmoid diverticula without sign of diverticulitis. IMPRESSION: No acute abnormality of the abdomen pelvis. I do not see a cause for abdominal pain. There is apparen t cholecystectomy since old exam.
[2020-05-17 01:23] VITALS: BP 154/88; PULSE 102; RESP 19; TEMP 98
[2020-05-17 01:39] LABS: Basophils # (A) 0.1 k/uL (0-0.2); Basophils % (A) 1 %; Eosinophils # (A) 0.4 k/uL (0-0.7); Eosinophils % (A) 3 %; HGB 15.9 gm/dL (13.0-17.5); Lymphocytes # (A) 3.2 k/uL (1.0-4.8); Lymphocytes % (A) 20 %; MCHC 32.4 g/dL (31.0-37.0); MCV 89.3 fL (80.0-100.0); Monocytes # (A) 0.7 k/uL (0-1.0); Monocytes % (A) 4 %; Neutrophils # (A) 11.6 k/uL (1.3-7.7); Neutrophils % (A) 72 %; Platelet Count 236 k/uL (150-450); RBC 5.48 m/uL (4.30-5.90); RDW 14.1 % (11.5-15.5); WBC 16.1 k/uL (3.8-10.6)
[2020-05-17] MEDS ORDERED: LEVOFLOXACIN 750 MG TAB PO STA (01:42)
[2020-05-17 01:48] LABS: ALT 25 U/L (4-49); AST 30 U/L (17-59); African American GFR (CKD) >90 (>60 ml/min/1.73 sqM); Albumin 4.1 g/dL (3.5-5.0); Alkaline Phosphatase 102 U/L (38-126); Amylase 30 U/L (30-110); Anion Gap 7 mmol/L; Blood Urea Nitrogen 11 mg/dL (9-20); Calcium 8.9 mg/dL (8.4-10.2); Carbon Dioxide 26 mmol/L (22-30); Chloride 104 mmol/L (98-107); Glucose 149 mg/dL (74-99); Non-African American GFR(CKD) >90 (>60 ml/min/1.73 sqM); Potassium 4.5 mmol/L (3.5-5.1); Sodium 137 mmol/L (137-145); Total Protein 7.4 g/dL (6.3-8.2)
[2020-05-17] MEDS ORDERED: oxyCODONE ER 10 MG TAB.ER.12H PO STA (02:20)
--- NOTE | 2020-05-17 02:51 | ED ---
Male Urogenital HPI - General Chief complaint: Urogenital Stated complaint: Urinating blood, headache Time Seen by Provider: 05/17/20 00:03 Source: patient Mode of arrival: wheelchair Limitations: no limitations - History of Present Illness Initial comments: This patient is a 49-year-old man who presents to be evaluated for hematuria and some intermittent low abdominal/back pain. Patient states that she had been having intermittent discomfort going back up to 2 weeks. He also noted that he was blood in the urine this morning and presents to have evaluation for this. Patient denies fever or chills. No nausea or vomiting. No change in bowel mov ements. Patient denies urinary retention, dysuria, frequency. MD Complaint: other (Hematuria) -: week(s) Location: abdomen Radiation: none Severity: mild Quality: dull Consistency: intermittent Improves with: none Worsens with: palpation Reports: denies other symptoms - Related Data Home Medications Medication Instructions Recorded Confirmed oxyCODONE HCL [oxyCODONE HCL (IR)] 30 mg PO QID 04/21/14 04/30/20 ALPRAZolam [Xanax] 0.5 mg PO BID PRN 07/16/18 04/30/20 hydrALAZINE HCL [Apresoline] 100 mg PO TID 07/16/18 04/30/20 Rivaroxaban [Xarelto] 15 mg PO BID 02/01/19 04/30/20 Albuterol Nebulized [Ventolin 2.5 mg INHALATION RT-TID PRN 09/21/19 04/30/20 Nebulized] Ergocalciferol [Vitamin D2 50,000 unit PO CARVAJAL 09/21/19 04/30/20 (DRISDOL)] Fluticasone/Salmeterol 1 puff INHALATION RT-BID PRN 09/21/19 04/30/20 [Fluticasone-Salmeterol 113-14] Ipratropium Nebulized [Atrovent 0.5 mg INHALATION RT-QID PRN 09/21/19 04/30/20 Nebulized 0.2 MG/ML] Metoprolol Tartrate [Lopressor] 50 mg PO BID 09/21/19 04/30/20 Mupirocin 2% Oint [Bactroban 2% 1 applic TOPICAL TID PRN 09/21/19 04/30/20 Oint] Pseudoephedrine 12Hr [Sudafed 12 120 mg PO Q12H PRN 09/21/19 04/30/20 Hour] lisinopriL 80 mg PO DAILY 09/21/19 04/30/20 Atorvastatin [Lipitor] 10 mg PO DAILY 10/30/19 04/30/20 Omeprazole 40 mg PO DAILY 10/30/19 04/30/20 glipiZIDE XL [Glucotrol XL] 15 mg PO QAM 10/30/19 04/30/20 Cetirizine HCl [Zyrtec] 10 mg PO BID 12/17/19 04/30/20 Fluticasone Propionate [Flonase 1 spray EA NOSTRIL DAILY PRN 12/17/19 04/30/20 Allergy Relief] Diclofenac Sodium [Voltaren] 75 mg PO BID 04/30/20 04/30/20 Erythromycin Ophth Oint [Romycin 1 applic TOPICAL BID 04/30/20 04/30/20 Ophth Oint] Isosorbide Mononitrate ER [Imdur] 60 mg PO DAILY 04/30/20 04/30/20 Naloxone HCl [Narcan] 1 spray INHALATION ONCE PRN 04/30/20 04/30/20 Pioglitazone [Actos] 15 mg PO DAILY 04/30/20 04/30/20 Previous Rx's Medication Instructions Recorded Ciprofloxacin HCl [Cipro] 500 mg PO Q12HR #14 tablet 05/17/20 Hydrocodone/Acetaminophen [Peoa 1 tab PO Q4HR PRN 3 Days #18 tab 05/17/20 7.5-325] Allergies Allergy/AdvReac Type Severity Reaction Status Date / Time cyclobenzaprine HCl Allergy Itching Verified 05/17/20 00:01 [From Flexeril] ibuprofen [From Motrin] AdvReac Nausea Verified 05/17/20 00:01 Review of Systems ROS Statement: Those systems with pertinent positive or pertinent negative responses have been documented in the HPI. ROS Other: All systems not noted in ROS Statement are negative. Constitutional: Denies: fever, chills Respiratory: Denies: cough, dyspnea Cardiovascular: Denies: chest pain, palpitations, edema, syncope Gastrointestinal: Reports: as per HPI, abdominal pain. Denies: nausea, vomiting, diarrhea, constipation Genitourinary: Reports: hematuria. Denies: dysuria, frequency, discharge, testicular pain, testicular mass Musculoskeletal: Denies: back pain Skin: Denies: rash Neurological: Denies: headache, weakness, numbness Hematological/Lymphatic: Denies: easy bleeding 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 and the patient underwent a tympanomastoidectomy with tympanoplasty, morbid obesity, obstructive sleep apnea with CPAP, chronic back pain, chronic left knee pain/torn meniscus and bone on bone, 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, R lower leg DVT and pulmonary embolism pt thinks was on L side, previous history of cellulitis, UTI, History of Any Multi-Drug Resistant Organisms: None Reported Past Surgical History: Cholecystectomy, Ear Surgery, Joint Replacement Additional Past Surgical History / Comment(s): Lap cholecystectomy with lysis of adhesions, R ear sugically resected/tympanomastoidectomy with tympanoplasty, bilateral myringotomy/tubes, R eye enucleation, R total knee arthroplasty, EGD Past Anesthesia/Blood Transfusion Reactions: No Reported Reaction Past Psychological History: Anxiety, Depression, Schizophrenia Smoking Status: Current every day smoker Past Alcohol Use History: None Reported Past Drug Use History: None Reported - Past Family History Father History Unknown: Yes Family Medical History: Unable to Obtain Additional Family Medical History / Comment(s): Patient was adopted Mother Family Medical History: Unable to Obtain, Diabetes Mellitus Additional Family Medical History / Comment(s): Patient was adopted General Exam Limitations: no limitations General appearance: alert, in no apparent distress Head exam: Present: atraumatic, normocephalic Eye exam: Present: normal appearance. Absent: scleral icterus, conjunctival injection ENT exam: Present: normal oropharynx Respiratory exam: Present: normal lung sounds bilaterally. Absent: respiratory distress, wheezes, rales, rhonchi, stridor Cardiovascular Exam: Present: regular rate, normal rhythm, normal heart sounds. Absent: systolic murmur, diastolic murmur, rubs, gallop GI/Abdominal exam: Present: soft. Absent: distended, tenderness, guarding, rebound, rigid, mass, pulsatile mass Extremities exam: Present: normal inspection, normal capillary refill. Absent: pedal edema, calf tenderness Back exam: Present: normal inspection. Absent: CVA tenderness (R), CVA tenderness (L) Neurological exam: Present: alert Skin exam: Present: warm, dry, intact, normal color. Absent: rash Course Vital Signs 05/16/20 05/17/20 23:58 01:14 Temperature 98.2 F 98 F Pulse Rate 100 102 H Respiratory 20 19 Rate Blood Pressure 161/85 154/88 O2 Sat by Pulse 97 95 Oximetry Medical Decision Making - Medical Decision Making Patient's 49-year-old man with low abdominal pain and hematuria. Suspect prostate versus urinary tract infection. The patient is feeling well and would like to try taking course of outpatient antibiotics and following up. I discussed that he must keep a low threshold to return, have follow-up to ensure that the hematuria resolves and is not related to any sort of malignant see. Discussed appropriate further care and follow-up. - Lab Data Result diagrams: 05/17/20 01:04 05/17/20 01:04 Lab Results 05/17/20 05/17/20 05/17/20 Range/Units 00:17 01:04 01:04 WBC 16.1 H (3.8-10.6) k/uL RBC 5.48 (4.30-5.90) m/uL Hgb 15.9 (13.0-17.5) gm/dL Hct 49.0 (39.0-53.0) % MCV 89.3 (80.0-100.0) fL MCH 29.0 (25.0-35.0) pg MCHC 32.4 (31.0-37.0) g/dL RDW 14.1 (11.5-15.5) % Plt Count 236 (150-450) k/uL Neutrophils % 72 % Lymphocytes % 20 % Monocytes % 4 % Eosinophils % 3 % Basophils % 1 % Neutrophils # 11.6 H (1.3-7.7) k/uL Lymphocytes # 3.2 (1.0-4.8) k/uL Monocytes # 0.7 (0-1.0) k/uL Eosinophils # 0.4 (0-0.7) k/uL Basophils # 0.1 (0-0.2) k/uL Sodium 137 (137-145) mmol/L Potassium 4.5 (3.5-5.1) mmol/L Chloride 104 (98-107) mmol/L Carbon Dioxide 26 (22-30) mmol/L Anion Gap 7 mmol/L BUN 11 (9-20) mg/dL Creatinine 0.65 L (0.66-1.25) mg/dL Est GFR (CKD-EPI)AfAm >90 (>60 ml/min/1.73 sqM) Est GFR (CKD-EPI)NonAf >90 (>60 ml/min/1.73 sqM) Glucose 149 H (74-99) mg/dL Calcium 8.9 (8.4-10.2) mg/dL Total Bilirubin 1.0 (0.2-1.3) mg/dL AST 30 (17-59) U/L ALT 25 (4-49) U/L Alkaline Phosphatase 102 (38-126) U/L Total Protein 7.4 (6.3-8.2) g/dL Albumin 4.1 (3.5-5.0) g/dL Amylase 30 (30-110) U/L Lipase 210 (23-300) U/L Urine Color Light Red Urine Appearance Cloudy (Clear) Urine pH 6.0 (5.0-8.0) Ur Specific [place] 1.009 (1.001-1.035) Urine Protein 1+ H (Negative) Urine Glucose (UA) 1+ H (Negative) Urine Ketones Negative (Negative) Urine Blood Large H (Negative) Urine Nitrite Negative (Negative) Urine Bilirubin Negative (Negative) Urine Urobilinogen <2.0 (<2.0) mg/dL Ur Leukocyte Esterase Large H (Negative) Urine RBC >182 H (0-5) /hpf Urine WBC >182 H (0-5) /hpf Urine Bacteria Occasional H (None) /hpf Disposition Clinical Impression: Urinary tract infection, Hematuria Disposition: HOME SELF-CARE Condition: Fair Instructions (If sedation given, give patient instructions): Urinary Tract Infection in Men (ED) Prescriptions: Ciprofloxacin HCl [Cipro] 500 mg PO Q12HR #14 tablet Hydrocodone/Acetaminophen [Pe[place] 7.5-325] 1 tab PO Q4HR PRN 3 Days #18 tab PRN Reason: Pain Is patient prescribed a controlled substance at d/c from ED?: Yes When asked, does pt state using other controlled substances?: No If prescribed controlled substance>3 days was MAPS reviewed?: Prescribed <3 Days If opioid is for acute pain is fill amount 7 days or less?: Yes If Rx opioid, was Start Talking consent form obtained?: Yes Referrals: Marian Bradford MD [Primary Care Provider] - 1-2 days Bob Moncada MD [STAFF PHYSICIAN] - 1-2 days
== END 2020-05-17 03:39 | disposition home or self-care (01) ==
LOC: EC 23:53
DX: N39.0 Urinary tract infection, site not specified (principal); J44.9 Chronic obstructive pulmonary disease, unspecified; I10 Essential (primary) hypertension; G47.33 Obstructive sleep apnea (adult) (pediatric); E78.5 Hyperlipidemia, unspecified; E11.65 Type 2 diabetes mellitus with hyperglycemia; K21.9 Gastro-esophageal reflux disease without esophagitis; E66.01 Morbid (severe) obesity due to excess calories; Z68.44 Body mass index [BMI] 60.0-69.9, adult; F17.200 Nicotine dependence, unspecified, uncomplicated; Z79.1 Long term (current) use of non-steroidal anti-inflammatories (NSAID); Z79.51 Long term (current) use of inhaled steroids; Z79.01 Long term (current) use of anticoagulants; Z79.899 Other long term (current) drug therapy; Z79.84 Long term (current) use of oral hypoglycemic drugs; Z88.6 Allergy status to analgesic agent; Z88.8 Allergy status to other drugs, medicaments and biological substances; Z86.711 Personal history of pulmonary embolism; Z86.718 Personal history of other venous thrombosis and embolism; Z90.49 Acquired absence of other specified parts of digestive tract; Z96.651 Presence of right artificial knee joint
CPT/HCPCS: 36415; 74176; 80053; 81001; 82150; 83690; 85025; 87040; 87077; 87086; 87186; 99284

== ENCOUNTER 2020-06-19 07:25 | Day surgery (SDC) | payer OTHER ==
[2020-06-15 10:42] VITALS: BMI 65.9
[2020-06-19 08:09] VITALS: RESP 16; TEMP 96.9
[2020-06-19] MEDS: LACTATED RINGERS 1,000 ML IV SCH ×2 (08:10→08:15)
[2020-06-19] MEDS ORDERED: LIDOCAINE 1% (10MG/ML) FOR IV START SQ ONE (08:10)
[2020-06-19] MEDS ORDERED: PROPOFOL 10 MG/ML 20 ML VIAL IV ONE (08:16)
[2020-06-19 08:23] LABS: Glucose,Whole Blood 132 mg/dL (75-99)
--- NOTE | 2020-06-19 08:50 | P.PCN ---
Date of Procedure: 06/19/20 Description of Procedure: BRIEF HISTORY: Patient is a 50-year-old male presenting for outpatient colonoscopy for screening for malignant neoplasm:. No prior colonoscopy. No family history of colon cancers patient was adopted. He does report some altered bowel function suspected IBS. PROCEDURE PERFORMED: Colonoscopy with biopsy. PREOPERATIVE DIAGNOSIS: Screening for malignant neoplasm of the colon, no prior colonoscopy. ESTIMATED BLOOD LOSS: Minimal. IV sedation per Anesthesia. PROCEDURE: After informed consent was obtained, the patient, was brought into the endoscopy unit. IV sedation was administered by Anesthesia under continuous monitoring. Digital rectal examination was normal. Initially the Olympus CF-190 flexible video colonoscope was then inserted in the rectum, gradually advanced into the cecum without any difficulty. Careful examination was performed as the scope was gradually being withdrawn. Ileocecal valve and the appendiceal orifice were visualized and appeared normal. Prep was excellent. Mucosa of the cecum, ascending colon, transverse colon, descending colon, sigmoid colon, and rectum appeared normal, with biopsies of the right and left colon taken due to altered bowel function. Retroflexion was performed in the rectum and no lesions were seen, with low-grade internal hemorrhoids noted. The patient tolerated the procedure well. IMPRESSION: Normal-appearing colon from rectum to cecum, with biopsies of the right and left colon in the setting of altered bowel function. Low-grade internal hemorrhoids. RECOMMENDATIONS: Findings of this examination were discussed with the patient and his girlfriend. Okay to resume diet. Okay to resume medications. Await pathology from biopsies. Would recommend repeat colonoscopy in 10 years for screening purposes.
[2020-06-19 09:21] VITALS: BP 147/90; PULSE 60
== END 2020-06-19 09:29 | disposition home or self-care (01) ==
LOC: ORWHC2ENDO 07:25
PROVIDERS: ATTEND Internal Medicine
DX: K64.8 Other hemorrhoids (principal); I10 Essential (primary) hypertension; E78.5 Hyperlipidemia, unspecified; J44.9 Chronic obstructive pulmonary disease, unspecified; G47.33 Obstructive sleep apnea (adult) (pediatric); E66.01 Morbid (severe) obesity due to excess calories; E11.9 Type 2 diabetes mellitus without complications; K21.9 Gastro-esophageal reflux disease without esophagitis; Z88.6 Allergy status to analgesic agent; Z88.8 Allergy status to other drugs, medicaments and biological substances; Z79.01 Long term (current) use of anticoagulants; Z79.84 Long term (current) use of oral hypoglycemic drugs; Z79.899 Other long term (current) drug therapy; Z90.49 Acquired absence of other specified parts of digestive tract; Z87.891 Personal history of nicotine dependence; Z99.89 Dependence on other enabling machines and devices; Z68.44 Body mass index [BMI] 60.0-69.9, adult
CPT/HCPCS: 88305; 45380; J2704

== ENCOUNTER 2020-07-10 05:28 | Emergency (ER) | payer OTHER ==
[2020-07-10 05:33] VITALS: BP 156/86; PULSE 77; RESP 20; TEMP 98.1
[2020-07-10] MEDS ORDERED: ASPIRIN 81 MG PO STA (05:42)
[2020-07-10 05:53] LABS: Glucose,Whole Blood 170 mg/dL (75-99)
[2020-07-10 06:16] LABS: Basophils # (A) 0.1 k/uL (0-0.2); Basophils % (A) 1 %; Eosinophils # (A) 0.3 k/uL (0-0.7); Eosinophils % (A) 3 %; HCT 45.9 % (39.0-53.0); HGB 15.1 gm/dL (13.0-17.5); Lymphocytes # (A) 2.8 k/uL (1.0-4.8); Lymphocytes % (A) 26 %; MCH 28.9 pg (25.0-35.0); MCHC 32.8 g/dL (31.0-37.0); MCV 88.1 fL (80.0-100.0); Mean Platelet Volume 7.2; Monocytes # (A) 0.5 k/uL (0-1.0); Monocytes % (A) 4 %; Neutrophils % (A) 65 %; Platelet Count 236 k/uL (150-450); RBC 5.21 m/uL (4.30-5.90); RDW 14.1 % (11.5-15.5); WBC 10.7 k/uL (3.8-10.6)
--- NOTE | 2020-07-10 06:16 | XR ---
EXAMINATION TYPE: XR chest 2V DATE OF EXAM: 07/10/2020 COMPARISON: 04/30/2020 HISTORY: Chest pain TECHNIQUE: FINDINGS: Heart appears borderline enlarged. There is no heart failure nor confluent pneumonic infilt rate. There are chest leads. Costophrenic angles are clear. IMPRESSION: No active cardiopulmonary disease. No change.
[2020-07-10 06:24] LABS: ALT 16 U/L (4-49); AST 20 U/L (17-59); African American GFR (CKD) >90 (>60 ml/min/1.73 sqM); Albumin 3.5 g/dL (3.5-5.0); Alkaline Phosphatase 109 U/L (38-126); Anion Gap 7 mmol/L; Blood Urea Nitrogen 10 mg/dL (9-20); Calcium 8.5 mg/dL (8.4-10.2); Carbon Dioxide 28 mmol/L (22-30); Chloride 103 mmol/L (98-107); Glucose 180 mg/dL (74-99); Magnesium 1.7 mg/dL (1.6-2.3); Non-African American GFR(CKD) >90 (>60 ml/min/1.73 sqM); Potassium 3.7 mmol/L (3.5-5.1); Sodium 138 mmol/L (137-145); Total Bilirubin 0.8 mg/dL (0.2-1.3); Total Protein 6.8 g/dL (6.3-8.2)
[2020-07-10 06:36] LABS: INR 1.2 (<1.2); Partial Thromboplastin Time 35.6 sec (22.0-30.0); Prothrombin Time 12.2 sec (9.0-12.0)
[2020-07-10] MEDS ORDERED: ORPHENADRINE 30 MG/ML 2 ML VIAL IM STA (07:19)
--- NOTE | 2020-07-10 07:19 | ED ---
Chest Pain HPI - General Chief Complaint: Chest Pain Stated Complaint: chest pain Time Seen by Provider: 07/10/20 05:32 Source: patient Mode of arrival: wheelchair Limitations: no limitations - History of Present Illness Initial Comments: Juan is a morbidly obese 50-year-old male who presents to the ER today for evaluation of left shoulder and left sided chest wall pain. Patient reports that he was sleeping when he woke up and felt an aching throbbing in his left arm. He thought it was how he slept. He reports he then felt like there was a pulled muscle in his chest. States that it's worse with movement of his left arm. Resolves with rest. No associated diaphoresis lightheadedness or shortness of breath. Patient denies any heavy lifting or activity that could have caused a pulled muscle yesterday however he does think he was sleeping funny. - Related Data Home Medications Medication Instructions Recorded Confirmed ALPRAZolam [Xanax] 0.5 mg PO BID PRN 07/16/18 07/10/20 hydrALAZINE HCL [Apresoline] 100 mg PO TID 07/16/18 07/10/20 Rivaroxaban [Xarelto] 15 mg PO BID 02/01/19 07/10/20 Albuterol Nebulized [Ventolin 2.5 mg INHALATION RT-Q6H PRN 09/21/19 07/10/20 Nebulized] Ergocalciferol [Vitamin D2 50,000 unit PO CARVAJAL 09/21/19 07/10/20 (DRISDOL)] Ipratropium Nebulized [Atrovent 0.5 mg INHALATION RT-Q6H PRN 09/21/19 07/10/20 Nebulized 0.2 MG/ML] Metoprolol Tartrate [Lopressor] 50 mg PO BID 09/21/19 07/10/20 Mupirocin 2% Oint [Bactroban 2% 1 applic TOPICAL TID PRN 09/21/19 07/10/20 Oint] Pseudoephedrine 12Hr [Sudafed 12 120 mg PO Q12H PRN 09/21/19 07/10/20 Hour] lisinopriL 80 mg PO DAILY 09/21/19 07/10/20 Atorvastatin [Lipitor] 10 mg PO HS 10/30/19 07/10/20 Omeprazole 40 mg PO DAILY 10/30/19 07/10/20 glipiZIDE XL [Glucotrol XL] 15 mg PO QAM 10/30/19 07/10/20 Cetirizine HCl [Zyrtec] 10 mg PO BID 12/17/19 07/10/20 Fluticasone Propionate [Flonase 1 spray EA NOSTRIL DAILY PRN 12/17/19 07/10/20 Allergy Relief] Erythromycin Ophth Oint [Romycin 1 applic RIGHT EYE BID PRN 04/30/20 07/10/20 Ophth Oint] Isosorbide Mononitrate ER [Imdur] 60 mg PO DAILY 04/30/20 07/10/20 Naloxone HCl [Narcan] 1 spray INHALATION ONCE PRN 04/30/20 07/10/20 Pioglitazone [Actos] 15 mg PO DAILY 04/30/20 07/10/20 HYDROcodone/APAP 7.5-325MG [[place] 1 tab PO Q4H PRN 07/10/20 07/10/20 7.5-325] Pantoprazole [Protonix] 40 mg PO DAILY 07/10/20 07/10/20 oxyCODONE HCL [OxyCONTIN] 30 mg PO Q12H PRN 07/10/20 07/10/20 Allergies Allergy/AdvReac Type Severity Reaction Status Date / Time cyclobenzaprine HCl Allergy Itching Verified 07/10/20 06:53 [From Flexeril] ibuprofen [From Motrin] AdvReac Nausea Verified 07/10/20 06:53 Review of Systems ROS Statement: Those systems with pertinent positive or pertinent negative responses have been documented in the HPI. ROS Other: All systems not noted in ROS Statement are negative. EKG Findings - EKG Comments: EKG Findings:: EKG was obtained due to complaint of chest pain EKG was obtained at 5:39 AM, rate of 74 rhythm is sinus with a bifascicular block, CT 166 QRS 158, QTC 503, no acute ST elevations or depressions no evidence of acute ischemia or infarction. EKG not significantly changed from previous. Past Medical History Past Medical History: Chest Pain / Angina, COPD, Diabetes Mellitus, Deep Vein Thrombosis (DVT), Eye Disorder, GERD/Reflux, Hearing Disorder / Deafness, Hyperlipidemia, Hypertension, Osteoarthritis (OA), Pneumonia, Pulmonary Embolus (PE), Respiratory Disorder, Sleep Apnea/CPAP/BIPAP Additional Past Medical History / Comment(s): NIDDM type II, neuropathy BLE. 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, R lower leg DVT & PE, previous history of cellulitis, UTI, History of Any Multi-Drug Resistant Organisms: None Reported Past Surgical History: Cholecystectomy, Ear Surgery, Joint Replacement Additional Past Surgical History / Comment(s): Lap cholecystectomy with lysis of adhesions, R ear sugically resected/tympanomastoidectomy with tympanoplasty, bilateral myringotomy/tubes, R eye enucleation, R total knee arthroplasty, EGD Past Anesthesia/Blood Transfusion Reactions: No Reported Reaction Additional Past Anesthesia/Blood Transfusion Reaction / Comment(s): (no known family hx) Past Psychological History: Anxiety, Depression, Schizophrenia Smoking Status: Current every day smoker Past Alcohol Use History: None Reported Past Drug Use History: None Reported - Past Family History Father History Unknown: Yes Family Medical History: Unable to Obtain Additional Family Medical History / Comment(s): Patient was adopted Mother Family Medical History: Unable to Obtain, Diabetes Mellitus Additional Family Medical History / Comment(s): Patient was adopted General Exam - General Exam Comments Initial Comments: Physical Exam GENERAL: Patient is well-developed and well-nourished. Patient is nontoxic and well- hydrated and is in no distress. HENT: Normocephalic, Atraumatic. EYES: PERRL, EOMI PULMONARY: Unlabored respirations. No audible rales rhonchi or wheezing was noted. CARDIOVASCULAR: There is a regular rate and rhythm without any murmurs gallops or rubs. Chest pain reproducible on palpation and with range of motion of the left arm ABDOMEN: Soft and nontender with normal bowel sounds. SKIN: Skin is clear with no lesions or rashes and otherwise unremarkable. : Deferred NEUROLOGIC: Patient is alert and oriented x3. Moving all extremities spontaneously MUSCULOSKELETAL: Normal extremities with adequate strength and full range of motion. No lower extremity swelling or edema. No calf tenderness. PSYCHIATRIC: Normal psychiatric evaluation. Limitations: no limitations Course Vital Signs 07/10/20 05:30 Temperature 98.1 F Pulse Rate 77 Respiratory 20 Rate Blood Pressure 156/86 O2 Sat by Pulse 97 Oximetry Chest Pain MDM - MDM The patient was seen and evaluated history is obtained from patient History and physical exam were concerning for likely musculoskeletal chest pain EKG was unchanged from previous Labs were unremarkable Patient received Norflex for musculoskeletal chest wall and shoulder pain, patient was comfortable with plan for discharge home and outpatient follow-up with his primary care next with close return parameters were discussed with the patient was discharged home in stable condition Disposition Clinical Impression: Atypical chest pain Disposition: HOME SELF-CARE Condition: Stable Instructions (If sedation given, give patient instructions): Chest Pain (ED) Is patient prescribed a controlled substance at d/c from ED?: No Referrals: Villa Moore MD [Primary Care Provider] - 1-2 days
== END 2020-07-10 07:47 | disposition home or self-care (01) ==
LOC: EC 05:28
DX: R07.89 Other chest pain (principal); M25.512 Pain in left shoulder; I10 Essential (primary) hypertension; E78.5 Hyperlipidemia, unspecified; E11.40 Type 2 diabetes mellitus with diabetic neuropathy, unspecified; E11.39 Type 2 diabetes mellitus with other diabetic ophthalmic complication; H42 Glaucoma in diseases classified elsewhere; J44.9 Chronic obstructive pulmonary disease, unspecified; I26.99 Other pulmonary embolism without acute cor pulmonale; K21.9 Gastro-esophageal reflux disease without esophagitis; I20.9 Angina pectoris, unspecified; H91.90 Unspecified hearing loss, unspecified ear; G89.29 Other chronic pain; M54.9 Dorsalgia, unspecified; M25.562 Pain in left knee; F32.9 Major depressive disorder, single episode, unspecified; F41.9 Anxiety disorder, unspecified; G47.30 Sleep apnea, unspecified; F17.200 Nicotine dependence, unspecified, uncomplicated; Z79.899 Other long term (current) drug therapy; Z79.01 Long term (current) use of anticoagulants; Z79.84 Long term (current) use of oral hypoglycemic drugs; Z88.6 Allergy status to analgesic agent; Z88.8 Allergy status to other drugs, medicaments and biological substances; Z96.651 Presence of right artificial knee joint; Z86.718 Personal history of other venous thrombosis and embolism; Z99.89 Dependence on other enabling machines and devices
CPT/HCPCS: 36415; 93005; 83880; 80053; 83735; 84484; 85025; 85610; 85730; 71046; 99285; 96372; J2360

== ENCOUNTER 2020-08-29 09:52 | Inpatient (IN) | payer OTHER ==
[2020-08-29 17:08] LABS: Glucose,Whole Blood 155 mg/dL (75-99)
[2020-08-29 17:09] LABS: Basophils # (A) 0.2 k/uL (0-0.2); Basophils % (A) 1 %; Eosinophils # (A) 0.4 k/uL (0-0.7); Eosinophils % (A) 3 %; HCT 48.3 % (39.0-53.0); HGB 15.7 gm/dL (13.0-17.5); Lymphocytes # (A) 2.6 k/uL (1.0-4.8); Lymphocytes % (A) 20 %; MCH 29.4 pg (25.0-35.0); MCHC 32.6 g/dL (31.0-37.0); MCV 90.3 fL (80.0-100.0); Mean Platelet Volume 7.3; Monocytes # (A) 0.6 k/uL (0-1.0); Monocytes % (A) 4 %; Neutrophils % (A) 70 %; Platelet Count 188 k/uL (150-450); RBC 5.35 m/uL (4.30-5.90); RDW 14.2 % (11.5-15.5); WBC 12.9 k/uL (3.8-10.6)
[2020-08-29 17:16] LABS: African American GFR (CKD) >90 (>60 ml/min/1.73 sqM); Albumin 3.2 g/dL (3.5-5.0); Blood Urea Nitrogen 13 mg/dL (9-20); Carbon Dioxide 32 mmol/L (22-30); Globulin 3.1 g/dL; Non-African American GFR(CKD) >90 (>60 ml/min/1.73 sqM); Total Bilirubin 0.8 mg/dL (0.2-1.3); Total Protein 6.3 g/dL (6.3-8.2)
[2020-08-29] MEDS: SODIUM CHLORIDE 0.9% 1,000 ML IV SCH (17:16)
[2020-08-29] MEDS: PIPERACILLIN-TAZOBACTAM 3.375 GM in SODIUM CHLORIDE 0.9% 100 ML IVPB SCH (17:25)
[2020-08-29 17:28] LABS: ALT 20 U/L (4-49); AST 28 U/L (17-59); Alkaline Phosphatase 112 U/L (38-126); Anion Gap 3 mmol/L; Calcium 8.5 mg/dL (8.4-10.2); Chloride 101 mmol/L (98-107); Glucose 153 mg/dL (74-99); Sodium 136 mmol/L (137-145)
[2020-08-29] MEDS ORDERED: FLUTICASONE 50MCG/SPRAY NASAL 16GM EA NOSTRIL PRN (17:41)
[2020-08-29] MEDS ORDERED: MUPIROCIN 2% OINT 22 GM TUBE TOPICAL PRN (17:41)
[2020-08-29] MEDS ORDERED: PSEUDOEPHEDRINE 12HR 120 MG TABLET.ER PO PRN (17:41)
[2020-08-29] MEDS ORDERED: ALBUTEROL NEBULIZED 2.5 MG/3 ML INHALATION PRN (17:41)
[2020-08-29] MEDS ORDERED: ACETAMINOPHEN TAB 500 MG TAB PO PRN (17:41)
[2020-08-29] MEDS ORDERED: IPRATROPIUM 0.5 MG/2.5 ML NEBU INHALATION PRN (17:41)
[2020-08-29] MEDS ORDERED: ERYTHROMYCIN 5 MG/GM OPHTH OINT 3.5 GM TUBE RIGHT EYE PRN (17:41)
[2020-08-29] MEDS: lisinopriL 20 MG TAB PO SCH (20:39)
[2020-08-29] MEDS: RIVAROXABAN 15 MG TAB PO SCH (20:40)
[2020-08-29] MEDS: METOPROLOL TARTRATE 50 MG TAB PO SCH (20:40)
[2020-08-29 20:46] LABS: Glucose,Whole Blood 158 mg/dL (75-99)
[2020-08-29] MEDS ORDERED: ATORVASTATIN 10 MG TAB PO SCH (21:00)
[2020-08-29] MEDS: hydrALAZINE HCL 50 MG TAB PO SCH (21:59)
[2020-08-30] MEDS: PIPERACILLIN-TAZOBACTAM 3.375 GM in SODIUM CHLORIDE 0.9% 100 ML IVPB SCH ×2 (01:56→10:37)
--- NOTE | 2020-08-30 03:24 | HP ---
HISTORY AND PHYSICAL This is a 50-year-old white male who was admitted with diabetic wound infection to the chest with large fluctuant mass on the right chest, 5 x 5 fluctuant red mass which shows scabs times over this red swollen area. He was admitted with IV antibiotics and status post incision and drainage. MEDICINES: 1. Acetaminophen 1000 daily. 2. Xanax 1 mg at bedtime. 3. Lipitor 10 mg daily. 4. Vitamin D 50,000 units weekly. 5. Erythromycin ointment daily. 6. Fluticasone nasal spray daily. 7. DuoNeb q.i.d. 8. Imdur 60 mg daily. 9. Zestril 40 mg b.i.d. 10.Claritin 10 mg daily. 11.Metoprolol tartrate 50 mg b.i.d. 12.Oxy IR 30 mg q.8 hours. 13.Protonix 40 mg daily. 14.Actos 15 mg daily. 15.Sudafed 12 hours 120 mg b.i.d. 16.Xarelto 15 mg b.i.d. 17.Zosyn IV q.8 hours. REVIEW OF SYSTEMS: Fourteen-point review of systems negative except for mentioned in HPI. PHYSICAL EXAMINATION: O2 sats 92% to 96% on room air, blood pressure 120s to 140s over 60s to 70s, pulse is 87 to 95, temperature 97.9 to 98. ENDOCRINE: BMI is over 40. CARDIOVASCULAR: S1, S2. LUNGS: Clear. in right anterior chest, 5 x 5 redness, swollen, fluctuant mass, 2 scab areas. HEMATOLOGY: Negative Homans. GI: Soft, nontender. PLAN: Surgical consult for incision and drainage. IV Zosyn will be continued. Wound dressing changes. Diabetic control a.c. and at bedtime. Please see further orders. MMODL / IJN: [id number] /
[2020-08-30 07:03] LABS: Glucose,Whole Blood 125 mg/dL (75-99)
[2020-08-30 07:10] LABS: Basophils # (A) 0.1 k/uL (0-0.2); Basophils % (A) 1 %; Eosinophils # (A) 0.3 k/uL (0-0.7); Eosinophils % (A) 3 %; HGB 16.4 gm/dL (13.0-17.5); Lymphocytes # (A) 2.8 k/uL (1.0-4.8); Lymphocytes % (A) 25 %; MCH 29.8 pg (25.0-35.0); MCHC 32.8 g/dL (31.0-37.0); MCV 90.7 fL (80.0-100.0); Mean Platelet Volume 7.2; Monocytes # (A) 0.6 k/uL (0-1.0); Monocytes % (A) 5 %; Neutrophils # (A) 7.3 k/uL (1.3-7.7); Neutrophils % (A) 64 %; Platelet Count 189 k/uL (150-450); RBC 5.51 m/uL (4.30-5.90); RDW 14.1 % (11.5-15.5); WBC 11.4 k/uL (3.8-10.6)
[2020-08-30] MEDS: PANTOPRAZOLE 40 MG TABLET PO SCH (07:15)
[2020-08-30] MEDS ORDERED: PANTOPRAZOLE 40 MG TABLET PO SCH (07:30)
[2020-08-30] MEDS: ISOSORBIDE MONONITRATE ER 60 MG TAB.ER.24H PO SCH (08:18)
[2020-08-30] MEDS: lisinopriL 20 MG TAB PO SCH ×2 (08:19→18:54)
[2020-08-30] MEDS: hydrALAZINE HCL 50 MG TAB PO SCH ×3 (08:19→20:52)
[2020-08-30] MEDS: LORATADINE 10 MG TAB PO SCH (08:19)
[2020-08-30] MEDS: METOPROLOL TARTRATE 50 MG TAB PO SCH ×2 (08:19→18:54)
[2020-08-30] MEDS: RIVAROXABAN 15 MG TAB PO SCH ×2 (08:20→18:55)
[2020-08-30] MEDS: PIOGLITAZONE 15 MG TAB PO SCH (08:20)
[2020-08-30 09:51] LABS: African American GFR (CKD) 127.5 (60.0-200.0); Albumin 3.4 g/dL (3.80-4.90); Albumin/Globulin Ratio 1.36 (1.60-3.17); Anion Gap 7.3 mmol/L (4.00-12.00); BUN/Creat Ratio 18.57 Ratio (12.00-20.00); Calcium 8.5 mg/dL (8.7-10.3); Carbon Dioxide 27.7 mmol/L (21.6-31.8); Globulin 2.5 g/dL (1.6-3.3); Potassium 4.3 mmol/L (3.5-5.5); Total Bilirubin 1.1 mg/dL (0.2-1.2); Total Protein 5.9 g/dL (6.2-8.2)
[2020-08-30] MEDS: IPRATROPIUM-ALBUTEROL 3 ML NEB INHALATION PRN (09:57)
[2020-08-30 11:42] LABS: Glucose,Whole Blood 122 mg/dL (75-99)
[2020-08-30] MEDS: SODIUM CHLORIDE 0.9% 1,000 ML IV SCH (13:00)
--- NOTE | 2020-08-30 13:08 | P.GSCN ---
History of Present Illness Consult date: 08/30/20 History of present illness: CHIEF COMPLAINT: Cellulitis of the chest wall HISTORY OF PRESENT ILLNESS: This is a 50-year-old male with a known history of diabetes, PE and DVT anticoagulated with Xarelto, hypertension, hyperlipidemia, check to severe apnea, nicotine dependence, schizophrenia and history of cholecystectomy. Patient has been admitted to the hospital for a right sided chest wall cellulitis and abscess. Patient reports having increase in redness pain and swelling on the right side of his chest over the last several days. He denies being on any antibiotics outpatient. He did have some draining at 2 sites. However I they have scabbed over. Patient even reports picking at these scabs. He denies any history of MRSA. He is had small abscesses in his scalp. He denies any fever, chills or sweats. PAST MEDICAL HISTORY: See list. PAST SURGICAL HISTORY: See list. MEDICATIONS: See list. ALLERGIES: See list. SOCIAL HISTORY: No illicit drug use. REVIEW OF SYSTEMS: CONSTITUTIONAL: Denies fever or chills. HEENT: Denies blurred vision, vision changes, or eye pain. Denies hemoptysis CARDIOVASCULAR: Denies chest pain or pressure. RESPIRATORY: No shortness of breath. GASTROINTESTINAL: Denies any nausea or vomiting, bowel movement changes. HEMATOLOGIC: Denies bleeding disorders. GENITOURINARY: Denies any blood in urine or increased urinary frequency. SKIN: Denies pruitis. Denies rash. PHYSICAL EXAM: VITAL SIGNS: Reviewed GENERAL: Well-developed in no acute distress. HEENT: No sclera icterus. Extraocular movements grossly intact. Moist buccal mucosa. Head is atraumatic, normocephalic. No nasal drainage. ABDOMEN: Soft. Nontender. Nondistended. NEUROLOGIC: Alert and oriented. Cranial nerves II through XII grossly intact. CHEST: Right side of chest wall about of 5 x 5 cm area of erythema. There is a fluctuant area that's about 2 cm wide and 3 cm in length. No evidence of drainage. There is scabs at the top and bottom of the area of erythema. Area is warm and tender to touch LABORATORY DATA: WBC 12.9 down to 11.4 Glucose 125 IMAGING: ASSESSMENT: 1. Right-sided chest wall cellulitis and abscess 2. History of diabetes mellitus type 2 3. History of PE and DVT anticoagulated with Xarelto PLAN: -Continue IV antibiotics -Agree with infectious disease consult -Treat conservatively -No plans for surgical intervention Thank you for this consultation Physician Hose Sprayer note has been reviewed by physician. Signing provider agrees with the documented findings, assessment, and plan of care. Past Medical History Past Medical History: Chest Pain / Angina, COPD, Diabetes Mellitus, Deep Vein Thrombosis (DVT), Eye Disorder, GERD/Reflux, Hearing Disorder / Deafness, Hyperlipidemia, Hypertension, Osteoarthritis (OA), Pneumonia, Pulmonary Embolus (PE), Respiratory Disorder, Sleep Apnea/CPAP/BIPAP Additional Past Medical History / Comment(s): NIDDM type II, neuropathy BLE. 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, R lower leg DVT & PE, previous history of cellulitis, UTI, History of Any Multi-Drug Resistant Organisms: None Reported Past Surgical History: Cholecystectomy, Ear Surgery, Joint Replacement Additional Past Surgical History / Comment(s): Lap cholecystectomy with lysis of adhesions, R ear sugically resected/tympanomastoidectomy with tympanoplasty, bilateral myringotomy/tubes, R eye enucleation, R total knee arthroplasty, EGD Past Anesthesia/Blood Transfusion Reactions: No Reported Reaction Additional Past Anesthesia/Blood Transfusion Reaction / Comm: (no known family hx) Past Psychological History: Anxiety, Depression, Schizophrenia Additional Psychological History / Comment(s): Pt states he was diagnosed with schizophrenia as a teen, but that no one states this anymore, but does have depression and anxiety. Smoking Status: Current every day smoker Past Alcohol Use History: None Reported Additional Past Alcohol Use History / Comment(s): Pt started smoking in 1987, up to 1 1/2 ppd, now smokes 1/2 ppd Past Drug Use History: None Reported - Past Family History Father History Unknown: Yes Family Medical History: Unable to Obtain Additional Family Medical History / Comment(s): Patient was adopted Mother Family Medical History: Unable to Obtain, Diabetes Mellitus Additional Family Medical History / Comment(s): Patient was adopted Medications and Allergies Home Medications Medication Instructions Recorded Confirmed Type ALPRAZolam [Xanax] 1 mg PO HS PRN 07/16/18 08/29/20 History hydrALAZINE HCL [Apresoline] 100 mg PO TID 07/16/18 08/29/20 History Rivaroxaban [Xarelto] 15 mg PO BID 02/01/19 08/29/20 History Albuterol Nebulized [Ventolin 2.5 mg INHALATION RT-Q6H PRN 09/21/19 08/29/20 History Nebulized] Ergocalciferol [Vitamin D2 50,000 unit PO CARVAJAL 09/21/19 08/29/20 History (DRISDOL)] Ipratropium Nebulized [Atrovent 0.5 mg INHALATION RT-Q6H PRN 09/21/19 08/29/20 History Nebulized 0.2 MG/ML] Metoprolol Tartrate [Lopressor] 50 mg PO BID 09/21/19 08/29/20 History Mupirocin 2% Oint [Bactroban 2% 1 applic TOPICAL TID PRN 09/21/19 08/29/20 History Oint] Pseudoephedrine 12Hr [Sudafed 12 120 mg PO Q12H PRN 09/21/19 08/29/20 History Hour] lisinopriL 40 mg PO BID 09/21/19 08/29/20 History Atorvastatin [Lipitor] 10 mg PO HS 10/30/19 08/29/20 History Omeprazole 40 mg PO DAILY 10/30/19 08/29/20 History glipiZIDE XL [Glucotrol XL] 15 mg PO QAM 10/30/19 08/29/20 History Cetirizine HCl [Zyrtec] 10 mg PO BID 12/17/19 08/29/20 History Fluticasone Propionate [Flonase 1 spray EA NOSTRIL HS PRN 12/17/19 08/29/20 History Allergy Relief] Erythromycin Ophth Oint [Romycin 1 applic RIGHT EYE HS PRN 04/30/20 08/29/20 History Ophth Oint] Isosorbide Mononitrate ER [Imdur] 60 mg PO DAILY 04/30/20 08/29/20 History Naloxone HCl [Narcan] 1 spray INHALATION ONCE PRN 04/30/20 08/29/20 History Pioglitazone [Actos] 15 mg PO DAILY 04/30/20 08/29/20 History Pantoprazole [Protonix] 40 mg PO DAILY 07/10/20 08/29/20 History oxyCODONE HCL [OxyCONTIN] 30 mg PO Q8H PRN 07/10/20 08/29/20 History Acetaminophen [Tylenol] 1,000 mg PO DAILY PRN 08/29/20 08/29/20 History methylPREDNISolone Dose Pack See Taper PO DAILY 08/29/20 08/29/20 History [Medrol Dose Pack] Allergies Allergy/AdvReac Type Severity Reaction Status Date / Time cyclobenzaprine HCl Allergy Itching Verified 08/29/20 16:50 [From Flexeril] ibuprofen [From Motrin] AdvReac Nausea Verified 08/29/20 16:50 Surgical - Exam Vital Signs Temp Pulse Resp BP Pulse Ox 98 F 98 17 147/80 96 08/29/20 15:52 08/29/20 15:52 08/29/20 15:52 08/29/20 15:52 08/29/20 15:52 Results - Labs 08/30/20 05:38 08/30/20 05:38 Abnormal Lab Results - Last 24 Hours (Table) 08/29/20 08/29/20 08/29/20 Range/Units 16:43 16:43 17:06 WBC 12.9 H (3.8-10.6) k/uL Neutrophils # 9.0 H (1.3-7.7) k/uL Sodium 136 L (137-145) mmol/L Carbon Dioxide 32 H (22-30) mmol/L Creatinine 0.63 L (0.66-1.25) mg/dL Glucose 153 H (74-99) mg/dL POC Glucose (mg/dL) 155 H (75-99) mg/dL Calcium (8.7-10.3) mg/dL Total Protein (6.2-8.2) g/dL Albumin 3.2 L (3.5-5.0) g/dL Albumin/Globulin Ratio (1.60-3.17) g/dL 08/29/20 08/30/20 08/30/20 Range/Units 20:35 05:38 05:38 WBC 11.4 H (3.8-10.6) k/uL Neutrophils # (1.3-7.7) k/uL Sodium (137-145) mmol/L Carbon Dioxide (22-30) mmol/L Creatinine (0.66-1.25) mg/dL Glucose 125 H (74-99) mg/dL POC Glucose (mg/dL) 158 H (75-99) mg/dL Calcium 8.5 L (8.7-10.3) mg/dL Total Protein 5.9 L (6.2-8.2) g/dL Albumin 3.40 L (3.5-5.0) g/dL Albumin/Globulin Ratio 1.36 L (1.60-3.17) g/dL 08/30/20 Range/Units 06:58 WBC (3.8-10.6) k/uL Neutrophils # (1.3-7.7) k/uL Sodium (137-145) mmol/L Carbon Dioxide (22-30) mmol/L Creatinine (0.66-1.25) mg/dL Glucose (74-99) mg/dL POC Glucose (mg/dL) 125 H (75-99) mg/dL Calcium (8.7-10.3) mg/dL Total Protein (6.2-8.2) g/dL Albumin (3.5-5.0) g/dL Albumin/Globulin Ratio (1.60-3.17) g/dL Diabetes panel 08/29/20 08/30/20 Range/Units 16:43 05:38 Sodium 136 L 138 (137-145) mmol/L Potassium 4.0 4.3 (3.5-5.1) mmol/L Chloride 101 103 (98-107) mmol/L Carbon Dioxide 32 H 27.7 (22-30) mmol/L BUN 13 13.0 (9-20) mg/dL Creatinine 0.63 L 0.7 (0.66-1.25) mg/dL Glucose 153 H 125 H (74-99) mg/dL Calcium 8.5 8.5 L (8.4-10.2) mg/dL AST 28 21 (17-59) U/L ALT 20 23 (4-49) U/L Alkaline Phosphatase 112 98 (38-126) U/L Total Protein 6.3 5.9 L (6.3-8.2) g/dL Albumin 3.2 L 3.40 L (3.5-5.0) g/dL Calcium panel 08/29/20 08/30/20 Range/Units 16:43 05:38 Calcium 8.5 8.5 L (8.4-10.2) mg/dL Albumin 3.2 L 3.40 L (3.5-5.0) g/dL Pituitary panel 08/29/20 08/30/20 Range/Units 16:43 05:38 Sodium 136 L 138 (137-145) mmol/L Potassium 4.0 4.3 (3.5-5.1) mmol/L Chloride 101 103 (98-107) mmol/L Carbon Dioxide 32 H 27.7 (22-30) mmol/L BUN 13 13.0 (9-20) mg/dL Creatinine 0.63 L 0.7 (0.66-1.25) mg/dL Glucose 153 H 125 H (74-99) mg/dL Calcium 8.5 8.5 L (8.4-10.2) mg/dL Adrenal panel 08/29/20 08/30/20 Range/Units 16:43 05:38 Sodium 136 L 138 (137-145) mmol/L Potassium 4.0 4.3 (3.5-5.1) mmol/L Chloride 101 103 (98-107) mmol/L Carbon Dioxide 32 H 27.7 (22-30) mmol/L BUN 13 13.0 (9-20) mg/dL Creatinine 0.63 L 0.7 (0.66-1.25) mg/dL Glucose 153 H 125 H (74-99) mg/dL Calcium 8.5 8.5 L (8.4-10.2) mg/dL Total Bilirubin 0.8 1.1 (0.2-1.3) mg/dL AST 28 21 (17-59) U/L ALT 20 23 (4-49) U/L Alkaline Phosphatase 112 98 (38-126) U/L Total Protein 6.3 5.9 L (6.3-8.2) g/dL Albumin 3.2 L 3.40 L (3.5-5.0) g/dL
[2020-08-30 17:36] LABS: Glucose,Whole Blood 125 mg/dL (75-99)
[2020-08-30 19:55] LABS: Glucose,Whole Blood 306 mg/dL (75-99)
[2020-08-30] MEDS: ALPRAZolam 1 MG TAB PO PRN (20:52)
[2020-08-30] MEDS: INSULIN ASPART (NovoLOG) 100 UNIT/ML VIAL SQ SCH (21:39)
--- NOTE | 2020-08-30 22:00 | CONS ---
CONSULTATION DATE OF SERVICE: 08/30/2020 REASON FOR CONSULTATION: Right chest wall abscess and cellulitis. HISTORY OF PRESENT ILLNESS: The patient is a 50-year-old male who has been admitted directly to the hospital from his primary care physician for management of the right chest wall abscess and cellulitis. The patient mentioned he started having pain and swelling to the right chest wall a few days ago. The patient denies having any history of any trauma. The patient mentioned that it started as a small pimple that has gradually increased in size and has become painful. The patient describes the pain to be more of a throbbing, dull aching, almost 5 to 6 out of 10, and no radiation. The patient denies having any purulent drainage from it. The patient was admitted directly to the hospital. On arrival in the hospital, the patient has been afebrile. The patient did have a white count of 12.9 with a creatinine 0.6. Electrolytes were normal. The patient was started on Zosyn in the hospital. Infectious Disease was consulted for further management of antibiotic therapy. REVIEW OF SYSTEMS: Positive points have been mentioned in the HPI. Rest of the systems are negative. PAST MEDICAL HISTORY: COPD, diabetes mellitus, DVT, gastrointestinal reflux disease, hypertension, hyperlipidemia. PAST SURGICAL HISTORY: Cholecystectomy, joint replacement and ear surgery. SOCIAL HISTORY: Current everyday smoker. No drinking or drug use. FAMILY HISTORY: Patient was adopted. No family history available. ALLERGIES: IBUPROFEN and CYCLOBENZAPRINE. MEDICATIONS: The patient is currently on Tylenol, DuoNeb, Xanax, Zosyn, vitamin D2, erythromycin, glipizide, hydralazine, Imdur, Zestril, Claritin, Lopressor, Bactroban ointment, Protonix, Actos, Sudafed, Xarelto. PHYSICAL EXAMINATION: Blood pressure is 135/89 with a pulse of 59, temperature 97.8. He is 94% on room air. General description is a middle-aged male up in the bed in no distress. No tachypnea or accessory muscle of respiration use. HEENT: Examination shows no pallor or scleral icterus. Oral mucous membrane is dry. NECK: Trachea is central. No thyromegaly. LUNGS: Unlabored breathing. Clear to auscultation. No wheeze or crackle. HEART: S1, S2. Regular rate and rhythm. ABDOMEN: Soft. No tenderness. No guarding or rigidity. EXTREMITIES: No edema of the feet. Examination of the right chest wall showed an area of swelling, redness and induration. No drainage was noticed. NEUROLOGICAL: The patient is awake, alert, oriented x3. Mood and affect normal. LABS: Hemoglobin is 16.4, white count 12.9, BUN of 13, creatinine 0.7. DIAGNOSTIC IMPRESSION AND PLAN: Patient with right chest wall abscess and cellulitis with area of fluctuation and concern for underlying abscess. The patient will benefit from surgical drainage of the same for both diagnostic and therapeutic purposes. PLAN: 1. Discontinue Zosyn, as less likely Gram-negative infection, more likely Gram- positive infection. 2. Will start the patient on daptomycin 4 mg/kg daily. 3. Advise cultures at the time of surgical drainage of the area that started spontaneously to drain. 4. Will follow clinical condition and culture to further adjust medication if needed. Thank you for this consultation. Will follow this patient along with you. MMODL / IJN: [id number] /
--- NOTE | 2020-08-31 01:42 | PN ---
PROGRESS NOTE He has a diabetic wound infection in his chest with two big scab areas over the red fluctuant mass in the right upper chest. Denies any trauma. Failed outpatient treatment. The redness appears to be better than it was yesterday. Remains on Zosyn. Cardiovascular S1-S2. Lungs clear. GI soft. ASSESSMENT: 1. Chronic obstructive pulmonary disease. 2. Diabetes mellitus. 3. Diabetic wound infection. 4. Deep vein thrombosis. 5. Gastroesophageal reflux disease. 6. Hypertension. 7. Dyslipidemia. 8. Morbid obesity. Infectious disease doctor started him on daptomycin. Cultures at the time of surgical drainage. Await for surgeon to drain the wounds and possibly continue on daptomycin until cultures are back. Await for surgeon to drain the wound at this point. MMODL / IJN: [id number] /
[2020-08-31 06:15] LABS: Basophils # (A) 0.1 k/uL (0-0.2); Basophils % (A) 1 %; Eosinophils # (A) 0.3 k/uL (0-0.7); Eosinophils % (A) 3 %; HGB 15.8 gm/dL (13.0-17.5); Lymphocytes # (A) 2.5 k/uL (1.0-4.8); Lymphocytes % (A) 27 %; MCH 29.7 pg (25.0-35.0); MCV 90.2 fL (80.0-100.0); Mean Platelet Volume 7.4; Monocytes # (A) 0.5 k/uL (0-1.0); Monocytes % (A) 5 %; Neutrophils # (A) 5.6 k/uL (1.3-7.7); Neutrophils % (A) 62 %; Platelet Count 164 k/uL (150-450); RBC 5.32 m/uL (4.30-5.90); WBC 9.1 k/uL (3.8-10.6)
[2020-08-31 07:10] LABS: Glucose,Whole Blood 158 mg/dL (75-99)
[2020-08-31] MEDS: PANTOPRAZOLE 40 MG TABLET PO SCH (07:48)
[2020-08-31] MEDS: INSULIN ASPART (NovoLOG) 100 UNIT/ML VIAL SQ SCH ×4 (07:48→21:47)
[2020-08-31] MEDS: SODIUM CHLORIDE 0.9% 1,000 ML IV SCH (07:57)
[2020-08-31] MEDS: hydrALAZINE HCL 50 MG TAB PO SCH ×3 (09:13→21:32)
[2020-08-31] MEDS: lisinopriL 20 MG TAB PO SCH ×2 (09:14→21:32)
[2020-08-31] MEDS: PIOGLITAZONE 15 MG TAB PO SCH (09:14)
[2020-08-31] MEDS: LORATADINE 10 MG TAB PO SCH (09:14)
[2020-08-31] MEDS: ISOSORBIDE MONONITRATE ER 60 MG TAB.ER.24H PO SCH (09:14)
[2020-08-31] MEDS: RIVAROXABAN 15 MG TAB PO SCH ×2 (09:14→21:32)
[2020-08-31] MEDS: METOPROLOL TARTRATE 50 MG TAB PO SCH ×2 (09:14→21:32)
--- NOTE | 2020-08-31 10:57 | DS ---
DISCHARGE SUMMARY DATE OF ADMISSION: 08/29/2020 DATE OF DISCHARGE: 08/31/2020 Chest wound infection, diabetic wound infection on the right chest, possible abscess, right chest, acute on chronic cholecystitis, acute abdominal pain. DISCHARGE MEDICATIONS: Cleocin 300 t.i.d., Xanax 1 mg q.h.s., Apresoline 100 t.i.d., Xarelto 15 mg b.i.d., Drisdol 50 units subcu daily, Sudafed 12 hour 120 q.12 hours, and Bactroban topical ointment for rash, Lopressor 50 b.i.d., lisinopril 40 mg b.i.d., DuoNeb updraft q.i.d., Lipitor 10 mg daily, omeprazole 40 mg daily, glipizide XL 15 daily, fluticasone nasal spray daily, Claritin 10 mg a day, Narcan p.r.n., Imdur 60 mg daily, erythromycin ointment daily to the right eye, Actos 50 mg daily, OxyContin 30 [facility] t.i.d. from [facility], Protonix 40 mg daily, Tylenol 1000 p.r.n. for pain. CONDITION: Stable. PROGNOSIS: Guarded. ACTIVITY: Ambulate as tolerated. DIET: Diabetic diet. HOSPITAL COURSE: A white male who came in with diabetic wound infection in the right anterior chest with two huge drainage areas. Surgery was not done. He improved with IV antibiotics, daptomycin, Cubicin. He greatly improved from his medicines over the next 2 days at which time we switched him to oral antibiotics and was discharged home. They wanted to go home for Thanksgiving. Follow up in the office next week. MMODL / IJN: [id number] /
[2020-08-31 11:49] LABS: Glucose,Whole Blood 133 mg/dL (75-99)
--- NOTE | 2020-08-31 11:51 | P.PN ---
Progress Note - Text Progress Note Date: 08/31/20 Patient still has complaints of some chest wall pain. His cellulitis is stable. On exam vital signs are stable. There is no definitive drainable abscess. Patient will be to continue receiving IV antibiotic. We will follow with you
[2020-08-31] MEDS: CLINDAMYCIN 150 MG CAP PO SCH ×2 (16:32→21:32)
[2020-08-31 17:06] LABS: Glucose,Whole Blood 156 mg/dL (75-99)
[2020-08-31 20:51] LABS: Glucose,Whole Blood 134 mg/dL (75-99)
[2020-08-31] MEDS ORDERED: INSULIN ASPART (NovoLOG) 100 UNIT/ML VIAL SQ SCH (21:14)
[2020-08-31] MEDS: ALPRAZolam 1 MG TAB PO PRN (21:48)
[2020-09-01] MEDS: SODIUM CHLORIDE 0.9% 1,000 ML IV SCH (05:38)
--- NOTE | 2020-09-01 07:00 | PN ---
PROGRESS NOTE DATE OF SERVICE: 09/01/2020 REASON FOR FOLLOW UP: Right chest wall abscess cellulitis. INTERVAL HISTORY: The patient did have spontaneous drainage of the right chest wall abscess site. The patient's pain is currently controlled. Denies any chest pain, shortness of breath or cough. No abdominal pain, no diarrhea. PHYSICAL EXAMINATION: Blood pressure 159/80 with a pulse of 87, temperature 98, he is 95% on room air. General description is a middle-aged male up in the bed in no distress. Respiratory system: Unlabored breathing, clear to auscultation anteriorly. Heart S1, S2. Regular rate and rhythm. Abdomen is soft, no tenderness. Right-sided chest wall swelling has decreased. LABS: White count 9.1. Local cultures currently pending. DIAGNOSTIC IMPRESSION AND PLAN: Patient with right chest wall abscess cellulitis with spontaneous drainage. Cultures currently pending. Continue daptomycin. Discharge antibiotic based on culture report. Continue supportive care. MMODL / IJN: [id number] /
[2020-09-01 07:31] LABS: Glucose,Whole Blood 117 mg/dL (75-99)
[2020-09-01] MEDS: INSULIN ASPART (NovoLOG) 100 UNIT/ML VIAL SQ SCH ×4 (08:59→20:18)
[2020-09-01] MEDS: hydrALAZINE HCL 50 MG TAB PO SCH ×3 (09:01→20:19)
[2020-09-01] MEDS: CLINDAMYCIN 150 MG CAP PO SCH ×3 (09:01→20:19)
[2020-09-01] MEDS: lisinopriL 20 MG TAB PO SCH ×2 (09:01→20:18)
[2020-09-01] MEDS: PANTOPRAZOLE 40 MG TABLET PO SCH (09:01)
[2020-09-01] MEDS: RIVAROXABAN 15 MG TAB PO SCH ×2 (09:02→20:19)
[2020-09-01] MEDS: LORATADINE 10 MG TAB PO SCH (09:02)
[2020-09-01] MEDS: METOPROLOL TARTRATE 50 MG TAB PO SCH ×2 (09:02→20:18)
[2020-09-01] MEDS: PIOGLITAZONE 15 MG TAB PO SCH (09:02)
[2020-09-01 11:51] LABS: Glucose,Whole Blood 121 mg/dL (75-99)
--- NOTE | 2020-09-01 12:11 | P.PN ---
Progress Note - Text Progress Note Date: 09/01/20 Patient's dressing His bed. Patient states his pain on his chest wall is improved. On exam vital signs are stable. There is decreased cellulitis of his chest wall. Patient received IV antibiotics. No surgical intervention is planned..
--- NOTE | 2020-09-01 12:36 | PN ---
PROGRESS NOTE White male who came in with right chest wall abscess site. No abdominal pain, nausea, vomiting. Blood pressure 150s over 80s, pulse 87, temp 98, oxygen is 95 on room air. Cardiovascular: S1, S2. Lungs are clear. Abdomen is soft, nontender. Integument shows right chest wall swelling has decreased. White count is 9.1. Cultures are still pending. He has abscess cellulitis of the right chest and diabetic wound infection. He is on daptomycin and will wait on cultures before he can go home. He is greatly improved. Blood pressure has been controlled. Sugars in the mid 100s. He has Staph aureus, Asha albicans in the wound culture. Blood cultures are negative. Awaiting for sensitivity and Dr. Middleton's recommendations for outpatient antibiotics. MMODL / IJN: [id number] /
[2020-09-01 17:03] LABS: Glucose,Whole Blood 123 mg/dL (75-99)
[2020-09-01 20:13] LABS: Glucose,Whole Blood 137 mg/dL (75-99)
[2020-09-01] MEDS: ALPRAZolam 1 MG TAB PO PRN (20:19)
--- NOTE | 2020-09-01 23:10 | PN ---
PROGRESS NOTE DATE OF SERVICE: 09/01/2020 REASON FOR FOLLOWUP: Right chest wall abdominal abscess cellulitis. INTERVAL HISTORY: Patient is currently afebrile. The patient is feeling better. Overall pain and discomfort to the right chest wall has decreased. No shortness of breath. No cough. No nausea, no vomiting. No abdominal pain. No diarrhea. PHYSICAL EXAMINATION: Blood pressure 151/89, pulse 83, temperature 98.6, 95% on room air. General description: The patient is a middle-aged male lying in bed in no distress. Respiratory system: Unlabored breathing, clear to auscultation anteriorly. Heart S1, S2. Regular rate and rhythm. Abdomen soft, no tenderness. Right chest wall swelling has slightly decreased. LABS: Wound culture with Staph aureus. Sensitivities pending. DIAGNOSTIC IMPRESSION AND PLAN: Patient with right chest wall abscess cellulitis, spontaneous drainage, culture with Staph aureus, sensitivities pending. Patient to continue Daptomycin. Discharge antibiotic based on the culture report. Continue supportive care. MMODL / IJN: [id number] /
[2020-09-02] MEDS: SODIUM CHLORIDE 0.9% 1,000 ML IV SCH (01:54)
[2020-09-02 06:22] VITALS: BP 165/104; RESP 16; TEMP 97.6
[2020-09-02 07:32] LABS: Glucose,Whole Blood 131 mg/dL (75-99)
[2020-09-02] MEDS: PIOGLITAZONE 15 MG TAB PO SCH (07:39)
[2020-09-02] MEDS: CLINDAMYCIN 150 MG CAP PO SCH (07:40)
[2020-09-02] MEDS: hydrALAZINE HCL 50 MG TAB PO SCH (07:40)
[2020-09-02] MEDS: PANTOPRAZOLE 40 MG TABLET PO SCH (07:41)
[2020-09-02] MEDS: ISOSORBIDE MONONITRATE ER 60 MG TAB.ER.24H PO SCH (07:42)
[2020-09-02] MEDS: INSULIN ASPART (NovoLOG) 100 UNIT/ML VIAL SQ SCH (07:43)
[2020-09-02] MEDS: LORATADINE 10 MG TAB PO SCH (07:43)
[2020-09-02] MEDS: lisinopriL 20 MG TAB PO SCH (07:43)
[2020-09-02] MEDS: METOPROLOL TARTRATE 50 MG TAB PO SCH (07:44)
[2020-09-02] MEDS: RIVAROXABAN 15 MG TAB PO SCH (07:45)
[2020-09-02] MEDS: IPRATROPIUM-ALBUTEROL 3 ML NEB INHALATION PRN (09:38)
[2020-09-02 09:43] VITALS: PULSE 80
[2020-09-02] MEDS ORDERED: SULFAMETHOX-TMP 800-160MG 1 EACH TAB PO SCH (11:00)
--- NOTE | 2020-09-02 11:02 | PN ---
PROGRESS NOTE SUBJECTIVE: 50-year-old white male admitted with chest wall abscess. Cultures sensitive to Bactrim and Augmentin. He will be sent home on Bactrim Double Strength 1 b.i.d. Wound dressing everything is improving slowly. Lungs are clear. Cardiovascular S1, S2. Abdomen is soft. Chest wall swelling and redness is decreased. ASSESSMENTS: 1. Abscess, cellulitis of the right chest. 2. Diabetes mellitus. 3. Hypertension. The patient will be discharged home on Bactrim Double Strength b.i.d. Follow up in a week. MMODL / IJN: [id number] /
--- NOTE | 2020-09-02 12:33 | P.PN ---
Progress Note - Text Progress Note Date: 09/02/20 Patient's sinuses improved. He has decreased chest wall pain. He'll be discharged home today. He'll follow-up as needed.
[2020-09-03] MEDS ORDERED: ERGOCALCIFEROL 50,000 UNIT CAP PO SCH (09:00)
--- NOTE | 2020-09-05 08:08 | CDI ---
Documentation Clarification Form Date: 09/05/20 From: Ingrid Stokes Phone: If you have a question about this query, please contact Danae Martell, [employer] at [phone] between 8am and 5pm. Admit Date: 08/29/20 Discharge Date:09/02/20 Patient Name: Juan Candelaria Visit Number: [id number] ATTENTION: The Clinical Documentation Specialists (CDI) and [facility] Coding Staff appreciate your assistance in clarifying documentation. Please respond to the clarification below the line at the bottom and electronically sign. The CDI & [facility] Coding staff will review the response and follow-up if needed. Please note: Queries are made part of the Legal Health Record. If you have any questions, please contact the author of this message via ITS. Dear Dr. Moore Cellulitis of the right chest is documented in Dr. Isaac's and Dr. Middleton's consult notes and their progress notes. Patient history/risk factors: Diabetes, chest wall wound and abscess, peripheral neuropathy, morbid obesity Clinical Indicators: Redness, pain and swelling Labs: WBC 12.9, glucose 153, carbon dioxide 32, albumin 3.2 Vital Signs:T. 98, P. 98, R. 17, BP 147/80 Treatment: Medication: IV Zosyn switched to IV Daptomycin In your professional opinion, can you clarify if the cellulitis was? Associated with Diabetes Mellitus Not associated with Diabetes Mellitus Other, please specify: Unable to determine MTDD
--- NOTE | 2020-09-05 08:20 | CDI ---
Documentation Clarification Form Date: 09/05/20 From: Ingrid Stokes Phone: If you have a question about this query, please contact Danae Martell, Statistics Professor at [phone] between 8am and 5pm. Admit Date: 08/29/20 Discharge Date:09/02/20 Patient Name: Juan Candelaria Visit Number: [id number] ATTENTION: The Clinical Documentation Specialists (CDI) and [facility] Coding Staff appreciate your assistance in clarifying documentation. Please respond to the clarification below the line at the bottom and electronically sign. The CDI & [facility] Coding staff will review the response and follow-up if needed. Please note: Queries are made part of the Legal Health Record. If you have any questions, please contact the author of this message via ITS. Dear Dr. Moore The patient presented with the following: Diabetic wound infection to the chest. History/Risk Factors: Diabetes, cellulitis & abscess of the chest wall, morbid obesity, history of DVT and PE, peripheral neuropathy Clinical Indicators: 2 big scab areas over a fluctuant mass in the right upper chest Lab findings: WBC 12.9, carbon diaoxide 32, creatinine 0.63, glucose 153, albumin 3.2 Vital Signs: T. 98, P. 98, R. 17, BP 147/80 Treatment: IV Zosyn changed to IV Daptomycin Consults: Surgical documented celllulitis and abscess, Infectious disease documented chest wall abscess and cellulitis with area of fluctuation and concern for underlying abscess In your professional opinion, can you please clarify the etiology of the diabetic chest wall wound? Injury Ulcer due to circulatory insufficiency Other, please specify Unable to determine MTDD
--- NOTE | 2020-09-05 08:34 | CDI ---
Documentation Clarification Form Date: 09/05/20 From: Ingrid Stokes Phone: If you have a question about this query, please contact Danae Martell Chocolate Coater at [phone] between 8am and 5pm. Admit Date: 08/29/20 Discharge Date:09/02/20 Patient Name: Juan Candelaria Visit Number: [id number] ATTENTION: The Clinical Documentation Specialists (CDI) and [employer] Coding Staff appreciate your assistance in clarifying documentation. Please respond to the clarification below the line at the bottom and electronically sign. The CDI & [employer] Coding staff will review the response and follow-up if needed. Please note: Queries are made part of the Legal Health Record. If you have any questions, please contact the author of this message via ITS. Dear Dr. Moore The diagnosis acute on chronic cholecystitis was documented in the discharge summary, but is not noted in previous documentation. Cholecystectomy is documented in the past surgical history of the surgical and infectious disease consult notes. History/Risk Factors: DM, morbid obesity, chronic pain, back pain, COPD Clinical Indicators: Acute abdominal pain documented in the discharge summary. No abdominal pain documented in previous documentation. Treatment: Oxycodone Hcl PO Please clarify if the acute on chronic cholecystitis was Present/active this admission Treated and resolved this admission Ruled out Other, please specify Clinically unable to determine MTDD
--- NOTE | 2020-09-13 01:11 | PN ---
PROGRESS NOTE ADDENDUM: Chronic cholecystitis, was not taken care on this admission. MMODL / IJN: [id number] /
--- NOTE | 2020-09-13 01:11 | PN ---
PROGRESS NOTE ADDENDUM: This is cellulitis associated with diabetes mellitus, etiology of the diabetic chest wall wound, unable to determine. MMODL / IJN: [id number] /
--- NOTE | 2020-09-14 09:42 | CDI ---
Documentation Clarification Form Date: 09/14/20 From: Ingrid Stoeks Phone: If you have a question about this query, please contact Danae Martell Drafter Cartographic at [phone] between 8am and 5pm. Admit Date: 08/29/20 Discharge Date:09/02/20 Patient Name: Juan Candelaria Visit Number: [id number] ATTENTION: The Clinical Documentation Specialists (CDI) and [facility] Coding Staff appreciate your assistance in clarifying documentation. Please respond to the clarification below the line at the bottom and electronically sign. The CDI & [facility] Coding staff will review the response and follow-up if needed. Please note: Queries are made part of the Legal Health Record. If you have any questions, please contact the author of this message via ITS. Dear Dr. Moore Thank you for signing the previous query. Please document a response before signing this query. The diagnosis acute on chronic cholecystitis was documented in the discharge summary, but is not noted in previous documentation. Cholecystectomy is documented in the past surgical history of the surgical and infectious disease consult notes. History/Risk Factors: DM, morbid obesity, chronic pain, back pain, COPD Clinical Indicators: Acute abdominal pain documented in the discharge summary. No abdominal pain documented in previous documentation. Treatment: Oxycodone Hcl PO Please clarify if the acute on chronic cholecystitis was Present/active this admission Treated and resolved this admission Ruled out Other, please specify Clinically unable to determine MTDD
--- NOTE | 2020-09-14 09:44 | CDI ---
Documentation Clarification Form Date: 09/14/20 From: Ingrid Stokes Phone: If you have a question about this query, please contact Danae Martell Curbing Stonecutter at [phone] between 8am and 5pm. Admit Date: 08/29/20 Discharge Date:09/02/20 Patient Name: Juan Candelaria Visit Number: [id number] ATTENTION: The Clinical Documentation Specialists (CDI) and [facility] Coding Staff appreciate your assistance in clarifying documentation. Please respond to the clarification below the line at the bottom and electronically sign. The CDI & [facility] Coding staff will review the response and follow-up if needed. Please note: Queries are made part of the Legal Health Record. If you have any questions, please contact the author of this message via ITS. Dear Dr. Moore Thank you for signing the previous query. Please document a response before signing this query. Cellulitis of the right chest is documented in Dr. Isaac's and Dr. Middleton's consult notes and their progress notes. Patient history/risk factors: Diabetes, chest wall wound and abscess, peripheral neuropathy, morbid obesity Clinical Indicators: Redness, pain and swelling Labs: WBC 12.9, glucose 153, carbon dioxide 32, albumin 3.2 Vital Signs:T. 98, P. 98, R. 17, BP 147/80 Treatment: Medication: IV Daptomycin In your professional opinion, can you clarify if the cellulitis was? Associated with Diabetes Mellitus Not associated with Diabetes Mellitus Other, please specify: Unable to determine MTDD
--- NOTE | 2020-09-17 10:35 | PN ---
PROGRESS NOTE ADDENDUM: Please say: 1. Diabetes mellitus with cellulitis of the chest was associated with this. MMODL / IJN: [id number] /
--- NOTE | 2020-09-17 10:35 | PN ---
PROGRESS NOTE ADDENDUM: Please add: 1. Chronic cholecystitis, acute on chronic. 2. Acute abdominal pain treated during this admission. MMODL / IJN: [id number] /
--- NOTE | 2020-09-19 12:46 | CDI ---
Documentation Clarification Form Date: 09/19/20 From: Ingrid Stokes Phone: If you have a question about this query, please contact Danae Martell Used Car Manager at [phone] between 8am and 5pm. Admit Date: 08/29/20 Discharge Date:09/02/20 Patient Name: Juan Candelaria Visit Number: [id number] ATTENTION: The Clinical Documentation Specialists (CDI) and [facility] Coding Staff appreciate your assistance in clarifying documentation. Please respond to the clarification below the line at the bottom and electronically sign. The CDI & [facility] Coding staff will review the response and follow-up if needed. Please note: Queries are made part of the Legal Health Record. If you have any questions, please contact the author of this message via ITS. Dear Dr. Moore Thank you for signing the previous query. Please document a response to this query before signing. Cellulitis of the right chest is documented in Dr. Isaac's and Dr. Middleton's consult notes and their progress notes. Patient history/risk factors: Diabetes, chest wall wound and abscess, peripheral neuropathy, morbid obesity Clinical Indicators: Redness, pain and swelling Labs: WBC 12.9, glucose 153, carbon dioxide 32, albumin 3.2 Vital Signs:T. 98, P. 98, R. 17, BP 147/80 Treatment: Medication: IV Daptomycin In your professional opinion, can you clarify if the cellulitis was? Associated with Diabetes Mellitus Not associated with Diabetes Mellitus Other, please specify: Unable to determine MTDD
--- NOTE | 2020-09-19 12:48 | CDI ---
Documentation Clarification Form Date: 09/19/20 From: Ingrid Stokes Phone: If you have a question about this query, please contact Danae Martell Steward/Stewardess Chief Cargo Vessel at [phone] between 8am and 5pm. Admit Date: 08/29/20 Discharge Date:09/02/20 Patient Name: Juan Candelaria Visit Number: [id number] ATTENTION: The Clinical Documentation Specialists (CDI) and [facility] Coding Staff appreciate your assistance in clarifying documentation. Please respond to the clarification below the line at the bottom and electronically sign. The CDI & [facility] Coding staff will review the response and follow-up if needed. Please note: Queries are made part of the Legal Health Record. If you have any questions, please contact the author of this message via ITS. Dear Dr. Moore Thank you for signing the previous query. Please document a response before signing this query. The diagnosis acute on chronic cholecystitis was documented in the discharge summary, but is not noted in previous documentation. Cholecystectomy is documented in the past surgical history of the surgical and infectious disease consult notes. History/Risk Factors: DM, morbid obesity, chronic pain, back pain, COPD Clinical Indicators: Acute abdominal pain documented in the discharge summary. No abdominal pain documented in previous documentation. Treatment: Oxycodone Hcl PO Please clarify if the acute on chronic cholecystitis was Present/active this admission Treated and resolved this admission Ruled out Other, please specify Clinically unable to determine MTDD
--- NOTE | 2020-09-25 09:09 | CDI ---
Documentation Clarification Form Date: 09/05/2020 08:09:00 AM From: Ingrid Stokes Phone: If you have questions regarding this query, please contact Danae Martell at [phone] between 8am and 5pm. Admit Date: 08/29/2020 03:29:00 PM Patient Name: Juan Candelaria Visit Number: [id number] Discharge Date: 09/02/2020 11:00:00 AM ATTENTION: The Clinical Documentation Specialists (CDI) and [facility] Coding Staff appreciate your assistance in clarifying documentation. Please respond to the clarification below the line at the bottom and electronically sign. The CDI & [facility] Coding staff will review the response and follow-up if needed. Please note: Queries are made part of the Legal Health Record. If you have any questions, please contact the author of this message via ITS. Dr. Villa Moore Thank you for signing the previous query. Please document a response before signing this query. Cellulitis of the right chest is documented in Dr. Isaac's and Dr. Middleton's consult notes and their progress notes. Patient history/risk factors: Diabetes, chest wall wound and abscess, peripheral neuropathy, morbid obesity Clinical Indicators: Redness, pain and swelling Labs: WBC 12.9, glucose 153, carbon dioxide 32, albumin 3.2 Vital Signs:T. 98, P. 98, R. 17, BP 147/80 Treatment: Medication: IV Daptomycin In your professional opinion, can you clarify if the cellulitis was? Associated with Diabetes Mellitus Not associated with Diabetes Mellitus Other, please specify: Unable to determine MTDD
--- NOTE | 2020-09-25 09:12 | CDI ---
Documentation Clarification Form Date: 09/05/2020 08:34:00 AM From: Ingrid Stokes Phone: If you have a question regarding this query, please contact Danae Martell at [phone] between 8am and 5pm. Admit Date: 08/29/2020 03:29:00 PM Patient Name: Juan Candelaria Visit Number: [id number] Discharge Date: 09/02/2020 11:00:00 AM ATTENTION: The Clinical Documentation Specialists (CDI) and [facility] Coding Staff appreciate your assistance in clarifying documentation. Please respond to the clarification below the line at the bottom and electronically sign. The CDI & [facility] Coding staff will review the response and follow-up if needed. Please note: Queries are made part of the Legal Health Record. If you have any questions, please contact the author of this message via ITS. Dr. Villa Moore Thank you for signing the previous query. Please document a response before signing this query. The diagnosis acute on chronic cholecystitis was documented in the discharge summary, but is not noted in previous documentation. Cholecystectomy is documented in the past surgical history of the surgical and infectious disease consult notes. History/Risk Factors: DM, morbid obesity, chronic pain, back pain, COPD Clinical Indicators: Acute abdominal pain documented in the discharge summary. No abdominal pain documented in previous documentation. Treatment: Oxycodone Hcl PO Please clarify if the acute on chronic cholecystitis was Present/active this admission Treated and resolved this admission Ruled out Other, please specify Clinically unable to determine MTDD
--- NOTE | 2020-09-27 18:03 | PN ---
PROGRESS NOTE ADDENDUM: Cellulitis associated with diabetes mellitus. Abdominal pain was treated during this admission. Will have followup as an outpatient. MMODL / IJN: [id number] /
== END 2020-09-02 11:00 | disposition home or self-care (01) | DRG 638 ==
LOC: 5NMEDONC 15:29
PROVIDERS: ADMIT Family Medicine; ATTEND Family Medicine
DX: E11.69 Type 2 diabetes mellitus with other specified complication (principal); S21.101A Unspecified open wound of right front wall of thorax without penetration into thoracic cavity, initial encounter; L03.313 Cellulitis of chest wall; L02.213 Cutaneous abscess of chest wall; B37.89 Other sites of candidiasis; E11.628 Type 2 diabetes mellitus with other skin complications; B95.61 Methicillin susceptible Staphylococcus aureus infection as the cause of diseases classified elsewhere; E66.01 Morbid (severe) obesity due to excess calories; J44.9 Chronic obstructive pulmonary disease, unspecified; R10.9 Unspecified abdominal pain; E78.5 Hyperlipidemia, unspecified; F17.210 Nicotine dependence, cigarettes, uncomplicated; H54.7 Unspecified visual loss; H91.90 Unspecified hearing loss, unspecified ear; I10 Essential (primary) hypertension; K21.9 Gastro-esophageal reflux disease without esophagitis; F32.9 Major depressive disorder, single episode, unspecified; F41.9 Anxiety disorder, unspecified; G47.30 Sleep apnea, unspecified; G89.29 Other chronic pain; H40.9 Unspecified glaucoma; M19.90 Unspecified osteoarthritis, unspecified site; M54.9 Dorsalgia, unspecified; M25.562 Pain in left knee; Z79.01 Long term (current) use of anticoagulants; Z79.84 Long term (current) use of oral hypoglycemic drugs; Z79.899 Other long term (current) drug therapy; Z86.711 Personal history of pulmonary embolism; Z86.718 Personal history of other venous thrombosis and embolism; Z90.49 Acquired absence of other specified parts of digestive tract; Z96.651 Presence of right artificial knee joint; Z86.11 Personal history of tuberculosis; Z87.440 Personal history of urinary (tract) infections; Z87.01 Personal history of pneumonia (recurrent); Z98.890 Other specified postprocedural states; Z97.0 Presence of artificial eye; Z86.69 Personal history of other diseases of the nervous system and sense organs
CPT/HCPCS: 80053; 85025; 87040; 87070; 87077; 87186; 87205; 94640

== ENCOUNTER 2020-09-27 11:27 | Emergency (ER) | payer OTHER ==
[2020-09-27 11:46] VITALS: TEMP 98.4
[2020-09-27] MEDS ORDERED: methylPREDNISolone SOD SUCCI 125 MG/2 ML VIAL IV STA (11:58)
[2020-09-27] MEDS ORDERED: IPRATROPIUM-ALBUTEROL 3 ML NEB INHALATION STA (11:58)
[2020-09-27 12:19] LABS: Basophils # (A) 0.1 k/uL (0-0.2); Basophils % (A) 1 %; Eosinophils # (A) 0.2 k/uL (0-0.7); Eosinophils % (A) 3 %; HCT 46.9 % (39.0-53.0); HGB 15.8 gm/dL (13.0-17.5); Lymphocytes # (A) 2.2 k/uL (1.0-4.8); Lymphocytes % (A) 23 %; MCH 29.7 pg (25.0-35.0); MCHC 33.7 g/dL (31.0-37.0); MCV 88.2 fL (80.0-100.0); Mean Platelet Volume 7.4; Monocytes # (A) 0.4 k/uL (0-1.0); Monocytes % (A) 4 %; Neutrophils # (A) 6.3 k/uL (1.3-7.7); Neutrophils % (A) 68 %; Platelet Count 201 k/uL (150-450); RBC 5.32 m/uL (4.30-5.90); RDW 14.5 % (11.5-15.5); WBC 9.3 k/uL (3.8-10.6)
[2020-09-27 12:30] LABS: INR 1.2 (<1.2); Partial Thromboplastin Time 32.3 sec (22.0-30.0); Prothrombin Time 12.1 sec (9.0-12.0)
[2020-09-27 12:34] LABS: ALT 19 U/L (4-49); African American GFR (CKD) >90 (>60 ml/min/1.73 sqM); Albumin 3.6 g/dL (3.5-5.0); Anion Gap 4 mmol/L; Blood Urea Nitrogen 7 mg/dL (9-20); Calcium 8.7 mg/dL (8.4-10.2); Carbon Dioxide 29 mmol/L (22-30); Chloride 104 mmol/L (98-107); Glucose 173 mg/dL (74-99); Non-African American GFR(CKD) >90 (>60 ml/min/1.73 sqM); Sodium 137 mmol/L (137-145); Total Bilirubin 1.3 mg/dL (0.2-1.3); Total Protein 7.3 g/dL (6.3-8.2)
[2020-09-27 12:37] LABS: AST 31 U/L (17-59); Alkaline Phosphatase 71 U/L (38-126); Magnesium 1.6 mg/dL (1.6-2.3); Potassium 4.7 mmol/L (3.5-5.1)
--- NOTE | 2020-09-27 12:45 | XR ---
EXAMINATION TYPE: XR chest 2V DATE OF EXAM: 09/27/2020 COMPARISON: 07/10/2020 HISTORY: Shortness of breath TECHNIQUE: Frontal and lateral views of the chest are obtained. FINDINGS: Scattered senescent parenchymal changes noted. Hyperinflation compatible with COPD. No evidence for infiltrate. No evidence for atelectasis. Heart size is stable. Mediastinal structures are stable and grossly unremarkable. No evidence for hilar prominence. Degenerative changes dorsal spine. IMPRESSION: 1. No evidence for acute pulmonary disease.
--- NOTE | 2020-09-27 12:55 | ED ---
General Adult HPI - General Chief complaint: Shortness of Breath Stated complaint: SOB Time Seen by Provider: 09/27/20 11:48 Source: patient, RN notes reviewed Mode of arrival: wheelchair Limitations: no limitations - History of Present Illness Initial comments: 50-year-old male presents emergency Department chief complaint of increasing shortness breath. Patient states that he has severe COPD Patient states that he feels that he is having exacerbation. He does admit that he has bilateral leg swelling. Patient states is slightly worsened usual. Patient denies any chest pain states is just tight. No headache no dizziness. Patient is followed by PCP and pulmonology. Patient reportsfever no chills. - Related Data Home Medications Medication Instructions Recorded Confirmed ALPRAZolam [Xanax] 1 mg PO HS PRN 07/16/18 08/29/20 hydrALAZINE HCL [Apresoline] 100 mg PO TID 07/16/18 08/29/20 Rivaroxaban [Xarelto] 15 mg PO BID 02/01/19 08/29/20 Albuterol Nebulized [Ventolin 2.5 mg INHALATION RT-Q6H PRN 09/21/19 08/29/20 Nebulized] Ergocalciferol [Vitamin D2 50,000 unit PO CARVAJAL 09/21/19 08/29/20 (DRISDOL)] Ipratropium Nebulized [Atrovent 0.5 mg INHALATION RT-Q6H PRN 09/21/19 08/29/20 Nebulized 0.2 MG/ML] Metoprolol Tartrate [Lopressor] 50 mg PO BID 09/21/19 08/29/20 Mupirocin 2% Oint [Bactroban 2% 1 applic TOPICAL TID PRN 09/21/19 08/29/20 Oint] Pseudoephedrine 12Hr [Sudafed 12 120 mg PO Q12H PRN 09/21/19 08/29/20 Hour] lisinopriL 40 mg PO BID 09/21/19 08/29/20 Atorvastatin [Lipitor] 10 mg PO HS 10/30/19 08/29/20 Omeprazole 40 mg PO DAILY 10/30/19 08/29/20 glipiZIDE XL [Glucotrol XL] 15 mg PO QAM 10/30/19 08/29/20 Cetirizine HCl [Zyrtec] 10 mg PO BID 12/17/19 08/29/20 Fluticasone Propionate [Flonase 1 spray EA NOSTRIL HS PRN 12/17/19 08/29/20 Allergy Relief] Erythromycin Ophth Oint [Romycin 1 applic RIGHT EYE HS PRN 04/30/20 08/29/20 Ophth Oint] Isosorbide Mononitrate ER [Imdur] 60 mg PO DAILY 04/30/20 08/29/20 Naloxone HCl [Narcan] 1 spray INHALATION ONCE PRN 04/30/20 08/29/20 Pioglitazone [Actos] 15 mg PO DAILY 04/30/20 08/29/20 Pantoprazole [Protonix] 40 mg PO DAILY 07/10/20 08/29/20 oxyCODONE HCL [OxyCONTIN] 30 mg PO Q8H PRN 07/10/20 08/29/20 Acetaminophen [Tylenol] 1,000 mg PO DAILY PRN 08/29/20 08/29/20 Previous Rx's Medication Instructions Recorded Clindamycin [Cleocin] 300 mg PO TID cap 08/31/20 Sulfamethox-Tmp 800-160Mg [Bactrim 1 each PO BID 15 Days #30 tab 09/02/20 DS 800-160 mg] Azithromycin [Zithromax Z-pack (6 0 mg PO DIRECTED #1 pack 09/27/20 tabs)] Ipratropium-Albuterol Nebulize 3 ml INHALATION QID #1 box 09/27/20 [Duoneb 0.5 mg-3 mg/3 ml Soln] predniSONE 50 mg PO DAILY #5 tab 09/27/20 Allergies Allergy/AdvReac Type Severity Reaction Status Date / Time cyclobenzaprine HCl Allergy Itching Verified 09/27/20 11:46 [From Flexeril] ibuprofen [From Motrin] AdvReac Nausea Verified 09/27/20 11:46 Review of Systems ROS Statement: Those systems with pertinent positive or pertinent negative responses have been documented in the HPI. ROS Other: All systems not noted in ROS Statement are negative. Past Medical History Past Medical History: Chest Pain / Angina, COPD, Diabetes Mellitus, Deep Vein Thrombosis (DVT), Eye Disorder, GERD/Reflux, Hearing Disorder / Deafness, Hyperlipidemia, Hypertension, Osteoarthritis (OA), Pneumonia, Pulmonary Embolus (PE), Respiratory Disorder, Sleep Apnea/CPAP/BIPAP Additional Past Medical History / Comment(s): NIDDM type II, neuropathy BLE. 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, R lower leg DVT & PE, previous history of cellulitis, UTI, History of Any Multi-Drug Resistant Organisms: None Reported Past Surgical History: Cholecystectomy, Ear Surgery, Joint Replacement Additional Past Surgical History / Comment(s): Lap cholecystectomy with lysis of adhesions, R ear sugically resected/tympanomastoidectomy with tympanoplasty, bilateral myringotomy/tubes, R eye enucleation, R total knee arthroplasty, EGD Past Anesthesia/Blood Transfusion Reactions: No Reported Reaction Additional Past Anesthesia/Blood Transfusion Reaction / Comment(s): (no known family hx) Past Psychological History: Anxiety, Depression, Schizophrenia Smoking Status: Current every day smoker Past Alcohol Use History: None Reported Past Drug Use History: None Reported - Past Family History Father History Unknown: Yes Family Medical History: Unable to Obtain Additional Family Medical History / Comment(s): Patient was adopted Mother Family Medical History: Unable to Obtain, Diabetes Mellitus Additional Family Medical History / Comment(s): Patient was adopted General Exam Limitations: no limitations General appearance: alert, in no apparent distress, obese Head exam: Present: atraumatic, normocephalic, normal inspection Eye exam: Present: normal appearance, PERRL, EOMI. Absent: scleral icterus, conjunctival injection, periorbital swelling ENT exam: Present: normal exam, normal oropharynx, mucous membranes moist Neck exam: Present: normal inspection, full ROM. Absent: tenderness, meningismus, lymphadenopathy Respiratory exam: Present: wheezes, decreased breath sounds. Absent: normal lung sounds bilaterally, respiratory distress, rales, rhonchi, stridor Cardiovascular Exam: Present: regular rate, normal rhythm, normal heart sounds. Absent: systolic murmur, diastolic murmur, rubs, gallop, clicks Neurological exam: Present: alert, oriented X3 Skin exam: Present: warm, dry, intact, normal color. Absent: rash Course Vital Signs 09/27/20 09/27/2020 11:44 12:39 12:50 Temperature 98.4 F Pulse Rate 70 65 68 Respiratory 22 16 16 Rate Blood Pressure 178/98 O2 Sat by Pulse 97 Oximetry Medical Decision Making - Medical Decision Making 50-year-old presented for increasing shortness breath. Patient's is greatly improved after DuoNeb treatments steroids. Patient has known COPD X-ray does not reveal any significant abnormality. Patient's has some leg edema but no evidence of overt heart failure. Patient feels comfortable with discharge with monitoring of his blood sugar and return for any worsening change in symptoms. - Lab Data Result diagrams: 09/27/20 12:08 09/27/20 12:08 Lab Results 09/27/20 09/27/20 09/27/20 Range/Units 12:08 12:08 12:08 WBC 9.3 (3.8-10.6) k/uL RBC 5.32 (4.30-5.90) m/uL Hgb 15.8 (13.0-17.5) gm/dL Hct 46.9 (39.0-53.0) % MCV 88.2 (80.0-100.0) fL MCH 29.7 (25.0-35.0) pg MCHC 33.7 (31.0-37.0) g/dL RDW 14.5 (11.5-15.5) % Plt Count 201 (150-450) k/uL MPV 7.4 Neutrophils % 68 % Lymphocytes % 23 % Monocytes % 4 % Eosinophils % 3 % Basophils % 1 % Neutrophils # 6.3 (1.3-7.7) k/uL Lymphocytes # 2.2 (1.0-4.8) k/uL Monocytes # 0.4 (0-1.0) k/uL Eosinophils # 0.2 (0-0.7) k/uL Basophils # 0.1 (0-0.2) k/uL PT 12.1 H (9.0-12.0) sec INR 1.2 H (<1.2) APTT 32.3 H (22.0-30.0) sec Sodium 137 (137-145) mmol/L Potassium 4.7 (3.5-5.1) mmol/L Chloride 104 (98-107) mmol/L Carbon Dioxide 29 (22-30) mmol/L Anion Gap 4 mmol/L BUN 7 L (9-20) mg/dL Creatinine 0.53 L (0.66-1.25) mg/dL Est GFR (CKD-EPI)AfAm >90 (>60 ml/min/1.73 sqM) Est GFR (CKD-EPI)NonAf >90 (>60 ml/min/1.73 sqM) Glucose 173 H (74-99) mg/dL Plasma Lactic Acid Naeem (0.7-2.0) mmol/L Calcium 8.7 (8.4-10.2) mg/dL Magnesium 1.6 (1.6-2.3) mg/dL Total Bilirubin 1.3 (0.2-1.3) mg/dL AST 31 (17-59) U/L ALT 19 (4-49) U/L Alkaline Phosphatase 71 (38-126) U/L Troponin I (0.000-0.034) ng/mL NT-Pro-B Natriuret Pep pg/mL Total Protein 7.3 (6.3-8.2) g/dL Albumin 3.6 (3.5-5.0) g/dL 09/27/20 09/27/20 09/27/20 Range/Units 12:08 12:08 12:08 WBC (3.8-10.6) k/uL RBC (4.30-5.90) m/uL Hgb (13.0-17.5) gm/dL Hct (39.0-53.0) % MCV (80.0-100.0) fL MCH (25.0-35.0) pg MCHC (31.0-37.0) g/dL RDW (11.5-15.5) % Plt Count (150-450) k/uL MPV Neutrophils % % Lymphocytes % % Monocytes % % Eosinophils % % Basophils % % Neutrophils # (1.3-7.7) k/uL Lymphocytes # (1.0-4.8) k/uL Monocytes # (0-1.0) k/uL Eosinophils # (0-0.7) k/uL Basophils # (0-0.2) k/uL PT (9.0-12.0) sec INR (<1.2) APTT (22.0-30.0) sec Sodium (137-145) mmol/L Potassium (3.5-5.1) mmol/L Chloride (98-107) mmol/L Carbon Dioxide (22-30) mmol/L Anion Gap mmol/L BUN (9-20) mg/dL Creatinine (0.66-1.25) mg/dL Est GFR (CKD-EPI)AfAm (>60 ml/min/1.73 sqM) Est GFR (CKD-EPI)NonAf (>60 ml/min/1.73 sqM) Glucose (74-99) mg/dL Plasma Lactic Acid Naeem 1.4 (0.7-2.0) mmol/L Calcium (8.4-10.2) mg/dL Magnesium (1.6-2.3) mg/dL Total Bilirubin (0.2-1.3) mg/dL AST (17-59) U/L ALT (4-49) U/L Alkaline Phosphatase (38-126) U/L Troponin I <0.012 (0.000-0.034) ng/mL NT-Pro-B Natriuret Pep 766 pg/mL Total Protein (6.3-8.2) g/dL Albumin (3.5-5.0) g/dL Disposition Clinical Impression: COPD exacerbation, Leg edema Disposition: HOME SELF-CARE Condition: Stable Instructions (If sedation given, give patient instructions): COPD (Chronic Obstructive Pulmonary Disease) (ED) Additional Instructions: Please return to the Emergency Department if symptoms worsen or any other concerns. Prescriptions: Ipratropium-Albuterol Nebulize [Duoneb 0.5 mg-3 mg/3 ml Soln] 3 ml INHALATION QID #1 box predniSONE 50 mg PO DAILY #5 tab Azithromycin [Zithromax Z-pack (6 tabs)] 0 mg PO DIRECTED #1 pack Is patient prescribed a controlled substance at d/c from ED?: No Referrals: Villa Moore MD [Primary Care Provider] - 1-2 days Time of Disposition: 13:59
[2020-09-27] MEDS ORDERED: oxyCODONE ER 20 MG TAB.ER.12H PO STA (13:34)
[2020-09-27] MEDS ORDERED: FUROSEMIDE 10 MG/ML 4 ML VIAL IV STA (13:53)
[2020-09-27 14:12] VITALS: BP 164/76; PULSE 66; RESP 18
== END 2020-09-27 14:12 | disposition home or self-care (01) ==
LOC: EC 11:27
DX: J44.1 Chronic obstructive pulmonary disease with (acute) exacerbation (principal); R60.0 Localized edema; F41.9 Anxiety disorder, unspecified; F32.9 Major depressive disorder, single episode, unspecified; F20.9 Schizophrenia, unspecified; F17.200 Nicotine dependence, unspecified, uncomplicated; Z90.49 Acquired absence of other specified parts of digestive tract; E11.40 Type 2 diabetes mellitus with diabetic neuropathy, unspecified; K21.9 Gastro-esophageal reflux disease without esophagitis; E78.5 Hyperlipidemia, unspecified; I10 Essential (primary) hypertension; M19.90 Unspecified osteoarthritis, unspecified site; G47.33 Obstructive sleep apnea (adult) (pediatric); Z20.828 Contact with and (suspected) exposure to other viral communicable diseases; Z79.01 Long term (current) use of anticoagulants; Z79.51 Long term (current) use of inhaled steroids; Z79.899 Other long term (current) drug therapy; Z79.84 Long term (current) use of oral hypoglycemic drugs; Z88.6 Allergy status to analgesic agent; Z88.8 Allergy status to other drugs, medicaments and biological substances; Z86.711 Personal history of pulmonary embolism; Z86.718 Personal history of other venous thrombosis and embolism
CPT/HCPCS: 36415; 94640; 93005; 83880; 80053; 83605; 83735; 84484; 85025; 85610; 85730; 87635; 71046; 99285; 96374; 96375; J1940; J2930

== ENCOUNTER → 2021-04-04 | Outpatient (CLI) | payer OTHER ==
[2021-04-04 17:16] VITALS: BP 192/113; PULSE 68; RESP 18; TEMP 97.9; BMI 68.1
--- NOTE | 2021-04-04 17:32 | P.HPBAR ---
Bariatric H&P - History & Physicial H&P Date: 04/04/21 History & Physicial: Visit/CC: initial visit Patient initial contact: Initial weight: Initial weight in pounds: Height: 6 ft Initial BMI: Last weight: Current weight: 227.794 kg Current weight in pounds: 502.20 Current BMI: 68.1 Warner body weight (based on NIH guidelines): 80.739 kg Excess body weight loss: The patient is a 50 year-old M who presents for Bariatric Assessment. DATE OF SERVICE: 04/04/2021 REASON FOR CONSULTATION: Initial bariatric evaluation. HISTORY OF PRESENT ILLNESS: Juan Candelaria is a 50-year-old gentleman who comes in with lifelong obesity. He is looking into the gastric bypass. His highest weight is 554 pounds. His gallbladder is removed. He reports gastroesophageal reflux disease and takes medication for it. He has multiple heart conditions. He has sleep apnea and uses a CPAP machine. He denies any abdominal pain. He is undergoing medical supervised weight loss. He has tried multiple weight loss programs on his own. He has also tried Adipex where he at best lost anywhere between 2 to 3 pounds in a month. He reports regaining most of his weight back. At height of 6 feet 0 inches, his ideal body weight is 183 pounds. His highest weight is 554 pounds, body mass index 75.3. He comes in 501 pounds. His body mass index is 68.1. He is 318 pounds overweight. PAST MEDICAL HISTORY: 1. Morbid obesity due to excess calories 2. Body mass index of 75.3, initial 3. Chronic obstructive pulmonary disease 4. Bilateral neuropathy 5. Osteoarthritis left knee 6. Tubersclerosis 7. Angina 8. Deep venous thrombosis 9. Hearing disorder 10. Hyperlipidemia 11. Pulmonary embolism 12. Obstructive sleep apnea 13. Glaucoma. 14. Hypertensive heart disease with congestive heart failure 15. Bronchitis. 16. Asthma. 17. Osteoarthritis lower back 18. Generalized anxiety disorder 19. Gastroesophageal reflux disease 20. Schizophrenia 21. Depressive disorder 22. Diabetes type II, non-insulin dependent PAST SURGICAL HISTORY: 1. Retinal surgery. 2. Prosthetic right eye with enucleation 3. Bilateral myringotomy tubes. 4. Total right knee replacement. 5. Upper endoscopy. 6. Cholecystectomy 7. Tympanomastoidectomy with tympanoplasty HOME MEDICATIONS: Home Medications Medication Instructions Recorded Confirmed hydrALAZINE HCL [Apresoline] 100 mg PO TID 07/16/18 05/03/21 Rivaroxaban [Xarelto] 15 mg PO BID 02/01/19 05/03/21 Albuterol Nebulized [Ventolin 2.5 mg INHALATION RT-Q6H 09/21/19 05/03/21 Nebulized] Ipratropium Nebulized [Atrovent 0.5 mg INHALATION RT-Q6H 09/21/19 05/03/21 Nebulized 0.2 MG/ML] Pseudoephedrine 12Hr [Sudafed 12 120 mg PO Q12H PRN 09/21/19 05/03/21 Hour] lisinopriL 40 mg PO BID 09/21/19 05/03/21 Atorvastatin [Lipitor] 10 mg PO HS 10/30/19 05/03/21 glipiZIDE XL [Glucotrol XL] 15 mg PO QAM 10/30/19 05/03/21 Cetirizine HCl [Zyrtec] 10 mg PO DAILY 12/17/19 05/03/21 Isosorbide Mononitrate ER [Imdur] 60 mg PO DAILY 04/30/20 05/03/21 Pioglitazone [Actos] 15 mg PO DAILY 04/30/20 05/03/21 Budesonide/Formoterol Fumarate 2 puff INHALATION RT-BID 05/03/21 05/03/21 [Symbicort 160-4.5 Mcg Inhaler] Ergocalciferol [Vitamin D2 (1250 1,250 mcg PO CARVAJAL 05/03/21 05/03/21 Mcg = 22335 Iu)] Sertraline HCl [Zoloft] 50 mg PO DAILY 05/03/21 05/03/21 oxyCODONE HCL [oxyCODONE HCL (IR)] 30 mg PO TID 05/03/21 05/03/21 traZODone HCL [Desyrel] 50 - 100 mg PO HS 05/03/21 05/03/21 Previous Rx's Medication Instructions Recorded Dicyclomine [Bentyl] 10 mg PO TID #12 capsule 05/03/21 ALLERGIES: Allergies Allergy/AdvReac Type Severity Reaction Status Date / Time cyclobenzaprine HCl Allergy Itching Verified 05/03/21 08:01 [From Flexeril] ibuprofen [From Motrin] AdvReac Nausea Verified 05/03/21 08:01 SOCIAL HISTORY: Tobacco use. FAMILY HISTORY: He is adopted. Denies any known Crohn's disease or colitis. REVIEW OF ORGAN SYSTEMS: CONSTITUTIONAL: At height of 6 feet 0 inches, his ideal body weight is 183 pounds. His highest weight is 554 pounds, body mass index 75.3. He comes in 501 pounds. His body mass index is 68.1. He is 318 pounds overweight. HEENT: Has hearing problems. Has prosthetic right eye. Admits to difficulty with swallowing. ENDOCRINE: Has diabetes type II. No hypothyroidism. CARDIOVASCULAR: Past reports of palpitations or heart attacks or chest pain. Has hypertensive heart disease. Has hyperlipidemia. Has congestive heart failure. RESPIRATORY: Has daytime somnolence. Has chronic obstructive pulmonary disease. Has obstructive sleep apnea. GASTROINTESTINAL: Denies any bright red blood per rectum. No diarrhea. No constipation. Has gastroesophageal reflux disease. GENITOURINARY: Has bladder urgency. No recent blood in urine MUSCULOSKELETAL: Has lower back pain and joint pain. Has osteoarthritis of the knees. History of bilateral lower extremity edema. Has chronic pain. NEURO: No headaches. No seizure disorders. Has neuropathy. PSYCH: Has depressive disorder. No suicidal ideation. Has schizophrenia and anxiety disorder. RHEUMATOLOGIC: No lupus. No rheumatoid arthritis. HEMATOLOGIC: Denies any abnormal bleeding or bruising. Past history of DVTs and pulmonary embolism. On blood thinners. SKIN: No rash. No skin cancer. PHYSICAL EXAM: VITAL SIGNS: Height 6 foot 0 inches, weight 501 pounds. BMI 68.1 Vital Signs Temp 97.9 F 04/04/21 17:07 Pulse 68 04/04/21 17:07 Resp 18 04/04/21 17:07 BP 192/113 04/04/21 17:07 Pulse Ox GENERAL: Well-developed in no acute distress. HEENT: No scleral icterus. Extraocular movements grossly intact. Hears conversational speech. No nasal drainage. NECK: No gross lymphadenopathy. CHEST: Nonlabored respirations with equal bilateral excursions. CARDIOVASCULAR: Regular rate and regular rhythm. Distal 2+ pulses. ABDOMEN: Obese, soft, nontender, nondistended. MUSCULOSKELETAL: No clubbing, cyanosis. NEURO: No focal or lateralizing signs. Cranial nerves 2 through 12 grossly within normal limits. PSYCH: Appropriate affect. Alert and oriented to person, place and time. SKIN: Good skin turgor. Well perfused. ASSESSMENT: 1. Morbid obesity due to excess calories 2. Body mass index of 75.3, initial to 68.1 3. Chronic obstructive pulmonary disease 4. Bilateral neuropathy 5. Osteoarthritis left knee 6. Tubersclerosis 7. Angina 8. Deep venous thrombosis 9. Hearing disorder 10. Hyperlipidemia 11. Pulmonary embolism 12. Obstructive sleep apnea 13. Glaucoma. 14. Hypertensive heart disease with congestive heart failure 15. Bronchitis. 16. Asthma. 17. Osteoarthritis lower back 18. Generalized anxiety disorder 19. Gastroesophageal reflux disease 20. Schizophrenia 21. Depressive disorder 22. Diabetes type II, non-insulin dependent PLAN: 1. Surgical options including a band, gastric bypass, sleeve gastrectomy were described in detail. Alternatives such as gastric balloon including duodenal switch were described. He is looking into the gastric bypass. 2. The [place] bariat[facility] surgical collaborative data and outcomes calculator were described with surgical options. 3. Recommend a bariatric metabolic panel to evaluate for micro- including macronutrient deficiencies. 4. Recommend medical supervised weight loss. 5. Dietary surveillance and counseling was reviewed. Increased protein intake over 65 grams daily advised. 6. Will need cardiac risk assessment. 7. Recommend medical risk assessment. 8. Psych assessment per insurance guidelines. 9. Recommend upper endoscopy. 10. Recommend 12-lead EKG. 11. Recommend esophagram for difficulty with swallowing 12. Recommend urine nicotine testing for history of tobacco abuse disorder 13. Recommend urine drug screen Thank you for this consultation. Past Medical History Past Medical History: Chest Pain / Angina, COPD, Diabetes Mellitus, Deep Vein Thrombosis (DVT), Eye Disorder, GERD/Reflux, Hearing Disorder / Deafness, Hyperlipidemia, Hypertension, Osteoarthritis (OA), Pneumonia, Pulmonary Embolus (PE), Respiratory Disorder, Sleep Apnea/CPAP/BIPAP Additional Past Medical History / Comment(s): NIDDM type II, neuropathy BLE. 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, R lower leg DVT & PE, previous history of cellulitis, UTI, History of Any Multi-Drug Resistant Organisms: None Reported Past Surgical History: Cholecystectomy, Ear Surgery, Joint Replacement Additional Past Surgical History / Comment(s): Lap cholecystectomy with lysis of adhesions, R ear sugically resected/tympanomastoidectomy with tympanoplasty, bilateral myringotomy/tubes, R eye enucleation, R total knee arthroplasty, EGD Past Anesthesia/Blood Transfusion Reactions: No Reported Reaction Additional Past Anesthesia/Blood Transfusion Reaction / Comm: (no known family hx) Past Psychological History: Anxiety, Depression, Schizophrenia Additional Psychological History / Comment(s): Pt states he was diagnosed with schizophrenia as a teen, but that no one states this anymore, but does have depression and anxiety. Smoking Status: Current every day smoker Past Alcohol Use History: None Reported Additional Past Alcohol Use History / Comment(s): Pt started smoking in 1987, up to 1 1/2 ppd, now smokes 1/2 ppd Past Drug Use History: None Reported - Past Family History Father History Unknown: Yes Family Medical History: Unable to Obtain Additional Family Medical History / Comment(s): Patient was adopted Mother Family Medical History: Unable to Obtain, Diabetes Mellitus Additional Family Medical History / Comment(s): Patient was adopted Surgical - Exam Vital Signs Temp Pulse Resp BP 97.9 F 68 18 192/113 04/04/21 17:07 04/04/21 17:07 04/04/21 17:07 04/04/21 17:07 Bariatric Checklist Checklist: Plan: Checklist: EGD: 1. Hiatal hernia: 2. H. Pylori: HgbA1c: Vitamin D: Smoking: Former smoker Primary care physician referral: Dr. Villa Moore Psychiatry clearance: Cardiology clearance: Sleep study: Diet journal: VTE risk score: VTE risk level: Rehab needs at discharge:
== END ==
LOC: BARWHC3 16:00
PROVIDERS: ATTEND Surgery Plastic and Reconstructive Surgery
DX: E66.01 Morbid (severe) obesity due to excess calories (principal); J44.9 Chronic obstructive pulmonary disease, unspecified; G62.9 Polyneuropathy, unspecified; M17.12 Unilateral primary osteoarthritis, left knee; A15.9 Respiratory tuberculosis unspecified; I20.9 Angina pectoris, unspecified; F17.200 Nicotine dependence, unspecified, uncomplicated; I11.0 Hypertensive heart disease with heart failure; I82.90 Acute embolism and thrombosis of unspecified vein; H91.90 Unspecified hearing loss, unspecified ear; E78.5 Hyperlipidemia, unspecified; I26.99 Other pulmonary embolism without acute cor pulmonale; G47.33 Obstructive sleep apnea (adult) (pediatric); H40.9 Unspecified glaucoma; J45.909 Unspecified asthma, uncomplicated; M47.9 Spondylosis, unspecified; F41.1 Generalized anxiety disorder; K21.9 Gastro-esophageal reflux disease without esophagitis; F20.9 Schizophrenia, unspecified; F32.9 Major depressive disorder, single episode, unspecified; E11.9 Type 2 diabetes mellitus without complications; Z68.44 Body mass index [BMI] 60.0-69.9, adult; Z79.84 Long term (current) use of oral hypoglycemic drugs; Z88.2 Allergy status to sulfonamides
CPT/HCPCS: 99203

== ENCOUNTER 2021-05-03 07:55 | Emergency (ER) | payer OTHER ==
[2021-05-03 08:01] VITALS: RESP 18; TEMP 98.5
[2021-05-03] MEDS ORDERED: SODIUM CHLORIDE 0.9% 1,000 ML IV STA ×2 (08:15)
[2021-05-03] MEDS ORDERED: ONDANSETRON 4 MG/2 ML VIAL IVP STA (08:15)
[2021-05-03] MEDS ORDERED: HYDROmorphone 0.5 MG/0.5 ML SYRINGE IVP STA (08:15)
--- NOTE | 2021-05-03 08:20 | ED ---
Abdominal Pain HPI - General Chief Complaint: Abdominal Pain Stated Complaint: Abd pain Time Seen by Provider: 05/03/21 08:02 Source: patient, RN notes reviewed, old records reviewed Mode of arrival: ambulatory Limitations: no limitations - History of Present Illness Initial Comments: This is a 50-year-old male with a history of multiple medical issues including morbid obesity who presents with complaints of abdominal pain mostly in the supra umbilical area going on for the past week he states pain is severe sharp 6/10 severity he had no vomiting but has had some nausea and diarrhea with decreased oral intake. No fevers chills or sweats. He states pain is relatively constant he states he does have a history of a umbilical hernia and the pain is more around the mid lower abdomen superior to the umbilicus as time now. MD Complaint: abdominal pain - Related Data Home Medications Medication Instructions Recorded Confirmed hydrALAZINE HCL [Apresoline] 100 mg PO TID 07/16/18 05/03/21 Rivaroxaban [Xarelto] 15 mg PO BID 02/01/19 05/03/21 Albuterol Nebulized [Ventolin 2.5 mg INHALATION RT-Q6H 09/21/19 05/03/21 Nebulized] Ipratropium Nebulized [Atrovent 0.5 mg INHALATION RT-Q6H 09/21/19 05/03/21 Nebulized 0.2 MG/ML] Pseudoephedrine 12Hr [Sudafed 12 120 mg PO Q12H PRN 09/21/19 05/03/21 Hour] lisinopriL 40 mg PO BID 09/21/19 05/03/21 Atorvastatin [Lipitor] 10 mg PO HS 10/30/19 05/03/21 glipiZIDE XL [Glucotrol XL] 15 mg PO QAM 10/30/19 05/03/21 Cetirizine HCl [Zyrtec] 10 mg PO DAILY 12/17/19 05/03/21 Isosorbide Mononitrate ER [Imdur] 60 mg PO DAILY 04/30/20 05/03/21 Pioglitazone [Actos] 15 mg PO DAILY 04/30/20 05/03/21 Budesonide/Formoterol Fumarate 2 puff INHALATION RT-BID 05/03/21 05/03/21 [Symbicort 160-4.5 Mcg Inhaler] Ergocalciferol [Vitamin D2 (1250 1,250 mcg PO CARVAJAL 05/03/21 05/03/21 Mcg = 45551 Iu)] Sertraline HCl [Zoloft] 50 mg PO DAILY 05/03/21 05/03/21 oxyCODONE HCL [oxyCODONE HCL (IR)] 30 mg PO TID 05/03/21 05/03/21 traZODone HCL [Desyrel] 50 - 100 mg PO HS 05/03/21 05/03/21 Previous Rx's Medication Instructions Recorded Dicyclomine [Bentyl] 10 mg PO TID #12 capsule 05/03/21 Allergies Allergy/AdvReac Type Severity Reaction Status Date / Time cyclobenzaprine HCl Allergy Itching Verified 05/03/21 08:01 [From Flexeril] ibuprofen [From Motrin] AdvReac Nausea Verified 05/03/21 08:01 Review of Systems ROS Statement: Those systems with pertinent positive or pertinent negative responses have been documented in the HPI. ROS Other: All systems not noted in ROS Statement are negative. Past Medical History Past Medical History: Chest Pain / Angina, COPD, Diabetes Mellitus, Deep Vein Thrombosis (DVT), Eye Disorder, GERD/Reflux, Hearing Disorder / Deafness, Hyperlipidemia, Hypertension, Osteoarthritis (OA), Pneumonia, Pulmonary Embolus (PE), Respiratory Disorder, Sleep Apnea/CPAP/BIPAP Additional Past Medical History / Comment(s): NIDDM type II, neuropathy BLE. 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, R lower leg DVT & PE, previous history of cellulitis, UTI, History of Any Multi-Drug Resistant Organisms: None Reported Past Surgical History: Cholecystectomy, Ear Surgery, Joint Replacement Additional Past Surgical History / Comment(s): Lap cholecystectomy with lysis of adhesions, R ear sugically resected/tympanomastoidectomy with tympanoplasty, bilateral myringotomy/tubes, R eye enucleation, R total knee arthroplasty, EGD Past Anesthesia/Blood Transfusion Reactions: No Reported Reaction Additional Past Anesthesia/Blood Transfusion Reaction / Comment(s): (no known family hx) Past Psychological History: Anxiety, Depression, Schizophrenia Smoking Status: Current every day smoker Past Alcohol Use History: None Reported Past Drug Use History: None Reported - Past Family History Father History Unknown: Yes Family Medical History: Unable to Obtain Additional Family Medical History / Comment(s): Patient was adopted Mother Family Medical History: Unable to Obtain, Diabetes Mellitus Additional Family Medical History / Comment(s): Patient was adopted General Exam - General Exam Comments Initial Comments: This a well-developed morbidly obese male who is awake alert oriented 3 Limitations: no limitations General appearance: alert, anxious Head exam: Present: atraumatic, normocephalic, normal inspection Eye exam: Present: normal appearance, PERRL, EOMI. Absent: scleral icterus, conjunctival injection, periorbital swelling ENT exam: Present: mucous membranes dry Neck exam: Present: normal inspection. Absent: tenderness, meningismus, lymphadenopathy Respiratory exam: Present: normal lung sounds bilaterally. Absent: respiratory distress, wheezes, rales, rhonchi, stridor Cardiovascular Exam: Present: regular rate, normal rhythm, normal heart sounds. Absent: systolic murmur, diastolic murmur, rubs, gallop, clicks GI/Abdominal exam: Present: soft, tenderness (Tenderness around the superior portion of theAbdomen above the umbilicus no definitive herniation or defect palpable at this time), normal bowel sounds. Absent: distended, guarding, rebound, rigid, bruit, pulsatile mass Rectal exam: Present: deferred Extremities exam: Present: normal inspection, full ROM, normal capillary refill. Absent: tenderness, pedal edema, joint swelling, calf tenderness Back exam: Present: normal inspection Neurological exam: Present: alert, oriented X3, CN II-XII intact Psychiatric exam: Present: normal affect, normal mood Skin exam: Present: warm, dry, intact, normal color. Absent: rash Course Vital Signs 05/03/21 05/03/21 07:56 11:51 Temperature 98.5 F Pulse Rate 93 61 Respiratory 18 18 Rate Blood Pressure 161/101 137/73 O2 Sat by Pulse 93 L 94 L Oximetry Medical Decision Making - Medical Decision Making Patient is feeling somewhat improved the presentation is consistent with a gastroenteritis and spastic bowel patient will be discharged he has a follow-up with Dr. Moore shortly today. - Lab Data Result diagrams: 05/03/21 08:37 05/03/21 08:37 Lab Results 05/03/21 05/03/21 05/03/21 Range/Units 08:37 08:37 08:37 WBC 9.0 (3.8-10.6) k/uL RBC 5.43 (4.30-5.90) m/uL Hgb 16.5 (13.0-17.5) gm/dL Hct 50.2 (39.0-53.0) % MCV 92.3 (80.0-100.0) fL MCH 30.4 (25.0-35.0) pg MCHC 32.9 (31.0-37.0) g/dL RDW 14.7 (11.5-15.5) % Plt Count 212 (150-450) k/uL MPV 7.4 Neutrophils % 69 % Lymphocytes % 22 % Monocytes % 4 % Eosinophils % 3 % Basophils % 1 % Neutrophils # 6.2 (1.3-7.7) k/uL Lymphocytes # 2.0 (1.0-4.8) k/uL Monocytes # 0.4 (0-1.0) k/uL Eosinophils # 0.3 (0-0.7) k/uL Basophils # 0.1 (0-0.2) k/uL PT (9.0-12.0) sec INR (<1.2) APTT (22.0-30.0) sec Sodium 137 (137-145) mmol/L Potassium 3.5 (3.5-5.1) mmol/L Chloride 103 (98-107) mmol/L Carbon Dioxide 23 (22-30) mmol/L Anion Gap 11 mmol/L BUN 9 (9-20) mg/dL Creatinine 0.57 L (0.66-1.25) mg/dL Est GFR (CKD-EPI)AfAm >90 (>60 ml/min/1.73 sqM) Est GFR (CKD-EPI)NonAf >90 (>60 ml/min/1.73 sqM) Glucose 197 H (74-99) mg/dL Plasma Lactic Acid Naeem (0.7-2.0) mmol/L Calcium 9.1 (8.4-10.2) mg/dL Total Bilirubin 1.4 H (0.2-1.3) mg/dL AST 26 (17-59) U/L ALT 17 (4-49) U/L Alkaline Phosphatase 78 (38-126) U/L Creatine Kinase 57 (55-170) U/L Total Protein 7.1 (6.3-8.2) g/dL Albumin 3.9 (3.5-5.0) g/dL Amylase 42 (30-110) U/L Lipase 141 (23-300) U/L Urine Color Yellow Urine Appearance Clear (Clear) Urine pH 5.5 (5.0-8.0) Ur Specific Beverly 1.047 H (1.001-1.035) Urine Protein 1+ H (Negative) Urine Glucose (UA) 1+ H (Negative) Urine Ketones Negative (Negative) Urine Blood Negative (Negative) Urine Nitrite Negative (Negative) Urine Bilirubin Negative (Negative) Urine Urobilinogen 2.0 (<2.0) mg/dL Ur Leukocyte Esterase Negative (Negative) Urine RBC <1 (0-5) /hpf Urine WBC 2 (0-5) /hpf Ur Squamous Epith Cells 1 (0-4) /hpf Urine Mucus Few H (None) /hpf 05/03/21 05/03/21 Range/Units 08:37 08:37 WBC (3.8-10.6) k/uL RBC (4.30-5.90) m/uL Hgb (13.0-17.5) gm/dL Hct (39.0-53.0) % MCV (80.0-100.0) fL MCH (25.0-35.0) pg MCHC (31.0-37.0) g/dL RDW (11.5-15.5) % Plt Count (150-450) k/uL MPV Neutrophils % % Lymphocytes % % Monocytes % % Eosinophils % % Basophils % % Neutrophils # (1.3-7.7) k/uL Lymphocytes # (1.0-4.8) k/uL Monocytes # (0-1.0) k/uL Eosinophils # (0-0.7) k/uL Basophils # (0-0.2) k/uL PT 12.9 H (9.0-12.0) sec INR 1.3 H (<1.2) APTT 29.1 (22.0-30.0) sec Sodium (137-145) mmol/L Potassium (3.5-5.1) mmol/L Chloride (98-107) mmol/L Carbon Dioxide (22-30) mmol/L Anion Gap mmol/L BUN (9-20) mg/dL Creatinine (0.66-1.25) mg/dL Est GFR (CKD-EPI)AfAm (>60 ml/min/1.73 sqM) Est GFR (CKD-EPI)NonAf (>60 ml/min/1.73 sqM) Glucose (74-99) mg/dL Plasma Lactic Acid Naeem 1.9 (0.7-2.0) mmol/L Calcium (8.4-10.2) mg/dL Total Bilirubin (0.2-1.3) mg/dL AST (17-59) U/L ALT (4-49) U/L Alkaline Phosphatase (38-126) U/L Creatine Kinase (55-170) U/L Total Protein (6.3-8.2) g/dL Albumin (3.5-5.0) g/dL Amylase (30-110) U/L Lipase (23-300) U/L Urine Color Urine Appearance (Clear) Urine pH (5.0-8.0) Ur Specific Beverly (1.001-1.035) Urine Protein (Negative) Urine Glucose (UA) (Negative) Urine Ketones (Negative) Urine Blood (Negative) Urine Nitrite (Negative) Urine Bilirubin (Negative) Urine Urobilinogen (<2.0) mg/dL Ur Leukocyte Esterase (Negative) Urine RBC (0-5) /hpf Urine WBC (0-5) /hpf Ur Squamous Epith Cells (0-4) /hpf Urine Mucus (None) /hpf - Radiology Data Radiology results: report reviewed (Imaging reviewed evidence of a half filled hernia periumbilical he no evidence of any bowel involvement), image reviewed Disposition Clinical Impression: Abdominal pain, Spastic colon, Gastroenteritis Disposition: HOME SELF-CARE Condition: Good Instructions (If sedation given, give patient instructions): Gastroenteritis (ED), Irritable Bowel Syndrome (ED) Prescriptions: Dicyclomine [Bentyl] 10 mg PO TID #12 capsule Is patient prescribed a controlled substance at d/c from ED?: No Referrals: Villa Moore MD [Primary Care Provider] - 1-2 days
[2021-05-03 09:30] LABS: Basophils # (A) 0.1 k/uL (0-0.2); Basophils % (A) 1 %; Eosinophils # (A) 0.3 k/uL (0-0.7); Eosinophils % (A) 3 %; HCT 50.2 % (39.0-53.0); HGB 16.5 gm/dL (13.0-17.5); Lymphocytes % (A) 22 %; MCH 30.4 pg (25.0-35.0); MCHC 32.9 g/dL (31.0-37.0); MCV 92.3 fL (80.0-100.0); Mean Platelet Volume 7.4; Monocytes # (A) 0.4 k/uL (0-1.0); Monocytes % (A) 4 %; Neutrophils # (A) 6.2 k/uL (1.3-7.7); Neutrophils % (A) 69 %; Platelet Count 212 k/uL (150-450); RBC 5.43 m/uL (4.30-5.90); RDW 14.7 % (11.5-15.5)
[2021-05-03 09:38] LABS: ALT 17 U/L (4-49); AST 26 U/L (17-59); African American GFR (CKD) >90 (>60 ml/min/1.73 sqM); Albumin 3.9 g/dL (3.5-5.0); Alkaline Phosphatase 78 U/L (38-126); Amylase 42 U/L (30-110); Anion Gap 11 mmol/L; Blood Urea Nitrogen 9 mg/dL (9-20); Calcium 9.1 mg/dL (8.4-10.2); Carbon Dioxide 23 mmol/L (22-30); Chloride 103 mmol/L (98-107); Creatine Kinase 57 U/L (55-170); Glucose 197 mg/dL (74-99); Lipase 141 U/L (23-300); Non-African American GFR(CKD) >90 (>60 ml/min/1.73 sqM); Potassium 3.5 mmol/L (3.5-5.1); Sodium 137 mmol/L (137-145); Total Bilirubin 1.4 mg/dL (0.2-1.3); Total Protein 7.1 g/dL (6.3-8.2)
[2021-05-03 09:40] LABS: INR 1.3 (<1.2); Partial Thromboplastin Time 29.1 sec (22.0-30.0); Prothrombin Time 12.9 sec (9.0-12.0)
[2021-05-03] MEDS ORDERED: HYDROmorphone 1 MG/ML 1 ML SYRINGE IVP STA (10:47)
--- NOTE | 2021-05-03 10:53 | CT ---
EXAMINATION TYPE: CT abdomen pelvis w con DATE OF EXAM: 05/03/2021 COMPARISON: 05/17/2020 INDICATION: Abdominal pain, near umbilicus DLP: 4749 mGycm, Automated exposure control for dose reduction was used. CONTRAST: 100 ml mL of Isovue 300. Study performed without Oral Contrast TECHNIQUE: Axial images were obtained from above the diaphragm to the pubic rami in the axial plane a t 5 mm thick sections. Reconstructed images are reviewed on the computer in the coronal plane. FINDINGS: Limited CT sections are obtained the lung bases. The lung bases are clear. CT ABDOMEN: Liver: Normal Spleen: Normal Pancreas: Mildly atrophic Adrenal glands: The adrenal glands are normal. Gallbladder: Normal Kidneys: No masses are evident. No hydronephrosis is present. No cysts are present. Delayed images were obtained through the kidneys, which remain unremarkable. Aorta: Vascular calcification is within the aorta. Inferior vena cava: Normal. CT PELVIS: Periumbilical fat-containing hernia. The opening is 1.5 cm. No underlying suspicious abnor mality is evident. Loops of bowel within the abdomen and pelvis are normal. No suspicious changes. This study is with out oral contrast. Appendix: Normal as visualized. Urinary bladder: Normal. Genitourinary structures: Prostate is unremarkable. Osseous structures: No suspicious lytic or sclerotic lesions. IMPRESSIONS: 1. Periumbilical fat-containing hernia. No underlying abnormality is evident. 2. CT abdomen and pelvis is otherwise unremarkable.
[2021-05-03 10:59] LABS: Appearance,Urine Clear (Clear); Bilirubin,Urine Negative (Negative); Blood,Urine Negative (Negative); Color,Urine Yellow; Glucose,Urine (UA) 1+ (Negative); Ketones,Urine Negative (Negative); Leukocyte Esterase,Urine Negative (Negative); Mucus,Urine Few /hpf; Nitrite,Urine Negative (Negative); PH, Urine 5.5 (5.0-8.0); Protein,Urine 1+ (Negative); RBC,Urine <1 /hpf (0-5); Squamous Epithelial Cell,Urine 1 /hpf (0-4); WBC,Urine 2 /hpf (0-5)
[2021-05-03 11:30] LABS: Specific Gravity,Urine 1.047 (1.001-1.035)
[2021-05-03 12:58] VITALS: BP 137/74; PULSE 74
== END 2021-05-03 13:03 | disposition home or self-care (01) ==
LOC: EC 07:55
DX: K58.9 Irritable bowel syndrome, unspecified (principal); E11.9 Type 2 diabetes mellitus without complications; E66.01 Morbid (severe) obesity due to excess calories; E78.5 Hyperlipidemia, unspecified; F17.200 Nicotine dependence, unspecified, uncomplicated; I10 Essential (primary) hypertension; J44.9 Chronic obstructive pulmonary disease, unspecified; K21.9 Gastro-esophageal reflux disease without esophagitis; M19.90 Unspecified osteoarthritis, unspecified site; Z79.51 Long term (current) use of inhaled steroids; Z79.84 Long term (current) use of oral hypoglycemic drugs; Z79.899 Other long term (current) drug therapy; Z88.6 Allergy status to analgesic agent; Z88.8 Allergy status to other drugs, medicaments and biological substances; Z68.44 Body mass index [BMI] 60.0-69.9, adult
CPT/HCPCS: 99284; 96374; 96375; 96376; 96361; 36415; 80053; 82150; 82550; 83605; 83690; 85025; 85610; 85730; 81001; 74177; J2405; J1170 ×2; Q9967